=== PATIENT | female | born 1975 | race Caucasian/White ===

== ENCOUNTER 2022-03-17 02:40 | Emergency (ER) | payer OTHER, SELFPAY ==
--- NOTE | ~2022-03-17 | CT_ITS ---
EXAMINATION: CT ABDOMEN AND PELVIS WITHOUT CONTRAST CLINICAL INFORMATION: Left-sided abdominal pain COMPARISON: None TECHNIQUE: Multidetector volumetric imaging was performed from the superior aspect of the liver through the pubic symphysis. Sagittal and coronal reformatted images were obtained on the technologist's workstation. This CT examination was performed using dose optimization techniques as appropriate, variously including the following: *Automated exposure control *Adjustment of mA and/or kV according to patient size (this includes techniques or standardized protocols for targeted exams where dose is matched to indication/reason for exam; i.e. extremities or head) *Use of iterative reconstruction technique DLP: 548 mGy-cm FINDINGS: LUNG BASES: The visualized lung bases are unremarkable. LIVER, GALLBLADDER, AND BILIARY TREE: The liver is normal in size, shape, and attenuation. No focal hepatic lesion or biliary ductal dilatation is present. The gallbladder is unremarkable with no evidence of radiopaque gallstones, gallbladder wall thickening, or obvious pericholecystic inflammatory changes. PANCREAS: Unremarkable. SPLEEN: Unremarkable. ADRENAL GLANDS: Unremarkable. KIDNEYS AND URETERS: No hydronephrosis or obstructing calculus bilaterally. A 3 mm right lower pole renal calculus is noted. BLADDER: Mildly distended and grossly unremarkable. GASTROINTESTINAL TRACT: No evidence of bowel obstruction. There is a thick-walled segment of colon in the left abdomen which appears centered at the splenic flecture with surrounding stranding, suspicious for colitis. Appendix appears nondilated. No free fluid or free air is seen. ABDOMINAL WALL: No significant hernia is appreciated. LYMPH NODES: Normal. VASCULAR: Mild atherosclerotic calcifications are noted. PELVIC VISCERA: Patient appears status post hysterectomy. OSSEOUS STRUCTURES: There is degenerative disc disease with disc space narrowing at L5-S1. Mild degenerative change also noted in the lower thoracic spine. CT/CT abdomen pelvis wo con IMPRESSION: 1. Colonic wall thickening at the splenic flecture, suspicious for colitis. No evidence of bowel obstruction. 2. Right lower pole renal calculus without hydronephrosis.
[2022-03-17 02:53] VITALS: BP 128/72; PULSE 97; RESP 20; TEMP 37; O2SAT 98; BMI 27.4
--- NOTE | 2022-03-17 03:55 | ED.GENADULT ---
HPI - General Adult General Chief complaint: General Medical Stated complaint: blood in stool/urine, n/v Time Seen by Provider: 03/17/22 03:43 Source: patient and family (Patient's ) Mode of arrival: ambulatory Limitations: no limitations History of Present Illness HPI narrative: 46-year-old female who presents emergency department for evaluation of nausea, vomiting, diarrhea and abdominal pain. The patient states she got sick at around 17:00 hours. She states that she has vomited 30-40 times. She states that she has also had 6-7 diarrheal stools which did have blood in the stool. She states that she has had similar episodes nausea vomiting diarrhea and pain in the past has been diagnosed with diverticular and treated with antibiotics. She also states that she has the diagnosis of colitis in over the past 2 days she was having 1-2 bloody stools per day. She currently is complaining of intermittent abdominal pain. She points to her left upper quadrant when asked to localize the pain. She describes the pain as is if she is being stabbed by knives. The pain is 10/10. MD complaint: Abdominal pain, nausea, vomiting, diarrhea Onset (ago): hour(s) (Started at 1700 (7 hours)) Location: abdomen (Left upper quadrant) Radiation: non-radiation Severity: severe Severity scale (1-10): 10 Quality: stabbing Pain Consistency: intermittent (Comes in waves) Relieving factors: none Exacerbating factors: none Associated symptoms: nausea/vomiting and other (Diarrhea) Related Data Previous Rx's Medication Instructions Recorded amoxicillin 500 mg tablet 1,000 mg PO Q12H 10 Days #40 tab 03/17/22 metronidazole 500 mg tablet 500 mg PO TID 10 Days #30 tab 03/17/22 ondansetron 4 mg disintegrating 4 mg PO Q6-8H PRN #14 tab 03/17/22 tablet Allergies Allergy/AdvReac Type Severity Reaction Status Date / Time No Known Allergies Allergy Verified 03/17/22 03:27 Review of Systems Review of Systems: Yes all other systems are reviewed and are negative [facility] Past Medical History [facility] Narrative: Past medical history: Hypertension, diverticulitis, colitis (nonspecific), back pain, sciatica. Past surgical history: Hysterectomy 2010. Social history: She denies tobacco use. She occasionally drinks alcohol. She smokes marijuana daily. Social History Social History Alcohol intake: unknown Use of substances other than those prescribed or required for medical reasons: Unknown Advance Directives: No Advance Directives Information Provided: No Physical Exam ED Vital Signs: Vital Signs - 24 hr 03/17/22 02:53 03/17/22 04:00 Temperature 98.6 F 99.0 F Pulse Rate 97 82 Respiratory Rate 20 16 Blood Pressure 128/72 151/79 H Pulse Oximetry 98 99 BMI result Body Mass Index 27.4 Const Other: Awake, alert, female patient, she does appear to be in distress secondary to her abdominal pain, she is able to answer questions appropriately HENFL Head: Yes normal to inspection, Yes normocephalic and Yes atraumatic Ears: external ears normal General nose exam: Normal external nose present Face and sinus: Yes normal facial exam Mouth: Normal oral and palatal mucosa present Throat: Yes posterior oropharynx normal Eyes General: appearance normal, both eyes and all related structures Pupils: Equal, round and reactive pupils present Neck Neck: Yes normal visual inspection, Yes no lymphadenopathy, Yes trachea midline and Yes supple Chest Chest palpation & inspection: normal inspection of the chest and normal palpation of entire chest wall Resp Effort & Inspection: normal respiratory effort and able to speak in complete sentences Auscultation: clear to auscultation bilaterally Cardio Rate: regular rate Rhythm: regular rhythm Heart sounds: S1 normal heart sound present, S2 normal heart sound present and no murmurs GI Inspection: Yes normal to inspection Palpation (GI): Soft to palpation, Tenderness to palpation present (GI) in the LLQ (Moderate) and no guarding Auscultation: normal bowel sounds General: Yes no CVA tenderness Back/Spine/Pelvis Back: no CVA tenderness Skin General skin exam: no rashes or lesions noted Neuro Cranial nerves: Yes CN's II-XII intact bilaterally and Yes Equal, round and reactive pupils present Cognition (Neuro): normal cognition Motor exam (neuro): 5/5 motor strength present throughout Extrem General: Yes normal to inspection Psych Appearance: grossly normal Speech and movement: Normal speech and movement present Affect: normal affect Attitude: cooperative Thought process: Normal thought process present Thought content: Normal thought content present Course Course Course Narrative: 46-year-old female who presents emergency department for evaluation of abdominal pain, nausea, vomiting and diarrhea since 17 under hours. She states she has vomited 30-40 times, she has had 6-8 episodes of diarrhea, she has left upper quadrant pain which is greater than 10/10. She has had similar presentations in the past secondary to diverticulitis. Vital signs were normal physical examination did reveal left upper quadrant tenderness. I did order laboratory evaluation and CT of the abdomen pelvis without contrast. She patient will be treated with morphine 4 mg IV and Zofran 4 mg IV. I also ordered normal saline IV x2 L. 0538: Laboratory evaluation: WBC elevated 15,900. Bilirubin elevated 2.2. CO2 low 19. Urinalysis negative. Urine test negative Radiology evaluation: CT scan abdomen pelvis without IV contrast interpreted by radiologist as clonic wall thickening at the splenic flexure suspicious for colitis, no evidence of bowel obstruction. Right lower pole renal calculus without hydronephrosis. The patient is feeling significantly better after the above treatment. She states that her pain is now 5/10. She was given a 2nd dose of morphine 4 mg IV. The patient will be treated for colitis with amoxicillin 1000 mg twice a day for 10 days, she was given a dose orally here in the emergency department and metronidazole 500 mg 3 times a day for 10 days, she was given a dose in the emergency department. She was also prescribed Zofran ODT. was given printed and verbal instructions and discharged home Medical Decision Making Lab Data Result diagrams: 03/17/22 04:06 03/17/22 04:06 Labs: Lab Results 03/17/22 03/17/22 03/17/22 Range/Units 04:06 04:06 04:06 WBC 15.9 H (4.8-10.8) X10*3/uL RBC 4.55 (4.20-5.50) X10*6/uL Hgb 13.6 (12.0-16.0) g/dl Hct 39.6 (37.0-47.0) % MCV 87.0 (80.0-98.0) fL MCH 29.9 (27.0-33.0) pg MCHC 34.3 (31.0-35.0) g/dl RDW 12.1 (11.0-16.0) % Plt Count 291 (160-400) X10*3/uL MPV 9.6 (9.4-12.3) fL Immature Gran % (Auto) 0.3 (0.0-0.4) % Neut % (Auto) 90.3 H (45-73) % Lymph % (Auto) 5.5 L (20-40) % [place] % (Auto) 3.8 (2-11) % Eos % (Auto) 0.0 (0-4) % Baso % (Auto) 0.1 (0-2) % Lymph # (Auto) 0.9 L (1.2-4.9) X10*3/uL [place] # (Auto) 0.6 (0.1-1.2) X10*3/uL Eos # (Auto) 0.0 (0.0-0.4) X10*3/uL Baso # (Auto) 0.0 (0.0-0.2) X10*3/uL Abs Immat Gran (auto) 0.05 H (0.00-0.03) X10*3/uL Absolute Neuts (auto) 14.4 H (2.0-8.3) x10*3/uL Absolute Nucleated RBC 0.000 (0.0-0.012) X10*3/uL Nucleated RBC % (auto) 0.0 (0.0-0.2) /100WBC Smear Tech's Comments VERIFIED Sodium 134 L (135-145) mmol/L Potassium 3.5 (3.3-5.1) mmol/L Chloride 99 (96-108) mmol/L Carbon Dioxide 19 L (22-29) mmol/L Anion Gap 20 (12-20) BUN 13 (9-16) mg/dL Creatinine 0.78 (0.5-1.4) mg/dL Estim Creat Clear Calc 86.1 Estimated GFR > 60 Random Glucose 167 H (60-115) mg/dL Calcium 9.9 (8.4-10.2) mg/dL Total Bilirubin 2.2 H (0.0-1.0) mg/dL AST 21 (5-31) U/L ALT 44 H (0-31) U/L Alkaline Phosphatase 82 (39-117) U/L Total Protein 7.4 (6.5-8.0) g/dL Albumin 4.4 (3.5-5.0) g/dL Lipase 7 L (8-78) U/L Urine Color YELLOW Urine Appearance CLEAR Urine pH 7.5 (5.0-8.0) Ur Specific [place] 1.025 (1.005-1.025) Urine Protein 1+ H (NEG-TRACE) MG/DL Urine Glucose (UA) NEG (NEG) MG/DL Urine Ketones >=80 (NEG) MG/DL Urine Blood NEG (NEG) Urine Nitrite NEG (NEG) Ur Leukocyte Esterase NEG (NEG) Urine RBC 1-4 (0) /HPF Urine WBC 1-4 (0-4) /HPF Ur Squamous Epith Cells 1+ /LPF Urine Bacteria 1+ /LPF Urine Test (NEGATIVE) 03/17/22 Range/Units 04:06 WBC (4.8-10.8) X10*3/uL RBC (4.20-5.50) X10*6/uL Hgb (12.0-16.0) g/dl Hct (37.0-47.0) % MCV (80.0-98.0) fL MCH (27.0-33.0) pg MCHC (31.0-35.0) g/dl RDW (11.0-16.0) % Plt Count (160-400) X10*3/uL MPV (9.4-12.3) fL Immature Gran % (Auto) (0.0-0.4) % Neut % (Auto) (45-73) % Lymph % (Auto) (20-40) % [place] % (Auto) (2-11) % Eos % (Auto) (0-4) % Baso % (Auto) (0-2) % Lymph # (Auto) (1.2-4.9) X10*3/uL [place] # (Auto) (0.1-1.2) X10*3/uL Eos # (Auto) (0.0-0.4) X10*3/uL Baso # (Auto) (0.0-0.2) X10*3/uL Abs Immat Gran (auto) (0.00-0.03) X10*3/uL Absolute Neuts (auto) (2.0-8.3) x10*3/uL Absolute Nucleated RBC (0.0-0.012) X10*3/uL Nucleated RBC % (auto) (0.0-0.2) /100WBC Smear Tech's Comments Sodium (135-145) mmol/L Potassium (3.3-5.1) mmol/L Chloride (96-108) mmol/L Carbon Dioxide (22-29) mmol/L Anion Gap (12-20) BUN (9-16) mg/dL Creatinine (0.5-1.4) mg/dL Estim Creat Clear Calc Estimated GFR Random Glucose (60-115) mg/dL Calcium (8.4-10.2) mg/dL Total Bilirubin (0.0-1.0) mg/dL AST (5-31) U/L ALT (0-31) U/L Alkaline Phosphatase (39-117) U/L Total Protein (6.5-8.0) g/dL Albumin (3.5-5.0) g/dL Lipase (8-78) U/L Urine Color Urine Appearance Urine pH (5.0-8.0) Ur Specific [place] (1.005-1.025) Urine Protein (NEG-TRACE) MG/DL Urine Glucose (UA) (NEG) MG/DL Urine Ketones (NEG) MG/DL Urine Blood (NEG) Urine Nitrite (NEG) Ur Leukocyte Esterase (NEG) Urine RBC (0) /HPF Urine WBC (0-4) /HPF Ur Squamous Epith Cells /LPF Urine Bacteria /LPF Urine Test NEGATIVE (NEGATIVE) Discharge Plan Discharge Clinical Impression: Colitis Vomiting Qualifiers: Vomiting type: unspecified Nausea presence: with nausea Qualified Code(s): R11.2 - Nausea with vomiting, unspecified Diarrhea Qualifiers: Diarrhea type: unspecified type Qualified Code(s): R19.7 - Diarrhea, unspecified Patient Disposition: Home, Self-Care Instructions: Colitis (ED) Additional Instructions: Your laboratory evaluation did reveal an elevated white blood cell count otherwise was unremarkable. Your urinalysis was unremarkable. The CT scan of your abdomen did reveal colitis of the colon at the right splenic flexure (the right upper side of your belly). The CT scan also revealed a 3 mm kidney stone which is not the cause of your pain at this time. Take Zofran ODT 4 mg pills, 1 pill dissolved in your mouth every 8 hours as needed for nausea and vomiting. Take amoxicillin 1000 mg, 1 pill every 12 hours for 10 days. Take Flagyl (metronidazole) 500 mg, 1 pill every 6 hours (3 times a day) for 10 days. Follow-up with your doctor in 2 days. Please return to the emergency department if your symptoms get worse or if you develop any symptoms that are concerning to you. Prescriptions: New amoxicillin 500 mg tablet 1,000 mg PO Q12H 10 Days Qty: 40 0RF ondansetron 4 mg tablet,disintegrating 4 mg PO Q6-8H PRN (Reason: nausea and vomiting) Qty: 14 0RF metronidazole 500 mg tablet 500 mg PO TID 10 Days Qty: 30 0RF
[2022-03-17 04:00] VITALS: BP 151/79; PULSE 82; RESP 16; TEMP 37.2; O2SAT 99
[2022-03-17 04:11] LABS: Basophils Percent Auto 0.1 % (0-2); Hematocrit 39.6 % (37.0-47.0); Hemoglobin 13.6 g/dl (12.0-16.0); Imm Gran Abs Auto 0.05 X10*3/uL (0.00-0.03); Imm Gran Pct Auto 0.3 % (0.0-0.4); Lymphocytes Absolute Auto 0.9 X10*3/uL (1.2-4.9); Lymphocytes Percent Auto 5.5 % (20-40); Mean Corpuscular HGB Conc 34.3 g/dl (31.0-35.0); Mean Corpuscular Hemoglobin 29.9 pg (27.0-33.0); Mean Platelet Volume 9.6 fL (9.4-12.3); Monocytes Absolute Auto 0.6 X10*3/uL (0.1-1.2); Monocytes Percent Auto 3.8 % (2-11); Neutrophils Absolute Auto 14.4 x10*3/uL (2.0-8.3); Neutrophils Percent Auto 90.3 % (45-73); Platelet Count 291 X10*3/uL (160-400); Red Blood Count 4.55 X10*6/uL (4.20-5.50); Red Cell Distribution Width 12.1 % (11.0-16.0); SCAN SMEAR FLAG 1; White Blood Count 15.9 X10*3/uL (4.8-10.8)
[2022-03-17 04:12] LABS: MANUAL DIFF FLAG SCAN
[2022-03-17 04:13] LABS: SLIDE REVIEW VERIFIED
[2022-03-17] MEDS: Morphine Sulfate 4 MG/ML CARTRIDGE IVPUSH ×2 (04:13→06:00)
[2022-03-17] MEDS: ondansetron HCL 4 MG/2 ML VIAL IVPUSH (04:13)
[2022-03-17] MEDS: 0.9 % Sodium Chloride 1,000 ML 999 ML IV ×2 (04:15→04:17)
[2022-03-17 04:16] LABS: Appearance Urine CLEAR; Color Urine YELLOW; Glucose Urine UA NEG (NEG); Leukocyte Esterase Urine NEG (NEG); Nitrite Urine NEG (NEG); PH 7.5 (5.0-8.0); Specific Gravity - Urine 1.025 (1.005-1.025); UACC Culture Trigger NO; Urine Blood NEG (NEG); Urine Ketones >=80 MG/DL (NEG); Urine Protein 1+ MG/DL (NEG-TRACE)
[2022-03-17 04:17] LABS: UPreg QC Valid YES; Urine Pregnancy NEGATIVE (NEGATIVE)
[2022-03-17 04:21] LABS: Bacteria Urine 1+ /LPF; Squamous Epithelial Cell Urine 1+ /LPF
[2022-03-17 04:35] LABS: Alanine Aminotransferase 44 U/L (0-31); Albumin Level 4.4 g/dL (3.5-5.0); Alkaline Phosphatase 82 U/L (39-117); Anion Gap 20 (12-20); Aspartate Amino Transferase 21 U/L (5-31); Bilirubin Total 2.2 mg/dL (0.0-1.0); Blood Urea Nitrogen 13 mg/dL (9-16); Calcium 9.9 mg/dL (8.4-10.2); Carbon Dioxide 19 mmol/L (22-29); Chloride 99 mmol/L (96-108); Creatinine Clr Calc Pharmacy 86.1; Estimated Glomerular Filt Rate > 60; Glucose Random 167 mg/dL (60-115); Lipase 7 U/L (8-78); Potassium 3.5 mmol/L (3.3-5.1); Sodium 134 mmol/L (135-145); Total Protein 7.4 g/dL (6.5-8.0)
--- NOTE | 2022-03-17 04:40 | PC.NURSE ---
I assumed nursing care of Esha upon her arrival to be d7 from the waiting room. She presents for evaluation of severe abdominal pain, nausea, vomiting, diarrhea since approximately 1800 on 03/16. She is alert, oriented 3, calm and cooperative and makes eye contact with staff. Respirations are non-labored, RR WNL, room air sat's WNL. She is writhing in her stretcher due to the abdominal pain. =nausea here in the ED but no active vomiting (she vomited prior to arrival). Skin is pale/warm/dry. Family at the bedside. IV access/labs obtained. Ordered meds administered. We will continue to monitor Esha.
[2022-03-17 05:54] VITALS: BP 112/61; PULSE 74; RESP 16; TEMP 37.2; O2SAT 96
[2022-03-17] MEDS: Amoxicillin 500 MG CAPSULE 1000 MG PO (05:59)
[2022-03-17] MEDS: metroNIDAZOLE 500 MG TABLET PO (05:59)
== END 2022-03-17 06:18 | disposition home or self-care (01) ==
PROVIDERS: Emergency Provider Emergency Medicine Emergency Medical Services
DX: K52.9 Noninfective gastroenteritis and colitis, unspecified (principal); R11.2 Nausea with vomiting, unspecified; I10 Essential (primary) hypertension
CPT/HCPCS: 36415; 74176; 80053; 81001; 81025; 83690; 85025; 96361; 96374; 96375; 96376; 99284; J2270; J2405

== ENCOUNTER 2022-04-22 09:04 | Outpatient (REF) | payer OTHER, SELFPAY ==
[2022-04-22 12:16] LABS: C Reactive Protein 0.11 mg/dL (< or = 0.50)
[2022-04-22 12:29] LABS: Thyroid Stimulating Hormone 1.12 uIU/mL (0.32-4.0)
[2022-04-22 12:36] LABS: Erythrocyte Sedimentation Rate 6 MM/HR (0-20)
== END 2022-04-22 09:05 | disposition home or self-care (01) ==
LOC: HO.WFDLDS 09:04
PROVIDERS: Visit Provider Physician Assistant
DX: R10.9 Unspecified abdominal pain (principal); K59.09 Other constipation; R19.7 Diarrhea, unspecified
CPT/HCPCS: 36415; 84443; 85652; 86140

== ENCOUNTER 2023-01-31 12:10 | Inpatient (IN) | payer OTHER, SELFPAY ==
--- NOTE | ~2023-01-31 | CT_ITS ---
EXAMINATION: CT ABDOMEN AND PELVIS WITH AND WITHOUT CONTRAST: CT GI BLEEDING STUDY CLINICAL INFORMATION: Reason for Exam diffuse abd ttp. N/V, rectal bleeding. COMPARISON: CT abdomen pelvis 03/17/2022. TECHNIQUE: Multidetector volumetric imaging was performed from the lung bases to the pubic symphysis before and after the administration of: Intravenous contrast: 80 mL Omnipaque 350 In addition, an additional set of images were obtained 2 minutes after the infusion of IV contrast. No contrast reaction reported MIP coronal, sagittal and coronal reformatted images were obtained on the technologist workstation. This CT examination was performed using dose optimization techniques as appropriate, variously including the following: *Automated exposure control *Adjustment of mA and/or kV according to patient size (this includes techniques or standardized protocols for targeted exams where dose is matched to indication/reason for exam; i.e. extremities or head) *Use of iterative reconstruction technique Total exam dose-length product 1210 mGy-cm FINDINGS: STOMACH: No abnormal wall thickening or mass. No intraluminal contrast accumulation to suggest hemorrhage. SMALL BOWEL: No abnormal wall thickening or dilation. No intraluminal contrast accumulation to suggest hemorrhage. COLON: Edematous changes are seen in the distal transverse colon and descending colon with some hyperemia and minimal inflammatory changes suggesting colitis. Similar findings were present on the 03/17/2022 study. No intraluminal contrast accumulation to suggest hemorrhage. No diverticula are seen. Normal appendix. LUNG BASES: No nodules, mass, or focal consolidation. PLEURA: No pleural effusion. LIVER, GALLBLADDER, AND BILIARY TREE: The liver is normal in size, shape, and attenuation. No focal hepatic lesion or biliary ductal dilatation is present. The gallbladder is unremarkable with no evidence of radiopaque gallstones, gallbladder wall thickening, or obvious pericholecystic inflammatory changes. PANCREAS: Normal; no mass or surrounding fluid. SPLEEN: Normal size. No focal lesion. ADRENAL GLANDS: Normal; no mass. KIDNEYS AND URETERS: The kidneys are normal in size, shape, and attenuation. No hydronephrosis, hydroureter, or calculi. Previously seen right lower pole renal calculus may be obscured by the contrast in the collecting system. ABDOMINAL WALL: No hernia seen. LYMPHOVASCULAR STRUCTURES: No lymphadenopathy. The aorta is normal in caliber. BLADDER: No focal mass or wall thickening seen. No bladder calculi. PELVIC VISCERA: Unremarkable. OSSEOUS STRUCTURES: No acute or suspicious osseous abnormality. Degenerative changes are present most marked in the lower thoracic spine and at L5-S1. CT/CT gi bleed abd pel wo/w IVcon IMPRESSION: 1. No evidence of active GI bleeding. 2. Colitis involving the distal transverse colon and descending colon similar to the findings seen on the 03/17/2022 study. 3. Other incidental findings as described above.
--- NOTE | ~2023-01-31 | US_ITS ---
EXAMINATION: US ABDOMEN LIMITED CLINICAL INFORMATION: Abdominal pain, elevated bilirubin. COMPARISON: None available. TECHNIQUE: Real-time imaging of the right upper quadrant abdominal viscera. FINDINGS: PANCREAS: Normal. LIVER: Normal. The liver is normal in size. The liver contour is normal. Parenchymal echogenicity is normal. No focal hepatic lesion. There is no intrahepatic biliary duct dilatation seen. GALLBLADDER: Normal. The gallbladder is physiologically distended without evidence of stones, sludge, polyps, wall thickening or pericholecystic fluid. COMMON BILE DUCT: Normal in caliber measuring 0.3 cm in diameter. RIGHT KIDNEY: Normal. No hydronephrosis. There is a 5 mm nonobstructing calculus in the midpole. The kidney measures 11.1 cm in maximum dimension. FREE FLUID: None. US/US abdomen limited IMPRESSION: There is a 5 mm nonobstructing calculus in the midpole of the right kidney. Otherwise normal right upper quadrant ultrasound.
--- NOTE | 2023-01-31 12:25 | ED.NAVMDI ---
HPI - Nausea/Vomiting/Diarrhea General Chief complaint: Abdominal Pain <ALEK Monzon Last Filed: 01/31/23 12:32> Stated complaint: vomitting <ALEK Monzon Last Filed: 01/31/23 12:32> Time Seen by Provider: 01/31/23 17:08 <ALEK Monzon Last Filed: 01/31/23 12:32> Source: patient <ALEK Hsieh Last Filed: 01/31/23 19:19> Mode of arrival: ambulatory <ALEK Hsieh Last Filed: 01/31/23 19:19> Limitations: no limitations <ALEK Hsieh Last Filed: 01/31/23 19:19> History of Present Illness HPI Narrative: This is a 47-year-old female history of hypertension, GI bleeds presenting to the emergency department with lower abdominal pain, nausea, vomiting, mu red blood per rectum since 04:00 today. Patient tells me she took Zofran for nausea vomiting without any affect. She tells me she is vomiting everything she tries to eat or drink. She reports large amount of dark red blood per rectum, tells me she has had multiple GI bleeds in the past which have required hospitalization. She tells me that her abdominal pain is localized to the lower abdomen however worse to the left lower quadrant. Last colonoscopy in 2019 unremarkable. Has not seen a GI since then. Denies chest pain, shortness of breath, fevers, chills, headache, vision changes, dizziness weakness. <ALEK Hsieh Last Filed: 01/31/23 19:19> Related Data Home medications: Home Medications Medication Instructions Recorded Confirmed amlodipine 10 mg tablet 10 mg PO DAILY 04/22/22 01/31/23 atorvastatin 20 mg tablet 20 mg PO DAILY 04/22/22 01/31/23 hydrochlorothiazide 25 mg tablet 25 mg PO DAILY 04/22/22 01/31/23 oxycodone 15 mg tablet 15 mg PO Q6H PRN Pain 04/22/22 01/31/23 diazepam 10 mg tablet 10 mg PO Q12H PRN muscle spasm 01/31/23 01/31/23 polyethylene glycol 3350 17 gram 17 g PO DAILY PRN Constipation 01/31/23 01/31/23 oral powder packet (Miralax) <ALEK Monzon - Last Filed: 01/31/23 12:32> Allergies/Adverse reactions: Allergies Allergy/AdvReac Type Severity Reaction Status Date / Time NSAIDS (Non-Steroidal Allergy Severe Hives Verified 04/22/22 08:01 Anti-Inflamma atenolol Allergy Unknown Hives Verified 04/22/22 07:58 ciprofloxacin Allergy Unknown Hives Verified 04/22/22 07:58 ibuprofen Allergy Unknown Hives Verified 04/22/22 07:58 <ALEK Monzon - Last Filed: 01/31/23 12:32> Review of Systems Review of Systems: Constitutional : No Weight loss, No Fever, No Chills, No Fatigue, No Malaise ENT/Mouth : No sore throat, No Rhinorrhea Eyes: No Eye Pain, No Swelling, No Redness Cardiovascular : No Chest Pain, No SOB, No Dyspnea on Exertion, No Orthopnea, No Edema, No Palpitations Respiratory : No Cough, No Sputum, No Wheezing Gastrointestinal : + Nausea, + Vomiting, No Diarrhea, No Constipation, + abdominal Pain, + Hematochezia, No Melena Genitourinary : No Dysuria, No Urinary Frequency, No Hematuria, Musculoskeletal : No joint pain, No Myalgias, No Joint Swelling Skin : No Skin Lesions, No rash Neuro : No Weakness, No Numbness, No Dizziness, No Headache Psych : No Anxiety/Panic, No Depression All other systems reviewed and are negative <ALEK Hsieh - Last Filed: 01/31/23 19:19> Yes all other systems are reviewed and are negative <ALEK Hsieh - Last Filed: 01/31/23 19:19> [facility] Past Medical History Attestation statement: The following information was validated with the patient. <ALEK Hsieh - Last Filed: 01/31/23 19:19> Source: old records reviewed and nursing notes reviewed <ALEK Hsieh - Last Filed: 01/31/23 19:19> Surgical History: Surgical History Hx of hysterectomy Hx of spinal surgery <ALEK Monzon - Last Filed: 01/31/23 12:32> Family History Family History: Family History Mother Diabetes Father Heart disease <ALEK Monzon - Last Filed: 01/31/23 12:32> Social History Social History: Social History Household Members: Significant Other Household Members Other:: Alcohol intake: never Patient Tobacco Use Status: Never used Tobacco Smoked in Last 30 Days: No Use of substances other than those prescribed or required for medical reasons: Yes Substance Use Type: Marijuana Advance Directives: No Advance Directives Information Provided: No <ALEK Monzon - Last Filed: 01/31/23 12:32> Physical Exam Vital Signs: Vital Signs: Last Vital Signs Temp 97.7 F 01/31/23 17:05 Pulse 88 01/31/23 17:05 Resp 16 01/31/23 17:05 BP 136/86 01/31/23 17:05 Pulse Ox 99 01/31/23 17:05 O2 Del Method Room Air 01/31/23 17:05 BMI result Body Mass Index 28.1 <ALEK Monzon - Last Filed: 01/31/23 12:32> Vital Signs: Last Vital Signs Temp 97.7 F 01/31/23 17:05 Pulse 88 01/31/23 17:05 Resp 16 01/31/23 17:05 BP 136/86 01/31/23 17:05 Pulse Ox 99 01/31/23 17:05 O2 Del Method Room Air 01/31/23 17:05 BMI result Body Mass Index 28.1 Vital signs stable <ALEK Hsieh - Last Filed: 01/31/23 19:19> Appearance: Alert.? Oriented X3.? No acute distress.? Head: Normocephalic, atraumatic, no step-offs or deformities Eyes: Pupils equal, round and reactive to light.?? CVS: Normal heart rate and rhythm.? Pulses normal.? Respiratory: No respiratory distress.? Breath sounds normal.? Abdomen: Soft and diffusely tender to lower abdomen however worse on the left lower quadrant..? Skin: Skin warm and dry.? Normal skin color.? Normal skin turgor.? Extremities: No lower extremity edema.? No calf ttp. 5/5 strength to bilateral upper and lower extremities Rectal exam: Normal external exam, no internal or external hemorrhoids appreciated. There is mu red blood per rectum on my REYNA. Neuro: Oriented X 3.? No motor deficit.? No sensory deficit. CN 2-12 intact <ALEK Hsieh - Last Filed: 01/31/23 19:19> Course Course Course Narrative: RME--47 year old female with a past history colitis presented to the ED complaining is abdominal pain, nausea, vomiting, & rectal bleeding since 04:00 Abdomen soft diffusely tender, no rebound/guarding Labs, UA, occult stool, CT AP ordered <ALEK Monzon - Last Filed: 01/31/23 12:32> Reevaluation(s) Reevaluation #1: CBC with elevated white blood cell count likely reactive from nausea and vomiting, however will obtain blood cultures and a lactic at this time. Chemistry with no acute electrolyte abnormalities requiring intervention. Patient's total bilirubin is noted to be elevated at 2.7 however has been elevated in the past at 2.2. Direct bilirubin 0.6. Will obtain a dedicated study to the right upper quadrant. Normal lipase. OBS positive. Concerning for lower GI bleed. Will do serial CBCs while in the emergency department to ensure patient's H&H is not dropping. Patient will likely be admitted to the hospital. CT scan pending. <ALEK Hsieh - Last Filed: 01/31/23 19:19> Time: 18:00 <ALEK Hsieh - Last Filed: 01/31/23 19:19> Reevaluation #2: CT scan with no evidence of active GI bleed. Colitis involving the distal transverse colon and descending colon is noted, similar to findings from last year. Will give Flagyl & Zosyn, will admit to GI team <ALEK Hsieh - Last Filed: 01/31/23 19:19> Time: 18:43 <ALEK Hsieh Last Filed: 01/31/23 19:19> Reevaluation #3: Patient will be admitted to the hospital . US pending <ALEK Hsieh - Last Filed: 01/31/23 19:19> Time: 19:19 <ALEK Hsieh - Last Filed: 01/31/23 19:19> Medications Administered Discontinued Medications Generic Name Dose Route Start Last Admin Trade Name Freq PRN Reason Stop Dose Admin Diphenhydramine HCl 25 mg 01/31/23 18:36 01/31/23 18:49 Diphenhydramine Hcl 50 Mg/Ml Vial IVPUSH 01/31/23 18:37 25 mg ONCE ONE Administration Sodium Chloride 1,000 mls @ 999 mls/hr 01/31/23 18:00 01/31/23 18:31 Ns IV 01/31/23 19:00 999 mls/hr .Q1H1M LAURA Administration Piperacillin Sod/Tazobactam 50 mls @ 100 mls/hr 01/31/23 18:44 01/31/23 19:14 Sod 3.375 gm/ Sodium Chloride IV 01/31/23 19:13 100 mls/hr ONCE ONE Administration Iohexol 100 ml 01/31/23 17:50 01/31/23 17:51 Iohexol 350 Mg/Ml 100 Ml Infus..Btl IV 01/31/23 17:51 80 ml ONCE ONE Administration Metoclopramide HCl 10 mg 01/31/23 18:36 01/31/23 18:50 Metoclopramide Hcl 10 Mg/2 Ml Vial IVPUSH 01/31/23 18:37 10 mg ONCE ONE Administration Morphine Sulfate 4 mg 01/31/23 17:58 01/31/23 18:31 Morphine Sulfate 4 Mg/Ml Cartridge IVPUSH 01/31/23 17:59 4 mg ONCE ONE Administration Protocol Ondansetron HCl 4 mg 01/31/23 17:58 01/31/23 18:59 Ondansetron Hcl 4 Mg/2 Ml Vial IVPUSH 01/31/23 17:59 Not Given ONCE ONE <ALEK Monzon - Last Filed: 01/31/23 12:32> Medications Administered Discontinued Medications Generic Name Dose Route Start Last Admin Trade Name Freq PRN Reason Stop Dose Admin Diphenhydramine HCl 25 mg 01/31/23 18:36 01/31/23 18:49 Diphenhydramine Hcl 50 Mg/Ml Vial IVPUSH 01/31/23 18:37 25 mg ONCE ONE Administration Sodium Chloride 1,000 mls @ 999 mls/hr 01/31/23 18:00 01/31/23 18:31 Ns IV 01/31/23 19:00 999 mls/hr .Q1H1M LAURA Administration Piperacillin Sod/Tazobactam 50 mls @ 100 mls/hr 01/31/23 18:44 01/31/23 19:14 Sod 3.375 gm/ Sodium Chloride IV 01/31/23 19:13 100 mls/hr ONCE ONE Administration Iohexol 100 ml 01/31/23 17:50 01/31/23 17:51 Iohexol 350 Mg/Ml 100 Ml Infus..Btl IV 01/31/23 17:51 80 ml ONCE ONE Administration Metoclopramide HCl 10 mg 01/31/23 18:36 01/31/23 18:50 Metoclopramide Hcl 10 Mg/2 Ml Vial IVPUSH 01/31/23 18:37 10 mg ONCE ONE Administration Morphine Sulfate 4 mg 01/31/23 17:58 01/31/23 18:31 Morphine Sulfate 4 Mg/Ml Cartridge IVPUSH 01/31/23 17:59 4 mg ONCE ONE Administration Protocol Ondansetron HCl 4 mg 01/31/23 17:58 01/31/23 18:59 Ondansetron Hcl 4 Mg/2 Ml Vial IVPUSH 01/31/23 17:59 Not Given ONCE ONE <ALEK Hsieh - Last Filed: 01/31/23 19:19> Medical Decision Making Medical Decision Making [facility] Narrative: 171 47-year-old female presents for evaluation nausea, vomiting pain and rectal bleeding since 04:00 today. History of GI bleeds. Physical exam significant for lower abdominal tenderness to palpation worse on the left lower quadrant. Rectal exam with mu per rectum. Concerns for lower GI bleed, diverticulitis, colitis. No signs of acute abdomen. Other differentials include internal hemorrhoids. Patient is hemodynamically stable no signs of hemodynamic instability. Other differentials include viral illness Plan at this time OBS, basic labs, type and screen, CT of the abdomen and pelvis, Zofran for nausea vomiting. Will give morphine for pain. <ALEK Hsieh - Last Filed: 01/31/23 19:19> Differential Diagnosis Differential Diagnoses: The differential diagnosis associated with the presentation includes <ALEK Hsieh - Last Filed: 01/31/23 19:19> Concerns for lower GI bleed, diverticulitis, colitis. No signs of acute abdomen. Other differentials include internal hemorrhoids. Patient is hemodynamically stable no signs of hemodynamic instability. Other differentials include viral illness <ALEK Hsieh - Last Filed: 01/31/23 19:19> Admission/Observation Consideration of admission/observation: Escalation of care including admission/observation considered <ALEK Hsieh - Last Filed: 01/31/23 19:19> Will likely require hospital admission <ALEK Hsieh - Last Filed: 01/31/23 19:19> Lab Data MDM Lab Attestation statement: I reviewed the patient's lab results. <ALEK Hsieh - Last Filed: 01/31/23 19:19> Result Diagrams: 01/31/23 12:35 01/31/23 12:35 <ALEK Monzon - Last Filed: 01/31/23 12:32> Labs: Lab Results 01/31/23 01/31/23 01/31/23 Range/Units 12:35 12:35 12:35 WBC 16.3 H (4.8-10.8) X10*3/uL RBC 4.93 (4.20-5.50) X10*6/uL Hgb 14.9 (12.0-16.0) g/dl Hct 42.9 (37.0-47.0) % MCV 87.0 (80.0-98.0) fL MCH 30.2 (27.0-33.0) pg MCHC 34.7 (31.0-35.0) g/dl RDW 12.2 (11.0-16.0) % Plt Count 320 (160-400) X10*3/uL MPV 9.5 (9.4-12.3) fL Immature Gran % (Auto) 0.4 (0.0-0.4) % Neut % (Auto) 93.9 H (45-73) % Lymph % (Auto) 3.7 L (20-40) % [place] % (Auto) 1.8 L (2-11) % Eos % (Auto) 0.0 (0-4) % Baso % (Auto) 0.2 (0-2) % Lymph # (Auto) 0.6 L (1.2-4.9) X10*3/uL [place] # (Auto) 0.3 (0.1-1.2) X10*3/uL Eos # (Auto) 0.0 (0.0-0.4) X10*3/uL Baso # (Auto) 0.0 (0.0-0.2) X10*3/uL Abs Immat Gran (auto) 0.07 H (0.00-0.03) X10*3/uL Absolute Neuts (auto) 15.3 H (2.0-8.3) x10*3/uL Absolute Nucleated RBC 0.000 (0.0-0.012) X10*3/uL Nucleated RBC % (auto) 0.0 (0.0-0.2) /100WBC Smear Tech's Comments VERIFIED PT 10.3 (10.0-13.1) SEC INR 0.9 (0.9-1.1) Sodium 139 (135-145) mmol/L Potassium 4.6 D (3.3-5.1) mmol/L Chloride 105 (96-108) mmol/L Carbon Dioxide 22 (22-29) mmol/L Anion Gap 17 (12-20) BUN 12 (9-16) mg/dL Creatinine 0.70 (0.5-1.4) mg/dL Estim Creat Clear Calc 96.0 Estimated GFR > 60 Random Glucose 129 H (60-115) mg/dL Lactic Acid (0.5-2.0) mmol/L Calcium 9.7 (8.4-10.2) mg/dL Magnesium 2.2 (1.6-2.6) mg/dL Total Bilirubin 2.7 H (0.0-1.0) mg/dL Direct Bilirubin 0.6 H (0.0-0.5) mg/dL AST 26 (5-31) U/L ALT 34 H (0-31) U/L Alkaline Phosphatase 104 (39-117) U/L C-Reactive Protein 0.22 (< or = 0.50) mg/dL Total Protein 7.4 (6.5-8.0) g/dL Albumin 4.2 (3.5-5.0) g/dL Lipase 12 (8-78) U/L Urine Color Urine Appearance Urine pH (5.0-9.0) Ur Specific [place] (1.005-1.025) Urine Protein (Neg-Trace) mg/dL Urine Glucose (UA) (Negative) mg/dL Urine Ketones (Negative) mg/dL Urine Blood (Negative) Urine Nitrite (Negative) Ur Leukocyte Esterase (Negative) Stool Occult Blood (NEGATIVE) Blood Type Antibody Screen 01/31/23 01/31/23 01/31/23 Range/Units 17:33 17:33 18:28 WBC (4.8-10.8) X10*3/uL RBC (4.20-5.50) X10*6/uL Hgb (12.0-16.0) g/dl Hct (37.0-47.0) % MCV (80.0-98.0) fL MCH (27.0-33.0) pg MCHC (31.0-35.0) g/dl RDW (11.0-16.0) % Plt Count (160-400) X10*3/uL MPV (9.4-12.3) fL Immature Gran % (Auto) (0.0-0.4) % Neut % (Auto) (45-73) % Lymph % (Auto) (20-40) % [place] % (Auto) (2-11) % Eos % (Auto) (0-4) % Baso % (Auto) (0-2) % Lymph # (Auto) (1.2-4.9) X10*3/uL [place] # (Auto) (0.1-1.2) X10*3/uL Eos # (Auto) (0.0-0.4) X10*3/uL Baso # (Auto) (0.0-0.2) X10*3/uL Abs Immat Gran (auto) (0.00-0.03) X10*3/uL Absolute Neuts (auto) (2.0-8.3) x10*3/uL Absolute Nucleated RBC (0.0-0.012) X10*3/uL Nucleated RBC % (auto) (0.0-0.2) /100WBC Smear Tech's Comments PT (10.0-13.1) SEC INR (0.9-1.1) Sodium (135-145) mmol/L Potassium (3.3-5.1) mmol/L Chloride (96-108) mmol/L Carbon Dioxide (22-29) mmol/L Anion Gap (12-20) BUN (9-16) mg/dL Creatinine (0.5-1.4) mg/dL Estim Creat Clear Calc Estimated GFR Random Glucose (60-115) mg/dL Lactic Acid 1.0 (0.5-2.0) mmol/L Calcium (8.4-10.2) mg/dL Magnesium (1.6-2.6) mg/dL Total Bilirubin (0.0-1.0) mg/dL Direct Bilirubin (0.0-0.5) mg/dL AST (5-31) U/L ALT (0-31) U/L Alkaline Phosphatase (39-117) U/L C-Reactive Protein (< or = 0.50) mg/dL Total Protein (6.5-8.0) g/dL Albumin (3.5-5.0) g/dL Lipase (8-78) U/L Urine Color Urine Appearance Urine pH (5.0-9.0) Ur Specific [place] (1.005-1.025) Urine Protein (Neg-Trace) mg/dL Urine Glucose (UA) (Negative) mg/dL Urine Ketones (Negative) mg/dL Urine Blood (Negative) Urine Nitrite (Negative) Ur Leukocyte Esterase (Negative) Stool Occult Blood POSITIVE (NEGATIVE) Blood Type A Positive Antibody Screen NEGATIVE 01/31/23 01/31/23 Range/Units 18:29 18:42 WBC 13.3 H (4.8-10.8) X10*3/uL RBC 4.54 (4.20-5.50) X10*6/uL Hgb 13.6 (12.0-16.0) g/dl Hct 39.4 (37.0-47.0) % MCV 86.8 (80.0-98.0) fL MCH 30.0 (27.0-33.0) pg MCHC 34.5 (31.0-35.0) g/dl RDW 12.2 (11.0-16.0) % Plt Count 300 (160-400) X10*3/uL MPV 9.6 (9.4-12.3) fL Immature Gran % (Auto) 0.3 (0.0-0.4) % Neut % (Auto) 78.0 H (45-73) % Lymph % (Auto) 12.9 L (20-40) % [place] % (Auto) 8.3 (2-11) % Eos % (Auto) 0.3 (0-4) % Baso % (Auto) 0.2 (0-2) % Lymph # (Auto) 1.7 (1.2-4.9) X10*3/uL [place] # (Auto) 1.1 (0.1-1.2) X10*3/uL Eos # (Auto) 0.0 (0.0-0.4) X10*3/uL Baso # (Auto) 0.0 (0.0-0.2) X10*3/uL Abs Immat Gran (auto) 0.04 H (0.00-0.03) X10*3/uL Absolute Neuts (auto) 10.4 H (2.0-8.3) x10*3/uL Absolute Nucleated RBC 0.000 (0.0-0.012) X10*3/uL Nucleated RBC % (auto) 0.0 (0.0-0.2) /100WBC Smear Tech's Comments PT (10.0-13.1) SEC INR (0.9-1.1) Sodium (135-145) mmol/L Potassium (3.3-5.1) mmol/L Chloride (96-108) mmol/L Carbon Dioxide (22-29) mmol/L Anion Gap (12-20) BUN (9-16) mg/dL Creatinine (0.5-1.4) mg/dL Estim Creat Clear Calc Estimated GFR Random Glucose (60-115) mg/dL Lactic Acid (0.5-2.0) mmol/L Calcium (8.4-10.2) mg/dL Magnesium (1.6-2.6) mg/dL Total Bilirubin (0.0-1.0) mg/dL Direct Bilirubin (0.0-0.5) mg/dL AST (5-31) U/L ALT (0-31) U/L Alkaline Phosphatase (39-117) U/L C-Reactive Protein (< or = 0.50) mg/dL Total Protein (6.5-8.0) g/dL Albumin (3.5-5.0) g/dL Lipase (8-78) U/L Urine Color Yellow Urine Appearance Clear Urine pH 6.5 (5.0-9.0) Ur Specific [place] >= 1.030 H (1.005-1.025) Urine Protein Trace (Neg-Trace) mg/dL Urine Glucose (UA) Negative (Negative) mg/dL Urine Ketones 15 (Negative) mg/dL Urine Blood Negative (Negative) Urine Nitrite Negative (Negative) Ur Leukocyte Esterase Negative (Negative) Stool Occult Blood (NEGATIVE) Blood Type Antibody Screen <ALEK Monzon - Last Filed: 01/31/23 12:32> Lab Results 01/31/23 01/31/23 01/31/23 Range/Units 12:35 12:35 12:35 WBC 16.3 H (4.8-10.8) X10*3/uL RBC 4.93 (4.20-5.50) X10*6/uL Hgb 14.9 (12.0-16.0) g/dl Hct 42.9 (37.0-47.0) % MCV 87.0 (80.0-98.0) fL MCH 30.2 (27.0-33.0) pg MCHC 34.7 (31.0-35.0) g/dl RDW 12.2 (11.0-16.0) % Plt Count 320 (160-400) X10*3/uL MPV 9.5 (9.4-12.3) fL Immature Gran % (Auto) 0.4 (0.0-0.4) % Neut % (Auto) 93.9 H (45-73) % Lymph % (Auto) 3.7 L (20-40) % [place] % (Auto) 1.8 L (2-11) % Eos % (Auto) 0.0 (0-4) % Baso % (Auto) 0.2 (0-2) % Lymph # (Auto) 0.6 L (1.2-4.9) X10*3/uL [place] # (Auto) 0.3 (0.1-1.2) X10*3/uL Eos # (Auto) 0.0 (0.0-0.4) X10*3/uL Baso # (Auto) 0.0 (0.0-0.2) X10*3/uL Abs Immat Gran (auto) 0.07 H (0.00-0.03) X10*3/uL Absolute Neuts (auto) 15.3 H (2.0-8.3) x10*3/uL Absolute Nucleated RBC 0.000 (0.0-0.012) X10*3/uL Nucleated RBC % (auto) 0.0 (0.0-0.2) /100WBC Smear Tech's Comments VERIFIED PT 10.3 (10.0-13.1) SEC INR 0.9 (0.9-1.1) Sodium 139 (135-145) mmol/L Potassium 4.6 D (3.3-5.1) mmol/L Chloride 105 (96-108) mmol/L Carbon Dioxide 22 (22-29) mmol/L Anion Gap 17 (12-20) BUN 12 (9-16) mg/dL Creatinine 0.70 (0.5-1.4) mg/dL Estim Creat Clear Calc 96.0 Estimated GFR > 60 Random Glucose 129 H (60-115) mg/dL Lactic Acid (0.5-2.0) mmol/L Calcium 9.7 (8.4-10.2) mg/dL Magnesium 2.2 (1.6-2.6) mg/dL Total Bilirubin 2.7 H (0.0-1.0) mg/dL Direct Bilirubin 0.6 H (0.0-0.5) mg/dL AST 26 (5-31) U/L ALT 34 H (0-31) U/L Alkaline Phosphatase 104 (39-117) U/L C-Reactive Protein 0.22 (< or = 0.50) mg/dL Total Protein 7.4 (6.5-8.0) g/dL Albumin 4.2 (3.5-5.0) g/dL Lipase 12 (8-78) U/L Urine Color Urine Appearance Urine pH (5.0-9.0) Ur Specific [place] (1.005-1.025) Urine Protein (Neg-Trace) mg/dL Urine Glucose (UA) (Negative) mg/dL Urine Ketones (Negative) mg/dL Urine Blood (Negative) Urine Nitrite (Negative) Ur Leukocyte Esterase (Negative) Stool Occult Blood (NEGATIVE) Blood Type Antibody Screen 01/31/23 01/31/23 01/31/23 Range/Units 17:33 17:33 18:28 WBC (4.8-10.8) X10*3/uL RBC (4.20-5.50) X10*6/uL Hgb (12.0-16.0) g/dl Hct (37.0-47.0) % MCV (80.0-98.0) fL MCH (27.0-33.0) pg MCHC (31.0-35.0) g/dl RDW (11.0-16.0) % Plt Count (160-400) X10*3/uL MPV (9.4-12.3) fL Immature Gran % (Auto) (0.0-0.4) % Neut % (Auto) (45-73) % Lymph % (Auto) (20-40) % [place] % (Auto) (2-11) % Eos % (Auto) (0-4) % Baso % (Auto) (0-2) % Lymph # (Auto) (1.2-4.9) X10*3/uL [place] # (Auto) (0.1-1.2) X10*3/uL Eos # (Auto) (0.0-0.4) X10*3/uL Baso # (Auto) (0.0-0.2) X10*3/uL Abs Immat Gran (auto) (0.00-0.03) X10*3/uL Absolute Neuts (auto) (2.0-8.3) x10*3/uL Absolute Nucleated RBC (0.0-0.012) X10*3/uL Nucleated RBC % (auto) (0.0-0.2) /100WBC Smear Tech's Comments PT (10.0-13.1) SEC INR (0.9-1.1) Sodium (135-145) mmol/L Potassium (3.3-5.1) mmol/L Chloride (96-108) mmol/L Carbon Dioxide (22-29) mmol/L Anion Gap (12-20) BUN (9-16) mg/dL Creatinine (0.5-1.4) mg/dL Estim Creat Clear Calc Estimated GFR Random Glucose (60-115) mg/dL Lactic Acid 1.0 (0.5-2.0) mmol/L Calcium (8.4-10.2) mg/dL Magnesium (1.6-2.6) mg/dL Total Bilirubin (0.0-1.0) mg/dL Direct Bilirubin (0.0-0.5) mg/dL AST (5-31) U/L ALT (0-31) U/L Alkaline Phosphatase (39-117) U/L C-Reactive Protein (< or = 0.50) mg/dL Total Protein (6.5-8.0) g/dL Albumin (3.5-5.0) g/dL Lipase (8-78) U/L Urine Color Urine Appearance Urine pH (5.0-9.0) Ur Specific [place] (1.005-1.025) Urine Protein (Neg-Trace) mg/dL Urine Glucose (UA) (Negative) mg/dL Urine Ketones (Negative) mg/dL Urine Blood (Negative) Urine Nitrite (Negative) Ur Leukocyte Esterase (Negative) Stool Occult Blood POSITIVE (NEGATIVE) Blood Type A Positive Antibody Screen NEGATIVE 01/31/23 01/31/23 Range/Units 18:29 18:42 WBC 13.3 H (4.8-10.8) X10*3/uL RBC 4.54 (4.20-5.50) X10*6/uL Hgb 13.6 (12.0-16.0) g/dl Hct 39.4 (37.0-47.0) % MCV 86.8 (80.0-98.0) fL MCH 30.0 (27.0-33.0) pg MCHC 34.5 (31.0-35.0) g/dl RDW 12.2 (11.0-16.0) % Plt Count 300 (160-400) X10*3/uL MPV 9.6 (9.4-12.3) fL Immature Gran % (Auto) 0.3 (0.0-0.4) % Neut % (Auto) 78.0 H (45-73) % Lymph % (Auto) 12.9 L (20-40) % [place] % (Auto) 8.3 (2-11) % Eos % (Auto) 0.3 (0-4) % Baso % (Auto) 0.2 (0-2) % Lymph # (Auto) 1.7 (1.2-4.9) X10*3/uL [place] # (Auto) 1.1 (0.1-1.2) X10*3/uL Eos # (Auto) 0.0 (0.0-0.4) X10*3/uL Baso # (Auto) 0.0 (0.0-0.2) X10*3/uL Abs Immat Gran (auto) 0.04 H (0.00-0.03) X10*3/uL Absolute Neuts (auto) 10.4 H (2.0-8.3) x10*3/uL Absolute Nucleated RBC 0.000 (0.0-0.012) X10*3/uL Nucleated RBC % (auto) 0.0 (0.0-0.2) /100WBC Smear Tech's Comments PT (10.0-13.1) SEC INR (0.9-1.1) Sodium (135-145) mmol/L Potassium (3.3-5.1) mmol/L Chloride (96-108) mmol/L Carbon Dioxide (22-29) mmol/L Anion Gap (12-20) BUN (9-16) mg/dL Creatinine (0.5-1.4) mg/dL Estim Creat Clear Calc Estimated GFR Random Glucose (60-115) mg/dL Lactic Acid (0.5-2.0) mmol/L Calcium (8.4-10.2) mg/dL Magnesium (1.6-2.6) mg/dL Total Bilirubin (0.0-1.0) mg/dL Direct Bilirubin (0.0-0.5) mg/dL AST (5-31) U/L ALT (0-31) U/L Alkaline Phosphatase (39-117) U/L C-Reactive Protein (< or = 0.50) mg/dL Total Protein (6.5-8.0) g/dL Albumin (3.5-5.0) g/dL Lipase (8-78) U/L Urine Color Yellow Urine Appearance Clear Urine pH 6.5 (5.0-9.0) Ur Specific [place] >= 1.030 H (1.005-1.025) Urine Protein Trace (Neg-Trace) mg/dL Urine Glucose (UA) Negative (Negative) mg/dL Urine Ketones 15 (Negative) mg/dL Urine Blood Negative (Negative) Urine Nitrite Negative (Negative) Ur Leukocyte Esterase Negative (Negative) Stool Occult Blood (NEGATIVE) Blood Type Antibody Screen <ALEK Hsieh - Last Filed: 01/31/23 19:19> Independent Interpretation I performed an independent interpretation of an: CT Scan (CT/CT gi bleed abd pel wo/w IVcon IMPRESSION: 1. No evidence of active GI bleeding. 2. Colitis involving the distal transverse colon and descending colon similar to the findings seen on the 03/17/2022 study. 3. Other incidental findings as described above. ) <ALEK Hsieh - Last Filed: 01/31/23 19:19> Radiology Impression Discussion of test interpretation with radiology: I have reviewed the radiologist's reading. <ALEK Hsieh - Last Filed: 01/31/23 19:19> External Record Review External record reviewed: Inpatient record, Office record, Outpatient record, Prior outpatient labs, Prior outpatient radiology, Primary care record and Outside ED record <ALEK Hsieh - Last Filed: 01/31/23 19:19> Core Measures AMI core measures followed: Yes <ALEK Hsieh - Last Filed: 01/31/23 19:19> Measure exclusions: not indicated <ALEK Hsieh - Last Filed: 01/31/23 19:19> Critical Care Time Critical Care Time Critical Care Time: No <ALEK Hsieh Last Filed: 01/31/23 19:19> Discharge Plan Discharge Clinical Impression: Abdominal pain, Acute lower GI bleeding, Nausea & vomiting, Hyperbilirubinemia, Colitis <ALEK Monzon - Last Filed: 01/31/23 12:32> Patient Disposition: Admitted As Inpatient <ALEK Monzon - Last Filed: 01/31/23 12:32>
[2023-01-31 12:28] VITALS: BP 141/89; PULSE 98; RESP 18; TEMP 37.2; O2SAT 99; BMI 28.1
[2023-01-31 12:45] LABS: Basophils Percent Auto 0.2 % (0-2); Hematocrit 42.9 % (37.0-47.0); Hemoglobin 14.9 g/dl (12.0-16.0); Imm Gran Abs Auto 0.07 X10*3/uL (0.00-0.03); Imm Gran Pct Auto 0.4 % (0.0-0.4); Lymphocytes Absolute Auto 0.6 X10*3/uL (1.2-4.9); Lymphocytes Percent Auto 3.7 % (20-40); MANUAL DIFF FLAG SCAN; Mean Corpuscular HGB Conc 34.7 g/dl (31.0-35.0); Mean Corpuscular Hemoglobin 30.2 pg (27.0-33.0); Mean Platelet Volume 9.5 fL (9.4-12.3); Monocytes Absolute Auto 0.3 X10*3/uL (0.1-1.2); Monocytes Percent Auto 1.8 % (2-11); Neutrophils Absolute Auto 15.3 x10*3/uL (2.0-8.3); Neutrophils Percent Auto 93.9 % (45-73); Platelet Count 320 X10*3/uL (160-400); Red Blood Count 4.93 X10*6/uL (4.20-5.50); Red Cell Distribution Width 12.2 % (11.0-16.0); SCAN SMEAR FLAG 1; White Blood Count 16.3 X10*3/uL (4.8-10.8)
[2023-01-31 12:51] LABS: INTERNATIONAL NORM RATIO 0.9 (0.9-1.1); Prothrombin Time 10.3 SEC (10.0-13.1)
[2023-01-31 13:02] LABS: SLIDE REVIEW VERIFIED
[2023-01-31 13:57] LABS: Alanine Aminotransferase 34 U/L (0-31); Albumin Level 4.2 g/dL (3.5-5.0); Alkaline Phosphatase 104 U/L (39-117); Anion Gap 17 (12-20); Aspartate Amino Transferase 26 U/L (5-31); Bilirubin Direct 0.6 mg/dL (0.0-0.5); Bilirubin Total 2.7 mg/dL (0.0-1.0); Blood Urea Nitrogen 12 mg/dL (9-16); Calcium 9.7 mg/dL (8.4-10.2); Carbon Dioxide 22 mmol/L (22-29); Chloride 105 mmol/L (96-108); Estimated Glomerular Filt Rate > 60; Glucose Random 129 mg/dL (60-115); Lipase 12 U/L (8-78); Magnesium 2.2 mg/dL (1.6-2.6); Potassium 4.6 mmol/L (3.3-5.1); Sodium 139 mmol/L (135-145); Total Protein 7.4 g/dL (6.5-8.0)
[2023-01-31 17:05] VITALS: BP 136/86; PULSE 88; RESP 16; TEMP 36.5; O2SAT 99
[2023-01-31] MEDS: iohexoL 350 MG/ML 100 ML INFUS..BTL IV (17:51)
[2023-01-31 17:52] LABS: OBS Int Ctl Valid YES; OBS1 POSITIVE (NEGATIVE)
--- NOTE | 2023-01-31 18:11 | PHA.MEDREC ---
Pharmacy Consult ? Medication Reconciliation Pharmacy has completed the medication reconciliation. Spoke to patient to confirm meds.
[2023-01-31] MEDS: Morphine Sulfate 4 MG/ML CARTRIDGE IVPUSH ×2 (18:31→23:53)
[2023-01-31] MEDS: 0.9 % Sodium Chloride 1,000 ML 999 ML IV (18:31)
[2023-01-31 18:42] LABS: Appearance Urine Clear; Color Urine Yellow; Glucose Urine UA Negative (Negative); Leukocyte Esterase Urine Negative (Negative); Nitrite Urine Negative (Negative); PH 6.5 (5.0-9.0); Specific Gravity - Urine >= 1.030 (1.005-1.025); Urine Blood Negative (Negative); Urine Ketones 15 mg/dL (Negative); Urine Protein Trace mg/dL (Neg-Trace)
[2023-01-31] MEDS: diphenhydrAMINE HCL 50 MG/ML VIAL 25 MG IVPUSH (18:49)
[2023-01-31] MEDS: Metoclopramide HCl 10 MG/2 ML VIAL IVPUSH (18:50)
[2023-01-31 18:53] LABS: MANUAL DIFF FLAG NO
[2023-01-31 18:53] LABS: C Reactive Protein 0.22 mg/dL (< or = 0.50)
[2023-01-31 18:55] LABS: Basophils Percent Auto 0.2 % (0-2); Eosinophils Percent Auto 0.3 % (0-4); Hematocrit 39.4 % (37.0-47.0); Hemoglobin 13.6 g/dl (12.0-16.0); Imm Gran Abs Auto 0.04 X10*3/uL (0.00-0.03); Imm Gran Pct Auto 0.3 % (0.0-0.4); Lymphocytes Absolute Auto 1.7 X10*3/uL (1.2-4.9); Lymphocytes Percent Auto 12.9 % (20-40); Mean Corpuscular HGB Conc 34.5 g/dl (31.0-35.0); Mean Corpuscular Volume 86.8 fL (80.0-98.0); Mean Platelet Volume 9.6 fL (9.4-12.3); Monocytes Absolute Auto 1.1 X10*3/uL (0.1-1.2); Monocytes Percent Auto 8.3 % (2-11); Neutrophils Absolute Auto 10.4 x10*3/uL (2.0-8.3); Platelet Count 300 X10*3/uL (160-400); Red Blood Count 4.54 X10*6/uL (4.20-5.50); Red Cell Distribution Width 12.2 % (11.0-16.0); White Blood Count 13.3 X10*3/uL (4.8-10.8)
--- NOTE | 2023-01-31 19:03 | PC.NURSE ---
Patient got ultrasound at bedside. did not receive zofran as she took her home dose while in waiting room. Provider made aware and patient medicated with reglan and benadryl. Patient calm and cooperative.
[2023-01-31] MEDS: Piperacillin Sodium/Tazobactam 3.375 GM in 0.9 % Sodium Chloride 50 ML IV (19:14)
[2023-01-31 19:35] LABS: Erythrocyte Sedimentation Rate 7 MM/HR (0-20)
[2023-01-31 20:00] VITALS: BP 106/64; PULSE 73; RESP 16; TEMP 36.7; O2SAT 96
[2023-01-31] MEDS: metroNIDAZOLE/NS 500 MG/100 ML PIGGYBACK 100 MG IV (20:07)
--- NOTE | 2023-01-31 20:30 | PM.IMHP ---
History of Present Illness Date of Service: 01/31/23 Attending physician on admission: Mari Goyal Chief Complaint: Abdominal pain Pt is a 47-year-old female with a PMH significant for?HTN, HLD, prior GI bleeds, colitis, diverticulitis, sciatica on chronic opioids, and meningitis in 2007 who presents to the ED with?intractable nausea and vomiting and diarrhea with mu red blood per rectum. Pt states symptoms began last night when she was out to eat and suddenly began feeling nauseous and incapable of eating another bite. Went to bed and was awoken at 04:00 nausea, vomiting, and bloody diarrhea. Had diffuse abdominal pain that was particularly prominent in upper right quadrant. Pt also experienced chills, diaphoresis, lightheadedness, and dizziness. No chest pain/pressure, palpitations. No shortness of breath. Patient has long history of gastrointestinal issues and states she has been to various emergency rooms for similar symptoms at least 15 times since 2009 and been admitted at least 4 times. Has been diagnosed with both diverticulitis and colitis. States he has seen GI specialist in the past but has yet to be formally diagnosed with ulcerative colitis. In the ED patient was afebrile and satting at 99% on RA. Labs were significant for leukocytosis of 16.3 with repeat 13.3, H&H stable at 14 0.9/42.9 with repeat of 13.6/39.4, ESR WNL at 7, lactic acid WNL at 1.0, elevated total bilirubin of 2.7, lipase WNL. Stool positive for occult blood. CT?of abdomen and pelvis found no evidence of active GI bleeding but did note colitis involving the distal transverse colon and descending colon, similar to findings seen on previous study. Abdominal ultrasound from normal pancreas, liver, gallbladder, common bile duct, no hydronephrosis but a 5 mm nonobstructing calculus in the midpole of right kidney. Pt was treated with morphine, IVF, diphenhydramine, metoclopramide, ondansetron, Zosyn, and metronidazole. Pt will be admitted to the hospital for treatment and further evaluation of acute colitis with IVF and IV antibiotics. Review of Systems Review of Systems: Intractable nausea and vomiting Bloody diarrhea Abdominal pain Lightheadedness, dizziness Chills, diaphoresis Denies chest pain/pressure, palpitations No shortness of breath Yes all other systems are reviewed and are negative [facility] Family History Mother Diabetes Father Heart disease Surgical History Hx of hysterectomy Hx of spinal surgery Social History Household Members: Significant Other Household Members Other:: Alcohol intake: never Patient Tobacco Use Status: Never used Tobacco Substance Use Type: Marijuana Meds Allergies Allergy/AdvReac Type Severity Reaction Status Date / Time NSAIDS (Non-Steroidal Allergy Severe Hives Verified 04/22/22 08:01 Anti-Inflamma atenolol Allergy Unknown Hives Verified 04/22/22 07:58 ciprofloxacin Allergy Unknown Hives Verified 04/22/22 07:58 ibuprofen Allergy Unknown Hives Verified 04/22/22 07:58 Active Medications: Current Medications Pharmacy Consult (Consult Rx Perform Med Rec) 1 each MISCELLANE ONCE PRN PRN Reason: Consult order Home Medications Medication Instructions Recorded Confirmed Last Taken Type amlodipine 10 mg tablet 10 mg PO DAILY 04/22/22 01/31/23 01/30/23 History atorvastatin 20 mg tablet 20 mg PO DAILY 04/22/22 01/31/23 01/30/23 History hydrochlorothiazide 25 mg tablet 25 mg PO DAILY 04/22/22 01/31/23 01/30/23 History oxycodone 15 mg tablet 15 mg PO Q6H PRN Pain 04/22/22 01/31/23 01/30/23 History diazepam 10 mg tablet 10 mg PO Q12H PRN muscle spasm 01/31/23 01/31/23 01/30/23 History polyethylene glycol 3350 17 gram 17 g PO DAILY PRN Constipation 01/31/23 01/31/23 Unknown History oral powder packet (Miralax) Physical Exam Vital Signs and Narrative: Vital Signs: Last Vital Signs Temp 98.0 F 01/31/23 20:00 Pulse 73 01/31/23 20:00 Resp 16 01/31/23 20:00 BP 106/64 01/31/23 20:00 Pulse Ox 96 01/31/23 20:00 O2 Del Method Room Air 01/31/23 20:00 BMI result Body Mass Index 28.1 Constitutional: Alert, in no acute distress. Mental Status: Oriented to person, place and time. Eyes: Pupils are equal, round, and reactive to light. Ear, Nose, and Throat: Oropharynx clear, mucous membranes moist. Ears and nose without deformities. Trachea midline. Respiratory: Clear to auscultation bilaterally. No wheezing, rales, or rhonchi. Cardiovascular: S1, S2 regular. No murmurs, rubs, or gallops. Gastrointestinal: Abdomen soft, non-distended, with diffuse abdominal tenderness, particularly in the epigastric region and left side. Hyperactive bowel sounds. Neurologic: Cranial nerves II-XII are grossly intact bilaterally. No focal neurological deficits. Moves all extremities spontaneously. Skin: No rashes or lesions noted. Musculoskeletal: No cyanosis or clubbing. Extremities: No edema. Psychiatric: Normal mood and affect. Results Labs 01/31/23 18:42 01/31/23 12:35 Labs: Laboratory Results - last 24 hr 01/31/23 01/31/23 01/31/23 12:35 12:35 12:35 MCV 87.0 MCH 30.2 MCHC 34.7 RDW 12.2 Plt Count 320 MPV 9.5 Immature Gran % (Auto) 0.4 Neut % (Auto) 93.9 H Lymph % (Auto) 3.7 L [place] % (Auto) 1.8 L Eos % (Auto) 0.0 Baso % (Auto) 0.2 Lymph # (Auto) 0.6 L [place] # (Auto) 0.3 Eos # (Auto) 0.0 Baso # (Auto) 0.0 Abs Immat Gran (auto) 0.07 H Absolute Neuts (auto) 15.3 H Absolute Nucleated RBC 0.000 Nucleated RBC % (auto) 0.0 Smear Tech's Comments VERIFIED ESR PT 10.3 INR 0.9 Anion Gap 17 Estim Creat Clear Calc 96.0 Estimated GFR > 60 Random Glucose 129 H Lactic Acid Calcium 9.7 Magnesium 2.2 Total Bilirubin 2.7 H Direct Bilirubin 0.6 H AST 26 ALT 34 H Alkaline Phosphatase 104 C-Reactive Protein 0.22 Total Protein 7.4 Albumin 4.2 Lipase 12 Urine Color Urine Appearance Urine pH Ur Specific [place] Urine Protein Urine Glucose (UA) Urine Ketones Urine Blood Urine Nitrite Ur Leukocyte Esterase Stool Occult Blood Blood Type Antibody Screen 01/31/23 01/31/23 01/31/23 17:33 17:33 18:28 MCV MCH MCHC RDW Plt Count MPV Immature Gran % (Auto) Neut % (Auto) Lymph % (Auto) [place] % (Auto) Eos % (Auto) Baso % (Auto) Lymph # (Auto) [place] # (Auto) Eos # (Auto) Baso # (Auto) Abs Immat Gran (auto) Absolute Neuts (auto) Absolute Nucleated RBC Nucleated RBC % (auto) Smear Tech's Comments ESR PT INR Anion Gap Estim Creat Clear Calc Estimated GFR Random Glucose Lactic Acid 1.0 Calcium Magnesium Total Bilirubin Direct Bilirubin AST ALT Alkaline Phosphatase C-Reactive Protein Total Protein Albumin Lipase Urine Color Urine Appearance Urine pH Ur Specific [place] Urine Protein Urine Glucose (UA) Urine Ketones Urine Blood Urine Nitrite Ur Leukocyte Esterase Stool Occult Blood POSITIVE Blood Type A Positive Antibody Screen NEGATIVE 01/31/23 01/31/23 01/31/23 18:29 18:42 18:42 MCV 86.8 MCH 30.0 MCHC 34.5 RDW 12.2 Plt Count 300 MPV 9.6 Immature Gran % (Auto) 0.3 Neut % (Auto) 78.0 H Lymph % (Auto) 12.9 L [place] % (Auto) 8.3 Eos % (Auto) 0.3 Baso % (Auto) 0.2 Lymph # (Auto) 1.7 [place] # (Auto) 1.1 Eos # (Auto) 0.0 Baso # (Auto) 0.0 Abs Immat Gran (auto) 0.04 H Absolute Neuts (auto) 10.4 H Absolute Nucleated RBC 0.000 Nucleated RBC % (auto) 0.0 Smear Tech's Comments ESR 7 PT INR Anion Gap Estim Creat Clear Calc Estimated GFR Random Glucose Lactic Acid Calcium Magnesium Total Bilirubin Direct Bilirubin AST ALT Alkaline Phosphatase C-Reactive Protein Total Protein Albumin Lipase Urine Color Yellow Urine Appearance Clear Urine pH 6.5 Ur Specific [place] >= 1.030 H Urine Protein Trace Urine Glucose (UA) Negative Urine Ketones 15 Urine Blood Negative Urine Nitrite Negative Ur Leukocyte Esterase Negative Stool Occult Blood Blood Type Antibody Screen Imaging Radiologist's Impressions: Impressions Abdomen/Pelvis CT 01/31/23 18:03 IMPRESSION: 1. No evidence of active GI bleeding. 2. Colitis involving the distal transverse colon and descending colon similar to the findings seen on the 03/17/2022 study. 3. Other incidental findings as described above. Abdomen Ultrasound 01/31/23 18:51 IMPRESSION: There is a 5 mm nonobstructing calculus in the midpole of the right kidney. Otherwise normal right upper quadrant ultrasound. Assessment and Plan (1) Acute lower GI bleeding: Status: Acute (2) Colitis: Status: Acute Plan Pt is a 47-year-old female with a PMH significant for?HTN, HLD, prior GI bleeds, colitis, diverticulitis, sciatica on chronic opioids, and meningitis in 2007 who presents to the ED with?intractable nausea and vomiting and diarrhea with mu red blood per rectum. Pt will be admitted to the hospital for treatment and further evaluation of acute colitis with IVF and IV antibiotics. Acute colitis Infectious versus inflammatory Patient afebrile, leukocytosis of 13.3 Patient does not meet sepsis criteria Patient given Zosyn and metronidazole in the ED IV antibiotics: Ceftriaxone and metronidazole for empiric coverage Dexamethasone 10 mg now, then 6 mg q.8 IVF Metoclopramide for nausea Morphine for pain management NPO by mouth for now, consider advancing to clear liquid diet tomorrow a.m. GI consult Check GI panel, C diff Acute GI bleed Patient with multiple episodes of bloody diarrhea with last episode just prior to admission to the ED Patient's initial H&H 14.9/42.9 with repeat of 13.8/39.4 CT with no evidence of acute intra-abdominal GI bleeding Pneumatic boots for DVT prophylaxis Follow CBC HTN Stable Continue home meds HLD Continue home meds Full Code Attending:?Dr. Goyal DVT Prophylaxis: Pneumatic boots Pt will be admitted to the hospital for treatment and further evaluation of acute colitis with IVF and IV antibiotics. Time Spent With Patient Time: Total time managing care of this patient today ____ minutes. Quality Stroke Does the patient have a stroke diagnosis?: No VTE Prior VTE?: No VTE Risk Level:: Medical - moderate - high VTE Device Contraindication: N/A - Device Ordered VTE Drug Contraindication: Treatment Not Indicated
[2023-01-31] MEDS: Lactated Ringers 1,000 ML 100 ML IVCONT (21:52)
[2023-01-31] MEDS: dexAMETHasone sod phosphate 10 MG/ML VIAL IVPUSH (22:08)
--- NOTE | 2023-01-31 22:52 | PC.NURSE ---
Patient medicated per JAN. Patient reports abdominal pain is at tolerable level, 4/10 at present, nausea resolved. Patient is aware of NPO status, plan for GI consult, advance to clear liquids in am. Patient is able to make her needs known, she ambulates to the restroom independently with a steady gait. VSS. Patient is watching TV at present, call santos within patient's reach.
[2023-01-31] MEDS: cefTRIAXone sodium 1 GM in 0.9 % Sodium Chloride 50 ML IV (23:52)
[2023-01-31 23:53] VITALS: RESP 18
[2023-01-31 23:57] VITALS: BP 116/69; PULSE 75; RESP 14; TEMP 36.8; O2SAT 94
[2023-02-01] VITALS (10 sets, daily range): BP systolic 107–141; BP diastolic 62–82; PULSE 65–97; RESP 13–19; TEMP 36.4–37.4; O2SAT 95–98; BMI 31.0
[2023-02-01 00:17] LABS: COVID-19 Test Negative (Negative); IDNOW Serial# 6674DD1D
--- NOTE | 2023-02-01 01:14 | PC.NURSE ---
Nurse to nurse report called to med surg, spoke to Kathy GORE. Patient to be transported to S3 room 379 by certified cytotechnologist.
[2023-02-01] MEDS: metroNIDAZOLE/NS 500 MG/100 ML PIGGYBACK 100 MG IV ×3 (03:47→19:54)
[2023-02-01] MEDS: Morphine Sulfate 4 MG/ML CARTRIDGE IVPUSH (04:54)
[2023-02-01] MEDS: dexAMETHasone sod phosphate 4 MG/ML VIAL 6 MG IVPUSH ×2 (05:32→14:23)
[2023-02-01 05:53] LABS: Hemoglobin 12.8 g/dl (12.0-16.0); Mean Corpuscular HGB Conc 34.6 g/dl (31.0-35.0); Mean Corpuscular Volume 89.6 fL (80.0-98.0); Mean Platelet Volume 10.4 fL (9.4-12.3); Platelet Count 286 X10*3/uL (160-400); Red Blood Count 4.13 X10*6/uL (4.20-5.50); Red Cell Distribution Width 12.4 % (11.0-16.0); White Blood Count 10.1 X10*3/uL (4.8-10.8)
--- NOTE | 2023-02-01 06:14 | PC.NURSE ---
VSS. Pt c/o abdominal tenderness. Able to tolerate until 0450 when pain increased after pt ambulated to bathroom. Relieved with Morphine IV. Stool sample sent to lab as ordered. Pt resting in bed with eyes closed. Pt ambulates independently with a steady gait. Will continue to monitor. Note-Wallet, money, propagation worker and weed sent to security. Pt's home medications sent to pharmacy.
[2023-02-01 06:22] LABS: Anion Gap 14 (12-20); Blood Urea Nitrogen 9 mg/dL (9-16); Calcium 8.8 mg/dL (8.4-10.2); Carbon Dioxide 22 mmol/L (22-29); Chloride 105 mmol/L (96-108); Creatinine Clr Calc Pharmacy 103.6; Estimated Glomerular Filt Rate > 60; Glucose Random 137 mg/dL (60-115); Potassium 3.6 mmol/L (3.3-5.1); Sodium 137 mmol/L (135-145)
[2023-02-01] MEDS: hydroCHLOROthiazide 25 MG TABLET PO (07:52)
[2023-02-01] MEDS: amLODIPine Besylate 10 MG TABLET PO (07:52)
[2023-02-01] MEDS: Atorvastatin Calcium 20 MG TABLET PO (07:52)
[2023-02-01] MEDS: Lactated Ringers 1,000 ML 100 ML IVCONT ×2 (07:53→18:30)
[2023-02-01 09:13] LABS: Estimated Average Glucose 108 mg/dL; Hemoglobin A1c % 5.4 %
[2023-02-01] MEDS: HYDROmorphone HCl 1 MG/ML SYRINGE IVPUSH ×3 (10:36→21:34)
--- NOTE | 2023-02-01 10:52 | PM.GICN ---
History of Present Illness Data of Consult Service Date: 02/01/23 Requesting physician: Frank Jackson Primary Care Provider: None Physician HPI Reason for consult: Colitis with bloody diarrhea 47 YF with HTN, HLD, prior GI bleeds, colitis, diverticulitis, sciatica on chronic opioids, and meningitis in 2007 seen at [facility] on 01/31/23 with?nausea, vomiting and diarrhea with mu red blood per rectum. Pt takes oxycodone for back pain for the past several years. Pt stated her symptoms started on the evening of 01/30/23 when she went out to eat and had some clam chowder and an appetizer and noted nausea and was unable to eat another bite. She went home and went to bed and woke up at 3 - 4:00 am with nausea, vomiting, and bloody diarrhea. Pt describes the pain as diffuse and most marked in RUQ. Pt complained of associated chills, diaphoresis, lightheadedness, and dizziness.? She denied chest pain/pressure, palpitations or shortness of breath.? Patient has long history of gastrointestinal issues and states she has been to various emergency rooms for similar symptoms at least 15 times since 2009 and been admitted at least 4 times. She has excessive gas and chronic constipation and takes an enema called Enemeez (containing Benzoate and docusate 283 mg) every 2 weeks with good results. She also takes Miralax prn (stool softeners are not helpful) She feels she has a a narrowing in her colon. She is unable to eat foods with seeds and corn (ends up going to the hospital) Pt reports intermittent episodes of nausea, vomiting and diarrhea since she had a hysterectomy in 2010 for uterine bleeding (Her surgeon told her her uterus was extremely large in size and bowels and ovaries were tied togather ? due to adhesions). Episodes of nausea and vomiting have decreased in frequency since she modified her diet. Patient eats once a day in the evening 1-2 times a month, she has bloody stools which resolve spontaneously. In 2014 and in March of 2022, she was hospitalized for severe lower GI bleeding Pt stated she has been diagnosed with both diverticulitis and colitis and has seen GI specialist in the past but has yet to be formally diagnosed with ulcerative colitis. Patient denies smoking or EtOH abuse. She admits to smoking marijuana several times a day for abdominal pain, nausea and vomiting. Patient denies a personal or family history of migraine headaches. She denies major cardiac or pulmonary problems or history of sleep apnea. 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 Labs were significant for leukocytosis of 16.3 with repeat 13.3, H&H stable at 14 0.9/42.9 with repeat of 13.6/39.4, ESR WNL at 7, lactic acid WNL at 1.0, elevated total bilirubin of 2.7, lipase WNL.? Stool positive for occult blood. Pt was treated with morphine, IVF, diphenhydramine, metoclopramide, ondansetron, Zosyn, and metronidazole. She was admitted to the hospital for treatment and further evaluation of acute colitis with IVF and IV antibiotics. 01/31/[address] SCAN SHOWED: IMPRESSION: 1.? No evidence of active GI bleeding. 2.? Colitis involving the distal transverse colon and descending colon similar to the findings seen on the 03/17/2022 study. 3.? Other incidental findings as described above. ENDOSCOPIC STUDIES: Nov, 2019 patient had a colonoscopy at [facility] in [place] which showed: 1. 3 small polyps (< 10 mm were removed) - biopsy results not available in her scanned records. 2. Moderate 4 cms long stenosis noted in the sigmoid colon at 40 cm which was traversed by the colonoscope (no biopsies were obtained) 3. Moderate a grade 2 hemorrhoids noted on retroflexed exam. Repeat colonoscopy was advised in 3 years. Review of Systems Review of Systems: Intractable nausea and vomiting Bloody diarrhea Abdominal pain Lightheadedness, dizziness Chills, diaphoresis Denies chest pain/pressure, palpitations No shortness of breath Yes all other systems are reviewed and are negative [facility] Family History Family History Mother Diabetes Father Heart disease Surgical History Surgical History Hx of hysterectomy Hx of spinal surgery Social History Social History Household Members: Spouse Household Members Other:: Housing: House Do you presently have visiting nurse or other home services: No Alcohol intake: never Patient Tobacco Use Status: Never used Tobacco Substance Use Type: Marijuana service: No Current occupational status: unemployed Meds Allergies Allergy/AdvReac Type Severity Reaction Status Date / Time NSAIDS (Non-Steroidal Allergy Severe Hives Verified 02/02/23 11:37 Anti-Inflamma atenolol Allergy Unknown Hives Verified 04/22/22 07:58 ciprofloxacin Allergy Unknown Hives Verified 04/22/22 07:58 ibuprofen Allergy Unknown Hives Verified 04/22/22 07:58 apple Allergy Abdominal Verified 02/02/23 11:37 Pain corn Allergy Abdominal Verified 02/02/23 11:37 Pain cucumber Allergy Abdominal Verified 02/02/23 11:37 Pain nut - unspecified Allergy Abdominal Verified 02/02/23 11:37 Pain sesame seed Allergy Abdominal Verified 02/02/23 11:37 Pain strawberry Allergy Abdominal Verified 02/02/23 11:37 Pain sunflower seed Allergy Abdominal Verified 02/02/23 11:37 Pain Active Medications: Current Medications Acetaminophen (Acetaminophen 325 Mg Tablet) 650 mg PO Q6H PRN PRN Reason: Pain, Mild (Pain Scale 1-3) Amlodipine Besylate (Amlodipine Besylate 10 Mg Tablet) 10 mg PO DAILY [facility]; Protocol Last Admin: 02/01/23 07:52 Dose: 10 mg Atorvastatin Calcium (Atorvastatin Calcium 20 Mg Tablet) 20 mg PO DAILY [facility] Last Admin: 02/01/23 07:52 Dose: 20 mg Dexamethasone Sodium Phosphate (Dexamethasone Sod Phosphate 4 Mg/Ml Vial) 6 mg IVPUSH Q8H [facility] Last Admin: 02/01/23 05:32 Dose: 6 mg Diazepam (Diazepam 5 Mg Tablet) 10 mg PO Q12H PRN PRN Reason: muscle spasm Hydrochlorothiazide (Hydrochlorothiazide 25 Mg Tablet) 25 mg PO DAILY [facility]; Protocol Last Admin: 02/01/23 07:52 Dose: 25 mg Hydromorphone HCl (Hydromorphone Hcl 1 Mg/Ml Syringe) 1 mg IVPUSH Q4H PRN; Protocol PRN Reason: Pain, Mild (Pain Scale 1-3) Ceftriaxone Sodium 1 gm/ (Sodium Chloride) 50 mls @ 100 mls/hr IV Q24H [facility] Last Infusion: 02/01/23 00:30 Dose: Infused Metronidazole (Flagyl) 500 mg in 100 mls @ 100 mls/hr IV Q8H [facility] Last Infusion: 02/01/23 04:47 Dose: Infused Lactated Ringer's (Lr) 1,000 mls @ 100 mls/hr IVCONT .Q10H [facility] Last Admin: 02/01/23 07:53 Dose: 100 mls/hr Metoclopramide HCl (Metoclopramide Hcl 10 Mg/2 Ml Vial) 10 mg IVPUSH Q6H PRN PRN Reason: Nausea Pharmacy Consult (Consult Rx Perform Med Rec) 1 each MISCELLANE ONCE PRN PRN Reason: Consult order Sodium Chloride (0.9 % Sodium Chloride Flush 3 Ml Syringe) 3 ml IVFLUSH QSHIFT [facility] Last Admin: 02/01/23 07:09 Dose: Not Given Home Medications Medication Instructions Recorded Confirmed Last Taken Type amlodipine 10 mg tablet 10 mg PO DAILY 04/22/22 01/31/23 01/30/23 History atorvastatin 20 mg tablet 20 mg PO DAILY 04/22/22 01/31/23 01/30/23 History hydrochlorothiazide 25 mg tablet 25 mg PO DAILY 04/22/22 01/31/23 01/30/23 History oxycodone 15 mg tablet 15 mg PO Q6H PRN Pain 04/22/22 01/31/23 01/30/23 History diazepam 10 mg tablet 10 mg PO Q12H PRN muscle spasm 01/31/23 01/31/23 01/30/23 History polyethylene glycol 3350 17 gram 17 g PO DAILY PRN Constipation 01/31/23 01/31/23 Unknown History oral powder packet (Miralax) Physical Exam Vital Signs: Vital Signs: Last Vital Signs Temp 97.8 F 02/01/23 07:16 Pulse 74 02/01/23 07:16 Resp 18 02/01/23 10:36 BP 117/62 02/01/23 07:16 Pulse Ox 98 02/01/23 07:16 O2 Del Method Room Air 02/01/23 07:16 BMI result Body Mass Index 31.0 Const: General: no acute distress Nutritional Appearance: obese Orientation/consciousness: patient oriented x3 Limitations: no limitations HEENT: Head: Yes normal to inspection Ears: hearing grossly normal bilaterally Eyes: Sclerae: sclerae normal Pupils: Equal, round and reactive pupils present Neck: Neck: Yes normal visual inspection Chest: Chest palpation & inspection: normal inspection of the chest Resp: Effort & Inspection: normal respiratory effort Auscultation: clear to auscultation bilaterally Cardio: Palpation: normal PMI Rate: regular rate Rhythm: regular rhythm Heart sounds: S1 normal heart sound present, S2 normal heart sound present and no murmurs GI: Palpation (GI): Soft to palpation, Tenderness to palpation present (GI) (moderate left sided abdominal tenderness without rebound) and No hepatosplenomegaly present Auscultation: normal bowel sounds Rectal Exam - Female: deferred Skin: General skin exam: no rashes or lesions noted Neuro: General: patient oriented x3, gait normal and moves all extremities Cranial nerves: Yes Equal, round and reactive pupils present Psych: Appearance: grossly normal Mental Status: mental status grossly normal Results Labs 02/01/23 05:07 02/01/23 05:07 Labs: Short CBC 01/31/23 01/31/23 02/01/23 Range/Units 12:35 18:42 05:07 WBC 16.3 H 13.3 H 10.1 (4.8-10.8) X10*3/uL Hgb 14.9 13.6 12.8 (12.0-16.0) g/dl Hct 42.9 39.4 37.0 (37.0-47.0) % Plt Count 320 300 286 (160-400) X10*3/uL BMP 01/31/23 02/01/23 12:35 05:07 Sodium 139 137 Potassium 4.6 D 3.6 D Chloride 105 105 Carbon Dioxide 22 22 BUN 12 9 Creatinine 0.70 0.68 Calcium 9.7 8.8 D Liver Function 01/31/23 Range/Units 12:35 Total Bilirubin 2.7 H (0.0-1.0) mg/dL Direct Bilirubin 0.6 H (0.0-0.5) mg/dL AST 26 (5-31) U/L ALT 34 H (0-31) U/L Alkaline Phosphatase 104 (39-117) U/L Albumin 4.2 (3.5-5.0) g/dL Urine 01/31/23 Range/Units 18:29 Urine Color Yellow Urine Appearance Clear Urine pH 6.5 (5.0-9.0) Ur Specific [place] >= 1.030 H (1.005-1.025) Urine Protein Trace (Neg-Trace) mg/dL Urine Glucose (UA) Negative (Negative) mg/dL Assessment and Plan (1) Nausea & vomiting: Status: Acute (2) Colitis: Status: Acute (3) Acute lower GI bleeding: Status: Acute Plan 47 YF with HTN, HLD, prior GI bleeds, colitis, diverticulitis, sciatica on chronic opioids, and meningitis in 2007 admitted to [facility] on 01/31/23 with?nausea, vomiting and diarrhea with mu red blood per rectum. Abd CT scan showed left sided colitis - possibly ischemic colitis versus left sided UC. Pt reports intermittent episodes of nausea, vomiting and diarrhea since she had a hysterectomy in 2010 for uterine bleeding (Her surgeon told her her uterus was extremely large in size and bowels and ovaries were tied togather ? due to adhesions). Episodes of nausea and vomiting have decreased in frequency since she modified her diet. Episodes of nausea and vomiting can be due to gastritis, esophagitis, cyclical vomiting syndrome or cannabis hyperemesis syndrome. 1-2 times a month, she has bloody stools which resolve spontaneously. RECOMMENDATIONS: 1. Follow daily CBC 2. Agree with IV antibioics and pain medications 3. Proceed with left sided colonoscopy today. Procedure and potential complications were reviewed with the patient. Time Spent With Patient Time: Total time managing care of this patient today ____ minutes. Procedures Date of Service Date of Service: 02/01/23
--- NOTE | 2023-02-01 10:53 | MHC.CM.PN ---
Lives with ; no prior services or equipment, still drives and previously independent. PCP: Dr. Leland Romero [address] [place] [address]. [place] doctor seen in the past: Dr. Vail of [facility]. D/C plan is return home with via self transport set up.
--- NOTE | 2023-02-01 13:02 | P.PNIM_ITS ---
Subjective Subjective Date of Service: 02/02/23 Interval History: Abdominal pain Review of Systems abd pain slightly improving ,mostly right sided no nausea or cough or fevers she says last bm's -small /blood -last night Physical Exam Vital Signs: Vital Signs: Last Vital Signs Temp 97.8 F 02/01/23 07:16 Pulse 74 02/01/23 07:16 Resp 18 02/01/23 10:36 BP 117/62 02/01/23 07:16 Pulse Ox 98 02/01/23 07:16 O2 Del Method Room Air 02/01/23 07:16 BMI result Body Mass Index 31.0 Appearance: Alert.? Oriented X3.? not in distress.? cvs: rrr, [id number] , no murmur res: clear to auscultation ,no rhonchii or wheezing abd: no rebound or guarding ,Left sided abd pain, bs present. ext pulses present , no cyanosis. neuro: axo3 , nonfocal. Objective Data Active Medications Acetaminophen (Acetaminophen 325 Mg Tablet) 650 mg PO Q6H PRN PRN Reason: Pain, Mild (Pain Scale 1-3) Amlodipine Besylate (Amlodipine Besylate 10 Mg Tablet) 10 mg PO DAILY [facility]; Protocol Last Admin: 02/01/23 07:52 Dose: 10 mg Documented By: COTEMA Atorvastatin Calcium (Atorvastatin Calcium 20 Mg Tablet) 20 mg PO DAILY [facility] Last Admin: 02/01/23 07:52 Dose: 20 mg Documented By: COTEMA Dexamethasone Sodium Phosphate (Dexamethasone Sod Phosphate 4 Mg/Ml Vial) 6 mg IVPUSH Q8H [facility] Last Admin: 02/01/23 05:32 Dose: 6 mg Documented By: GAGANDEEP Diazepam (Diazepam 5 Mg Tablet) 10 mg PO Q12H PRN PRN Reason: muscle spasm Hydrochlorothiazide (Hydrochlorothiazide 25 Mg Tablet) 25 mg PO DAILY [facility]; Protocol Last Admin: 02/01/23 07:52 Dose: 25 mg Documented By: COTEMA Hydromorphone HCl (Hydromorphone Hcl 1 Mg/Ml Syringe) 1 mg IVPUSH Q4H PRN; Protocol PRN Reason: Pain, Mild (Pain Scale 1-3) Ceftriaxone Sodium 1 gm/ (Sodium Chloride) 50 mls @ 100 mls/hr IV Q24H [facility] Last Infusion: 02/01/23 00:30 Dose: 0 mls/hr Documented By: JELLY Metronidazole (Flagyl) 500 mg in 100 mls @ 100 mls/hr IV Q8H [facility] Last Infusion: 02/01/23 12:57 Dose: 0 mls/hr Documented By: ROSA MARIA Lactated Ringer's (Lr) 1,000 mls @ 100 mls/hr IVCONT .Q10H [facility] Last Admin: 02/01/23 07:53 Dose: 100 mls/hr Documented By: ROSA MARIA Metoclopramide HCl (Metoclopramide Hcl 10 Mg/2 Ml Vial) 10 mg IVPUSH Q6H PRN PRN Reason: Nausea Pharmacy Consult (Consult Rx Perform Med Rec) 1 each MISCELLANE ONCE PRN PRN Reason: Consult order Sodium Chloride (0.9 % Sodium Chloride Flush 3 Ml Syringe) 3 ml IVFLUSH QSHIFT [facility] Last Admin: 02/01/23 07:09 Dose: Not Given Documented By: ROSA MARIA Non-Admin Reason: IV Running Labs 02/01/23 05:07 02/01/23 05:07 Labs: Laboratory Results - last 24 hr 01/31/23 01/31/23 01/31/23 12:35 12:35 17:33 MCV MCH MCHC RDW Plt Count MPV Immature Gran % (Auto) 0.4 Neut % (Auto) 93.9 H Lymph % (Auto) 3.7 L [place] % (Auto) 1.8 L Eos % (Auto) 0.0 Baso % (Auto) 0.2 Lymph # (Auto) 0.6 L [place] # (Auto) 0.3 Eos # (Auto) 0.0 Baso # (Auto) 0.0 Abs Immat Gran (auto) 0.07 H Absolute Neuts (auto) 15.3 H Absolute Nucleated RBC 0.000 Nucleated RBC % (auto) 0.0 Smear Tech's Comments VERIFIED ESR Anion Gap 17 Estim Creat Clear Calc 96.0 Estimated GFR > 60 Random Glucose 129 H Estimat Average Glucose Hemoglobin A1c % Lactic Acid Calcium 9.7 Magnesium 2.2 Total Bilirubin 2.7 H Direct Bilirubin 0.6 H AST 26 ALT 34 H Alkaline Phosphatase 104 C-Reactive Protein 0.22 Total Protein 7.4 Albumin 4.2 Lipase 12 Urine Color Urine Appearance Urine pH Ur Specific [place] Urine Protein Urine Glucose (UA) Urine Ketones Urine Blood Urine Nitrite Ur Leukocyte Esterase Stool Occult Blood POSITIVE COVID-19 (BA) COVID-19 [facility] Com Blood Type Antibody Screen 01/31/23 01/31/23 01/31/23 17:33 18:28 18:29 MCV MCH MCHC RDW Plt Count MPV Immature Gran % (Auto) Neut % (Auto) Lymph % (Auto) [place] % (Auto) Eos % (Auto) Baso % (Auto) Lymph # (Auto) [place] # (Auto) Eos # (Auto) Baso # (Auto) Abs Immat Gran (auto) Absolute Neuts (auto) Absolute Nucleated RBC Nucleated RBC % (auto) Smear Tech's Comments ESR Anion Gap Estim Creat Clear Calc Estimated GFR Random Glucose Estimat Average Glucose Hemoglobin A1c % Lactic Acid 1.0 Calcium Magnesium Total Bilirubin Direct Bilirubin AST ALT Alkaline Phosphatase C-Reactive Protein Total Protein Albumin Lipase Urine Color Yellow Urine Appearance Clear Urine pH 6.5 Ur Specific [place] >= 1.030 H Urine Protein Trace Urine Glucose (UA) Negative Urine Ketones 15 Urine Blood Negative Urine Nitrite Negative Ur Leukocyte Esterase Negative Stool Occult Blood COVID-19 (BA) COVID-19 [facility] Com Blood Type A Positive Antibody Screen NEGATIVE 01/31/23 01/31/23 02/01/23 18:42 18:42 00:00 MCV 86.8 MCH 30.0 MCHC 34.5 RDW 12.2 Plt Count 300 MPV 9.6 Immature Gran % (Auto) 0.3 Neut % (Auto) 78.0 H Lymph % (Auto) 12.9 L [place] % (Auto) 8.3 Eos % (Auto) 0.3 Baso % (Auto) 0.2 Lymph # (Auto) 1.7 [place] # (Auto) 1.1 Eos # (Auto) 0.0 Baso # (Auto) 0.0 Abs Immat Gran (auto) 0.04 H Absolute Neuts (auto) 10.4 H Absolute Nucleated RBC 0.000 Nucleated RBC % (auto) 0.0 Smear Tech's Comments ESR 7 Anion Gap Estim Creat Clear Calc Estimated GFR Random Glucose Estimat Average Glucose Hemoglobin A1c % Lactic Acid Calcium Magnesium Total Bilirubin Direct Bilirubin AST ALT Alkaline Phosphatase C-Reactive Protein Total Protein Albumin Lipase Urine Color Urine Appearance Urine pH Ur Specific [place] Urine Protein Urine Glucose (UA) Urine Ketones Urine Blood Urine Nitrite Ur Leukocyte Esterase Stool Occult Blood COVID-19 (BA) Negative COVID-19 Clin Com See Note Blood Type Antibody Screen 02/01/23 02/01/23 02/01/23 05:07 05:07 05:07 MCV 89.6 MCH 31.0 MCHC 34.6 RDW 12.4 Plt Count 286 MPV 10.4 Immature Gran % (Auto) Neut % (Auto) Lymph % (Auto) [place] % (Auto) Eos % (Auto) Baso % (Auto) Lymph # (Auto) [place] # (Auto) Eos # (Auto) Baso # (Auto) Abs Immat Gran (auto) Absolute Neuts (auto) Absolute Nucleated RBC 0.000 Nucleated RBC % (auto) 0.0 Smear Tech's Comments ESR Anion Gap 14 Estim Creat Clear Calc 103.6 Estimated GFR > 60 Random Glucose 137 H Estimat Average Glucose 108 Hemoglobin A1c % 5.4 Lactic Acid Calcium 8.8 D Magnesium Total Bilirubin Direct Bilirubin AST ALT Alkaline Phosphatase C-Reactive Protein Total Protein Albumin Lipase Urine Color Urine Appearance Urine pH Ur Specific [place] Urine Protein Urine Glucose (UA) Urine Ketones Urine Blood Urine Nitrite Ur Leukocyte Esterase Stool Occult Blood COVID-19 (BA) COVID-19 Clin Com Blood Type Antibody Screen Assessment and Plan (1) Acute lower GI bleeding: Status: Acute (2) Nausea & vomiting: Status: Acute (3) Hyperbilirubinemia: Status: Acute (4) Colitis: Status: Acute Plan 47-year-old female with a PMH significant for?HTN, HLD, prior GI bleeds, colitis, diverticulitis, sciatica on chronic opioids, and meningitis in 2007 who presents to the ED with?intractable nausea and vomiting and diarrhea with mu red blood per rectum. Pt will be admitted to the hospital for treatment and fur ther evaluation of acute colitis with IVF and IV antibiotics. Acute colitis Infectious versus inflammatory Patient afebrile, leukocytosis of 13.3, does not meet sepsis criteria,given Zosy n and metronidazole in the ED. Check GI panel, C diff IV antibiotics:? Ceftriaxone and metronidazole for empiric coverage,Dexamethasone 10 mg now, then 6 mg q.8,IVF,Metoclopramide for nausea,Morphine for pain . NPO by mouth for now, consider advancing to clear liquid diet tomorrow a.m. GI consult Acute GI bleed Patient with multiple episodes of bloody diarrhea with last episode just prior to admission to the ED Patient's initial H&H 14.9/42.9 with repeat of 13.8/39.4 CT with no evidence of acute intra-abdominal GI bleeding Follow h/h. HTN-Stable:Continue home meds. HLD:Continue home meds. obesity : Encouraged lose weight. DVT Prophylaxis: Pneumatic boots inpatient need: hospital for treatment and further evaluation of acute colitis with IVF and IV antibiotics. Time Spent With Patient Time: Total time managing care of this patient today ____ minutes. Quality Stroke Does the patient have a stroke diagnosis?: No VTE Prior VTE?: No VTE Risk Level:: Medical - moderate - high VTE Device Contraindication: N/A - Device Ordered VTE Drug Contraindication: Treatment Not Indicated
[2023-02-01 13:52] LABS: Hematocrit 37.6 % (37.0-47.0); Hemoglobin 12.9 g/dl (12.0-16.0)
[2023-02-01 14:19] LABS: Alanine Aminotransferase 24 U/L (0-31); Albumin Level 3.6 g/dL (3.5-5.0); Alkaline Phosphatase 78 U/L (39-117); Aspartate Amino Transferase 15 U/L (5-31); Bilirubin Direct 0.6 mg/dL (0.0-0.5); Bilirubin Total 2.8 mg/dL (0.0-1.0); Total Protein 6.1 g/dL (6.5-8.0)
[2023-02-01] MEDS: 0.9 % Sodium Chloride Flush 3 ML SYRINGE IVFLUSH (14:24)
[2023-02-01] MEDS: Sodium Phosphate,Mono-Dibasic 133 ML ENEMA PR (14:54)
--- NOTE | 2023-02-01 15:15 | P.CONAN_ITS ---
[facility] Active Problems Active Problems: All Active Problems (Updated 01/31/23 @ 18:45 by ALEK Hsieh) Acute lower GI bleeding (Acute) Nausea & vomiting (Acute) Hyperbilirubinemia (Acute) Colitis (Acute) Nausea (Acute) Abdominal pain (Acute) Family History Family History Mother Diabetes Father Heart disease Family history of problems with anesthesia: No Surgical History Surgical History Hx of hysterectomy Hx of spinal surgery Social History Social History Household Members: Spouse Household Members Other:: Housing: House Do you presently have visiting nurse or other home services: No Alcohol intake: never Patient Tobacco Use Status: Never used Tobacco Substance Use Type: Marijuana service: No Current occupational status: unemployed Meds Allergies Allergy/AdvReac Type Severity Reaction Status Date / Time NSAIDS (Non-Steroidal Allergy Severe Hives Verified 04/22/22 08:01 Anti-Inflamma atenolol Allergy Unknown Hives Verified 04/22/22 07:58 ciprofloxacin Allergy Unknown Hives Verified 04/22/22 07:58 ibuprofen Allergy Unknown Hives Verified 04/22/22 07:58 Active Medications: Current Medications Acetaminophen (Acetaminophen 325 Mg Tablet) 650 mg PO Q6H PRN PRN Reason: Pain, Mild (Pain Scale 1-3) Amlodipine Besylate (Amlodipine Besylate 10 Mg Tablet) 10 mg PO DAILY [facility]UR[facility]; Protocol Last Admin: 02/01/23 07:52 Dose: 10 mg Atorvastatin Calcium (Atorvastatin Calcium 20 Mg Tablet) 20 mg PO DAILY [facility]URA Last Admin: 02/01/23 07:52 Dose: 20 mg Dexamethasone Sodium Phosphate (Dexamethasone Sod Phosphate 4 Mg/Ml Vial) 6 mg IVPUSH Q8H LAURA Last Admin: 02/01/23 14:23 Dose: 6 mg Diazepam (Diazepam 5 Mg Tablet) 10 mg PO Q12H PRN PRN Reason: muscle spasm Hydrochlorothiazide (Hydrochlorothiazide 25 Mg Tablet) 25 mg PO DAILY [facility]URA; Protocol Last Admin: 02/01/23 07:52 Dose: 25 mg Hydromorphone HCl (Hydromorphone Hcl 1 Mg/Ml Syringe) 1 mg IVPUSH Q4H PRN; Protocol PRN Reason: Pain, Mild (Pain Scale 1-3) Ceftriaxone Sodium 1 gm/ (Sodium Chloride) 50 mls @ 100 mls/hr IV Q24H [facility] Last Infusion: 02/01/23 00:30 Dose: Infused Metronidazole (Flagyl) 500 mg in 100 mls @ 100 mls/hr IV Q8H [facility] Last Infusion: 02/01/23 12:57 Dose: Infused Lactated Ringer's (Lr) 1,000 mls @ 100 mls/hr IVCONT .Q10H [facility] Last Admin: 02/01/23 07:53 Dose: 100 mls/hr Metoclopramide HCl (Metoclopramide Hcl 10 Mg/2 Ml Vial) 10 mg IVPUSH Q6H PRN PRN Reason: Nausea Pantoprazole Sodium (Pantoprazole Sodium 40 Mg/10 Ml Vial) 40 mg IVPUSH B [id number] [facility] Pharmacy Consult (Consult Rx Perform Med Rec) 1 each MISCELLANE ONCE PRN PRN Reason: Consult order Sodium Biphosphate/Sodium Phosphate (Sodium Phosphate,[place]-Dibasic 133 Ml Enema) 133 ml [place] ONCE PRN PRN Reason: Pre-Op Surgical Prep Last Admin: 02/01/23 14:54 Dose: 133 ml Sodium Chloride (0.9 % Sodium Chloride Flush 3 Ml Syringe) 3 ml IVFLUSH QSHIFT [facility] Last Admin: 02/01/23 14:24 Dose: 3 ml Home Medications Medication Instructions Recorded Confirmed Last Taken Type amlodipine 10 mg tablet 10 mg PO DAILY 04/22/22 01/31/23 01/30/23 History atorvastatin 20 mg tablet 20 mg PO DAILY 04/22/22 01/31/23 01/30/23 History hydrochlorothiazide 25 mg tablet 25 mg PO DAILY 04/22/22 01/31/23 01/30/23 History oxycodone 15 mg tablet 15 mg PO Q6H PRN Pain 04/22/22 01/31/23 01/30/23 History diazepam 10 mg tablet 10 mg PO Q12H PRN muscle spasm 01/31/23 01/31/23 01/30/23 History polyethylene glycol 3350 17 gram 17 g PO DAILY PRN Constipation 01/31/23 01/31/23 Unknown History oral powder packet (Miralax) Exam Exam Date and Time: February 01, 2023 1515 Height,Weight and Vital Signs: Height 5 ft 4 in Weight 82 kg Last Vital Signs Temp 97.8 F 02/01/23 07:16 Pulse 74 02/01/23 07:16 Resp 18 02/01/23 10:36 BP 117/62 02/01/23 07:16 Pulse Ox 98 02/01/23 07:16 O2 Del Method Room Air 02/01/23 07:16 Pertinent Lab Results Pertinent Lab Results: Laboratory Tests 01/31/23 01/31/23 01/31/23 12:35 12:35 12:35 WBC 16.3 H RBC 4.93 Hgb 14.9 Hct 42.9 MCV 87.0 MCH 30.2 MCHC 34.7 RDW 12.2 Plt Count 320 MPV 9.5 Immature Gran % (Auto) 0.4 Neut % (Auto) 93.9 H Lymph % (Auto) 3.7 L [place] % (Auto) 1.8 L Eos % (Auto) 0.0 Baso % (Auto) 0.2 Lymph # (Auto) 0.6 L [place] # (Auto) 0.3 Eos # (Auto) 0.0 Baso # (Auto) 0.0 Abs Immat Gran (auto) 0.07 H Absolute Neuts (auto) 15.3 H Absolute Nucleated RBC 0.000 Nucleated RBC % (auto) 0.0 Smear Tech's Comments VERIFIED ESR PT 10.3 INR 0.9 Sodium 139 Potassium 4.6 D Chloride 105 Carbon Dioxide 22 Anion Gap 17 BUN 12 Creatinine 0.70 Estim Creat Clear Calc 96.0 Estimated GFR > 60 Random Glucose 129 H Estimat Average Glucose Hemoglobin A1c % Lactic Acid Calcium 9.7 Magnesium 2.2 Total Bilirubin 2.7 H Direct Bilirubin 0.6 H AST 26 ALT 34 H Alkaline Phosphatase 104 C-Reactive Protein 0.22 Total Protein 7.4 Albumin 4.2 Lipase 12 Urine Color Urine Appearance Urine pH Ur Specific [place] Urine Protein Urine Glucose (UA) Urine Ketones Urine Blood Urine Nitrite Ur Leukocyte Esterase Stool Occult Blood COVID-19 (BA) COVID-19 Clin Com Blood Type Antibody Screen 01/31/23 01/31/23 01/31/23 17:33 17:33 18:28 WBC RBC Hgb Hct MCV MCH MCHC RDW Plt Count MPV Immature Gran % (Auto) Neut % (Auto) Lymph % (Auto) [place] % (Auto) Eos % (Auto) Baso % (Auto) Lymph # (Auto) [place] # (Auto) Eos # (Auto) Baso # (Auto) Abs Immat Gran (auto) Absolute Neuts (auto) Absolute Nucleated RBC Nucleated RBC % (auto) Smear Tech's Comments ESR PT INR Sodium Potassium Chloride Carbon Dioxide Anion Gap BUN Creatinine Estim Creat Clear Calc Estimated GFR Random Glucose Estimat Average Glucose Hemoglobin A1c % Lactic Acid 1.0 Calcium Magnesium Total Bilirubin Direct Bilirubin AST ALT Alkaline Phosphatase C-Reactive Protein Total Protein Albumin Lipase Urine Color Urine Appearance Urine pH Ur Specific [place] Urine Protein Urine Glucose (UA) Urine Ketones Urine Blood Urine Nitrite Ur Leukocyte Esterase Stool Occult Blood POSITIVE COVID-19 (BA) COVID-[address] Com Blood Type A Positive Antibody Screen NEGATIVE 01/31/23 01/31/23 01/31/23 18:29 18:42 18:42 WBC 13.3 H RBC 4.54 Hgb 13.6 Hct 39.4 MCV 86.8 MCH 30.0 MCHC 34.5 RDW 12.2 Plt Count 300 MPV 9.6 Immature Gran % (Auto) 0.3 Neut % (Auto) 78.0 H Lymph % (Auto) 12.9 L [place] % (Auto) 8.3 Eos % (Auto) 0.3 Baso % (Auto) 0.2 Lymph # (Auto) 1.7 [place] # (Auto) 1.1 Eos # (Auto) 0.0 Baso # (Auto) 0.0 Abs Immat Gran (auto) 0.04 H Absolute Neuts (auto) 10.4 H Absolute Nucleated RBC 0.000 Nucleated RBC % (auto) 0.0 Smear Tech's Comments ESR 7 PT INR Sodium Potassium Chloride Carbon Dioxide Anion Gap BUN Creatinine Estim Creat Clear Calc Estimated GFR Random Glucose Estimat Average Glucose Hemoglobin A1c % Lactic Acid Calcium Magnesium Total Bilirubin Direct Bilirubin AST ALT Alkaline Phosphatase C-Reactive Protein Total Protein Albumin Lipase Urine Color Yellow Urine Appearance Clear Urine pH 6.5 Ur Specific [place] >= 1.030 H Urine Protein Trace Urine Glucose (UA) Negative Urine Ketones 15 Urine Blood Negative Urine Nitrite Negative Ur Leukocyte Esterase Negative Stool Occult Blood COVID-19 (BA) COVID-[address] Com Blood Type Antibody Screen 02/01/23 02/01/23 02/01/23 00:00 05:07 05:07 WBC 10.1 RBC 4.13 L Hgb 12.8 Hct 37.0 MCV 89.6 MCH 31.0 MCHC 34.6 RDW 12.4 Plt Count 286 MPV 10.4 Immature Gran % (Auto) Neut % (Auto) Lymph % (Auto) [place] % (Auto) Eos % (Auto) Baso % (Auto) Lymph # (Auto) [place] # (Auto) Eos # (Auto) Baso # (Auto) Abs Immat Gran (auto) Absolute Neuts (auto) Absolute Nucleated RBC 0.000 Nucleated RBC % (auto) 0.0 Smear Tech's Comments ESR PT INR Sodium 137 Potassium 3.6 D Chloride 105 Carbon Dioxide 22 Anion Gap 14 BUN 9 Creatinine 0.68 Estim Creat Clear Calc 103.6 Estimated GFR > 60 Random Glucose 137 H Estimat Average Glucose Hemoglobin A1c % Lactic Acid Calcium 8.8 D Magnesium Total Bilirubin 2.8 H Direct Bilirubin 0.6 H AST 15 ALT 24 Alkaline Phosphatase 78 C-Reactive Protein Total Protein 6.1 L Albumin 3.6 Lipase Urine Color Urine Appearance Urine pH Ur Specific [place] Urine Protein Urine Glucose (UA) Urine Ketones Urine Blood Urine Nitrite Ur Leukocyte Esterase Stool Occult Blood COVID-19 (BA) Negative COVID-[employer] Com See Note Blood Type Antibody Screen 02/01/23 02/01/23 05:07 13:44 WBC RBC Hgb 12.9 Hct 37.6 MCV MCH MCHC RDW Plt Count MPV Immature Gran % (Auto) Neut % (Auto) Lymph % (Auto) [place] % (Auto) Eos % (Auto) Baso % (Auto) Lymph # (Auto) [place] # (Auto) Eos # (Auto) Baso # (Auto) Abs Immat Gran (auto) Absolute Neuts (auto) Absolute Nucleated RBC Nucleated RBC % (auto) Smear Tech's Comments ESR PT INR Sodium Potassium Chloride Carbon Dioxide Anion Gap BUN Creatinine Estim Creat Clear Calc Estimated GFR Random Glucose Estimat Average Glucose 108 Hemoglobin A1c % 5.4 Lactic Acid Calcium Magnesium Total Bilirubin Direct Bilirubin AST ALT Alkaline Phosphatase C-Reactive Protein Total Protein Albumin Lipase Urine Color Urine Appearance Urine pH Ur Specific [place] Urine Protein Urine Glucose (UA) Urine Ketones Urine Blood Urine Nitrite Ur Leukocyte Esterase Stool Occult Blood COVID-19 (BA) COVID-[address] Com Blood Type Antibody Screen Airway Mallampati Class: II Assessment and Plan Final Anesthetic Review Family History of Problems with Anesthesia: No
--- NOTE | 2023-02-01 15:47 | HO.ANESPROP2 ---
[facility] Active Problems Active Problems: All Active Problems (Updated 01/31/23 @ 18:45 by ALEK Hsieh) Acute lower GI bleeding (Acute) Nausea & vomiting (Acute) Hyperbilirubinemia (Acute) Colitis (Acute) Nausea (Acute) Abdominal pain (Acute) Family History Family History Mother Diabetes Father Heart disease Family history of problems with anesthesia: No Surgical History Surgical History Hx of hysterectomy Hx of spinal surgery Social History Social History Household Members: Spouse Household Members Other:: Housing: House Do you presently have visiting nurse or other home services: No Alcohol intake: never Patient Tobacco Use Status: Never used Tobacco Substance Use Type: Marijuana service: No Current occupational status: unemployed Meds Allergies Allergy/AdvReac Type Severity Reaction Status Date / Time NSAIDS (Non-Steroidal Allergy Severe Hives Verified 04/22/22 08:01 Anti-Inflamma atenolol Allergy Unknown Hives Verified 04/22/22 07:58 ciprofloxacin Allergy Unknown Hives Verified 04/22/22 07:58 ibuprofen Allergy Unknown Hives Verified 04/22/22 07:58 Active Medications: Current Medications Acetaminophen (Acetaminophen 325 Mg Tablet) 650 mg PO Q6H PRN PRN Reason: Pain, Mild (Pain Scale 1-3) Amlodipine Besylate (Amlodipine Besylate 10 Mg Tablet) 10 mg PO DAILY [facility]; Protocol Last Admin: 02/01/23 07:52 Dose: 10 mg Atorvastatin Calcium (Atorvastatin Calcium 20 Mg Tablet) 20 mg PO DAILY [facility]UR[facility] Last Admin: 02/01/23 07:52 Dose: 20 mg Diazepam (Diazepam 5 Mg Tablet) 10 mg PO Q12H PRN PRN Reason: muscle spasm Hydrochlorothiazide (Hydrochlorothiazide 25 Mg Tablet) 25 mg PO DAILY [facility]; Protocol Last Admin: 02/01/23 07:52 Dose: 25 mg Hydromorphone HCl (Hydromorphone Hcl 1 Mg/Ml Syringe) 1 mg IVPUSH Q4H PRN; Protocol PRN Reason: Pain, Mild (Pain Scale 1-3) Ceftriaxone Sodium 1 gm/ (Sodium Chloride) 50 mls @ 100 mls/hr IV Q24H [facility] Last Infusion: 02/01/23 00:30 Dose: Infused Metronidazole (Flagyl) 500 mg in 100 mls @ 100 mls/hr IV Q8H [facility] Last Infusion: 02/01/23 12:57 Dose: Infused Lactated Ringer's (Lr) 1,000 mls @ 100 mls/hr IVCONT .Q10H [facility] Last Admin: 02/01/23 07:53 Dose: 100 mls/hr Metoclopramide HCl (Metoclopramide Hcl 10 Mg/2 Ml Vial) 10 mg IVPUSH Q6H PRN PRN Reason: Nausea Pantoprazole Sodium (Pantoprazole Sodium 40 Mg/10 Ml Vial) 40 mg IVPUSH BID@[id number] [facility] Pharmacy Consult (Consult Rx Perform Med Rec) 1 each MISCELLANE ONCE PRN PRN Reason: Consult order Sodium Biphosphate/Sodium Phosphate (Sodium Phosphate,[place]-Dibasic 133 Ml Enema) 133 ml [place] ONCE PRN PRN Reason: Pre-Op Surgical Prep Last Admin: 02/01/23 14:54 Dose: 133 ml Sodium Chloride (0.9 % Sodium Chloride Flush 3 Ml Syringe) 3 ml IVFLUSH QSHIFT [facility] Last Admin: 02/01/23 14:24 Dose: 3 ml Home Medications Medication Instructions Recorded Confirmed Last Taken Type amlodipine 10 mg tablet 10 mg PO DAILY 04/22/22 01/31/23 01/30/23 History atorvastatin 20 mg tablet 20 mg PO DAILY 04/22/22 01/31/23 01/30/23 History hydrochlorothiazide 25 mg tablet 25 mg PO DAILY 04/22/22 01/31/23 01/30/23 History oxycodone 15 mg tablet 15 mg PO Q6H PRN Pain 04/22/22 01/31/23 01/30/23 History diazepam 10 mg tablet 10 mg PO Q12H PRN muscle spasm 01/31/23 01/31/23 01/30/23 History polyethylene glycol 3350 17 gram 17 g PO DAILY PRN Constipation 01/31/23 01/31/23 Unknown History oral powder packet (Miralax) Exam Exam Date and Time: February 01, 2023 1547 Height,Weight and Vital Signs: Height 5 ft 4 in Weight 82 kg Last Vital Signs Temp 97.8 F 02/01/23 07:16 Pulse 74 03/26/23 07:16 Resp 18 02/01/23 10:36 BP 117/62 02/01/23 07:16 Pulse Ox 98 02/01/23 07:16 O2 Del Method Room Air 02/01/23 07:16 Pertinent Lab Results Pertinent Lab Results: Laboratory Tests 01/31/23 01/31/23 01/31/23 12:35 12:35 12:35 WBC 16.3 H RBC 4.93 Hgb 14.9 Hct 42.9 MCV 87.0 MCH 30.2 MCHC 34.7 RDW 12.2 Plt Count 320 MPV 9.5 Immature Gran % (Auto) 0.4 Neut % (Auto) 93.9 H Lymph % (Auto) 3.7 L [place] % (Auto) 1.8 L Eos % (Auto) 0.0 Baso % (Auto) 0.2 Lymph # (Auto) 0.6 L [place] # (Auto) 0.3 Eos # (Auto) 0.0 Baso # (Auto) 0.0 Abs Immat Gran (auto) 0.07 H Absolute Neuts (auto) 15.3 H Absolute Nucleated RBC 0.000 Nucleated RBC % (auto) 0.0 Smear Tech's Comments VERIFIED ESR PT 10.3 INR 0.9 Sodium 139 Potassium 4.6 D Chloride 105 Carbon Dioxide 22 Anion Gap 17 BUN 12 Creatinine 0.70 Estim Creat Clear Calc 96.0 Estimated GFR > 60 Random Glucose 129 H Estimat Average Glucose Hemoglobin A1c % Lactic Acid Calcium 9.7 Magnesium 2.2 Total Bilirubin 2.7 H Direct Bilirubin 0.6 H AST 26 ALT 34 H Alkaline Phosphatase 104 C-Reactive Protein 0.22 Total Protein 7.4 Albumin 4.2 Lipase 12 Urine Color Urine Appearance Urine pH Ur Specific [place] Urine Protein Urine Glucose (UA) Urine Ketones Urine Blood Urine Nitrite Ur Leukocyte Esterase Stool Occult Blood COVID-19 (BA) COVID-19 Clin Com Blood Type Antibody Screen 01/31/23 01/31/23 01/31/23 17:33 17:33 18:28 WBC RBC Hgb Hct MCV MCH MCHC RDW Plt Count MPV Immature Gran % (Auto) Neut % (Auto) Lymph % (Auto) [place] % (Auto) Eos % (Auto) Baso % (Auto) Lymph # (Auto) [place] # (Auto) Eos # (Auto) Baso # (Auto) Abs Immat Gran (auto) Absolute Neuts (auto) Absolute Nucleated RBC Nucleated RBC % (auto) Smear Tech's Comments ESR PT INR Sodium Potassium Chloride Carbon Dioxide Anion Gap BUN Creatinine Estim Creat Clear Calc Estimated GFR Random Glucose Estimat Average Glucose Hemoglobin A1c % Lactic Acid 1.0 Calcium Magnesium Total Bilirubin Direct Bilirubin AST ALT Alkaline Phosphatase C-Reactive Protein Total Protein Albumin Lipase Urine Color Urine Appearance Urine pH Ur Specific [place] Urine Protein Urine Glucose (UA) Urine Ketones Urine Blood Urine Nitrite Ur Leukocyte Esterase Stool Occult Blood POSITIVE COVID-19 (BA) COVID-19 [facility] Com Blood Type A Positive Antibody Screen NEGATIVE 01/31/23 01/31/23 01/31/23 18:29 18:42 18:42 WBC 13.3 H RBC 4.54 Hgb 13.6 Hct 39.4 MCV 86.8 MCH 30.0 MCHC 34.5 RDW 12.2 Plt Count 300 MPV 9.6 Immature Gran % (Auto) 0.3 Neut % (Auto) 78.0 H Lymph % (Auto) 12.9 L [place] % (Auto) 8.3 Eos % (Auto) 0.3 Baso % (Auto) 0.2 Lymph # (Auto) 1.7 [place] # (Auto) 1.1 Eos # (Auto) 0.0 Baso # (Auto) 0.0 Abs Immat Gran (auto) 0.04 H Absolute Neuts (auto) 10.4 H Absolute Nucleated RBC 0.000 Nucleated RBC % (auto) 0.0 Smear Tech's Comments ESR 7 PT INR Sodium Potassium Chloride Carbon Dioxide Anion Gap BUN Creatinine Estim Creat Clear Calc Estimated GFR Random Glucose Estimat Average Glucose Hemoglobin A1c % Lactic Acid Calcium Magnesium Total Bilirubin Direct Bilirubin AST ALT Alkaline Phosphatase C-Reactive Protein Total Protein Albumin Lipase Urine Color Yellow Urine Appearance Clear Urine pH 6.5 Ur Specific [place] >= 1.030 H Urine Protein Trace Urine Glucose (UA) Negative Urine Ketones 15 Urine Blood Negative Urine Nitrite Negative Ur Leukocyte Esterase Negative Stool Occult Blood COVID-19 (BA) COVID-19 [facility] Com Blood Type Antibody Screen 02/01/23 02/01/23 02/01/23 00:00 05:07 05:07 WBC 10.1 RBC 4.13 L Hgb 12.8 Hct 37.0 MCV 89.6 MCH 31.0 MCHC 34.6 RDW 12.4 Plt Count 286 MPV 10.4 Immature Gran % (Auto) Neut % (Auto) Lymph % (Auto) [place] % (Auto) Eos % (Auto) Baso % (Auto) Lymph # (Auto) [place] # (Auto) Eos # (Auto) Baso # (Auto) Abs Immat Gran (auto) Absolute Neuts (auto) Absolute Nucleated RBC 0.000 Nucleated RBC % (auto) 0.0 Smear Tech's Comments ESR PT INR Sodium 137 Potassium 3.6 D Chloride 105 Carbon Dioxide 22 Anion Gap 14 BUN 9 Creatinine 0.68 Estim Creat Clear Calc 103.6 Estimated GFR > 60 Random Glucose 137 H Estimat Average Glucose Hemoglobin A1c % Lactic Acid Calcium 8.8 D Magnesium Total Bilirubin 2.8 H Direct Bilirubin 0.6 H AST 15 ALT 24 Alkaline Phosphatase 78 C-Reactive Protein Total Protein 6.1 L Albumin 3.6 Lipase Urine Color Urine Appearance Urine pH Ur Specific [place] Urine Protein Urine Glucose (UA) Urine Ketones Urine Blood Urine Nitrite Ur Leukocyte Esterase Stool Occult Blood COVID-19 (BA) Negative COVID-19 [employer] See Note Blood Type Antibody Screen 02/01/23 02/01/23 05:07 13:44 WBC RBC Hgb 12.9 Hct 37.6 MCV MCH MCHC RDW Plt Count MPV Immature Gran % (Auto) Neut % (Auto) Lymph % (Auto) [place] % (Auto) Eos % (Auto) Baso % (Auto) Lymph # (Auto) [place] # (Auto) Eos # (Auto) Baso # (Auto) Abs Immat Gran (auto) Absolute Neuts (auto) Absolute Nucleated RBC Nucleated RBC % (auto) Smear Tech's Comments ESR PT INR Sodium Potassium Chloride Carbon Dioxide Anion Gap BUN Creatinine Estim Creat Clear Calc Estimated GFR Random Glucose Estimat Average Glucose 108 Hemoglobin A1c % 5.4 Lactic Acid Calcium Magnesium Total Bilirubin Direct Bilirubin AST ALT Alkaline Phosphatase C-Reactive Protein Total Protein Albumin Lipase Urine Color Urine Appearance Urine pH Ur Specific [place] Urine Protein Urine Glucose (UA) Urine Ketones Urine Blood Urine Nitrite Ur Leukocyte Esterase Stool Occult Blood COVID-19 (BA) COVID-19 [employer] Com Blood Type Antibody Screen Airway Mallampati Class: II TM Dist: >3cm Neck ROM: Full Heart: RRR Lungs: CTA Assessment and Plan Final Anesthetic Review Family History of Problems with Anesthesia: No ASA Class: II Final Preanesthetic Review: Meds/Allgs Chart Reviewed and Consent Obtained/Reviewed Patient Risk: Low Procedure Risk: Low Anesthetic Plan Anesthetic Plan: MAC: Disposition: Standard PACU
--- NOTE | 2023-02-01 15:55 | P.BOP_ITS ---
Brief Operative Note Date of Service: 02/01/23 Pre-op diagnosis: Abdominal pain, rectal bleeding, abnormal CT scan of left colon Post-op diagnosis: other (Left sided colitis, diverticulosis, hemorrhoids) Procedure: LEFT SIDED COLONOSCOPY WITH BIOPSIES Surgeon: Vale Brunson MD Anesthesia: MAC Was an [employer] used for this Procedure?: Yes [employer]: Lu Cook Estimated blood loss (mL): 1 Pathology: other (A. Sigmoid colon at 45 cms, B. Sigmoid colon at 35 cms - rule out ischemic colitis/IBD) Condition: stable Disposition: PACU
--- NOTE | 2023-02-01 15:58 | W.PM.OPN ---
Operative Note Operative Note Date of Service: 02/01/23 Narrative: LEFT SIDED COLONOSCOPY TILL SIGMOID COLON WITH BIOPSIES Indication:? rectal bleeding, abnormal CT scan of the left colon Endoscopist:? Vale Brunson MD Anesthesia Provider:?Dr Madden Anesthesia type:?MAC Consent: Indications for the procedure and potential complications of bleeding, perforation, reaction to medications and missed diagnosis were discussed with the patient and informed consent was obtained. Instrument: Olympus PCF H 190 L variable stiffness pediatric colonoscope Monitoring: Vital signs and clinical assessment, intermittent blood pressure monitoring, continuous EKG monitoring, Pulse oximetry and Carbon Dioxide monitoring were done throughout the procedure. Please see anesthesia flowsheet. Procedure: The patient was placed in the left lateral decubitis position and pre-procedure medications were administered. After a digital rectal examination of the ano-rectum, the video colonoscope was inserted into the rectum and advanced through the colon to 45 cms into the sigmoid colon. The colonoscope was slowly withdrawn in a retrograde panoramic fashion and the colon mucosa was carefully examined including a retroflexed view of the rectum. Findings and interventions are described below. Procedure Difficulty: Without difficulty Findings: Terminal Ileum: Not evaluated Sigmoid Colon: A 15 cms segment of edema, erythema, submucosal hemorrhages and exudate from 25 to 40 cms. Normal mucosa proximal to 40 cms. Biopsies were obtained from the area of inflammtion and at 45 cms. Moderate diverticulosis Rectum: Normal Ano-rectum: Moderate internal hemorrhoids Colon preparation: Excellent Impression and Post Procedure Diagnosis: Colonoscopy Findings: A 15 cms segment of edema, erythema, submucosal hemorrhages and exudate from 25 to 40 cms - endoscopic appearance is suggestive of ischemic colitis. Normal mucosa proximal to 40 cms. Biopsies were obtained from the area of inflammtion and from normal appearing mucosa at 45 cms. No polyps were seen. Moderate diverticulosis seen in the sigmoid colon Moderate hemorrhoids on retroflexed exam. Some old blood and no active bleeding noted during the procedure. Plan: I will contact the patient with pathology results She will be scheduled for an EGD and a colonoscopy as an outpatient in 4 to 6 weeks and a follow up appointment in the GI Clinic with ALEK Lea after her procedures. Above findings were reviewed with the patient.
[2023-02-01] MEDS: Pantoprazole Sodium 40 MG/10 ML VIAL IVPUSH (16:39)
[2023-02-01] MEDS: diphenhydrAMINE HCL 25 MG CAPSULE PO (16:40)
[2023-02-01 19:40] LABS: Hematocrit 37.8 % (37.0-47.0); Hemoglobin 12.8 g/dl (12.0-16.0)
[2023-02-01] MEDS: cefTRIAXone sodium 1 GM in 0.9 % Sodium Chloride 50 ML IV (22:47)
[2023-02-02] MEDS: HYDROmorphone HCl 1 MG/ML SYRINGE IVPUSH ×2 (03:07→08:44)
[2023-02-02 04:00] VITALS: BP 127/71; PULSE 78; RESP 18; TEMP 36.3; O2SAT 96
[2023-02-02] MEDS: diphenhydrAMINE HCL 25 MG CAPSULE PO (04:04)
[2023-02-02] MEDS: metroNIDAZOLE/NS 500 MG/100 ML PIGGYBACK 100 MG IV ×2 (04:04→11:29)
[2023-02-02] MEDS: Pantoprazole Sodium 40 MG/10 ML VIAL IVPUSH (06:00)
[2023-02-02] MEDS: Lactated Ringers 1,000 ML 100 ML IVCONT (06:04)
[2023-02-02 06:43] LABS: Hematocrit 35.1 % (37.0-47.0); Hemoglobin 11.9 g/dl (12.0-16.0)
[2023-02-02 07:22] VITALS: BP 112/66; PULSE 65; RESP 18; TEMP 36.3; O2SAT 95
[2023-02-02] MEDS: amLODIPine Besylate 10 MG TABLET PO (08:44)
[2023-02-02] MEDS: Atorvastatin Calcium 20 MG TABLET PO (08:44)
[2023-02-02] MEDS: hydroCHLOROthiazide 25 MG TABLET PO (08:44)
--- NOTE | 2023-02-02 10:20 | HO.POSTANES ---
Post Anesthesia Evaluation Post Anesthesia Evaluation Vital Signs: Vital Signs Temp Pulse Resp BP Pulse Ox O2 Del Method 02/02/23 07:22 97.3 F 65 18 112/66 95 Room Air 02/02/23 04:00 97.3 F 78 18 127/71 96 Room Air Anesthesia: Monitored Mental Status: Awake Pain Control: Satisfactory Nausea/Vomiting: None Hydration: Adequate Anesthesia-Related Issues: No Anes. Related Issues
--- NOTE | 2023-02-02 12:45 | MHC.CM.PN ---
Addendum entered by Demi Alanis RN 02/02/23 13:50: HOME TODAY RN AWARE Original Note: PLAN IS TO ADVANCE DIET AND DC HOME WHEN TOLERATES
[2023-02-02] MEDS: Amoxicillin/Potassium Clav 875 MG TABLET PO (13:42)
[2023-02-02] MEDS: HYDROmorphone HCl 1 MG/ML SYRINGE 0.5 MG IVPUSH (13:56)
--- NOTE | 2023-02-02 14:03 | P.DS_ITS ---
DS: Providers Provider Date of Service: 02/02/23 Date of admission: 01/31/23 21:19 Date of discharge: 02/02/23 Primary care physician: None Physician Consults: 01/31/23 21:18 Consult to Gastroenterology Routine Consulting Provider: Vale Brunson Reason for consultation: Colitis with bloody diarrhea DS: Diagnosis Discharge Diagnosis (1) Acute lower GI bleeding: Status: Acute (2) Nausea & vomiting: Status: Acute (3) Hyperbilirubinemia: Status: Acute (4) Colitis: Status: Acute DS: Summary Hospital Course Hospital Course: 47-year-old female with a PMH significant for?HTN, HLD, prior GI bleeds, colitis, diverticulitis, sciatica on chronic opioids, and meningitis in 2007 who presents to the ED with?intractable nausea and vomiting and diarrhea with mu red blood per rectum. Pt states symptoms began last night when she was out to eat and suddenly began feeling nauseous and incapable of eating another bite. Went to bed and was awoken at 04:00 nausea, vomiting, and bloody diarrhea. Had diffuse abdominal pain that was particularly prominent in upper right quadrant. Pt also experienced chills, diaphoresis, lightheadedness, and dizziness.? No chest pain/pressure, palpitations.? No shortness of breath.? Patient has long history of gastrointestinal issues and states she has been to various emergency rooms for similar symptoms at least 15 times since 2009 and been admitted at least 4 times. Has been diagnosed with both diverticulitis and colitis.? States he has seen GI specialist in the past but has yet to be formally diagnosed with ulcerative colitis. In the ED patient was afebrile and satting at 99% on RA. Labs were significant for leukocytosis of 16.3 with repeat 13.3, H&H stable at 14 0.9/42.9 with repeat of 13.6/39.4, ESR WNL at 7, lactic acid WNL at 1.0, elevated total bilirubin of 2.7, lipase WNL.? Stool positive for occult blood. CT?of abdomen and pelvis found no evidence of active GI bleeding but did note colitis involving the distal transverse colon and descending colon, similar to findings seen on previous study.? Abdominal ultrasound from normal pancreas, liver, gallbladder, common bile duct, no hydronephrosis but a 5 mm nonobstructing calculus in the midpole of right kidney. Pt was treated with morphine, IVF, diphenhydramine, metoclopramide, ondansetron, Zosyn, and metronidazole. Pt will be admitted to the hospital for treatment and further evaluation of acute colitis with IVF and IV antibiotics. Hospital course: Patient was admitted for abdominal pain, possible rectal bleed: Abdominal imaging showed : : Inflammation on the Colitis involving the distal transverse colon and descending colon: Started on IV antibiotics, pain meds, blood cultures sent. Seen by GI: And sigmoidoscopy was done: Found to have finding possible of ischemic colitis. Patient abdominal pain seems to be improved significantly, also tolerating diet, no leukocytosis no fever. Rectal bleed: Patient did not had any other episode of bleeding so far, H&H is stable around 11.9 range. Discussed with the GI: Patient needs to follow-up with pathology results(done during sigmoidoscopy) with GI out patiently, monitor CBC outpatient. plan: Complete antibiotic course(Augmentin). Monitor CBC outpatient Follow-up with GI for pathology results,?EGD and a colonoscopy as an outpatient in 4 to 6 weeks and a follow up appointment in the GI Clinic with Raymond Lay.. Time Spent with Patient Time attestation: Total time managing care of this patient today ____ minutes. Discharge coordination time: Greater than 30 minutes Quality: Safe Use of Opioids Does Pt have an Active Cancer Diagnosis on the Problem List?: No Quality: Stroke Does the patient have a stroke diagnosis?: No Physical Exam Vital Signs: Vital Signs: Last Vital Signs Temp 97.3 F 02/02/23 07:22 Pulse 65 02/02/23 07:22 Resp 18 02/02/23 07:22 BP 112/66 02/02/23 07:22 Pulse Ox 95 02/02/23 07:22 O2 Del Method Room Air 02/02/23 07:22 BMI result Body Mass Index 31.0 Appearance: Alert.? Oriented X3.? not in distress.? cvs: rrr, [id number] , no murmur res: clear to auscultation ,no rhonchii or wheezing abd: no rebound or guarding ,Left sided abd pain improved significanlty , bs present. ext pulses present , no cyanosis. neuro: axo3 , nonfocal. DS: Data Data Completed and Pending Pending studies at discharge: Pending at discharge 02/01/23 15:46 Surgical [PTH] Routine Labs on day of discharge: Laboratory Results - last 24 hr 02/01/23 02/01/23 02/02/23 05:07 19:07 06:13 Hgb 12.8 11.9 L Hct 37.8 35.1 L Total Bilirubin 2.8 H Direct Bilirubin 0.6 H AST 15 ALT 24 Alkaline Phosphatase 78 Total Protein 6.1 L Albumin 3.6 Preliminary micro results at discharge 01/31/23 18:42 Blood Culture - Preliminary Blood - Venous No growth after 24 hours. 01/31/23 18:28 Blood Culture - Preliminary Blood - Venous No growth after 24 hours. Imaging Chest x-ray: Radiologist's impression: ITS Impressions Abdomen/Pelvis CT 01/31/23 18:03 IMPRESSION: 1. No evidence of active GI bleeding. 2. Colitis involving the distal transverse colon and descending colon similar to the findings seen on the 03/17/2022 study. 3. Other incidental findings as described above. Abdomen Ultrasound 01/31/23 18:51 IMPRESSION: There is a 5 mm nonobstructing calculus in the midpole of the right kidney. Otherwise normal right upper quadrant ultrasound. Discharge Plan Discharge Anticipated Discharge Date/Time: 02/02/23 13:20 Patient Disposition: Home, Self-Care Discharge Diagnosis: possible Ishchemic colitis Referrals: Vale Brunson MD [Physician] - 1 Week (Follow up outpatient) Physician,Alejandro [Physician] - 1 Week Discharge Medications: New amoxicillin-pot clavulanate 875-125 mg tablet 1 tab PO Q12H Qty: 14 0RF Continued polyethylene glycol 3350 [Miralax] 17 gram Powder In Packet 17 g PO DAILY PRN (Reason: Constipation) diazepam 10 mg tablet 10 mg PO Q12H PRN (Reason: muscle spasm) oxycodone 15 mg tablet 15 mg PO Q6H PRN (Reason: Pain) atorvastatin 20 mg tablet 20 mg PO DAILY hydrochlorothiazide 25 mg tablet 25 mg PO DAILY amlodipine 10 mg tablet 10 mg PO DAILY Discharge Orders: Discharge Order (Routine); Ordered 02/02/23 Ordered By: Lennie Reyes Diet: Advance to usual diet Activity on Discharge: As tolerated Stand Alone Forms: Patient Portal Discharge page Care Plan Goals: Patient was admitted for abdominal pain, possible rectal bleed: Abdominal imag ing showed : : Inflammation on the Colitis involving the distal transverse colon and descending colon: Started on IV antibiotics, pain meds, blood cultures sent. Seen by GI: And sigmoidoscopy was done: Found to have finding possible of ischemic colitis. Patient abdominal pain seems to be improved significantly, also tolerating diet, no leukocytosis no fever. Rectal bleed: Patient did not had any other episode of bleeding so far, H&H is stable around 11.9 range. Discussed with the GI: Patient needs to follow-up with pathology results(done during sigmoidoscopy) with GI out patiently, monitor CBC outpatient. Health Concerns: As above. Plan of Treatment: As above. Assessment: As above.
== END 2023-02-02 15:21 | disposition home or self-care (01) | DRG 246 ==
LOC: HO.ED 19:07 → HO.EDOVER 21:35 → HO.S3 02-01 00:35
PROVIDERS: Internal Medicine Gastroenterology; Physician Assistant; Admitting Provider Student in an Organized Health Care Education/Training Program; Emergency Provider Emergency Medicine; PCP Internal Medicine; Visit Provider Internal Medicine
PROC: 0DJD8ZZ Inspection of Lower Intestinal Tract, Via Natural or Artificial Opening Endoscopic (ICD-10-PCS; CPT 45330; principal; 2023-02-01 15:10)
DX: K55.9 Vascular disorder of intestine, unspecified (principal); K57.31 Diverticulosis of large intestine without perforation or abscess with bleeding; K64.8 Other hemorrhoids; E66.9 Obesity, unspecified; E78.5 Hyperlipidemia, unspecified; I10 Essential (primary) hypertension; Z68.31 Body mass index [BMI] 31.0-31.9, adult; Z20.822 Contact with and (suspected) exposure to COVID-19; Z88.1 Allergy status to other antibiotic agents; Z88.6 Allergy status to analgesic agent; Z88.8 Allergy status to other drugs, medicaments and biological substances; Z79.899 Other long term (current) drug therapy
CPT/HCPCS: 45380; 36415; 74178; 76705; 80048; 80076; 81003; 82272; 83036; 83605; 83690; 83735; 85014; 85018; 85025; 85027; 85610; 85652; 86140; 86850; 86900; 86901; 87040; 87635; 88305; 99221; 99285; J0696; J1100; J1170; J1200; J2270; J2405; J2543; J2765; Q9967

== ENCOUNTER 2023-03-23 09:02 | Day surgery (SDC) | payer OTHER, SELFPAY ==
[2023-03-19 10:23] VITALS: BMI 27.5
[2023-03-23 09:24] VITALS: BMI 27.5
--- NOTE | 2023-03-23 09:29 | MHC.SHP ---
Pre-Procedural Eval Section A Date of Service: 03/23/23 Section B Chief Complaint: intermittent nausea, v and diarrhea Details of Present Illness: nausea, vomiting and diarrhea with mu red blood per rectum. Abd CT scan showed left sided colitis - possibly ischemic colitis versus left sided UC. Relevant Family History (Specify if Yes): No Relevant Social History: None Present Medications: see Short Stay Collaborative assessment Medical History: Significant History (Hypertension, history of colitis) History of Previous Operations: Relevant previous surgery/procedure and date(s) (Hx of hysterectomy Hx of spinal surgery) Allergies: Allergies Allergy/AdvReac Type Severity Reaction Status Date / Time NSAIDS (Non-Steroidal Allergy Severe Hives Verified 02/02/23 11:37 Anti-Inflamma atenolol Allergy Unknown Hives Verified 04/22/22 07:58 ciprofloxacin Allergy Unknown Hives Verified 04/22/22 07:58 apple Allergy Abdominal Verified 02/02/23 11:37 Pain corn Allergy Abdominal Verified 02/02/23 11:37 Pain cucumber Allergy Abdominal Verified 02/02/23 11:37 Pain nut - unspecified Allergy Abdominal Verified 02/02/23 11:37 Pain sesame seed Allergy Abdominal Verified 02/02/23 11:37 Pain strawberry Allergy Abdominal Verified 02/02/23 11:37 Pain sunflower seed Allergy Abdominal Verified 02/02/23 11:37 Pain Review of Systems Sugical H&P ROS: Negative: Constitution, Cardiovascular and Respiratory and Yes, Specify: Gastrointestinal (n, v and d) Exam Surgical H&P Exam: Normal: Heart, Normal: Lungs, Normal: Extremities and Normal: Abdomen Plan Diagnosis/Plan: Unchanged I have reviewed the history and physical and performed a pertinent physical examination on my patient. No changes have occurred unless specified. Time Spent With Patient Time: Total time managing care of this patient today ____ minutes.
--- NOTE | 2023-03-23 09:30 | P.CONAN_ITS ---
[facility] Active Problems Active Problems: All Active Problems (Updated 03/19/23 @ 10:22 by Jovana Cardozo RN) Abdominal pain (Acute) Nausea (Acute) Acute lower GI bleeding (Acute) Nausea & vomiting (Acute) Hyperbilirubinemia (Acute) Colitis (Acute) Past Medical History Medical History (Updated 03/19/23 @ 10:22 by Jovana Cardozo RN) Colitis Diverticulitis Elevated cholesterol GI bleed HTN (hypertension) Meningitis Sciatica Family History Family History Mother Diabetes Father Heart disease Family history of problems with anesthesia: No Surgical History Surgical History (Updated 03/19/23 @ 10:23 by Jovana Cardozo RN) H/O colonoscopy Hx of hysterectomy Hx of spinal surgery History of Problems with Anesthesia: No Social History Social History Household Members: Spouse Household Members Other:: Housing: House Do you presently have visiting nurse or other home services: No Alcohol intake: never Patient Tobacco Use Status: Never used Tobacco Substance Use Type: Marijuana Advance Directives: No Advance Directives Information Provided: Yes service: No Current occupational status: unemployed Meds Allergies Allergy/AdvReac Type Severity Reaction Status Date / Time NSAIDS (Non-Steroidal Allergy Severe Hives Verified 02/02/23 11:37 Anti-Inflamma atenolol Allergy Unknown Hives Verified 04/22/22 07:58 ciprofloxacin Allergy Unknown Hives Verified 04/22/22 07:58 apple Allergy Abdominal Verified 02/02/23 11:37 Pain corn Allergy Abdominal Verified 02/02/23 11:37 Pain cucumber Allergy Abdominal Verified 02/02/23 11:37 Pain nut - unspecified Allergy Abdominal Verified 02/02/23 11:37 Pain sesame seed Allergy Abdominal Verified 02/02/23 11:37 Pain strawberry Allergy Abdominal Verified 02/02/23 11:37 Pain sunflower seed Allergy Abdominal Verified 02/02/23 11:37 Pain Active Medications: Current Medications Ondansetron HCl (Ondansetron Hcl 4 Mg/2 Ml Vial) 4 mg IVPUSH ONCE PRN PRN Reason: Nausea and Vomiting Home Medications Medication Instructions Recorded Confirmed Last Taken Type amlodipine 10 mg tablet 10 mg PO DAILY 0603/19/23 03/23/23 History atorvastatin 20 mg tablet 20 mg PO DAILY 04/22/22 03/19/23 03/23/23 History hydrochlorothiazide 25 mg tablet 25 mg PO DAILY 04/22/22 03/19/23 03/23/23 History oxycodone 15 mg tablet 15 mg PO Q6H PRN Pain 04/22/22 03/19/23 03/23/23 History diazepam 10 mg tablet 10 mg PO Q12H PRN muscle spasm 01/31/23 03/19/23 01/30/23 History polyethylene glycol 3350 17 gram 17 g PO DAILY PRN Constipation 01/31/23 03/19/23 Unknown History oral powder packet (Miralax) Exam Exam Date and Time: March 23, 2023 0930 Height,Weight and Vital Signs: Height 5 ft 4 in Weight 72.575 kg Airway Mallampati Class: II Neck ROM: Full Loose/Missing/Broken Teeth: No Heart: rr Lungs: cta Assessment and Plan Assessment Anesthesia Assessment: Anesthesia Plan Discussed and Chart Reviewed Final Anesthetic Review Family History of Problems with Anesthesia: No History of Problems with Anesthesia: No NPO: Yes ASA Class: II Final Preanesthetic Review: No Changes in Pt Med Stat, Meds/Allgs Chart Reviewed, Consent Obtained/Reviewed and Anes Risks/Benef Reviewed Patient Risk: Low Procedure Risk: Low Anesthetic Plan Anesthetic Plan: MAC: Disposition: Standard PACU
[2023-03-23 09:33] VITALS: BMI 27.5
[2023-03-23 09:34] VITALS: BP 141/79; PULSE 72; RESP 18; TEMP 36.6; O2SAT 97
--- NOTE | 2023-03-23 09:42 | P.CONAN_ITS ---
[facility] Active Problems Active Problems: All Active Problems (Updated 03/19/23 @ 10:22 by Jovana Cardozo RN) Abdominal pain (Acute) Nausea (Acute) Acute lower GI bleeding (Acute) Nausea & vomiting (Acute) Hyperbilirubinemia (Acute) Colitis (Acute) Past Medical History Medical History (Updated 03/19/23 @ 10:22 by Jovana Cardozo RN) Colitis Diverticulitis Elevated cholesterol GI bleed HTN (hypertension) Meningitis Sciatica Family History Family History Mother Diabetes Father Heart disease Family history of problems with anesthesia: No Surgical History Surgical History (Updated 03/19/23 @ 10:23 by Jovana Cardozo RN) H/O colonoscopy Hx of hysterectomy Hx of spinal surgery History of Problems with Anesthesia: No Social History Social History Household Members: Spouse Household Members Other:: Housing: House Do you presently have visiting nurse or other home services: No Alcohol intake: never Patient Tobacco Use Status: Never used Tobacco Use of substances other than those prescribed or required for medical reasons: Yes Substance Use Type: Marijuana Substance Use Type Other:: 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 current marijuana daily Advance Directives: No Advance Directives Information Provided: Yes service: No Current occupational status: unemployed Meds Allergies Allergy/AdvReac Type Severity Reaction Status Date / Time NSAIDS (Non-Steroidal Allergy Severe Hives Verified 02/02/23 11:37 Anti-Inflamma atenolol Allergy Unknown Hives Verified 04/22/22 07:58 ciprofloxacin Allergy Unknown Hives Verified 04/22/22 07:58 apple Allergy Abdominal Verified 02/02/23 11:37 Pain corn Allergy Abdominal Verified 02/02/23 11:37 Pain cucumber Allergy Abdominal Verified 02/02/23 11:37 Pain nut - unspecified Allergy Abdominal Verified 02/02/23 11:37 Pain sesame seed Allergy Abdominal Verified 02/02/23 11:37 Pain strawberry Allergy Abdominal Verified 02/02/23 11:37 Pain sunflower seed Allergy Abdominal Verified 02/02/23 11:37 Pain Active Medications: Current Medications Lactated Ringer's (Lr) 500 mls @ 20 mls/hr IVCONT .Q24H LAURA Ondansetron HCl (Ondansetron Hcl 4 Mg/2 Ml Vial) 4 mg IVPUSH ONCE PRN PRN Reason: Nausea and Vomiting Home Medications Medication Instructions Recorded Confirmed Last Taken Type amlodipine 10 mg tablet 10 mg PO DAILY 04/22/22 03/19/23 03/23/23 History atorvastatin 20 mg tablet 20 mg PO DAILY 04/22/22 03/19/23 03/23/23 History hydrochlorothiazide 25 mg tablet 25 mg PO DAILY 04/22/22 03/19/23 03/23/23 History oxycodone 15 mg tablet 15 mg PO Q6H PRN Pain 04/22/22 03/19/23 03/23/23 History diazepam 10 mg tablet 10 mg PO Q12H PRN muscle spasm 01/31/23 03/19/23 01/30/23 History polyethylene glycol 3350 17 gram 17 g PO DAILY PRN Constipation 01/31/23 03/19/23 Unknown History oral powder packet (Miralax) Exam Exam Date and Time: March 23, 2023 0942 Height,Weight and Vital Signs: Height 5 ft 4 in Weight 72.575 kg Last Vital Signs Temp 97.9 F 03/23/23 09:34 Pulse 72 03/23/23 09:34 Resp 18 03/23/23 09:34 BP 141/79 H 03/23/23 09:34 Pulse Ox 97 03/23/23 09:34 O2 Del Method Room Air 03/23/23 09:34 Airway Mallampati Class: II TM Dist: >3cm Neck ROM: Full Loose/Missing/Broken Teeth: No Heart: rrr Lungs: clear Assessment and Plan Final Anesthetic Review Family History of Problems with Anesthesia: No History of Problems with Anesthesia: No NPO: Yes Final Preanesthetic Review: No Changes in Pt Med Stat, Meds/Allgs Chart Reviewed, Consent Obtained/Reviewed and Anes Risks/Benef Reviewed Patient Risk: Intermediate Procedure Risk: Low Anesthetic Plan Anesthetic Plan: MAC: Disposition: Standard PACU
[2023-03-23] MEDS: Lactated Ringers 500 ML 20 ML IVCONT (09:58)
--- NOTE | 2023-03-23 10:20 | P.OP_ITS ---
Operative Note Operative Note Date of Service: 03/23/23 Narrative: FLEXIBLE TRANSORAL UPPER GASTROINTESTINAL ENDOSCOPY WITH BIOPSIES AND COLONOSCOPY TILL CECUM WITH BIOPSIES AND SNARE POLYPECTOMY Pre-op diagnosis: Colon cancer screening, history of colon polyps, intermittent episodes of nausea vomiting and diarrhea Post-op diagnosis: Gastritis, GERD, colon polyps, diverticulosis, hemorrhoids? Endoscopist:? Vale Brunson MD Anesthesia:?MAC UPPER ENDOSCOPY Consent: Indications for the procedure and potential complications of bleeding, perforation, reaction to medications and missed diagnosis were discussed with the patient and informed consent was obtained. Instrument: Olympus GIF H 190 mid size upper endoscope Monitoring: Vital signs and clinical assessment, continuous EKG monitoring, Pulse oximetry, Carbon Dioxide monitoring and blood pressure monitoring were done throughout the procedure. Procedure: The patient was placed in the left lateral decubitis position and pre-procedure medications were administered and a bite block was placed. The endoscope was inserted into the mouth and advanced under direct vision to the third part of duodenum. A careful inspection was made as the upper endoscope was withdrawn including a retroflexed examination of the proximal stomach; Findings and interventions are described below. Findings: Larynx: Normal Esophagus: GE junction at 34 cms, small hiatal hernia 34 to 36 cms. Minimal focal esophagitis at GE junction and no Winters's. Stomach: Moderate diffuse gastric erythema. Biopsies were obtained. Grade 2 flap valve on retroflexed examination of the cardia. Duodenum: Normal bulb and descending duodenum. Biopsies were obtained from 3rd part of the duodenum to check for celiac sprue Intervention: Biopsies as noted above COLONOSCOPY PROCEDURE NOTE Consent: Indications for the procedure and potential complications of bleeding, perforation, reaction to medications and missed diagnosis were discussed with the patient and informed consent was obtained. Instrument: Olympus PCF H 190 L variable stiffness pediatric colonoscope Monitoring: Vital signs and clinical assessment, intermittent blood pressure monitoring, continuous EKG monitoring, Pulse oximetry and Carbon Dioxide monitoring were done throughout the procedure. Colon withdrawl time was 22 minutes. Procedure: The patient was placed in the left lateral decubitis position and pre-procedure medications were administered. After a digital rectal examination of the ano-rectum, the video colonoscope was inserted into the rectum and advanced through the colon to the cecum. The colonoscope was slowly withdrawn in a retrograde panoramic fashion and the colon mucosa was carefully examined including a retroflexed view of the rectum. Findings and interventions are described below. Procedure Difficulty: : Without difficulty Findings: Terminal Ileum: Distal 5 cms was examined and appeared normal Cecum: Normal Ascending Colon: A 7 to 8 mm sessile polyp in the mid ascending colon - removed with a cold snare Transverse Colon: A 7-8 mm sessile polyp - removed with a cold snare Descending Colon: Moderate diverticulosis Sigmoid Colon: A narrowed segment of the colon from 20 to 30 cms with edematous folds and a focal area of eythema and one 2-3 mm aphthoid ulcer - biopsied. Moderate diverticulosis Rectum: Normal Ano-rectum: Moderate internal hemorrhoids Colon preparation: Good after copious irrigation. Impression and Post Procedure Diagnosis: Endoscopy Findings: ESOPHAGUS: Small hiatal hernia, minimal focal esophagitis STOMACH: Diffuse moderate gastritis DUODENUM: Normal - biopsied to check for celiac sprue Colonoscopy Findings: Two polyps removed A narrowed segment of the colon from 20 to 30 cms with edematous folds and a focal area of eythema and one 2-3 mm aphthoid ulcer - biopsied. Random biopsies were obtained from the right and left colon to check for microscopic colitis. Moderate diverticulosis seen in the left colon Moderate hemorrhoids on retroflexed exam. Intermittent episodes of nausea, vomiting and diarrhea possibly due to cyclic vo miting syndrome versus related to marijuana use Plan: Await pathology results Patient has an appointment on 04/13/23 in the GI Clinic with ALEK Lea. Consider further evaluation with a GES to complete GI workup. Repeat Colonoscopy interval based on path results - in 5 years if polyps are adenomatous and 10 years if polyps are hyperplastic. Above findings were reviewed with the patient and colon polyps and diverticulosis handouts were given in the discharge area
[2023-03-23 11:20] VITALS: BP 107/74; PULSE 95; RESP 18; TEMP 36.1; O2SAT 98
[2023-03-23 11:35] VITALS: BP 118/71; PULSE 65; RESP 16; TEMP 36.1; O2SAT 98
== END 2023-03-23 12:00 | disposition home or self-care (01) ==
PROVIDERS: PCP Internal Medicine; Visit Provider Internal Medicine Gastroenterology
PROC: (CPT 45385; principal; 2023-03-23 10:20)
DX: Z12.11 Encounter for screening for malignant neoplasm of colon (principal); Z86.010 Personal history of colon polyps; K52.9 Noninfective gastroenteritis and colitis, unspecified; D12.2 Benign neoplasm of ascending colon; D12.3 Benign neoplasm of transverse colon; K57.30 Diverticulosis of large intestine without perforation or abscess without bleeding; K64.8 Other hemorrhoids; R10.9 Unspecified abdominal pain; Z87.19 Personal history of other diseases of the digestive system; K29.50 Unspecified chronic gastritis without bleeding; K20.80 Other esophagitis without bleeding; K21.9 Gastro-esophageal reflux disease without esophagitis; K44.9 Diaphragmatic hernia without obstruction or gangrene; I10 Essential (primary) hypertension; E78.5 Hyperlipidemia, unspecified; Z79.899 Other long term (current) drug therapy; Z88.1 Allergy status to other antibiotic agents; Z88.8 Allergy status to other drugs, medicaments and biological substances; F12.90 Cannabis use, unspecified, uncomplicated; F14.11 Cocaine abuse, in remission
CPT/HCPCS: 45385; 45380; 43239; 88305; 88342

== ENCOUNTER 2023-04-04 08:27 | Inpatient (IN) | payer OTHER, SELFPAY ==
--- NOTE | ~2023-04-04 | CT_ITS ---
EXAMINATION: CT ABDOMEN AND PELVIS WITH CONTRAST CLINICAL INFORMATION: Diffuse abdominal pain, nausea and vomiting diarrhea, bright red blood per rectum COMPARISON: CT abdomen pelvis 01/31/2023 TECHNIQUE: Multidetector volumetric images were obtained from the superior aspect of the liver through the pubic symphysis following administration 85 mL of Omnipaque 350 intravenous contrast. Sagittal and coronal reformatted images were obtained on the technologist's workstation. Oral contrast: No This CT examination was performed using dose optimization techniques as appropriate, variously including the following: *Automated exposure control *Adjustment of mA and/or kV according to patient size (this includes techniques or standardized protocols for targeted exams where dose is matched to indication/reason for exam; i.e. extremities or head) *Use of iterative reconstruction technique DLP: 483 mGy-cm FINDINGS: LUNG BASES: Unremarkable. ABDOMINAL AND PELVIC WALL: Unremarkable. LIVER AND BILIARY TREE: Liver is enlarged measuring 20.4 cm in span. GALLBLADDER: Unremarkable. PANCREAS: Unremarkable. SPLEEN: Incidentally noted accessory splenule. ADRENAL GLANDS: Unremarkable. KIDNEYS AND URETERS: Right renal hypodensity too small to characterize. Left renal pelviectasis without mu hydronephrosis similar to prior. GASTROINTESTINAL TRACT: Small hiatal hernia. Rectum is fluid-filled compatible with a diarrheal state. Normal appendix. There is pancolonic and rectal wall thickening and edema with prominence of the perienteric vessels suggestive of proctocolitis. There is more focal masslike wall thickening involving the junction of the sigmoid and the descending colon measuring approximately 4.3 cm in span, for which superimposed underlying neoplasm cannot be excluded and recommend correlation with colonoscopy when clinically appropriate or correlation with any prior recent screening colonoscopy findings. No definite intraluminal contents suggest active bleeding appreciated on this limited single phase exam. VASCULAR: Unremarkable. LYMPH NODES/PERITONEUM: No lymphadenopathy. FREE FLUID: None. BLADDER: Unremarkable. PELVIC VISCERA: Status post hysterectomy. The left ovary appears somewhat asymmetric with respect to the contralateral side making an underlying ovarian lesion difficult to exclude and therefore recommend correlation with pelvic ultrasound. OSSEOUS STRUCTURES: L5-S1 degenerative disc disease. CT/CT abdomen pelvis w IV con IMPRESSION: 1. There is pancolonic and rectal wall thickening and edema suggestive of proctocolitis. There is more focal masslike wall thickening involving the junction of the sigmoid and the descending colon measuring approximately 4.3 cm in span, for which superimposed underlying neoplasm cannot be excluded and recommend correlation with colonoscopy when clinically appropriate or correlation with any prior recent screening colonoscopy findings. 2. The left ovary appears somewhat asymmetric with respect to the contralateral side making an underlying ovarian lesion difficult to exclude and therefore recommend correlation with pelvic ultrasound. 3. Hepatomegaly.
--- NOTE | ~2023-04-04 | CT_ITS ---
EXAMINATION: CT ANGIOGRAM ABDOMEN AND PELVIS CLINICAL INFORMATION: Ischemic colitis COMPARISON: CT abdomen pelvis on 04/04/2023 TECHNIQUE: Multiple axial images were obtained through the abdomen and pelvis following the administration of 80 mL of Omnipaque 350 intravenous contrast. Images were reviewed on a dedicated 3-D workstation. This CT examination was performed using dose optimization techniques as appropriate, variously including the following: *Automated exposure control *Adjustment of mA and/or kV according to patient size (this includes techniques or standardized protocols for targeted exams where dose is matched to indication/reason for exam; i.e. extremities or head) *Use of iterative reconstruction technique DLP: 387 mGy-cm FINDINGS: ABDOMINAL AORTA: Normal in caliber. Minimal atherosclerotic disease.. RIGHT ILIAC ARTERY: Patent. LEFT ILIAC ARTERY: Patent. CELIOMESENTERIC ARTERIES: Patent, no significant abnormality or atherosclerotic disease. RENAL ARTERIES: Single bilateral renal arteries are patent.. NONVASCULAR: Lung Bases: Minimal atelectasis. Liver, Gallbladder and Biliary Tree: The liver is normal in size, shape, and attenuation. No focal hepatic lesion or biliary ductal dilatation is present. The gallbladder is unremarkable with no evidence of radiopaque gallstones, gallbladder wall thickening, or obvious pericholecystic inflammatory changes. Pancreas: Unremarkable. Spleen: Unremarkable. Adrenal Glands: Unremarkable. Kidneys and Ureters: The kidneys are normal in size, shape, and attenuation. No hydronephrosis, hydroureter, or calculi seen. No perinephric stranding. Bladder: Unremarkable. Gastrointestinal Tract: Progression of the wall thickening involving the mid transverse colon. No significant change of the bowel wall thickening involving the descending and sigmoid colon. There are increased surrounding inflammatory changes surrounding the mid transverse colon. Abdominal Wall: No significant hernia is appreciated. No free air. Trace free fluid in the pelvis, new. Lymph Nodes: Normal. Pelvic Viscera: Prior hysterectomy. Osseous Structures: Unremarkable. CT/CT angio abdomen pelvis IMPRESSION: 1. Progression of the wall thickening involving the mid transverse colon with increased surrounding inflammatory changes. 2. No significant vascular abnormality. Minimal atherosclerotic disease.
--- NOTE | ~2023-04-04 | US_ITS ---
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 Transvaginal imaging is performed due to inadequate visualization transabdominally. Exam is limited due to patient body habitus. FINDINGS: The uterus has been removed. The right ovary is normal-appearing and measures 4.3 x 3 x 2 cm. Left ovary is normal-appearing and measures 3.3 x 1.9 x 2.6 cm. There are 2 simple appearing left ovarian cysts measuring 1.5 x 1.3 x 1.1 cm and 1.4 x 1.1 x 0.9 cm. There is a small amount of fluid in the right pelvis. This appears slightly complex with several septations. US/US pelvic and transvaginal IMPRESSION: Normal-appearing ovaries. 2 small left ovarian simple appearing cysts. Small amount of complex fluid in the right pelvis.
[2023-04-04 08:58] VITALS: BP 133/78; PULSE 76; RESP 16; TEMP 36.8; O2SAT 98; BMI 27.5
--- NOTE | 2023-04-04 09:05 | ED.ABDPAIN ---
HPI - Abdominal Pain General Chief Complaint: Abdominal Pain Stated Complaint: RECTAL BLEEDING Time Seen by Provider: 04/04/23 09:00 Source: patient, RN notes reviewed and old records reviewed Mode of arrival: ambulatory History of Present Illness HPI narrative: 47-year-old female with a past medical history of HTN, HLD, prior GI bleed, colitis, diverticulitis, sciatica, meningitis, presenting to ED complaining of diffuse abdominal pain, nausea, nonbloody emesis x30 episodes, and bright red bloody diarrhea since 06:00AM. Admits to drinking ETOH last night which she typically does not drink. Denies fever, chills, suspicious food intake, dysuria/hematuria MD elicited complaint: abdominal pain Related Data Home Medications Medication Instructions Recorded Confirmed amlodipine 10 mg tablet 10 mg PO DAILY 04/22/22 03/19/23 atorvastatin 20 mg tablet 20 mg PO DAILY 04/22/22 03/19/23 hydrochlorothiazide 25 mg tablet 25 mg PO DAILY 04/22/22 03/19/23 oxycodone 15 mg tablet 15 mg PO Q6H PRN Pain 04/22/22 03/19/23 diazepam 10 mg tablet 10 mg PO Q12H PRN muscle spasm 01/31/23 03/19/23 polyethylene glycol 3350 17 gram 17 g PO DAILY PRN Constipation 01/31/23 03/19/23 oral powder packet (Miralax) Allergies Allergy/AdvReac Type Severity Reaction Status Date / Time NSAIDS (Non-Steroidal Allergy Severe Hives Verified 02/02/23 11:37 Anti-Inflamma atenolol Allergy Unknown Hives Verified 04/22/22 07:58 ciprofloxacin Allergy Unknown Hives Verified 04/22/22 07:58 apple Allergy Abdominal Verified 02/02/23 11:37 Pain corn Allergy Abdominal Verified 02/02/23 11:37 Pain cucumber Allergy Abdominal Verified 02/02/23 11:37 Pain nut - unspecified Allergy Abdominal Verified 02/02/23 11:37 Pain sesame seed Allergy Abdominal Verified 02/02/23 11:37 Pain strawberry Allergy Abdominal Verified 02/02/23 11:37 Pain sunflower seed Allergy Abdominal Verified 02/02/23 11:37 Pain Review of Systems Review of Systems Constitutional: No Fever, No Chills, No Night Sweats, No Fatigue, No Malaise ENT/Mouth: No Ear Pain, No Nasal Congestion, No sore throat, No Rhinorrhea, No Swallowing Difficulty Eyes: No Eye Pain, No Swelling, No Redness, No Foreign Body, No Discharge, No Vision Changes Cardiovascular: No Chest Pain, No SOB, No Edema, No Palpitations Respiratory: No Cough, No Sputum, No Dyspnea Gastrointestinal: + Nausea, + Vomiting, + Diarrhea, No Constipation, + Abdominal pain, + Hematochezia, No Melena Genitourinary: No Dysuria, No Urinary Frequency, No Hematuria, No Flank Pain Musculoskeletal: No joint pain, No Myalgias, No Joint Swelling Skin: No Skin Lesions, No rash Neuro: No Weakness, No Loss of Consciousness, No Dizziness, No Headache Yes all other systems are reviewed and are negative Constitutional: Reports as per [facility] Past Medical History Attestation statement: The following information was validated with the patient. Source: old records reviewed Medical History Colitis Diverticulitis Elevated cholesterol GI bleed HTN (hypertension) Meningitis Sciatica Surgical History H/O colonoscopy Hx of hysterectomy Hx of spinal surgery Family History Family History Mother Diabetes Father Heart disease Social History Social History Household Members: Spouse Household Members Other:: Housing: House Do you presently have visiting nurse or other home services: No Alcohol intake: never Patient Tobacco Use Status: Never used Tobacco Substance Use Type: Marijuana Advance Directives: No Advance Directives Information Provided: No service: No Current occupational status: unemployed Physical Exam ED Vital Signs: Vital Signs - 24 hr 04/04/23 08:58 04/04/23 09:54 Temperature 98.3 F 97.8 F Pulse Rate 76 Respiratory Rate 16 Blood Pressure 133/78 Pulse Oximetry 98 Oxygen Delivery Method Room Air BMI result Body Mass Index 27.5 Const General: cooperative, healthy appearing and no acute distress Orientation/consciousness: patient oriented x3 Limitations: no limitations HENMT Head: Yes normal to inspection and Yes atraumatic Ears: hearing grossly normal bilaterally General nose exam: Normal external nose present Face and sinus: Yes normal facial exam Eyes General: appearance normal, both eyes and all related structures EOM: EOMs intact bilaterally Neck Neck: Yes normal visual inspection and Yes no meningeal signs Resp Effort & Inspection: normal respiratory effort and no respiratory distress Cardio Rate: regular rate Heart sounds: S1 normal heart sound present and S2 normal heart sound present GI Other: Brown stool noted Inspection: Yes normal to inspection Palpation (GI): Soft to palpation, Tenderness to palpation present (GI) in the LLQ, in the LUQ and suprapubicly; with no rebound tenderness, no guarding and not rigid General: Yes no CVA tenderness Back/Spine/Pelvis Back: no CVA tenderness Skin Rashes: no rashes Wounds: no wounds Neuro General: patient oriented x3, tone normal and no meningeal signs Gait exam (Neuro): Normal gait present Extrem General: Yes normal to inspection Course Course Course Narrative: -1018--noted leukocytosis of 19.7 > likely reactive nausea/vomiting and pain. Chronically elevated T bilirubin, labs otherwise reassuring -occult blood positive -1110-lactic acidosis of 2.9 likely reactive from nausea/vomiting/dehydration. Tox screen positive for opiates and THC -CT with diffuse mural thickening of entire colon suggestive of colitis no obstruction or free air >> plan to admit for further management Medical Decision Making Medical Decision Making [facility] Narrative: 47-year-old female with a past medical history of HTN, HLD, prior GI bleed, colitis, diverticulitis, sciatica, meningitis, presenting to ED complaining of diffuse abdominal pain, nausea, nonbloody emesis x30 episodes, and bright red bloody diarrhea since 06:00AM. On exam VSS, NAD, nontoxic, abdomen soft with diffuse tenderness, no rebound or guarding, brown stool noted on rectal. Concern for gastroenteritis vs diverticulitis vs colitis vs GI bleed vs appendicitis. Lower suspicion for pancreatitis/cholecystitis/lithiasis at this time. Low suspicion for severe sepsis Plan: Labs, UA, occult stool, IVF, CT AP, pain control per re-evaluate Please refer to course for remaining clinical decision making, interpretation of labs/imaging results, and discussions with consultants and/or family members. Differential Diagnosis Differential Diagnoses: The differential diagnosis associated with the presentation includes As above Admission/Observation Consideration of admission/observation: Escalation of care including admission/observation considered Lab Data [facility] Lab Attestation statement: I reviewed the patient's lab results. 05/27/23 09:22 04/04/23 09:22 Labs: Lab Results 04/04/23 04/04/23 04/04/23 Range/Units 09:22 09:22 09:40 WBC 19.7 H (4.8-10.8) X10*3/uL RBC 4.68 (4.20-5.50) X10*6/uL Hgb 14.1 (12.0-16.0) g/dl Hct 41.0 (37.0-47.0) % MCV 87.6 (80.0-98.0) fL MCH 30.1 (27.0-33.0) pg MCHC 34.4 (31.0-35.0) g/dl RDW 12.2 (11.0-16.0) % Plt Count 290 (160-400) X10*3/uL MPV 9.6 (9.4-12.3) fL Immature Gran % (Auto) 0.4 (0.0-0.4) % Neut % (Auto) 90.5 H (45-73) % Lymph % (Auto) 2.4 L (20-40) % [place] % (Auto) 6.5 (2-11) % Eos % (Auto) 0.0 (0-4) % Baso % (Auto) 0.2 (0-2) % Lymph # (Auto) 0.5 L (1.2-4.9) X10*3/uL [place] # (Auto) 1.3 H (0.1-1.2) X10*3/uL Eos # (Auto) 0.0 (0.0-0.4) X10*3/uL Baso # (Auto) 0.0 (0.0-0.2) X10*3/uL Abs Immat Gran (auto) 0.07 H (0.00-0.03) X10*3/uL Absolute Neuts (auto) 17.8 H (2.0-8.3) x10*3/uL Absolute Nucleated RBC 0.000 (0.0-0.012) X10*3/uL Nucleated RBC % (auto) 0.0 (0.0-0.2) /100WBC Smear Tech's Comments VERIFIED Sodium 140 (135-145) mmol/L Potassium 3.7 (3.3-5.1) mmol/L Chloride 103 (96-108) mmol/L Carbon Dioxide 28 (22-29) mmol/L Anion Gap 13 (12-20) BUN 15 (9-16) mg/dL Creatinine 0.82 (0.5-1.4) mg/dL Estim Creat Clear Calc 81.0 Estimated GFR > 60 Random Glucose 177 H (60-115) mg/dL Lactic Acid (0.5-2.0) mmol/L Calcium 9.9 D (8.4-10.2) mg/dL Magnesium 1.9 (1.6-2.6) mg/dL Total Bilirubin 2.0 H (0.0-1.0) mg/dL Direct Bilirubin 0.5 (0.0-0.5) mg/dL AST 18 (5-31) U/L ALT 33 H (0-31) U/L Alkaline Phosphatase 85 (39-117) U/L Total Protein 7.0 (6.5-8.0) g/dL Albumin 4.2 (3.5-5.0) g/dL Lipase 14 (8-78) U/L Urine Color Urine Appearance Urine pH (5.0-9.0) Ur Specific [place] (1.005-1.025) Urine Protein (Neg-Trace) mg/dL Urine Glucose (UA) (Negative) mg/dL Urine Ketones (Negative) mg/dL Urine Blood (Negative) Urine Nitrite (Negative) Ur Leukocyte Esterase (Negative) Stool Occult Blood POSITIVE (NEGATIVE) Urine Opiates Screen (Not Detect) Urine Fentanyl Screen (Not Detect) Ur Barbiturates Screen (Not Detect) Ur Phencyclidine Scrn (Not Detect) Ur Amphetamines Screen (Not Detect) U Benzodiazepines Scrn (Not Detect) Urine Cocaine Screen (Not Detect) U Marijuana (THC) Screen (Not Detect) 04/04/23 04/04/23 04/04/23 Range/Units 10:36 10:37 10:37 WBC (4.8-10.8) X10*3/uL RBC (4.20-5.50) X10*6/uL Hgb (12.0-16.0) g/dl Hct (37.0-47.0) % MCV (80.0-98.0) fL MCH (27.0-33.0) pg MCHC (31.0-35.0) g/dl RDW (11.0-16.0) % Plt Count (160-400) X10*3/uL MPV (9.4-12.3) fL Immature Gran % (Auto) (0.0-0.4) % Neut % (Auto) (45-73) % Lymph % (Auto) (20-40) % [place] % (Auto) (2-11) % Eos % (Auto) (0-4) % Baso % (Auto) (0-2) % Lymph # (Auto) (1.2-4.9) X10*3/uL [place] # (Auto) (0.1-1.2) X10*3/uL Eos # (Auto) (0.0-0.4) X10*3/uL Baso # (Auto) (0.0-0.2) X10*3/uL Abs Immat Gran (auto) (0.00-0.03) X10*3/uL Absolute Neuts (auto) (2.0-8.3) x10*3/uL Absolute Nucleated RBC (0.0-0.012) X10*3/uL Nucleated RBC % (auto) (0.0-0.2) /100WBC Smear Tech's Comments Sodium (135-145) mmol/L Potassium (3.3-5.1) mmol/L Chloride (96-108) mmol/L Carbon Dioxide (22-29) mmol/L Anion Gap (12-20) BUN (9-16) mg/dL Creatinine (0.5-1.4) mg/dL Estim Creat Clear Calc Estimated GFR Random Glucose (60-115) mg/dL Lactic Acid 2.9 H* (0.5-2.0) mmol/L Calcium (8.4-10.2) mg/dL Magnesium (1.6-2.6) mg/dL Total Bilirubin (0.0-1.0) mg/dL Direct Bilirubin (0.0-0.5) mg/dL AST (5-31) U/L ALT (0-31) U/L Alkaline Phosphatase (39-117) U/L Total Protein (6.5-8.0) g/dL Albumin (3.5-5.0) g/dL Lipase (8-78) U/L Urine Color Yellow Urine Appearance Clear Urine pH 8.5 (5.0-9.0) Ur Specific [place] >= 1.030 H (1.005-1.025) Urine Protein Negative (Neg-Trace) mg/dL Urine Glucose (UA) Negative (Negative) mg/dL Urine Ketones Negative (Negative) mg/dL Urine Blood Negative (Negative) Urine Nitrite Negative (Negative) Ur Leukocyte Esterase Negative (Negative) Stool Occult Blood (NEGATIVE) Urine Opiates Screen POSITIVE H (Not Detect) Urine Fentanyl Screen Not Detected (Not Detect) Ur Barbiturates Screen Not Detected (Not Detect) Ur Phencyclidine Scrn Not Detected (Not Detect) Ur Amphetamines Screen Not Detected (Not Detect) U Benzodiazepines Scrn Not Detected (Not Detect) Urine Cocaine Screen Not Detected (Not Detect) U Marijuana (THC) Screen POSITIVE H (Not Detect) Radiology Impression Discussion of test interpretation with radiology: I have reviewed the radiologist's reading. External Record Review External record reviewed: Inpatient record, Office record, Outpatient record, Prior outpatient labs, Prior outpatient radiology, Primary care record and Outside ED record Tests considered The following testing was considered but not selected: As above Medications Administered Generic Name Dose Route Start Last Admin Trade Name Freq PRN Reason Stop Dose Admin Sodium Chloride 1,000 mls @ 999 mls/hr 04/04/23 10:30 04/04/23 10:58 Ns IV 04/04/23 11:30 999 mls/hr .Q1H1M LAURA Administration Discontinued Medications Generic Name Dose Route Start Last Admin Trade Name Freq PRN Reason Stop Dose Admin Al Hydroxide/Mg Hydroxide 30 ml 04/04/23 09:12 04/04/23 10:05 Magnesium Hydrox/Alum Hydrox 30 Ml Oral.Susp PO 04/04/23 09:13 Not Given ONCE ONE Diphenhydramine HCl 50 mg 04/04/23 10:51 04/04/23 10:59 Diphenhydramine Hcl 50 Mg/Ml Vial IVPUSH 04/04/23 10:52 50 mg ONCE ONE Administration Famotidine 20 mg 04/04/23 09:12 04/04/23 09:38 Famotidine/Pf 20 Mg/2 Ml Vial IVPUSH 04/04/23 09:13 20 mg ONCE ONE Administration Sodium Chloride 1,000 mls @ 999 mls/hr 04/04/23 09:15 04/04/23 10:59 Ns IV 04/04/23 10:15 Infused .Q1H1M LAURA Infusion Piperacillin Sod/Tazobactam 50 mls @ 100 mls/hr 04/04/23 10:17 04/04/23 11:00 Sod 3.375 gm/ Sodium Chloride IV 04/04/23 10:46 100 mls/hr ONCE ONE Administration Iohexol 85 ml 04/04/23 10:31 04/04/23 10:34 Iohexol 350 Mg/Ml 100 Ml Infus..Btl IV 04/04/23 10:32 85 ml ONCE ONE Administration Metoclopramide HCl 10 mg 04/04/23 10:51 04/04/23 10:58 Metoclopramide Hcl 10 Mg/2 Ml Vial IVPUSH 04/04/23 10:52 10 mg ONCE ONE Administration Morphine Sulfate 2 mg 04/04/23 09:12 04/04/23 09:39 Morphine Sulfate 2 Mg/Ml Cartridge IVPUSH 04/04/23 09:13 2 mg ONCE ONE Administration Protocol Morphine Sulfate 2 mg 04/04/23 10:50 04/04/23 11:00 Morphine Sulfate 2 Mg/Ml Cartridge IVPUSH 04/04/23 10:51 2 mg ONCE ONE Administration Protocol Ondansetron HCl 4 mg 04/04/23 09:12 04/04/23 09:37 Ondansetron Hcl 4 Mg/2 Ml Vial IVPUSH 04/04/23 09:13 4 mg ONCE ONE Administration Critical Care Time Critical Care Time Critical Care Time: Yes Total Critical Care Time: 40 Attestation: I have personally provided critical care time exclusive of time spent on separately billable procedures. Time includes review of lab data, radiology results, discussion with consultants, and monitoring for potential decompensation. Intervention performed as documented. Discharge Plan Discharge Clinical Impression: Colitis, Occult blood positive stool Patient Disposition: Admitted As Inpatient
--- NOTE | 2023-04-04 09:06 | PC.NURSE ---
Also reporting blood in her stool which pt reports has been ongoing. Has had colonoscopy pt reports approx 2 weeks ago
[2023-04-04 09:27] LABS: Basophils Percent Auto 0.2 % (0-2); Hemoglobin 14.1 g/dl (12.0-16.0); Imm Gran Abs Auto 0.07 X10*3/uL (0.00-0.03); Imm Gran Pct Auto 0.4 % (0.0-0.4); Lymphocytes Absolute Auto 0.5 X10*3/uL (1.2-4.9); Lymphocytes Percent Auto 2.4 % (20-40); MANUAL DIFF FLAG SCAN; Mean Corpuscular HGB Conc 34.4 g/dl (31.0-35.0); Mean Corpuscular Hemoglobin 30.1 pg (27.0-33.0); Mean Corpuscular Volume 87.6 fL (80.0-98.0); Mean Platelet Volume 9.6 fL (9.4-12.3); Monocytes Absolute Auto 1.3 X10*3/uL (0.1-1.2); Monocytes Percent Auto 6.5 % (2-11); Neutrophils Absolute Auto 17.8 x10*3/uL (2.0-8.3); Neutrophils Percent Auto 90.5 % (45-73); Platelet Count 290 X10*3/uL (160-400); Red Blood Count 4.68 X10*6/uL (4.20-5.50); Red Cell Distribution Width 12.2 % (11.0-16.0); SCAN SMEAR FLAG 1; White Blood Count 19.7 X10*3/uL (4.8-10.8)
[2023-04-04] MEDS: 0.9 % Sodium Chloride 1,000 ML 999 ML IV ×2 (09:37→10:58)
[2023-04-04] MEDS: ondansetron HCL 4 MG/2 ML VIAL IVPUSH ×2 (09:37→13:49)
[2023-04-04] MEDS: Famotidine/PF 20 MG/2 ML VIAL IVPUSH (09:38)
[2023-04-04] MEDS: Morphine Sulfate 2 MG/ML CARTRIDGE IVPUSH ×4 (09:39→18:01)
[2023-04-04 09:44] LABS: Alanine Aminotransferase 33 U/L (0-31); Albumin Level 4.2 g/dL (3.5-5.0); Alkaline Phosphatase 85 U/L (39-117); Anion Gap 13 (12-20); Aspartate Amino Transferase 18 U/L (5-31); Bilirubin Direct 0.5 mg/dL (0.0-0.5); Blood Urea Nitrogen 15 mg/dL (9-16); Calcium 9.9 mg/dL (8.4-10.2); Carbon Dioxide 28 mmol/L (22-29); Chloride 103 mmol/L (96-108); Estimated Glomerular Filt Rate > 60; Glucose Random 177 mg/dL (60-115); Lipase 14 U/L (8-78); Magnesium 1.9 mg/dL (1.6-2.6); Potassium 3.7 mmol/L (3.3-5.1); Sodium 140 mmol/L (135-145)
[2023-04-04 09:48] LABS: OBS Int Ctl Valid YES; OBS1 POSITIVE (NEGATIVE)
--- NOTE | 2023-04-04 09:48 | PC.NURSE ---
IV etablished, fluids infusing medicated per the mar, call santos within reach
[2023-04-04 09:50] LABS: SLIDE REVIEW VERIFIED
[2023-04-04 09:54] VITALS: TEMP 36.6
[2023-04-04] MEDS: iohexoL 350 MG/ML 100 ML INFUS..BTL 85 ML IV (10:34)
[2023-04-04 10:55] LABS: Amphetamine Screen Urine Not Detected (Not Detect); Barbiturates, Urine Not Detected (Not Detect); Benzodiazepines Screen Urine Not Detected (Not Detect); Cannabinoid Screen Urine POSITIVE (Not Detect); Cocaine Screen Urine Not Detected (Not Detect); Fentanyl, urine Not Detected (Not Detect); Opiate Screen Urine POSITIVE (Not Detect); Phencyclidine Screen Urine Not Detected (Not Detect)
[2023-04-04] MEDS: Metoclopramide HCl 10 MG/2 ML VIAL IVPUSH ×2 (10:58→21:27)
[2023-04-04] MEDS: diphenhydrAMINE HCL 50 MG/ML VIAL IVPUSH (10:59)
[2023-04-04] MEDS: Piperacillin Sodium/Tazobactam 3.375 GM in 0.9 % Sodium Chloride 50 ML IV (11:00)
[2023-04-04 11:02] LABS: Lactic Acid 2.9 mmol/L (0.5-2.0)
--- NOTE | 2023-04-04 11:04 | PC.NURSE ---
Blood cultures and lactic acid obtained, 2nd liter and antibiotics infusing
[2023-04-04 11:05] LABS: Appearance Urine Clear; Color Urine Yellow; Glucose Urine UA Negative (Negative); Leukocyte Esterase Urine Negative (Negative); Nitrite Urine Negative (Negative); PH 8.5 (5.0-9.0); Specific Gravity - Urine >= 1.030 (1.005-1.025); Urine Blood Negative (Negative); Urine Ketones Negative (Negative); Urine Protein Negative (Neg-Trace)
--- NOTE | 2023-04-04 11:52 | P.HPHOSP_ITS ---
History of Present Illness Date of Service: 04/04/23 Chief Complaint: Abdominal pain 47-year-old female with a PMH significant for?HTN, HLD, prior GI bleeds, colitis, diverticulitis, sciatica on chronic opioids, and meningitis in 2007 who presents to the ED with?intractable nausea and vomiting and diarrhea and bloody stool similar to previous presentation. She was last admitted to the hospital in january of this year for similar presentation and most recently on 03/23 underwent EGD and colonoscopy by Dr. Brunson and noted to have Gastritis, GERD, colon polyps, diverticulosis and hemorrohoids Biopsy showed intestinal metaplasia and dysplasia. She has been having diarrhea since the colonoscopy but this morning woke up with abdominal pain, diarrhea and blood in stool. She describes the abdominal pain as severe and constatnt. Work in ED WBC = 19.7, lactic acid 2.9, +MJ, CT showing diffuse mural thickening of entire colon suggestive of colitis. She is afebrile. Started on Zosyn Review of Systems Review of Systems: abdomen pain pain, blood in stool. No fever Yes all other systems are reviewed and are negative [facility] Medical History Colitis Diverticulitis Elevated cholesterol GI bleed HTN (hypertension) Meningitis Sciatica Family History Mother Diabetes Father Heart disease Surgical History H/O colonoscopy Hx of hysterectomy Hx of spinal surgery Social History Household Members: Family Household Members Other:: Housing: House Do you presently have visiting nurse or other home services: No Alcohol intake: never Patient Tobacco Use Status: Never used Tobacco Use of substances other than those prescribed or required for medical reasons: Yes Substance Use Type: Marijuana Substance Use Frequency: Chronic Longstanding Currently Displaying Signs/Symptoms of Drug Intoxication Withdrawal: No Have you been hit, kicked, punched, or otherwise hurt by someone within the past year? If so, by whom?: No Do you feel safe in your current relationship?: No Is there a partner from a previous relationship who is making you feel unsafe now?: No Advance Directives: No Advance Directives Information Provided: No Do you have thoughts of harming others: None Do you have a plan to hurt others: No Plan Recently lost weight without trying: No Eating poorly because of decreased appetite: No Patient : No : No Poor oral hygiene: No service: No Current occupational status: unemployed Meds Allergies Allergy/AdvReac Type Severity Reaction Status Date / Time NSAIDS (Non-Steroidal Allergy Severe Hives Verified 02/02/23 11:37 Anti-Inflamma atenolol Allergy Unknown Hives Verified 04/22/22 07:58 ciprofloxacin Allergy Unknown Hives Verified 04/22/22 07:58 apple Allergy Abdominal Verified 02/02/23 11:37 Pain corn Allergy Abdominal Verified 02/02/23 11:37 Pain cucumber Allergy Abdominal Verified 02/02/23 11:37 Pain nut - unspecified Allergy Abdominal Verified 02/02/23 11:37 Pain sesame seed Allergy Abdominal Verified 02/02/23 11:37 Pain strawberry Allergy Abdominal Verified 02/02/23 11:37 Pain sunflower seed Allergy Abdominal Verified 02/02/23 11:37 Pain Active Medications: Current Medications Pharmacy Consult (Consult Rx Perform Med Rec) 1 each MISCELLANE ONCE PRN PRN Reason: Consult order Pharmacy Consult (Consult Rx Perform Med Rec) 1 each MISCELLANE ONCE STA Stop: 04/04/23 11:39 Home Medications Medication Instructions Recorded Confirmed Last Taken Type amlodipine 10 mg tablet 10 mg PO DAILY 04/22/22 04/04/23 03/23/23 History atorvastatin 20 mg tablet 20 mg PO DAILY 04/22/22 04/04/23 03/23/23 History hydrochlorothiazide 25 mg tablet 25 mg PO DAILY 04/22/22 04/04/23 03/23/23 History oxycodone 15 mg tablet 15 mg PO Q6H PRN Pain 04/22/22 04/04/23 03/23/23 History diazepam 10 mg tablet 10 mg PO Q12H PRN muscle spasm 01/31/23 04/04/23 01/30/23 History Physical Exam Vital Signs and Narrative: Vital Signs: Last Vital Signs Temp 97.8 F 04/04/23 09:54 Pulse 76 04/04/23 08:58 Resp 16 04/04/23 08:58 BP 133/78 04/04/23 08:58 Pulse Ox 98 04/04/23 08:58 O2 Del Method Room Air 04/04/23 08:58 BMI result Body Mass Index 27.5 Const: Other: Constitutional: Alert, in no distress Mental Status: Oriented to person, place and time. Eyes: Pupils are equal, round and reactive to light. Ear, Nose and Throat: Oropharynx clear, mucous membranes moist. Ears and nose without deformities. Trachea midline. Respiratory: Clear to auscultation. No wheezing, rales or rhonchi. Cardiovascular: S1 S2 regular. No murmurs, rubs or gallops. Gastrointestinal: Abdomen soft, non-tender, non-distended. Normal bowel sounds.? Neurologic: Cranial nerves II-XII grossly intact. No focal neurological deficits. Moves all extremities spontaneously.? Skin: No rashes or lesions.? Musculoskeletal: No cyanosis or clubbing. Psychiatric: Normal mood and affect? Results Labs 04/04/23 09:22 04/04/23 09:22 Labs: Laboratory Results - last 24 hr 04/04/23 04/04/23 04/04/23 09:22 09:22 09:40 MCV 87.6 MCH 30.1 MCHC 34.4 RDW 12.2 Plt Count 290 MPV 9.6 Immature Gran % (Auto) 0.4 Neut % (Auto) 90.5 H Lymph % (Auto) 2.4 L [place] % (Auto) 6.5 Eos % (Auto) 0.0 Baso % (Auto) 0.2 Lymph # (Auto) 0.5 L [place] # (Auto) 1.3 H Eos # (Auto) 0.0 Baso # (Auto) 0.0 Abs Immat Gran (auto) 0.07 H Absolute Neuts (auto) 17.8 H Absolute Nucleated RBC 0.000 Nucleated RBC % (auto) 0.0 Smear Tech's Comments VERIFIED Anion Gap 13 Estim Creat Clear Calc 81.0 Estimated GFR > 60 Random Glucose 177 H Lactic Acid Calcium 9.9 D Magnesium 1.9 Total Bilirubin 2.0 H Direct Bilirubin 0.5 AST 18 ALT 33 H Alkaline Phosphatase 85 Total Protein 7.0 Albumin 4.2 Lipase 14 Urine Color Urine Appearance Urine pH Ur Specific [place] Urine Protein Urine Glucose (UA) Urine Ketones Urine Blood Urine Nitrite Ur Leukocyte Esterase Stool Occult Blood POSITIVE Urine Opiates Screen Urine Fentanyl Screen Ur Barbiturates Screen Ur Phencyclidine Scrn Ur Amphetamines Screen U Benzodiazepines Scrn Urine Cocaine Screen U Marijuana (THC) Screen 04/04/23 04/04/23 04/04/23 10:36 10:37 10:37 MCV MCH MCHC RDW Plt Count MPV Immature Gran % (Auto) Neut % (Auto) Lymph % (Auto) [place] % (Auto) Eos % (Auto) Baso % (Auto) Lymph # (Auto) [place] # (Auto) Eos # (Auto) Baso # (Auto) Abs Immat Gran (auto) Absolute Neuts (auto) Absolute Nucleated RBC Nucleated RBC % (auto) Smear Tech's Comments Anion Gap Estim Creat Clear Calc Estimated GFR Random Glucose Lactic Acid 2.9 H* Calcium Magnesium Total Bilirubin Direct Bilirubin AST ALT Alkaline Phosphatase Total Protein Albumin Lipase Urine Color Yellow Urine Appearance Clear Urine pH 8.5 Ur Specific [place] >= 1.030 H Urine Protein Negative Urine Glucose (UA) Negative Urine Ketones Negative Urine Blood Negative Urine Nitrite Negative Ur Leukocyte Esterase Negative Stool Occult Blood Urine Opiates Screen POSITIVE H Urine Fentanyl Screen Not Detected Ur Barbiturates Screen Not Detected Ur Phencyclidine Scrn Not Detected Ur Amphetamines Screen Not Detected U Benzodiazepines Scrn Not Detected Urine Cocaine Screen Not Detected U Marijuana (THC) Screen POSITIVE H Assessment and Plan (1) Acute lower GI bleeding: Status: Acute (2) Colitis: Status: Acute Plan 47-year-old female with a PMH significant for?HTN, HLD, prior GI bleeds, colitis, diverticulitis, sciatica on chronic opioids, and meningitis in 2007 who presents to the ED with?intractable nausea and vomiting and diarrhea with mu red blood per rectum. Pt will be admitted to the hospital for treatment and f urther evaluation of acute colitis with IVF and IV antibiotics. Acute colitis, concern for Infectious or inflamatory -Kathleen 04/03 -IVF -GI consult -Morphine for pain -check cdif -Advance diet Acute GI bleed--related to above, monitor , no anemia, monitor h/h HTN Stable Continue home meds HLD Continue home meds Full Code DVT Prophylaxis: early ambulation 2 midgnits admission for colitis with IV Abx, IVF and IV pain meds Time Spent With Patient Time: Total time managing care of this patient today ____ minutes. Quality Stroke Does the patient have a stroke diagnosis?: No VTE Prior VTE?: No VTE Risk Level:: Medical - low VTE Device Contraindication: Treatment Not Indicated VTE Drug Contraindication: Treatment Not Indicated
--- NOTE | 2023-04-04 12:30 | PHA.MEDREC ---
Pharmacy Consult ? Medication Reconciliation Pharmacy has completed the medication reconciliation. spoke with patient. They had an updated list on their phone. Patient and significant other explained how she was unable to keep anything down so no medications were taken today.
[2023-04-04 12:31] VITALS: BP 116/66; PULSE 72; RESP 18; TEMP 36.6; O2SAT 96
[2023-04-04 12:40] LABS: Reflex Lactate? Lactic Acid Added
[2023-04-04] MEDS: Lactated Ringers 1,000 ML 125 ML IVCONT ×2 (13:43→22:12)
[2023-04-04 16:19] VITALS: BMI 27.4
--- NOTE | 2023-04-04 16:43 | PC.NURSE ---
Stool sample sent to lab, also noted BRBPR.
[2023-04-04 17:25] LABS: CDiff Gene PCR NEGATIVE (Negative)
--- NOTE | 2023-04-04 18:14 | PC.NURSE ---
Pt requesting Saurav may MD notified, awaiting order.
[2023-04-04 19:39] VITALS: BP 109/59; PULSE 72; RESP 18; TEMP 36.5; O2SAT 97
[2023-04-04 21:26] VITALS: RESP 18
[2023-04-04] MEDS: HYDROmorphone HCl 1 MG/ML SYRINGE IVPUSH (21:26)
--- NOTE | 2023-04-05 00:48 | PC.NURSE ---
[id number]; Patient reports intermittent nausea and vomiting throughout the day, prn zofran not due yet, patient asking for reglan for nausea, MD notified. Patient with abdominal pain, reports it comes in waves and reports current pain medication morphine is not relieving pain and is asking for dilaudid instead, reports on previous admission dilaudid was very helpful with abdominal pain. Patient also reports multiple episodes of BRBPR without any stool since day time. MD notified. Received orders for prn dilaudid and prn reglan. Next shift RN made aware.
[2023-04-05 00:50] VITALS: BP 107/55; PULSE 71
[2023-04-05] MEDS: HYDROmorphone HCl 1 MG/ML SYRINGE IVPUSH ×6 (00:52→22:46)
[2023-04-05 03:49] VITALS: BP 108/56; PULSE 63; RESP 18; TEMP 36.3; O2SAT 97
[2023-04-05 05:30] VITALS: BP 130/65; PULSE 71
--- NOTE | 2023-04-05 05:35 | PC.NURSE ---
patient had two episodes of bloody BM on 11pm to 7am shift one small, one moderate, bright red blood, no stool, associated with cramping.
[2023-04-05] MEDS: Lactated Ringers 1,000 ML 125 ML IVCONT ×3 (06:27→22:48)
--- NOTE | 2023-04-05 07:06 | PC.NURSE ---
No c/o pain at this time when asked. Stated It comes in waves. Starts upper ABD and goes down. Also no c/o n/v at this time.
--- NOTE | 2023-04-05 07:17 | P.PNIM_ITS ---
Subjective Subjective Date of Service: 04/05/23 Interval History: reports more bloody bowel movment, and peristent pain, no fever, WBC wnl Physical Exam Vital Signs: Vital Signs: Last Vital Signs Temp 97.4 F 04/05/23 03:49 Pulse 71 04/05/23 05:30 Resp 18 04/05/23 03:49 BP 130/65 04/05/23 05:30 Pulse Ox 97 04/05/23 03:49 O2 Del Method Room Air 04/05/23 03:49 BMI result Body Mass Index 27.4 Const: Other: General: AO X 3, no acute distress Resp: CTA bilateral CVS: S1,S2,RRR GI: +BS,non specific tenderness, no guarding, no distention Skin: No rash Neuro: motor grossly intact Psych: appropriate affect Objective Data Active Medications Acetaminophen (Acetaminophen 325 Mg Tablet) 650 mg PO Q6H PRN PRN Reason: Pain, Mild (Pain Scale 1-3) Hydromorphone HCl (Hydromorphone Hcl 1 Mg/Ml Syringe) 1 mg IVPUSH Q4H PRN; Protocol PRN Reason: Pain, Severe (Pain Scale 7-10) Last Admin: 04/05/23 05:27 Dose: 1 mg Documented By: KAMILA Lactated Ringer's (Lr) 1,000 mls @ 125 mls/hr IVCONT .Q8H [facility] Last Admin: 04/05/23 06:27 Dose: 125 mls/hr Documented By: KAMILA Piperacillin Sod/Tazobactam (Sod 3.375 gm/ Sodium Chloride) 50 mls @ 100 mls/hr IV Q6H [facility] Metoclopramide HCl (Metoclopramide Hcl 10 Mg/2 Ml Vial) 5 mg IVPUSH Q6H PRN PRN Reason: Nausea and Vomiting Pharmacy Consult (Consult Rx Perform Med Rec) 1 each MISCELLANE ONCE PRN PRN Reason: Consult order Sodium Chloride (0.9 % Sodium Chloride Flush 3 Ml Syringe) 3 ml IVFLUSH QSHIFT [facility] Last Admin: 04/05/23 07:14 Dose: Not Given Documented By: ELLIOT Non-Admin Reason: IV Running Labs 04/04/23 09:22 04/04/23 09:22 Labs: Laboratory Results - last 24 hr 04/04/23 04/04/23 04/04/23 09:22 09:22 09:40 MCV 87.6 MCH 30.1 MCHC 34.4 RDW 12.2 Plt Count 290 MPV 9.6 Immature Gran % (Auto) 0.4 Neut % (Auto) 90.5 H Lymph % (Auto) 2.4 L Grand % (Auto) 6.5 Eos % (Auto) 0.0 Baso % (Auto) 0.2 Lymph # (Auto) 0.5 L Grand # (Auto) 1.3 H Eos # (Auto) 0.0 Baso # (Auto) 0.0 Abs Immat Gran (auto) 0.07 H Absolute Neuts (auto) 17.8 H Absolute Nucleated RBC 0.000 Nucleated RBC % (auto) 0.0 Smear Tech's Comments VERIFIED Anion Gap 13 Estim Creat Clear Calc 81.0 Estimated GFR > 60 Random Glucose 177 H Lactic Acid Lactic Acid F/U @ 2Hr Calcium 9.9 D Magnesium 1.9 Total Bilirubin 2.0 H Direct Bilirubin 0.5 AST 18 ALT 33 H Alkaline Phosphatase 85 Total Protein 7.0 Albumin 4.2 Lipase 14 Urine Color Urine Appearance Urine pH Ur Specific [place] Urine Protein Urine Glucose (UA) Urine Ketones Urine Blood Urine Nitrite Ur Leukocyte Esterase Stool Occult Blood POSITIVE Urine Opiates Screen Urine Fentanyl Screen Ur Barbiturates Screen Ur Phencyclidine Scrn Ur Amphetamines Screen U Benzodiazepines Scrn Urine Cocaine Screen U Marijuana (THC) Screen C. difficile Tox B Gene 04/04/23 04/04/23 04/04/23 10:36 10:37 10:37 MCV MCH MCHC RDW Plt Count MPV Immature Gran % (Auto) Neut % (Auto) Lymph % (Auto) Grand % (Auto) Eos % (Auto) Baso % (Auto) Lymph # (Auto) Grand # (Auto) Eos # (Auto) Baso # (Auto) Abs Immat Gran (auto) Absolute Neuts (auto) Absolute Nucleated RBC Nucleated RBC % (auto) Smear Tech's Comments Anion Gap Estim Creat Clear Calc Estimated GFR Random Glucose Lactic Acid 2.9 H* Lactic Acid F/U @ 2Hr Calcium Magnesium Total Bilirubin Direct Bilirubin AST ALT Alkaline Phosphatase Total Protein Albumin Lipase Urine Color Yellow Urine Appearance Clear Urine pH 8.5 Ur Specific [place] >= 1.030 H Urine Protein Negative Urine Glucose (UA) Negative Urine Ketones Negative Urine Blood Negative Urine Nitrite Negative Ur Leukocyte Esterase Negative Stool Occult Blood Urine Opiates Screen POSITIVE H Urine Fentanyl Screen Not Detected Ur Barbiturates Screen Not Detected Ur Phencyclidine Scrn Not Detected Ur Amphetamines Screen Not Detected U Benzodiazepines Scrn Not Detected Urine Cocaine Screen Not Detected U Marijuana (THC) Screen POSITIVE H C. difficile Tox B Gene 04/04/23 04/04/23 13:52 16:23 MCV MCH MCHC RDW Plt Count MPV Immature Gran % (Auto) Neut % (Auto) Lymph % (Auto) Grand % (Auto) Eos % (Auto) Baso % (Auto) Lymph # (Auto) Grand # (Auto) Eos # (Auto) Baso # (Auto) Abs Immat Gran (auto) Absolute Neuts (auto) Absolute Nucleated RBC Nucleated RBC % (auto) Smear Tech's Comments Anion Gap Estim Creat Clear Calc Estimated GFR Random Glucose Lactic Acid Lactic Acid F/U @ 2Hr 2.0 Calcium Magnesium Total Bilirubin Direct Bilirubin AST ALT Alkaline Phosphatase Total Protein Albumin Lipase Urine Color Urine Appearance Urine pH Ur Specific [place] Urine Protein Urine Glucose (UA) Urine Ketones Urine Blood Urine Nitrite Ur Leukocyte Esterase Stool Occult Blood Urine Opiates Screen Urine Fentanyl Screen Ur Barbiturates Screen Ur Phencyclidine Scrn Ur Amphetamines Screen U Benzodiazepines Scrn Urine Cocaine Screen U Marijuana (THC) Screen C. difficile Tox B Gene NEGATIVE Assessment and Plan (1) Colitis: Status: Acute (2) Rectal bleed: Status: Acute Plan 47-year-old female with a PMH significant for?HTN, HLD, prior GI bleeds, col itis, diverticulitis, sciatica on chronic opioids, and meningitis in 2007 who presents to the ED with?intractable nausea and vomiting and diarrhea with mu red blood per rectum. Pt will be admitted to the hospital for treatment and further evaluation of acute colitis with IVF and IV antibiotics. Acute colitis, concern for Infectious or inflamatory -Zosyn 04/03 -IVF -GI consult -Change morpine to dilaudid for pain -check cdif -Advance diet Acute GI bleed--related to above, monitor , no anemia, monitor h/h HTN Stable Continue home meds HLD Continue home meds Full Code DVT Prophylaxis: early ambulation need for inpt:needs IV Abx, IVF and IV pain meds Time Spent With Patient Time: Total time managing care of this patient today ____ minutes. Quality Stroke Does the patient have a stroke diagnosis?: No VTE Prior VTE?: No VTE Risk Level:: Medical - low VTE Device Contraindication: Treatment Not Indicated VTE Drug Contraindication: Treatment Not Indicated
[2023-04-05] MEDS: Piperacillin Sodium/Tazobactam 3.375 GM in 0.9 % Sodium Chloride 50 ML IV ×3 (07:34→19:57)
[2023-04-05 07:36] VITALS: BP 136/76; PULSE 80; RESP 18; TEMP 37.1; O2SAT 98
[2023-04-05 07:51] LABS: Hematocrit 37.2 % (37.0-47.0); Hemoglobin 12.2 g/dl (12.0-16.0); Mean Corpuscular HGB Conc 32.8 g/dl (31.0-35.0); Mean Corpuscular Hemoglobin 30.4 pg (27.0-33.0); Mean Corpuscular Volume 92.8 fL (80.0-98.0); Mean Platelet Volume 10.1 fL (9.4-12.3); Platelet Count 245 X10*3/uL (160-400); Red Blood Count 4.01 X10*6/uL (4.20-5.50); Red Cell Distribution Width 12.5 % (11.0-16.0); White Blood Count 10.8 X10*3/uL (4.8-10.8)
[2023-04-05] MEDS: HYDROmorphone HCl 0.5 MG/0.5 ML SYRINGE IVPUSH ×4 (09:14→20:33)
[2023-04-05 11:57] LABS: Adenovirus F 40/41 Not Detected (Not Detect.); Astrovirus Not Detected (Not Detect.); Campylobacter Not Detected (Not Detect.); Cryptosporidium Not Detected (Not Detect.); Cyclospora cayetanensis Not Detected (Not Detect.); E. coli EAEC Not Detected (Not Detect.); E. coli EPEC Not Detected (Not Detect.); E. coli ETEC Not Detected (Not Detect.); E. coli STEC Not Detected (Not Detect.); Entamoeba histolytica Not Detected (Not Detect.); Giardia lamblia Not Detected (Not Detect.); Norovirus GI/GII Not Detected (Not Detect.); Plesiomonas shigelloides Not Detected (Not Detect.); Rotavirus A Not Detected (Not Detect.); Salmonella Not Detected (Not Detect.); Sapovirus Not Detected (Not Detect.); Shigella sp./EIEC Not Detected (Not Detect.); Vibrio Not Detected (Not Detect.); Vibrio Cholerae Not Detected (Not Detect.); Yersinia enterocolitica Not Detected (Not Detect.)
--- NOTE | 2023-04-05 12:28 | MHC.CM.PN ---
PT REPORTS SHE LIVES WITH HER AND IS INDEPENDENT WITH CARE SHE HAS NO DME AND NO HOME SERVICS COPY OF HER HCP REQUESTED, SHE REPORTS HER IS HER AGENT PCP: EVARISTO TALAMANTES DCP: HOME NO SERVICES VIA FAMILY TRANSPORT
--- NOTE | 2023-04-05 13:08 | PC.NURSE ---
Pt requesting Benadryl for itchiness. paged and made aware of pt request.
[2023-04-05] MEDS: diphenhydrAMINE HCL 50 MG/ML VIAL 25 MG IVPUSH ×2 (13:25→22:46)
[2023-04-05 15:05] VITALS: BP 130/70; PULSE 62; RESP 16; TEMP 36.2; O2SAT 93
--- NOTE | 2023-04-05 17:38 | P.EN_ITS ---
Event Note Date of Service: 04/05/23 Event Note: GI Consult-Full note dictated Imp: 47 yo female with what appears to be a chronic stricture in the region of the descending/sigmoid colon with intermittent exacerbations of abdominal pain, worsening diarrhea, and bleeding over at least the past several years. A co lonoscopy on 03/23/[address] Brunson was negative for any active colitis/IBD nor microscopic colits, although a limited colonoscopy in 01/2023 showed definitely more active inflammation in the area of the stricture with exudate, etc. Her CT scan on this admission describes a pancolitis and more pronounced changes in the region of the stricture.. She denies using NSAIDs nor aspirin, tobacco, nor EtOH. She does smoke marijuana daily. She has a history of hyperlipidemia and HTN. She denies DM. She denies any history of autoimmune disease, arrhythmias, rashes(except occasional hives), red/swollen joints. nor any eye problems. Diff dx: Atypical presentation and activity of Crohn's disease, episodes of ischemic colitis, infectious(doubt). Rec: CT angiogram of abdomen/pelvis and cardiac Echo to look for a possible source of ischemic colitis. F/U labs. Continue clear liquids and antibiotics for now. I talked to her about a repeat colonoscopy, despite her exam on 03/23, to try to catch any active Crohn's disease or other form of colitis given the CT report of a pancolitis now. She is agreeable to that and I will order a prep for 04/06 and schedule it for 04/[address] Brunson or one of her associates. D/W patient and her in detail. They are comfortable with this plan. Thanks Time Spent With Patient Time: Total time managing care of this patient today ____ minutes.
[2023-04-05 19:36] VITALS: BP 115/77; PULSE 63; RESP 18; TEMP 36.8; O2SAT 92
[2023-04-06] MEDS: HYDROmorphone HCl 0.5 MG/0.5 ML SYRINGE IVPUSH ×3 (00:56→07:32)
[2023-04-06] MEDS: Piperacillin Sodium/Tazobactam 3.375 GM in 0.9 % Sodium Chloride 50 ML IV ×4 (00:56→20:06)
[2023-04-06] MEDS: HYDROmorphone HCl 1 MG/ML SYRINGE IVPUSH ×5 (02:47→21:17)
--- NOTE | 2023-04-06 02:59 | CONS_ITS ---
DATE OF SERVICE: 04/05/2023 REASON FOR CONSULTATION: Abdominal pain, hematochezia, diarrhea, and abnormal CT scan of colon. HISTORY OF PRESENT ILLNESS: This has been obtained from the patient and her who was at the bedside, and from the medical record. The patient is a 47-year-old female with a history of what appears to be a relatively chronic stricture in the region of the sigmoid and descending colon. She apparently has had this dating back for at least 10 years by her history. She describes a colonoscopy in [place] in 2019 in which a stricture was found as well. This has been confirmed on colonoscopies here this year as well The patient describes intermittent episodes of left-sided abdominal pain, increasing diarrhea, and hematochezia. These episodes can come on suddenly and will then many times resolve on their own. However, she has required hospitalization here in January and again now for increasing pain and bleeding. During her hospitalization in January, she underwent a limited colonoscopy with Dr. Brunson with the finding of the sigmoid stricture with some overlying exudate and inflammation. There was no mass. Biopsies at that time revealed a mildly active colitis at 45 cm and colon mucosa with active erosive inflammation, ulceration, and degenerative changes at 30 cm. She underwent a complete colonoscopy and upper endoscopy just 2 weeks ago. The upper endoscopy was unremarkable. The colonoscopy revealed evidence of the stricture, but with much less inflammation than previously described back in January. Biopsies from the ascending colon were negative for any underlying microscopic colitis. Biopsies from the region of the sigmoid colon in the area of the stricture revealed just minimal changes of inflammation. After the colonoscopy 2 weeks ago, she describes that she did have some persistent bleeding, but this increased quite a bit over the last 24 to 48 hours, prompting her ER admission. The patient does not use any NSAIDs as she is allergic to them, nor any aspirin. She has not been on any antibiotics. She denies any ill contacts nor suspicious food intake. As things increased with her abdominal pain and bleeding, she did have some vomiting and upper abdominal discomfort. However, the majority of the discomfort is along the left side of the abdomen and left upper quadrant. She denies any known family history of inflammatory bowel disease nor colorectal cancer. She denies any rashes, other than occasional hives. She denies any red or swollen joints, nor any eye problems. She does not smoke cigarettes but does smoke marijuana daily. MEDICATIONS: At home included chronic oxycodone for back pain, amlodipine, atorvastatin, diazepam, and hydrochlorothiazide. Her medications here include acetaminophen, hydromorphone p.r.n., Reglan p.r.n. and IV Zosyn. PAST MEDICAL HISTORY: Hysterectomy. Chronic back pain. Hypertension. Hyperlipidemia. She denies a history of diabetes, heart disease, or stroke. She denies any lung disease or kidney disease. SOCIAL HISTORY: She is . As above. She does not use any significant amounts of alcohol. She works as a seller. Smokes marijuana daily. FAMILY HISTORY: Noncontributory. REVIEW OF SYSTEMS: CONSTITUTIONAL: She does have chronic back pain, but otherwise has been feeling fairly well up until this admission. Appetite has been good. SKIN: Without rash. No pruritus, other than occasional hives. CARDIAC: No chest pain. PULMONARY: No cough, hemoptysis, GI: As above. URINARY: No dysuria. No hematuria. NEUROLOGIC: No headache or seizures. PSYCHIATRIC: Negative. PHYSICAL EXAMINATION: GENERAL: The patient is a pleasant, alert, comfortable-appearing female. She has been afebrile. SKIN: Warm and dry. Anicteric sclerae. Moist mucous membranes. NECK: Supple. No lymphadenopathy. CHEST: Clear. CARDIAC: S1, S2. ABDOMEN: Soft, nondistended. Normal bowel sounds. She does have some tenderness in the epigastric, left upper quadrant, and left side of the abdomen. There is no palpable mass, rebound, or guarding. EXTREMITIES: Had edema. LABORATORIES: Initial white count 19.7 on admission with a repeat of 10.8 today. Hemoglobin 14.1 yesterday and 12.2 today. Hemoglobin was 11.9 back in January. MCV 93. Platelets 245,000. Normal electrolytes. BUN 15, creatinine 0.8. Initial lactic acid level 2.9 with repeat of 2.0. Total bilirubin 2.0, direct bilirubin 0.5, AST 18, ALT 33, alkaline phosphatase 85, albumin 4.2, lipase 14. CT scan with IV contrast described thickening of the entire colon and rectal wall with associated edema and prominence of the mesenteric vessels consistent with colitis. The area of her known stricture appeared to be more edematous. There is no bowel obstruction, free air, nor small bowel disease. The vasculature is described as unremarkable. IMPRESSION: Given the patient's long-standing history of intermittent GI symptoms with her known history of the persistent colonic stricture and intermittent exacerbations, this obviously does raise the possibility of some type of colitis. One possibility would be something such as Crohn's disease, although her presentation is somewhat atypical for that given the relatively frequent exacerbations and rapid improvements, at least by her history. Her normal colonoscopy just 2 weeks ago and then this exacerbation of symptoms and apparent inflammation on the CT scan would be unusual for Crohn's disease. Nonetheless, that is definitely a possibility. Another possibility would be that of ischemic colitis. Infectious colitis would be less likely, particularly in light of her negative stool specimens. At this point, she appears stable. I would recommend a CT angiogram of the abdomen and pelvis for complete inspection of her mesenteric vessels in regard to the possibility of ischemic colitis. I have also ordered a cardiac echo to rule out a cardiac source of emboli contributing to this. I did review with her that I think a repeat colonoscopy, although she just had one 1 to 2 weeks ago, could be helpful to try to see if there is now an active colitis such as Crohn's compared to just 2 weeks ago. She is agreeable to that and this will be arranged for her. In the meantime, I will continue clear liquids, her antibiotics, and follow up laboratories tomorrow including a sedimentation rate and C-reactive protein. This has all been discussed with the patient and her in detail. They are comfortable with the plan. Thank you for the consultation. MD JACOB Mcadams/NATHALIE / [id number] JANELLE
[2023-04-06 04:00] VITALS: BP 100/51; PULSE 69; RESP 15; TEMP 36.2
[2023-04-06] MEDS: diphenhydrAMINE HCL 50 MG/ML VIAL 25 MG IVPUSH ×2 (04:39→18:28)
[2023-04-06 07:11] VITALS: BP 101/55; PULSE 68; RESP 20; TEMP 36.7; O2SAT 92
[2023-04-06 07:16] LABS: MANUAL DIFF FLAG NO
[2023-04-06] MEDS: 0.9 % Sodium Chloride Flush 3 ML SYRINGE IVFLUSH ×2 (07:21→20:05)
[2023-04-06 07:24] LABS: Basophils Absolute Auto 0.1 X10*3/uL (0.0-0.2); Basophils Percent Auto 0.5 % (0-2); Eosinophils Absolute Auto 0.1 X10*3/uL (0.0-0.4); Eosinophils Percent Auto 0.9 % (0-4); Hematocrit 32.6 % (37.0-47.0); Hemoglobin 10.5 g/dl (12.0-16.0); Imm Gran Abs Auto 0.07 X10*3/uL (0.00-0.03); Imm Gran Pct Auto 0.6 % (0.0-0.4); Lymphocytes Absolute Auto 2.4 X10*3/uL (1.2-4.9); Lymphocytes Percent Auto 19.3 % (20-40); Mean Corpuscular HGB Conc 32.2 g/dl (31.0-35.0); Mean Corpuscular Volume 93.1 fL (80.0-98.0); Mean Platelet Volume 10.7 fL (9.4-12.3); Monocytes Absolute Auto 0.8 X10*3/uL (0.1-1.2); Monocytes Percent Auto 6.5 % (2-11); Neutrophils Absolute Auto 8.9 x10*3/uL (2.0-8.3); Neutrophils Percent Auto 72.2 % (45-73); Platelet Count 216 X10*3/uL (160-400); Red Cell Distribution Width 12.5 % (11.0-16.0); White Blood Count 12.4 X10*3/uL (4.8-10.8)
[2023-04-06] MEDS: Metoclopramide HCl 10 MG/2 ML VIAL 5 MG IVPUSH (07:31)
[2023-04-06 07:43] LABS: Anion Gap 10 (12-20); Blood Urea Nitrogen 4 mg/dL (9-16); C Reactive Protein 2.91 mg/dL (< or = 0.50); Calcium 8.3 mg/dL (8.4-10.2); Carbon Dioxide 28 mmol/L (22-29); Chloride 105 mmol/L (96-108); Creatinine Clr Calc Pharmacy 94.9; Estimated Glomerular Filt Rate > 60; Glucose Fasting 85 mg/dL (60-99); Potassium 3.4 mmol/L (3.3-5.1); Sodium 140 mmol/L (135-145)
--- NOTE | 2023-04-06 08:00 | CA_ITS ---
Transthoracic Echocardiogram Patient (Last, First, Middle): Esha Quintanilla M Gender: Female Date of : 1975 Age: 47 Procedure Date: 04/06/2023 Procedure Type: Transthoracic Echocardiogram Location: S3E Height: 162.56 cm Weight: 72.12 kg BSA: 1.77 m2 Heart Rate: bpm BP: 101 / 55 mmHg Induction Coordination Power Engineer: TO Referring MD: Chuck Falcon Boxing Instructor: Artemio Díaz MD Symptoms: Episodes of ischemic colitis, R/O cardiac source Study Quality: Fair ECG Rhythm: Sinus Conclusions: - Essentially normal study Findings Left Ventricle Normal left ventricular size, thickness, and systolic function. The visually estimated ejection fraction is between 60-65%. Spectral Doppler is indicative of a normal filling pattern. Peak GLS is -20.6%, which is normal. Right Ventricle Normal right ventricular cavity size and systolic function. Atria Both atria are normal in size. Interatrial shunt cannot be excluded. Aortic Valve Normal aortic valve structure and function. There is no aortic valve stenosis. There is no aortic valve regurgitation. Mitral Valve Normal mitral valve structure and function. There is trace mitral valve regurgitation. There is no mitral valve stenosis. Pulmonic Valve The pulmonic valve is likely normal. There is trace pulmonic valve regurgitation. Tricuspid Valve Normal tricuspid valve structure. There is trace tricuspid valve regurgitation. The right ventricular systolic pressure is normal. The right ventricular systolic pressure is 26 mmHg. Normal right atrial pressure. There is no evidence of pulmonary hypertension. Great Vessels All visible segments of the aorta are normal in size. The pulmonary artery was not well visualized. Venous The inferior vena cava is normal in size and collapses greater than 50% with inspiration. Pericardium/Pleural There is no evidence of pericardial effusion. Prior Study Comparison No prior study available for comparison. Recommendations, Care & Conclusions Consider a JOSSELINE if clinically appropriate. Recommend contrast study to evaluate intracardiac shunting. Measurements 2D Linear Measurements IVSd: 0.86 0.6-0.9/0.6-1.0 cm LVIDd: 4.49 3.9-5.3/4.2-5.9 cm LVIDd Index: 2.54 2.4-3.2/2.2-3.1 cm/m2 LVIDs: 2.83 2.0-3.6 cm LVPWd: 0.72 0.7-1.1 cm LA Diam: 3.20 2.7-3.8/3.0-4.0 cm LAIDs Index: 1.81 1.5-2.3 cm/m2 LV Mass: 138.57 67-162/88-224 g LV Mass Index: 78.29 43-95/49-115 g/m2 LVOT Diam: 1.90 3.0+(-)1.3 cm 2D Systolic Function EF 4C: 58.90 >55% EF 2C: 62.20 >55% EF BiP: 60.70 >55% Mitral Valve MV Pk E: 0.72 MV PK A: 0.43 MV Decel Time: 209.00 E/A: 1.70 E'Lateral: 14.10 E'Medial: 12.20 E/E' Med: 5.90 E/E' Lat: 5.10 PHT: 61.00 MVA PHT: 3.61 Decel Dooly: 3.46 Aortic Valve AoV Pk Will: 1.42 AoV Mn Will: 0.91 AoV VTI: 0.27 AoV Pk Grad: 8.00 Aov Mn Grad: 4.00 AZRA Cont.VTI: 2.34 LVOT LVOT Pk Will: 1.12 LVOT Mn Will: 0.73 LVOT VTI: 0.23 LVOT Pk Grad: 5.00 LVOT Mn Grad: 2.00 LVOT Diam: 1.90 LVOT Area: 2.84 Diastolic Function MV Pk E: 0.72 MV Pk A: 0.43 E/A: 1.70 E'Medial: 12.20 E/E' Med: 5.90 E' Laterial: 14.10 E/E' Lat: 5.10 Right Ventricle TAPSE (mm): 23.20 TVS' Will: 14.10 Tricuspid Valve TR Pk Will: 2.10 TR Pk Grad: 18.00 RA Press: 8.00 RVSP: 26.00 Great Vessels Aorta Sinus of Valsalva: 2.96 2.0-3.[address] [place]: 2.64 1.7-3.4 cm Ao Asc: 3.20 2.1-3.4 cm Updated in Other Vendor System with Status of Final Artemio Díaz MD electronically signed on 04/07/2023 9:10:04 AM with status of Final
[2023-04-06 08:34] LABS: Erythrocyte Sedimentation Rate 10 MM/HR (0-20)
--- NOTE | 2023-04-06 09:09 | P.PNIM_ITS ---
Subjective Subjective Date of Service: 04/06/23 Interval History: reports persistent abd pain with brief relief of pain meds H/H has trended down, no fever Physical Exam Vital Signs: Vital Signs: Last Vital Signs Temp 98.1 F 04/06/23 07:11 Pulse 68 04/06/23 07:11 Resp 20 04/06/23 07:11 BP 101/55 L 04/06/23 07:11 Pulse Ox 92 04/06/23 07:11 O2 Del Method Room Air 04/06/23 07:11 BMI result Body Mass Index 27.4 Const: Other: General: AO X 3, no acute distress Resp: CTA bilateral CVS: S1,S2,RRR GI: +BS, very soft, non specific tenderness, no guarding, no distention Skin: No rash Neuro: motor grossly intact Psych: appropriate affect Objective Data Active Medications Acetaminophen (Acetaminophen 325 Mg Tablet) 650 mg PO Q6H PRN PRN Reason: Pain, Mild (Pain Scale 1-3) Diphenhydramine HCl (Diphenhydramine Hcl 50 Mg/Ml Vial) 25 mg IVPUSH Q6H PRN PRN Reason: Itching Last Admin: 04/06/23 04:39 Dose: 25 mg Documented By: JOSIZEThee Hydromorphone HCl (Hydromorphone Hcl 1 Mg/Ml Syringe) 1 mg IVPUSH Q4H PRN; Protocol PRN Reason: Pain, Severe (Pain Scale 7-10) Last Admin: 04/06/23 06:30 Dose: 1 mg Documented By: DELBERT Lactated Ringer's (Lr) 1,000 mls @ 125 mls/hr IVCONT .Q8H [facility] Last Infusion: 04/06/23 07:38 Dose: 125 mls/hr Documented By: HANY Piperacillin Sod/Tazobactam (Sod 3.375 gm/ Sodium Chloride) 50 mls @ 100 mls/hr IV Q6H [facility] Last Infusion: 04/06/23 08:02 Dose: 0 mls/hr Documented By: HANY Metoclopramide HCl (Metoclopramide Hcl 10 Mg/2 Ml Vial) 5 mg IVPUSH Q6H PRN PRN Reason: Nausea and Vomiting Last Admin: 04/06/23 07:31 Dose: 5 mg Documented By: HANY Non-Formulary Medication (Diazepam) 10 mg PO Q12H PRN PRN Reason: muscle spasm Pharmacy Consult (Consult Rx Perform Med Rec) 1 each MISCELLANE ONCE PRN PRN Reason: Consult order Polyethylene Glycol/Electrolytes (Peg 3350/Na Sulf,Bicarb,Cl/Kcl 4,000 Ml Soln.Recon) 4,000 ml PO ONCE ONE Stop: 04/06/23 16:01 Sodium Chloride (0.9 % Sodium Chloride Flush 3 Ml Syringe) 3 ml IVFLUSH QSHIFT [facility] Last Admin: 04/06/23 07:21 Dose: 3 ml Documented By: HANY Labs 04/06/23 05:52 04/06/23 05:52 Labs: Laboratory Results - last 24 hr 04/04/23 04/06/23 04/06/23 16:23 05:52 05:52 MCV 93.1 MCH 30.0 MCHC 32.2 RDW 12.5 Plt Count 216 MPV 10.7 Immature Gran % (Auto) 0.6 H Neut % (Auto) 72.2 Lymph % (Auto) 19.3 L [place] % (Auto) 6.5 Eos % (Auto) 0.9 Baso % (Auto) 0.5 Lymph # (Auto) 2.4 [place] # (Auto) 0.8 Eos # (Auto) 0.1 Baso # (Auto) 0.1 Abs Immat Gran (auto) 0.07 H Absolute Neuts (auto) 8.9 H Absolute Nucleated RBC 0.000 Nucleated RBC % (auto) 0.0 ESR Anion Gap 10 L Estim Creat Clear Calc 94.9 Estimated GFR > 60 Fasting Glucose 85 Calcium 8.3 L D C-Reactive Protein 2.91 H Stl C. cayetanensis PCR Not Detected Stool Rotavirus A PCR Not Detected Stl Adenov F 40/41 PCR Not Detected Stool Astrovirus (PCR) Not Detected Stool Campylobacter PCR Not Detected Stool Cryptosporidium PCR Not Detected Stl Sh Tox Pr E STEC PCR Not Detected Stool E coli O157 PCR Not applicable Stl Enterotoxigenic E PCR Not Detected Stool EPEC (PCR) Not Detected Stool EAEC (PCR) Not Detected Stl E. histolytica PCR Not Detected Stool Giardia Lamblia PCR Not Detected Stl P. shigelloides PCR Not Detected Stool Salmonella PCR Not Detected Stool Sapovirus (PCR) Not Detected Stl Shigella/EIEC PCR Not Detected St Y.enterocolitica PCR Not Detected Stool Vibrio (PCR) Not Detected Stl Vibrio cholerae PCR Not Detected Stl Norovirus GI/GII PCR Not Detected 04/06/23 05:52 MCV MCH MCHC RDW Plt Count MPV Immature Gran % (Auto) Neut % (Auto) Lymph % (Auto) [place] % (Auto) Eos % (Auto) Baso % (Auto) Lymph # (Auto) [place] # (Auto) Eos # (Auto) Baso # (Auto) Abs Immat Gran (auto) Absolute Neuts (auto) Absolute Nucleated RBC Nucleated RBC % (auto) ESR 10 Anion Gap Estim Creat Clear Calc Estimated GFR Fasting Glucose Calcium C-Reactive Protein Stl C. cayetanensis PCR Stool Rotavirus A PCR Stl Adenov F 40 PCR Stool Astrovirus (PCR) Stool Campylobacter PCR Stool Cryptosporidium PCR Stl Sh Tox Pr E STEC PCR Stool E coli O157 PCR Stl Enterotoxigenic E PCR Stool EPEC (PCR) Stool EAEC (PCR) Stl E. histolytica PCR Stool Giardia Lamblia PCR Stl P. shigelloides PCR Stool Salmonella PCR Stool Sapovirus (PCR) Stl Shigella/EIEC PCR St Y.enterocolitica PCR Stool Vibrio (PCR) Stl Vibrio cholerae PCR Stl Norovirus GI/GII PCR Microbiology Microbiology Results: Microbiology 04/04/23 10:57 Blood Culture - Preliminary Blood - Venous No growth after 24 hours. 04/04/23 10:37 Blood Culture - Preliminary Blood - Venous No growth after 24 hours. Assessment and Plan (1) Rectal bleed: Status: Acute (2) Colitis: Status: Acute Plan 47-year-old female with a PMH significant for?HTN, HLD, prior GI bleeds, colitis, diverticulitis, sciatica on chronic opioids, and meningitis in 2007 who presents to the ED with?intractable nausea and vomiting and diarrhea with mu red blood per rectum. Pt will be admitted to the hospital for treatment and further evaluation of acute colitis with IVF and IV antibiotics. Acute colitis, concern for Infectious or inflamatory - continue Zosyn 04/03 -IVF -GI consult (Dr. Falcon)-- is recommending CTA of abdomen to rule ischemia, echo to rule out intracardiac clot as possible source of emboli. To have repeat colonocopy tomorrow for another biopsis to definately rule IBD -continue Dilaudid IV for pain, Oxycodone as well -c dif was negative. CRP high which can point to inflamatory in nature -Liquid diet for now Acute GI bleed with acute blood loss anemia, H/H has trended down, will continue to monitor, no indication for transfusion at this time. HTN--BP on lower side, holding home meds (Norvasc 10 and HCTZ 25) HLD--hold Lipitor for nows Full Code DVT Prophylaxis: early ambulation, compression device, no hep or lovenox d/t gi bleeding need for inpt:needs IV Abx, IVF and IV pain meds for acute colitis and needs further testing as stated above Time Spent With Patient Time: Total time managing care of this patient today ____ minutes. Quality Stroke Does the patient have a stroke diagnosis?: No VTE Prior VTE?: No VTE Risk Level:: Medical - low VTE Device Contraindication: Treatment Not Indicated VTE Drug Contraindication: Treatment Not Indicated
[2023-04-06] MEDS: iohexoL 350 MG/ML 100 ML INFUS..BTL IV (11:59)
[2023-04-06] MEDS: oxyCODONE HCl Immed Release 15 MG TABLET PO ×2 (12:27→18:23)
[2023-04-06 15:23] VITALS: BP 120/72; PULSE 81; RESP 18; TEMP 36; O2SAT 98
[2023-04-06] MEDS: PEG 3350/Na Sulf,Bicarb,Cl/KCL 4,000 ML SOLN.RECON 4000 ML PO (16:25)
[2023-04-06 19:20] VITALS: BP 131/66; PULSE 73; RESP 18; TEMP 36.7; O2SAT 95
[2023-04-07] VITALS (8 sets, daily range): BP systolic 110–145; BP diastolic 62–76; PULSE 60–77; RESP 16–18; TEMP 36.3–37.2; O2SAT 96–98; BMI 27.5
[2023-04-07] MEDS: oxyCODONE HCl Immed Release 15 MG TABLET PO ×4 (00:35→18:36)
[2023-04-07] MEDS: Piperacillin Sodium/Tazobactam 3.375 GM in 0.9 % Sodium Chloride 50 ML IV ×4 (02:30→20:06)
[2023-04-07] MEDS: HYDROmorphone HCl 1 MG/ML SYRINGE IVPUSH ×4 (03:01→21:20)
[2023-04-07 06:14] LABS: MANUAL DIFF FLAG NO
[2023-04-07 06:26] LABS: Basophils Percent Auto 0.3 % (0-2); Eosinophils Absolute Auto 0.2 X10*3/uL (0.0-0.4); Eosinophils Percent Auto 2.1 % (0-4); Hematocrit 34.6 % (37.0-47.0); Hemoglobin 11.6 g/dl (12.0-16.0); Imm Gran Abs Auto 0.02 X10*3/uL (0.00-0.03); Imm Gran Pct Auto 0.2 % (0.0-0.4); Lymphocytes Absolute Auto 2.7 X10*3/uL (1.2-4.9); Lymphocytes Percent Auto 30.3 % (20-40); Mean Corpuscular HGB Conc 33.5 g/dl (31.0-35.0); Mean Corpuscular Hemoglobin 30.2 pg (27.0-33.0); Mean Corpuscular Volume 90.1 fL (80.0-98.0); Mean Platelet Volume 9.9 fL (9.4-12.3); Monocytes Absolute Auto 0.6 X10*3/uL (0.1-1.2); Monocytes Percent Auto 7.1 % (2-11); Neutrophils Absolute Auto 5.3 x10*3/uL (2.0-8.3); Platelet Count 233 X10*3/uL (160-400); Red Blood Count 3.84 X10*6/uL (4.20-5.50); Red Cell Distribution Width 12.3 % (11.0-16.0); White Blood Count 8.9 X10*3/uL (4.8-10.8)
[2023-04-07 06:36] LABS: Anion Gap 12 (12-20); Blood Urea Nitrogen 4 mg/dL (9-16); Calcium 8.9 mg/dL (8.4-10.2); Carbon Dioxide 27 mmol/L (22-29); Chloride 105 mmol/L (96-108); Creatinine Clr Calc Pharmacy 92.2; Estimated Glomerular Filt Rate > 60; Glucose Fasting 81 mg/dL (60-99); Potassium 3.5 mmol/L (3.3-5.1); Sodium 140 mmol/L (135-145)
[2023-04-07] MEDS: 0.9 % Sodium Chloride Flush 3 ML SYRINGE IVFLUSH (07:58)
--- NOTE | 2023-04-07 08:08 | PC.NURSE ---
report called to Kamaljit Bourne in short stay pt preop for colonoscopy
--- NOTE | 2023-04-07 09:12 | MHC.SHP ---
Pre-Procedural Eval Section A Date of Service: 04/07/23 The patient is an INPATIENT: Yes The History & Physical has been completed within 30 days and I have reviewed it.: Yes Section B Chief Complaint: colitis, gib Allergies: Allergies Allergy/AdvReac Type Severity Reaction Status Date / Time NSAIDS (Non-Steroidal Allergy Severe Hives Verified 02/02/23 11:37 Anti-Inflamma atenolol Allergy Unknown Hives Verified 04/22/22 07:58 ciprofloxacin Allergy Unknown Hives Verified 04/22/22 07:58 apple Allergy Abdominal Verified 02/02/23 11:37 Pain Plan Diagnosis/Plan: Unchanged I have reviewed the history and physical and performed a pertinent physical examination on my patient. No changes have occurred unless specified. Time Spent With Patient Time: Total time managing care of this patient today ____ minutes.
--- NOTE | 2023-04-07 09:16 | P.CONAN_ITS ---
HPI - Anesthesia Eval Consult details Narrative: [facility] Active Problems Active Problems: All Active Problems (Updated 04/05/23 @ 07:17 by Luis Antonio Au MD) Rectal bleed (Acute) Colitis (Acute) Abdominal pain (Acute) Nausea (Acute) Acute lower GI bleeding (Acute) Nausea & vomiting (Acute) Hyperbilirubinemia (Acute) Colitis (Acute) Colitis (Acute) Occult blood positive stool (Acute) Past Medical History Medical History Colitis Diverticulitis Elevated cholesterol GI bleed HTN (hypertension) Meningitis Sciatica Family History Family History Mother Diabetes Father Heart disease Family history of problems with anesthesia: No Surgical History Surgical History H/O colonoscopy Hx of hysterectomy Hx of spinal surgery History of Problems with Anesthesia: No Social History Social History Household Members: Family Household Members Other:: Housing: House Do you presently have visiting nurse or other home services: No Alcohol intake: never Patient Tobacco Use Status: Never used Tobacco Use of substances other than those prescribed or required for medical reasons: Yes Substance Use Type: Marijuana Substance Use Type Other:: daily Substance Use Frequency: Chronic Longstanding Currently Displaying Signs/Symptoms of Drug Intoxication Withdrawal: No Have you been hit, kicked, punched, or otherwise hurt by someone within the past year? If so, by whom?: No Do you feel safe in your current relationship?: No Is there a partner from a previous relationship who is making you feel unsafe now?: No Advance Directives: No Advance Directives Information Provided: No Do you have thoughts of harming others: None Do you have a plan to hurt others: No Plan Recently lost weight without trying: No Eating poorly because of decreased appetite: No Patient : No : No Poor oral hygiene: No service: No Current occupational status: unemployed Meds Allergies Allergy/AdvReac Type Severity Reaction Status Date / Time NSAIDS (Non-Steroidal Allergy Severe Hives Verified 02/02/23 11:37 Anti-Inflamma atenolol Allergy Unknown Hives Verified 04/22/22 07:58 ciprofloxacin Allergy Unknown Hives Verified 04/22/22 07:58 apple Allergy Abdominal Verified 02/02/23 11:37 Pain Active Medications: Current Medications Acetaminophen (Acetaminophen 325 Mg Tablet) 650 mg PO Q6H PRN PRN Reason: Pain, Mild (Pain Scale 1-3) Diazepam (Diazepam 5 Mg Tablet) 10 mg PO Q12H PRN PRN Reason: muscle spasm Diphenhydramine HCl (Diphenhydramine Hcl 50 Mg/Ml Vial) 25 mg IVPUSH Q6H PRN PRN Reason: Itching Last Admin: 04/06/23 18:28 Dose: 25 mg Hydromorphone HCl (Hydromorphone Hcl 1 Mg/Ml Syringe) 1 mg IVPUSH Q4H PRN; Protocol PRN Reason: Pain, Severe (Pain Scale 7-10) Last Admin: 04/07/23 03:01 Dose: 1 mg Piperacillin Sod/Tazobactam (Sod 3.375 gm/ Sodium Chloride) 50 mls @ 100 mls/hr IV Q6H [facility] Last Infusion: 04/07/23 08:32 Dose: Infused Lactated Ringer's (Lr) 1,000 mls @ 100 mls/hr IVCONT .Q10H [facility] Metoclopramide HCl (Metoclopramide Hcl 10 Mg/2 Ml Vial) 5 mg IVPUSH Q6H PRN PRN Reason: Nausea and Vomiting Last Admin: 04/06/23 07:31 Dose: 5 mg Oxycodone HCl (Oxycodone Hcl Immed Release 15 Mg Tablet) 15 mg PO Q6H PRN PRN Reason: Pain, Severe (Pain Scale 7-10) Last Admin: 04/07/23 07:14 Dose: 15 mg Pharmacy Consult (Consult Rx Perform Med Rec) 1 each MISCELLANE ONCE PRN PRN Reason: Consult order Sodium Chloride (0.9 % Sodium Chloride Flush 3 Ml Syringe) [facility] Last Admin: 04/07/23 07:58 Dose: 3 ml Home Medications Medication Instructions Recorded Confirmed Last Taken Type amlodipine 10 mg tablet 10 mg PO DAILY 04/22/22 04/04/23 03/23/23 History atorvastatin 20 mg tablet 20 mg PO DAILY 04/22/22 04/04/23 03/23/23 History hydrochlorothiazide 25 mg tablet 25 mg PO DAILY 04/22/22 04/04/23 03/23/23 History oxycodone 15 mg tablet 15 mg PO Q6H PRN Pain 04/22/22 04/04/23 03/23/23 History diazepam 10 mg tablet 10 mg PO Q12H PRN muscle spasm 01/31/23 04/04/23 01/30/23 History Exam Exam Date and Time: April 07, 2023 0916 Height,Weight and Vital Signs: Height 5 ft 4 in Weight 72.575 kg Last Vital Signs Temp 99.0 F 04/07/23 08:53 Pulse 67 04/07/23 08:53 Resp 18 04/07/23 08:53 BP 139/76 04/07/23 08:53 Pulse Ox 97 04/07/23 08:53 O2 Del Method Room Air 04/07/23 08:53 Pertinent Lab Results Pertinent Lab Results: Laboratory Tests 04/04/23 04/04/23 04/04/23 09:22 09:22 09:40 WBC 19.7 H RBC 4.68 Hgb 14.1 Hct 41.0 MCV 87.6 MCH 30.1 MCHC 34.4 RDW 12.2 Plt Count 290 MPV 9.6 Immature Gran % (Auto) 0.4 Neut % (Auto) 90.5 H Lymph % (Auto) 2.4 L [place] % (Auto) 6.5 Eos % (Auto) 0.0 Baso % (Auto) 0.2 Lymph # (Auto) 0.5 L [place] # (Auto) 1.3 H Eos # (Auto) 0.0 Baso # (Auto) 0.0 Abs Immat Gran (auto) 0.07 H Absolute Neuts (auto) 17.8 H Absolute Nucleated RBC 0.000 Nucleated RBC % (auto) 0.0 Smear Tech's Comments VERIFIED ESR Sodium 140 Potassium 3.7 Chloride 103 Carbon Dioxide 28 Anion Gap 13 BUN 15 Creatinine 0.82 Estim Creat Clear Calc 81.0 Estimated GFR > 60 Random Glucose 177 H Fasting Glucose Lactic Acid Lactic Acid F/U @ 2Hr Calcium 9.9 D Magnesium 1.9 Total Bilirubin 2.0 H Direct Bilirubin 0.5 AST 18 ALT 33 H Alkaline Phosphatase 85 C-Reactive Protein Total Protein 7.0 Albumin 4.2 Lipase 14 Urine Color Urine Appearance Urine pH Ur Specific [place] Urine Protein Urine Glucose (UA) Urine Ketones Urine Blood Urine Nitrite Ur Leukocyte Esterase Stool Occult Blood POSITIVE Stl C. cayetanensis PCR Stool Rotavirus A PCR Stl Adenov PCR Stool Astrovirus (PCR) Stool Campylobacter PCR Stool Cryptosporidium PCR Stl Sh Tox Pr E STEC PCR Stool E coli O157 PCR Stl Enterotoxigenic E PCR Stool EPEC (PCR) Stool EAEC (PCR) Stl E. histolytica PCR Stool Giardia Lamblia PCR Stl P. shigelloides PCR Stool Salmonella PCR Stool Sapovirus (PCR) Stl Shigella/EIEC PCR St Y.enterocolitica PCR Stool Vibrio (PCR) Stl Vibrio cholerae PCR Stl Norovirus GI/GII PCR Urine Opiates Screen Urine Fentanyl Screen Ur Barbiturates Screen Ur Phencyclidine Scrn Ur Amphetamines Screen U Benzodiazepines Scrn Urine Cocaine Screen U Marijuana (THC) Screen C. difficile Tox B Gene 04/04/23 04/04/23 04/04/23 10:36 10:37 10:37 WBC RBC Hgb Hct MCV MCH MCHC RDW Plt Count MPV Immature Gran % (Auto) Neut % (Auto) Lymph % (Auto) [place] % (Auto) Eos % (Auto) Baso % (Auto) Lymph # (Auto) [place] # (Auto) Eos # (Auto) Baso # (Auto) Abs Immat Gran (auto) Absolute Neuts (auto) Absolute Nucleated RBC Nucleated RBC % (auto) Smear Tech's Comments ESR Sodium Potassium Chloride Carbon Dioxide Anion Gap BUN Creatinine Estim Creat Clear Calc Estimated GFR Random Glucose Fasting Glucose Lactic Acid 2.9 H* Lactic Acid F/U @ 2Hr Calcium Magnesium Total Bilirubin Direct Bilirubin AST ALT Alkaline Phosphatase C-Reactive Protein Total Protein Albumin Lipase Urine Color Yellow Urine Appearance Clear Urine pH 8.5 Ur Specific [place] >= 1.030 H Urine Protein Negative Urine Glucose (UA) Negative Urine Ketones Negative Urine Blood Negative Urine Nitrite Negative Ur Leukocyte Esterase Negative Stool Occult Blood Stl C. cayetanensis PCR Stool Rotavirus A PCR Stl Adenov F PCR Stool Astrovirus (PCR) Stool Campylobacter PCR Stool Cryptosporidium PCR Stl Sh Tox Pr E STEC PCR Stool E coli O157 PCR Stl Enterotoxigenic E PCR Stool EPEC (PCR) Stool EAEC (PCR) Stl E. histolytica PCR Stool Giardia Lamblia PCR Stl P. shigelloides PCR Stool Salmonella PCR Stool Sapovirus (PCR) Stl Shigella/EIEC PCR St Y.enterocolitica PCR Stool Vibrio (PCR) Stl Vibrio cholerae PCR Stl Norovirus GI/GII PCR Urine Opiates Screen POSITIVE H Urine Fentanyl Screen Not Detected Ur Barbiturates Screen Not Detected Ur Phencyclidine Scrn Not Detected Ur Amphetamines Screen Not Detected U Benzodiazepines Scrn Not Detected Urine Cocaine Screen Not Detected U Marijuana (THC) Screen POSITIVE H C. difficile Tox B Gene 04/04/23 04/04/23 04/04/23 13:52 16:23 16:23 WBC RBC Hgb Hct MCV MCH MCHC RDW Plt Count MPV Immature Gran % (Auto) Neut % (Auto) Lymph % (Auto) [place] % (Auto) Eos % (Auto) Baso % (Auto) Lymph # (Auto) [place] # (Auto) Eos # (Auto) Baso # (Auto) Abs Immat Gran (auto) Absolute Neuts (auto) Absolute Nucleated RBC Nucleated RBC % (auto) Smear Tech's Comments ESR Sodium Potassium Chloride Carbon Dioxide Anion Gap BUN Creatinine Estim Creat Clear Calc Estimated GFR Random Glucose Fasting Glucose Lactic Acid Lactic Acid F/U @ 2Hr 2.0 Calcium Magnesium Total Bilirubin Direct Bilirubin AST ALT Alkaline Phosphatase C-Reactive Protein Total Protein Albumin Lipase Urine Color Urine Appearance Urine pH Ur Specific [place] Urine Protein Urine Glucose (UA) Urine Ketones Urine Blood Urine Nitrite Ur Leukocyte Esterase Stool Occult Blood Stl C. cayetanensis PCR Not Detected Stool Rotavirus A PCR Not Detected Stl Adenov F 40/41 PCR Not Detected Stool Astrovirus (PCR) Not Detected Stool Campylobacter PCR Not Detected Stool Cryptosporidium PCR Not Detected Stl Sh Tox Pr E STEC PCR Not Detected Stool E coli O157 PCR Not applicable Stl Enterotoxigenic E PCR Not Detected Stool EPEC (PCR) Not Detected Stool EAEC (PCR) Not Detected Stl E. histolytica PCR Not Detected Stool Giardia Lamblia PCR Not Detected Stl P. shigelloides PCR Not Detected Stool Salmonella PCR Not Detected Stool Sapovirus (PCR) Not Detected Stl Shigella/EIEC PCR Not Detected St Y.enterocolitica PCR Not Detected Stool Vibrio (PCR) Not Detected Stl Vibrio cholerae PCR Not Detected Stl Norovirus GI/GII PCR Not Detected Urine Opiates Screen Urine Fentanyl Screen Ur Barbiturates Screen Ur Phencyclidine Scrn Ur Amphetamines Screen U Benzodiazepines Scrn Urine Cocaine Screen U Marijuana (THC) Screen C. difficile Tox B Gene NEGATIVE 04/05/23 04/06/23 04/06/23 07:36 05:52 05:52 WBC 10.8 12.4 H RBC 4.01 L 3.50 L Hgb 12.2 10.5 L Hct 37.2 32.6 L MCV 92.8 D 93.1 MCH 30.4 30.0 MCHC 32.8 32.2 RDW 12.5 12.5 Plt Count 245 216 MPV 10.1 10.7 Immature Gran % (Auto) 0.6 H Neut % (Auto) 72.2 Lymph % (Auto) 19.3 L [place] % (Auto) 6.5 Eos % (Auto) 0.9 Baso % (Auto) 0.5 Lymph # (Auto) 2.4 [place] # (Auto) 0.8 Eos # (Auto) 0.1 Baso # (Auto) 0.1 Abs Immat Gran (auto) 0.07 H Absolute Neuts (auto) 8.9 H Absolute Nucleated RBC 0.000 0.000 Nucleated RBC % (auto) 0.0 0.0 Smear Tech's Comments ESR Sodium 140 Potassium 3.4 Chloride 105 Carbon Dioxide 28 Anion Gap 10 L BUN 4 L Creatinine 0.70 Estim Creat Clear Calc 94.9 Estimated GFR > 60 Random Glucose Fasting Glucose 85 Lactic Acid Lactic Acid F/U @ 2Hr Calcium 8.3 L D Magnesium Total Bilirubin Direct Bilirubin AST ALT Alkaline Phosphatase C-Reactive Protein 2.91 H Total Protein Albumin Lipase Urine Color Urine Appearance Urine pH Ur Specific [place] Urine Protein Urine Glucose (UA) Urine Ketones Urine Blood Urine Nitrite Ur Leukocyte Esterase Stool Occult Blood Stl C. cayetanensis PCR Stool Rotavirus A PCR Stl Adenov F 40/41 PCR Stool Astrovirus (PCR) Stool Campylobacter PCR Stool Cryptosporidium PCR Stl Sh Tox Pr E STEC PCR Stool E coli O157 PCR Stl Enterotoxigenic E PCR Stool EPEC (PCR) Stool EAEC (PCR) Stl E. histolytica PCR Stool Giardia Lamblia PCR Stl P. shigelloides PCR Stool Salmonella PCR Stool Sapovirus (PCR) Stl Shigella/EIEC PCR St Y.enterocolitica PCR Stool Vibrio (PCR) Stl Vibrio cholerae PCR Stl Norovirus GI/GII PCR Urine Opiates Screen Urine Fentanyl Screen Ur Barbiturates Screen Ur Phencyclidine Scrn Ur Amphetamines Screen U Benzodiazepines Scrn Urine Cocaine Screen U Marijuana (THC) Screen C. difficile Tox B Gene 04/06/23 04/07/23 04/07/23 05:52 06:01 06:01 WBC 8.9 RBC 3.84 L Hgb 11.6 L Hct 34.6 L MCV 90.1 MCH 30.2 MCHC 33.5 RDW 12.3 Plt Count 233 MPV 9.9 Immature Gran % (Auto) 0.2 Neut % (Auto) 60.0 Lymph % (Auto) 30.3 [place] % (Auto) 7.1 Eos % (Auto) 2.1 Baso % (Auto) 0.3 Lymph # (Auto) 2.7 [place] # (Auto) 0.6 Eos # (Auto) 0.2 Baso # (Auto) 0.0 Abs Immat Gran (auto) 0.02 Absolute Neuts (auto) 5.3 Absolute Nucleated RBC 0.000 Nucleated RBC % (auto) 0.0 Smear Tech's Comments ESR 10 Sodium 140 Potassium 3.5 Chloride 105 Carbon Dioxide 27 Anion Gap 12 BUN 4 L Creatinine 0.72 Estim Creat Clear Calc 92.2 Estimated GFR > 60 Random Glucose Fasting Glucose 81 Lactic Acid Lactic Acid F/U @ 2Hr Calcium 8.9 D Magnesium Total Bilirubin Direct Bilirubin AST ALT Alkaline Phosphatase C-Reactive Protein Total Protein Albumin Lipase Urine Color Urine Appearance Urine pH Ur Specific [place] Urine Protein Urine Glucose (UA) Urine Ketones Urine Blood Urine Nitrite Ur Leukocyte Esterase Stool Occult Blood Stl C. cayetanensis PCR Stool Rotavirus A PCR Stl Adenov F 40/41 PCR Stool Astrovirus (PCR) Stool Campylobacter PCR Stool Cryptosporidium PCR Stl Sh Tox Pr E STEC PCR Stool E coli O157 PCR Stl Enterotoxigenic E PCR Stool EPEC (PCR) Stool EAEC (PCR) Stl E. histolytica PCR Stool Giardia Lamblia PCR Stl P. shigelloides PCR Stool Salmonella PCR Stool Sapovirus (PCR) Stl Shigella/EIEC PCR St Y.enterocolitica PCR Stool Vibrio (PCR) Stl Vibrio cholerae PCR Stl Norovirus GI/GII PCR Urine Opiates Screen Urine Fentanyl Screen Ur Barbiturates Screen Ur Phencyclidine Scrn Ur Amphetamines Screen U Benzodiazepines Scrn Urine Cocaine Screen U Marijuana (THC) Screen C. difficile Tox B Gene Airway Mallampati Class: II TM Dist: >3cm Neck ROM: Full Heart: rrr Lungs: cta Assessment and Plan Final Anesthetic Review Family History of Problems with Anesthesia: No History of Problems with Anesthesia: No ASA Class: III Final Preanesthetic Review: No Changes in Pt Med Stat, Meds/Allgs Chart Reviewed, Consent Obtained/Reviewed and Anes Risks/Benef Reviewed Patient Risk: Intermediate Procedure Risk: Low Anesthetic Plan Anesthetic Plan: MAC: and Agree w/ Assess. and Plan Disposition: Standard PACU
--- NOTE | 2023-04-07 09:53 | W.PM.OPN ---
Operative Note Operative Note Date of Service: 04/07/23 Narrative: Operative Information Procedure Description: Colonoscopy Indication: colitis Anesthesia: MAC COLONOSCOPY Instrument: Olympus variable stiffness pediatric scope 190L and upper scope Colonoscopy Monitoring: Vital signs and clinical assessment, continuous EKG monitoring, Pulse oximetry, Carbon Dioxide monitoring and blood pressure monitoring were done throughout the procedure. Colon withdrawal time was [] minutes. Procedure: The patient was placed in the left lateral decubitis position and pre-procedure medications were administered. After a digital rectal examination of the ano-rectum, the video colonoscope was inserted into the rectum and advanced through the colon to the sigmoid At 30 cm from anal verge there was significant swelling and narrowing of the lumen and both the upper scope and the pediatric scope could not be passed despite different maneuvers. The procedure was then aborted Impression and Post Procedure Diagnosis: swelling and edema at 30 cm from anal verge, ?inflammatory stricture or fibrotic stricture Plan: surgical consult in case needs partial colectomy trial of solumedrol 20 mg q8h for 48 hr then transition to a PO pred taper over 3-4 weeks cont with antibiotics for the meantime Above findings were reviewed with the patient and relevant handouts were provided if indicated.
--- NOTE | 2023-04-07 10:19 | P.CONGS_ITS ---
History of Present Illness Consult details Consult date: 04/07/23 Narrative: The patient is a 47-year-old woman who underwent colonoscopy on 03/23/2023 for GI bleeding and was noted to have a sigmoid aphthous ulcers at approximately 30 cm. Patient has had intermittent bleeding and today underwent a repeat colonoscopy by Dr. 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 A trial of Solu-Medrol is planned and surgical consultation was recommended in case partial colectomy was required. The patient reports that around 2009 to 2010, shortly after she had a robotic or laparoscopic hysterectomy, she started having bowel difficulties including diarrhea and pellet it stool. She notes that she has not followed up consistently with Gastroenterology regarding a definitive diagnosis and notes that she has been told that she has inflammatory bowel disease, irritable bowel syndrome, diverticulosis/diverticulitis and other issues, however she is not been treated with any medications or immunosuppressive then she denies being on a bowel regime. In reviewing the EMR, the patient has been in and out of emergency department so over the past 15 years for various GI complaints and had been on an enema regime to deal with oxycodone related constipation, but the patient did not recall this when I saw her immediately post-colonoscopy earlier today. Review of Systems Review of Systems: The patient reports years of pellet it stool and diarrhea along with changing bowel habits. Rectal bleeding has been a problem for years. She denies any weight loss. Yes all other systems are reviewed and are negative Constitutional: Constitutional: Reports as per [facility] Past Medical History Medical History Colitis Diverticulitis Elevated cholesterol GI bleed HTN (hypertension) Meningitis Sciatica Family History Family History Mother Diabetes Father Heart disease Surgical History Surgical History H/O colonoscopy Hx of hysterectomy Hx of spinal surgery Social History Social History Household Members: Family Household Members Other:: Housing: House Do you presently have visiting nurse or other home services: No Alcohol intake: never Patient Tobacco Use Status: Never used Tobacco Use of substances other than those prescribed or required for medical reasons: Yes Substance Use Type: Marijuana Substance Use Type Other:: daily Substance Use Frequency: Chronic Longstanding Currently Displaying Signs/Symptoms of Drug Intoxication Withdrawal: No Have you been hit, kicked, punched, or otherwise hurt by someone within the past year? If so, by whom?: No Do you feel safe in your current relationship?: No Is there a partner from a previous relationship who is making you feel unsafe now?: No Advance Directives: No Advance Directives Information Provided: No Do you have thoughts of harming others: None Do you have a plan to hurt others: No Plan Recently lost weight without trying: No Eating poorly because of decreased appetite: No Patient : No : No Poor oral hygiene: No service: No Current occupational status: unemployed Meds Allergies Allergy/AdvReac Type Severity Reaction Status Date / Time NSAIDS (Non-Steroidal Allergy Severe Hives Verified 02/02/23 11:37 Anti-Inflamma atenolol Allergy Unknown Hives Verified 04/22/22 07:58 ciprofloxacin Allergy Unknown Hives Verified 04/22/22 07:58 apple Allergy Abdominal Verified 02/02/23 11:37 Pain Active Medications: Current Medications Acetaminophen (Acetaminophen 325 Mg Tablet) 650 mg PO Q6H PRN PRN Reason: Pain, Mild (Pain Scale 1-3) Diazepam (Diazepam 5 Mg Tablet) 10 mg PO Q12H PRN PRN Reason: muscle spasm Diphenhydramine HCl (Diphenhydramine Hcl 50 Mg/Ml Vial) 25 mg IVPUSH Q6H PRN PRN Reason: Itching Last Admin: 04/06/23 18:28 Dose: 25 mg Hydromorphone HCl (Hydromorphone Hcl 1 Mg/Ml Syringe) 1 mg IVPUSH Q4H PRN; Protocol PRN Reason: Pain, Severe (Pain Scale 7-10) Last Admin: 04/07/23 03:01 Dose: 1 mg Piperacillin Sod/Tazobactam (Sod 3.375 gm/ Sodium Chloride) 50 mls @ 100 mls/hr IV Q6H [facility] Last Infusion: 04/07/23 08:32 Dose: Infused Lactated Ringer's (Lr) 1,000 mls @ 100 mls/hr IVCONT .Q10H [facility] Methylprednisolone Sodium Succinate (Methylprednisolone Sod Succ 40 Mg/Ml Vial) 20 mg IVPUSH Q8H [facility] Metoclopramide HCl (Metoclopramide Hcl 10 Mg/2 Ml Vial) 5 mg IVPUSH Q6H PRN PRN Reason: Nausea and Vomiting Last Admin: 04/06/23 07:31 Dose: 5 mg Oxycodone HCl (Oxycodone Hcl Immed Release 15 Mg Tablet) 15 mg PO Q6H PRN PRN Reason: Pain, Severe (Pain Scale 7-10) Last Admin: 04/07/23 07:14 Dose: 15 mg Pharmacy Consult (Consult Rx Perform Med Rec) 1 each MISCELLANE ONCE PRN PRN Reason: Consult order Sodium Chloride (0.9 % Sodium Chloride Flush 3 Ml Syringe) 3 ml [facility]USH [facility] Last Admin: 04/07/23 07:58 Dose: 3 ml Home Medications Medication Instructions Recorded Confirmed Last Taken Type amlodipine 10 mg tablet 10 mg PO DAILY 04/22/22 04/04/23 03/23/23 History atorvastatin 20 mg tablet 20 mg PO DAILY 04/22/22 04/04/23 03/23/23 History hydrochlorothiazide 25 mg tablet 25 mg PO DAILY 04/22/22 04/04/23 03/23/23 History oxycodone 15 mg tablet 15 mg PO Q6H PRN Pain 04/22/22 04/04/23 03/23/23 History diazepam 10 mg tablet 10 mg PO Q12H PRN muscle spasm 01/31/23 04/04/23 01/30/23 History Physical Exam Vital Signs: Vital Signs: Last Vital Signs Temp 98.3 F 04/07/23 10:15 Pulse 60 04/07/23 10:15 Resp 16 04/07/23 10:15 BP 119/72 04/07/23 10:15 Pulse Ox 97 04/07/23 10:15 O2 Del Method Room Air 04/07/23 10:15 BMI result Body Mass Index 27.5 The patient is non-toxic & in good spirits NC/AT, PERRLA, EOMI Mood, affect & judgment all appear appropriate Sclera anicteric conjunctiva pink and moist Oropharynx is clear with no aphthous ulcers, Mallampati class 3, mucous membranes moist Neck is supple with no masses, adenopathy or bruits Heart is regular, normal S1-S2 no rubs or murmurs Lungs are clear and equal anteriorly with no audible wheezing, rubs or dullness to percussion Abdomen is overweight with no demonstrable hernias. No HSM, rebound, rigidity, guarding, masses or bruits are present. Rectal exam is deferred Skin has good turgor and is free of rashes Extremities free of cyanosis clubbing edema Results Labs 04/07/23 06:01 04/07/23 06:01 Labs: Abnormal lab results 04/07/23 04/07/23 Range/Units 06:01 06:01 RBC 3.84 L (4.20-5.50) X10*6/uL Hgb 11.6 L (12.0-16.0) g/dl Hct 34.6 L (37.0-47.0) % BUN 4 L (9-16) mg/dL Short CBC 04/07/23 Range/Units 06:01 WBC 8.9 (4.8-10.8) X10*3/uL Hgb 11.6 L (12.0-16.0) g/dl Hct 34.6 L (37.0-47.0) % Plt Count 233 (160-400) X10*3/uL BMP 04/07/23 06:01 Sodium 140 Potassium 3.5 Chloride 105 Carbon Dioxide 27 BUN 4 L Creatinine 0.72 Calcium 8.9 D Urine 04/04/23 Range/Units 10:37 Urine Color Yellow Urine Appearance Clear Urine pH 8.5 (5.0-9.0) Ur Specific [place] >= 1.030 H (1.005-1.025) Urine Protein Negative (Neg-Trace) mg/dL Urine Glucose (UA) Negative (Negative) mg/dL All other labs normal. Imaging Additional studies: Colonoscopy biopsies and EGD biopsies from 02/02/2023 and 03/23/2023 are reviewed. Intra endoscopy findings including sigmoid edema and ulceration at 30 cm with a equivocal, possible inflammatory bowel disease (02/02/23) CT dated 01/31/2023 report and images are reviewed. Distal transverse and descending/sigmoid colonic edema similar to 07/31 was reported by the radiologist and I concur with this assessment. 04/04/2023 CT of the abdomen and pelvis shows ascencio colitis involving the rectum. 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 Labs 04/07/2023 Hemoglobin slightly low at 11.6; white blood cell count 8.9; platelet count 233 K Electrolytes within normal parameters; BUN 4/creatinine 0.7 to 04/06/2023 CRP is elevated at 2.91 GI notes from earlier this year reviewed and at that time, the patient advised that she is taking oxycodone for chronic sciatica issues and was having constipation and pellet stool requiring enemas Assessment and Plan (1) Rectal bleed: Status: Acute (2) Colitis: Status: Acute (3) Abdominal pain: Status: Acute (4) Nausea: Status: Acute Plan In reviewing the prior CTs, CRP, the patient has findings consistent with colitis, but the etiology is unclear. There is no evidence of acute pathology that mandates urgent/emergent exploration, and given the lack of clear etiology, I agree with a trial of steroids and bowel rest in the meantime. The patient does report a temporal relationship to her bowel complaints after a robotic or laparoscopic hysterectomy, which could explain a stricture, but would not explain the ascencio colitis demonstrated on CT. I have ordered a pelvic ultrasound to assess the left ovary concern raise by CT scan. Will follow. Please call me with any specific questions. Time Spent With Patient Time: Total time managing care of this patient today ____ minutes. Procedures Date of Service Date of Service: 04/07/23
[2023-04-07] MEDS: Lactated Ringers 1,000 ML 100 ML IVCONT ×2 (10:34→20:06)
[2023-04-07] MEDS: methylPREDNISolone Sod Succ 40 MG/ML VIAL 20 MG IVPUSH (10:34)
[2023-04-07 10:43] LABS: Erythrocyte Sedimentation Rate 18 MM/HR (0-20)
[2023-04-07] MEDS: diphenhydrAMINE HCL 50 MG/ML VIAL 25 MG IVPUSH ×2 (11:40→20:33)
--- NOTE | 2023-04-07 13:19 | P.CONGS_ITS ---
History of Present Illness Consult details Consult date: 04/07/23 Narrative: Patient presents with a longstanding history of constipation/progressively worsening decreasing caliber of her stool/difficulty and passing bowel movements. Patient has had extensive workup for this. Over the last several weeks, she is only able to pass liquid stool or stool of a pencil's caliber. Patient's only past surgical history is for a laparoscopic assisted hysterectomy. Colonoscopy from a few weeks ago a again demonstrated a stricture of the sigmoid colon, biopsies of which proved to be inflammatory/benign. The chart was reviewed and patient evaluated. [facility] Past Medical History Medical History Colitis Diverticulitis Elevated cholesterol GI bleed HTN (hypertension) Meningitis Sciatica Family History Family History Mother Diabetes Father Heart disease Surgical History Surgical History H/O colonoscopy Hx of hysterectomy Hx of spinal surgery Social History Social History Household Members: Family Household Members Other:: Housing: House Do you presently have visiting nurse or other home services: No Alcohol intake: never Patient Tobacco Use Status: Never used Tobacco Use of substances other than those prescribed or required for medical reasons: Yes Substance Use Type: Marijuana Substance Use Type Other:: daily Substance Use Frequency: Chronic Longstanding Currently Displaying Signs/Symptoms of Drug Intoxication Withdrawal: No Have you been hit, kicked, punched, or otherwise hurt by someone within the past year? If so, by whom?: No Do you feel safe in your current relationship?: No Is there a partner from a previous relationship who is making you feel unsafe now?: No Advance Directives: No Advance Directives Information Provided: No Do you have thoughts of harming others: None Do you have a plan to hurt others: No Plan Recently lost weight without trying: No Eating poorly because of decreased appetite: No Patient : No : No Poor oral hygiene: No service: No Current occupational status: unemployed Meds Allergies Allergy/AdvReac Type Severity Reaction Status Date / Time NSAIDS (Non-Steroidal Allergy Severe Hives Verified 02/02/23 11:37 Anti-Inflamma atenolol Allergy Unknown Hives Verified 04/22/22 07:58 ciprofloxacin Allergy Unknown Hives Verified 04/22/22 07:58 apple Allergy Abdominal Verified 02/02/23 11:37 Pain Active Medications: Current Medications Acetaminophen (Acetaminophen 325 Mg Tablet) 650 mg PO Q6H PRN PRN Reason: Pain, Mild (Pain Scale 1-3) Diazepam (Diazepam 5 Mg Tablet) 10 mg PO Q12H PRN PRN Reason: muscle spasm Diphenhydramine HCl (Diphenhydramine Hcl 50 Mg/Ml Vial) 25 mg IVPUSH Q6H PRN PRN Reason: Itching Last Admin: 04/07/23 11:40 Dose: 25 mg Hydromorphone HCl (Hydromorphone Hcl 1 Mg/Ml Syringe) 1 mg IVPUSH Q4H PRN; Protocol PRN Reason: Pain, Severe (Pain Scale 7-10) Last Admin: 04/07/23 10:33 Dose: 1 mg Piperacillin Sod/Tazobactam (Sod 3.375 gm/ Sodium Chloride) 50 mls @ 100 mls/hr IV Q6H [facility] Last Infusion: 04/07/23 08:32 Dose: Infused Lactated Ringer's (Lr) 1,000 mls @ 100 mls/hr IVCONT .Q10H [facility] Last Admin: 04/07/23 10:34 Dose: 100 mls/hr Methylprednisolone Sodium Succinate (Methylprednisolone Sod Succ 40 Mg/Ml Vial) 20 mg IVPUSH Q8H [facility] Last Admin: 04/07/23 10:34 Dose: 20 mg Metoclopramide HCl (Metoclopramide Hcl 10 Mg/2 Ml Vial) 5 mg IVPUSH Q6H PRN PRN Reason: Nausea and Vomiting Last Admin: 04/06/23 07:31 Dose: 5 mg Oxycodone HCl (Oxycodone Hcl Immed Release 15 Mg Tablet) 15 mg PO Q6H PRN PRN Reason: Pain, Severe (Pain Scale 7-10) Last Admin: 04/07/23 12:48 Dose: 15 mg Pharmacy Consult (Consult Rx Perform Med Rec) 1 each MISCELLANE ONCE PRN PRN Reason: Consult order Sodium Chloride (0.9 % Sodium Chloride Flush 3 Ml Syringe) [facility] Last Admin: 04/07/23 07:58 Dose: 3 ml Home Medications Medication Instructions Recorded Confirmed Last Taken Type amlodipine 10 mg tablet 10 mg PO DAILY 04/22/22 04/04/23 03/23/23 History atorvastatin 20 mg tablet 20 mg PO DAILY 04/22/22 04/04/23 03/23/23 History hydrochlorothiazide 25 mg tablet 25 mg PO DAILY 04/22/22 04/04/23 03/23/23 History oxycodone 15 mg tablet 15 mg PO Q6H PRN Pain 04/22/22 04/04/23 03/23/23 History diazepam 10 mg tablet 10 mg PO Q12H PRN muscle spasm 01/31/23 04/04/23 01/30/23 History Physical Exam Vital Signs: Vital Signs: Last Vital Signs Temp 98.3 F 04/07/23 10:15 Pulse 60 04/07/23 10:15 Resp 16 04/07/23 10:15 BP 119/72 04/07/23 10:15 Pulse Ox 97 04/07/23 10:15 O2 Del Method Room Air 04/07/23 10:15 BMI result Body Mass Index 27.5 Chest: Other: Chest breath sounds bilaterally, HS 1 and 2. GI: Other: Abdomen mildly corpulent , modest distention. No evidence of any guarding, rebound, or rigidity. Laparoscopy scars Results Labs 04/07/23 06:01 04/07/23 06:01 Labs: Abnormal lab results 04/07/23 04/07/23 04/07/23 Range/Units 06:01 06:01 12:51 RBC 3.84 L (4.20-5.50) X10*6/uL Hgb 11.6 L (12.0-16.0) g/dl Hct 34.6 L (37.0-47.0) % BUN 4 L (9-16) mg/dL Prealbumin 19.0 L (20-40) mg/dL Short CBC 04/07/23 Range/Units 06:01 WBC 8.9 (4.8-10.8) X10*3/uL Hgb 11.6 L (12.0-16.0) g/dl Hct 34.6 L (37.0-47.0) % Plt Count 233 (160-400) X10*3/uL BMP 04/07/23 06:01 Sodium 140 Potassium 3.5 Chloride 105 Carbon Dioxide 27 BUN 4 L Creatinine 0.72 Calcium 8.9 D Urine 04/04/23 Range/Units 10:37 Urine Color Yellow Urine Appearance Clear Urine pH 8.5 (5.0-9.0) Ur Specific [place] >= 1.030 H (1.005-1.025) Urine Protein Negative (Neg-Trace) mg/dL Urine Glucose (UA) Negative (Negative) mg/dL All other labs normal. Assessment and Plan (1) Stricture of colon determined by endoscopy: Status: Acute Plan Patient was given a bowel prep prior to her colonoscopy and is unclear the quality of the prep was because the colonoscope (including Pedi scope) could not be passed beyond the strictured point in the sigmoid colon. Patient has only been on clear liquids for the last 2-3 days. Patient states that she has been passing liquids for BMs. Because of the chronicity of this problem which has been going on for many years, and the most recent colonoscopic findings, there was concern that this process is highly unlikely to resolve with conservative therapy including steroids. This Patient , in my opinion, requires a definitive procedure. I discussed with the patient risks, benefits, alternatives of sigmoid resection with primary anastomosis or colostomy depending on intraoperative findings. These included bleeding, infection, recurrence of symptoms, numbness, pain, scarring, anastomosis breakdown, diverting loop ileostomy. All questions were answered. Patient wishes to proceed with a definitive procedure to relieve her symptoms which she states are incapacitating and does not want to continue to ?live like this ?. Arrangements were made for this as an add on for tomorrow. Limited bowel prep will be given. Time Spent With Patient Time: Total time managing care of this patient today ____ minutes. Procedures Date of Service Date of Service: 04/08/23
--- NOTE | 2023-04-07 15:05 | HO.PM.IMPN ---
Subjective Subjective Date of Service: 04/08/23 Interval History: Rectal bleed, possible sigmoid stricture,colitis? Review of Systems abd pain similar to yesterday had colonoscopy-stricture in sigmoidoscopy no fevers or chills Physical Exam Vital Signs: Vital Signs: Last Vital Signs Temp 98.3 F 04/07/23 10:15 Pulse 60 04/07/23 10:15 Resp 16 04/07/23 10:15 BP 119/72 04/07/23 10:15 Pulse Ox 97 04/07/23 10:15 O2 Del Method Room Air 04/07/23 10:15 BMI result Body Mass Index 27.5 General: AO X 3, no acute distress Resp:? CTA bilateral CVS: S1,S2,RRR GI: +BS, very soft, non specific tenderness, no guarding, no distention Skin: No rash Neuro:? motor grossly intact Psych: appropriate affect Objective Data Active Medications Acetaminophen (Acetaminophen 325 Mg Tablet) 650 mg PO Q6H PRN PRN Reason: Pain, Mild (Pain Scale 1-3) Diazepam (Diazepam 5 Mg Tablet) 10 mg PO Q12H PRN PRN Reason: muscle spasm Diphenhydramine HCl (Diphenhydramine Hcl 50 Mg/Ml Vial) 25 mg IVPUSH Q6H PRN PRN Reason: Itching Last Admin: 04/07/23 11:40 Dose: 25 mg Documented By: HANY Erythromycin (Erythromycin Base 250 Mg Tablet) 1,000 mg PO ONCE ONE Stop: 04/07/23 16:01 Erythromycin (Erythromycin Base 250 Mg Tablet) 1,000 mg PO ONCE ONE Stop: 04/07/23 21:01 Hydromorphone HCl (Hydromorphone Hcl 1 Mg/Ml Syringe) 1 mg IVPUSH Q4H PRN; Protocol PRN Reason: Pain, Severe (Pain Scale 7-10) Last Admin: 04/07/23 10:33 Dose: 1 mg Documented By: HANY Piperacillin Sod/Tazobactam (Sod 3.375 gm/ Sodium Chloride) 50 mls @ 100 mls/hr IV Q6H [facility] Last Infusion: 04/07/23 08:32 Dose: 0 mls/hr Documented By: HANY Lactated Ringer's (Lr) 1,000 mls @ 100 mls/hr IVCONT .Q10H [facility] Last Admin: 04/07/23 10:34 Dose: 100 mls/hr Documented By: HANY Metoclopramide HCl (Metoclopramide Hcl 10 Mg/2 Ml Vial) 5 mg IVPUSH Q6H PRN PRN Reason: Nausea and Vomiting Last Admin: 04/06/23 07:31 Dose: 5 mg Documented By: HANY Neomycin Sulfate (Neomycin Sulfate 500 Mg Tablet) 1,000 mg PO ONCE ONE Stop: 04/07/23 16:01 Neomycin Sulfate (Neomycin Sulfate 500 Mg Tablet) 1,000 mg PO ONCE ONE Stop: 04/07/23 21:01 Oxycodone HCl (Oxycodone Hcl Immed Release 15 Mg Tablet) 15 mg PO Q6H PRN PRN Reason: Pain, Severe (Pain Scale 7-10) Last Admin: 04/07/23 12:48 Dose: 15 mg Documented By: HANY Pharmacy Consult (Consult Rx Perform Med Rec) 1 each MISCELLANE ONCE PRN PRN Reason: Consult order Sodium Chloride (0.9 % Sodium Chloride Flush 3 Ml Syringe) [facility] Last Admin: 04/07/23 07:58 Dose: 3 ml Documented By: HANY Labs 04/07/23 06:01 04/07/23 06:01 Labs: Laboratory Results - last 24 hr 04/07/23 04/07/23 04/07/23 06:01 06:01 06:01 MCV 90.1 MCH 30.2 MCHC 33.5 RDW 12.3 Plt Count 233 MPV 9.9 Immature Gran % (Auto) 0.2 Neut % (Auto) 60.0 Lymph % (Auto) 30.3 [place] % (Auto) 7.1 Eos % (Auto) 2.1 Baso % (Auto) 0.3 Lymph # (Auto) 2.7 [place] # (Auto) 0.6 Eos # (Auto) 0.2 Baso # (Auto) 0.0 Abs Immat Gran (auto) 0.02 Absolute Neuts (auto) 5.3 Absolute Nucleated RBC 0.000 Nucleated RBC % (auto) 0.0 ESR 18 Anion Gap 12 Estim Creat Clear Calc 92.2 Estimated GFR > 60 Fasting Glucose 81 Calcium 8.9 D Prealbumin Blood Type Antibody Screen 04/07/23 04/07/23 12:51 12:51 MCV MCH MCHC RDW Plt Count MPV Immature Gran % (Auto) Neut % (Auto) Lymph % (Auto) [place] % (Auto) Eos % (Auto) Baso % (Auto) Lymph # (Auto) [place] # (Auto) Eos # (Auto) Baso # (Auto) Abs Immat Gran (auto) Absolute Neuts (auto) Absolute Nucleated RBC Nucleated RBC % (auto) ESR Anion Gap Estim Creat Clear Calc Estimated GFR Fasting Glucose Calcium Prealbumin 19.0 L Blood Type A Positive Antibody Screen NEGATIVE Microbiology Microbiology Results: Microbiology 04/04/23 10:57 Blood Culture - Preliminary Blood - Venous No growth after 48 hours. 04/04/23 10:37 Blood Culture - Preliminary Blood - Venous No growth after 48 hours. Assessment and Plan (1) Stricture of colon determined by endoscopy: Status: Acute (2) Rectal bleed: Status: Acute (3) Colitis: Status: Acute Plan 47-year-old female with a PMH significant for?HTN, HLD, prior GI bleeds, colitis, diverticulitis, sciatica on chronic opioids, and meningitis in 2007 who presents to the ED with?intractable nausea and vomiting and diarrhea with mu red blood per rectum. Pt will be admitted to the hospital for treatment and further evaluation of acute colitis with IVF and IV antibiotics. Acute colitis, concern for? Infectious or inflamatory cta: 1.? Progression of the wall thickening involving the mid transverse colon with increased surrounding inflammatory changes. 2.? No significant vascular abnormality. Minimal atherosclerotic disease. colonoscopy showed (preliminary):possible sigmoid area strictures esr 18,crp:2.91,c dif was negative. continue Dilaudid IV for pain, Oxycodone as well,Liquid diet for now,continue ivf, Zosyn 04/03,added iv steriods ?ibd d/w surgery-may possible need surgery for bowel stricture . Acute GI bleed with acute blood loss anemia, H/H has trended down, will continue to monitor, no indication for transfusion at this time. HTN--BP on lower side, holding home meds (Norvasc 10 and HCTZ 25) HLD--hold Lipitor for nows Full Code DVT Prophylaxis: early ambulation, compression device, no hep or lovenox d/t gi bleeding need for inpt:needs IV Abx, IVF and IV pain meds for acute colitis and possible need surgery for bowel stricture . Time Spent With Patient Time: Total time managing care of this patient today ____ minutes. Quality Stroke Does the patient have a stroke diagnosis?: No VTE Prior VTE?: No VTE Risk Level:: Medical - low VTE Device Contraindication: Treatment Not Indicated VTE Drug Contraindication: Treatment Not Indicated
[2023-04-07] MEDS: neoMYCIN Sulfate 500 MG TABLET 1000 MG PO ×3 (16:16→20:06)
[2023-04-07] MEDS: Erythromycin Base 250 MG TABLET 1000 MG PO ×3 (16:18→20:07)
[2023-04-07] MEDS: Metoclopramide HCl 10 MG/2 ML VIAL 5 MG IVPUSH (20:33)
[2023-04-08] VITALS (40 sets, daily range): BP systolic 98–147; BP diastolic 49–91; PULSE 56–90; RESP 12–25; TEMP 36.2–36.8; O2SAT 89–100
[2023-04-08] MEDS: oxyCODONE HCl Immed Release 15 MG TABLET PO ×2 (00:10→06:01)
[2023-04-08] MEDS: HYDROmorphone HCl 1 MG/ML SYRINGE IVPUSH ×6 (01:09→21:32)
[2023-04-08] MEDS: Piperacillin Sodium/Tazobactam 3.375 GM in 0.9 % Sodium Chloride 50 ML IV ×4 (01:11→21:39)
[2023-04-08] MEDS: diphenhydrAMINE HCL 50 MG/ML VIAL 25 MG IVPUSH ×2 (03:07→23:13)
[2023-04-08] MEDS: Lactated Ringers 1,000 ML 100 ML IVCONT ×3 (05:02→21:42)
[2023-04-08] MEDS: 0.9 % Sodium Chloride Flush 3 ML SYRINGE IVFLUSH ×2 (07:26→17:39)
--- NOTE | 2023-04-08 11:37 | P.CONAN_ITS ---
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 (Acute) Rectal bleed (Acute) Colitis (Acute) Abdominal pain (Acute) Nausea (Acute) Acute lower GI bleeding (Acute) Nausea & vomiting (Acute) Hyperbilirubinemia (Acute) Colitis (Acute) Colitis (Acute) Occult blood positive stool (Acute) Past Medical History Medical History (Updated 04/07/23 @ 13:36 by Joe Her MD) Colitis Diverticulitis Elevated cholesterol GI bleed HTN (hypertension) Meningitis Sciatica Family History Family History Mother Diabetes Father Heart disease Family history of problems with anesthesia: No Surgical History Surgical History (Updated 04/08/23 @ 07:32 by Adrianna Beavers) H/O colonoscopy Hx of hysterectomy Hx of spinal surgery History of Problems with Anesthesia: No Social History Social History Household Members: Family Household Members Other:: Housing: House Do you presently have visiting nurse or other home services: No Alcohol intake: never Patient Tobacco Use Status: Never used Tobacco Use of substances other than those prescribed or required for medical reasons: Yes Substance Use Type: Marijuana Substance Use Type Other:: daily Substance Use Frequency: Chronic Longstanding Currently Displaying Signs/Symptoms of Drug Intoxication Withdrawal: No Have you been hit, kicked, punched, or otherwise hurt by someone within the past year? If so, by whom?: No Do you feel safe in your current relationship?: No Is there a partner from a previous relationship who is making you feel unsafe now?: No Advance Directives: No Advance Directives Information Provided: No Do you have thoughts of harming others: None Do you have a plan to hurt others: No Plan Recently lost weight without trying: No Eating poorly because of decreased appetite: No Patient : No : No Poor oral hygiene: No service: No Current occupational status: unemployed Meds Allergies Allergy/AdvReac Type Severity Reaction Status Date / Time NSAIDS (Non-Steroidal Allergy Severe Hives Verified 02/02/23 11:37 Anti-Inflamma atenolol Allergy Unknown Hives Verified 04/22/22 07:58 ciprofloxacin Allergy Unknown Hives Verified 04/22/22 07:58 apple Allergy Abdominal Verified 02/02/23 11:37 Pain Active Medications: Current Medications Acetaminophen (Acetaminophen 325 Mg Tablet) 650 mg PO Q6H PRN PRN Reason: Pain, Mild (Pain Scale 1-3) Diazepam (Diazepam 5 Mg Tablet) 10 mg PO Q12H PRN PRN Reason: muscle spasm Diphenhydramine HCl (Diphenhydramine Hcl 50 Mg/Ml Vial) 25 mg IVPUSH Q6H PRN PRN Reason: Itching Last Admin: 04/08/23 03:07 Dose: 25 mg Hydromorphone HCl (Hydromorphone Hcl 1 Mg/Ml Syringe) 1 mg IVPUSH Q4H PRN; Protocol PRN Reason: Pain, Severe (Pain Scale 7-10) Last Admin: 04/08/23 09:00 Dose: 1 mg Piperacillin Sod/Tazobactam (Sod 3.375 gm/ Sodium Chloride) 50 mls @ 100 mls/hr IV Q6H [facility] Last Infusion: 04/08/23 08:01 Dose: Infused Lactated Ringer's (Lr) 1,000 mls @ 100 mls/hr IVCONT .Q10H [facility] Last Admin: 04/08/23 05:02 Dose: 100 mls/hr Metoclopramide HCl (Metoclopramide Hcl 10 Mg/2 Ml Vial) 5 mg IVPUSH Q6H PRN PRN Reason: Nausea and Vomiting Last Admin: 04/07/23 20:33 Dose: 5 mg Oxycodone HCl (Oxycodone Hcl Immed Release 15 Mg Tablet) 15 mg PO Q6H PRN PRN Reason: Pain, Severe (Pain Scale 7-10) Last Admin: 04/08/23 06:01 Dose: 15 mg Pharmacy Consult (Consult Rx Perform Med Rec) 1 each MISCELLANE ONCE PRN PRN Reason: Consult order Sodium Chloride (0.9 % Sodium Chloride Flush 3 Ml Syringe) [address] [facility] Last Admin: 04/08/23 07:26 Dose: 3 ml Home Medications Medication Instructions Recorded Confirmed Last Taken Type amlodipine 10 mg tablet 10 mg PO DAILY 04/22/22 04/04/23 03/23/23 History atorvastatin 20 mg tablet 20 mg PO DAILY 04/22/22 04/04/23 03/23/23 History hydrochlorothiazide 25 mg tablet 25 mg PO DAILY 04/22/22 04/04/23 03/23/23 History oxycodone 15 mg tablet 15 mg PO Q6H PRN Pain 04/22/22 04/04/23 03/23/23 History diazepam 10 mg tablet 10 mg PO Q12H PRN muscle spasm 01/31/23 04/04/23 01/30/23 History Exam Exam Date and Time: April 08, 2023 1137 Height,Weight and Vital Signs: Height 5 ft 4 in Weight 72.575 kg Last Vital Signs Temp 98.2 F 04/08/23 10:55 Pulse 68 04/08/23 10:55 Resp 16 04/08/23 10:55 BP 138/76 04/08/23 10:55 Pulse Ox 98 04/08/23 10:55 O2 Del Method Room Air 04/08/23 10:55 Pertinent Lab Results Pertinent Lab Results: Laboratory Tests 04/04/23 04/04/23 04/04/23 09:22 09:22 09:40 WBC 19.7 H RBC 4.68 Hgb 14.1 Hct 41.0 MCV 87.6 MCH 30.1 MCHC 34.4 RDW 12.2 Plt Count 290 MPV 9.6 Immature Gran % (Auto) 0.4 Neut % (Auto) 90.5 H Lymph % (Auto) 2.4 L [place] % (Auto) 6.5 Eos % (Auto) 0.0 Baso % (Auto) 0.2 Lymph # (Auto) 0.5 L [place] # (Auto) 1.3 H Eos # (Auto) 0.0 Baso # (Auto) 0.0 Abs Immat Gran (auto) 0.07 H Absolute Neuts (auto) 17.8 H Absolute Nucleated RBC 0.000 Nucleated RBC % (auto) 0.0 Smear Tech's Comments VERIFIED ESR Sodium 140 Potassium 3.7 Chloride 103 Carbon Dioxide 28 Anion Gap 13 BUN 15 Creatinine 0.82 Estim Creat Clear Calc 81.0 Estimated GFR > 60 Random Glucose 177 H Fasting Glucose Lactic Acid Lactic Acid F/U @ 2Hr Calcium 9.9 D Magnesium 1.9 Total Bilirubin 2.0 H Direct Bilirubin 0.5 AST 18 ALT 33 H Alkaline Phosphatase 85 C-Reactive Protein Total Protein 7.0 Albumin 4.2 Prealbumin Lipase 14 Urine Color Urine Appearance Urine pH Ur Specific [place] Urine Protein Urine Glucose (UA) Urine Ketones Urine Blood Urine Nitrite Ur Leukocyte Esterase Stool Occult Blood POSITIVE Stl C. cayetanensis PCR Stool Rotavirus A PCR Stl Adenov F PCR Stool Astrovirus (PCR) Stool Campylobacter PCR Stool Cryptosporidium PCR Stl Sh Tox Pr E STEC PCR Stool E coli O157 PCR Stl Enterotoxigenic E PCR Stool EPEC (PCR) Stool EAEC (PCR) Stl E. histolytica PCR Stool Giardia Lamblia PCR Stl P. shigelloides PCR Stool Salmonella PCR Stool Sapovirus (PCR) Stl Shigella/EIEC PCR St Y.enterocolitica PCR Stool Vibrio (PCR) Stl Vibrio cholerae PCR Stl Norovirus GI/GII PCR Urine Opiates Screen Urine Fentanyl Screen Ur Barbiturates Screen Ur Phencyclidine Scrn Ur Amphetamines Screen U Benzodiazepines Scrn Urine Cocaine Screen U Marijuana (THC) Screen C. difficile Tox B Gene Blood Type Antibody Screen 04/04/23 04/04/23 04/04/23 10:36 10:37 10:37 WBC RBC Hgb Hct MCV MCH MCHC RDW Plt Count MPV Immature Gran % (Auto) Neut % (Auto) Lymph % (Auto) [place] % (Auto) Eos % (Auto) Baso % (Auto) Lymph # (Auto) [place] # (Auto) Eos # (Auto) Baso # (Auto) Abs Immat Gran (auto) Absolute Neuts (auto) Absolute Nucleated RBC Nucleated RBC % (auto) Smear Tech's Comments ESR Sodium Potassium Chloride Carbon Dioxide Anion Gap BUN Creatinine Estim Creat Clear Calc Estimated GFR Random Glucose Fasting Glucose Lactic Acid 2.9 H* Lactic Acid F/U @ 2Hr Calcium Magnesium Total Bilirubin Direct Bilirubin AST ALT Alkaline Phosphatase C-Reactive Protein Total Protein Albumin Prealbumin Lipase Urine Color Yellow Urine Appearance Clear Urine pH 8.5 [address] Specific [place] >= 1.030 H Urine Protein Negative Urine Glucose (UA) Negative Urine Ketones Negative Urine Blood Negative Urine Nitrite Negative Ur Leukocyte Esterase Negative Stool Occult Blood Stl C. cayetanensis PCR Stool Rotavirus A PCR Stl Adenov F PCR Stool Astrovirus (PCR) Stool Campylobacter PCR Stool Cryptosporidium PCR Stl Sh Tox Pr E STEC PCR Stool E coli O157 PCR Stl Enterotoxigenic E PCR Stool EPEC (PCR) Stool EAEC (PCR) Stl E. histolytica PCR Stool Giardia Lamblia PCR Stl P. shigelloides PCR Stool Salmonella PCR Stool Sapovirus (PCR) Stl Shigella/EIEC PCR St Y.enterocolitica PCR Stool Vibrio (PCR) Stl Vibrio cholerae PCR Stl Norovirus GI/GII PCR Urine Opiates Screen POSITIVE H Urine Fentanyl Screen Not Detected Ur Barbiturates Screen Not Detected Ur Phencyclidine Scrn Not Detected Ur Amphetamines Screen Not Detected U Benzodiazepines Scrn Not Detected Urine Cocaine Screen Not Detected U Marijuana (THC) Screen POSITIVE H C. difficile Tox B Gene Blood Type Antibody Screen 04/04/23 04/04/23 04/04/23 13:52 16:23 16:23 WBC RBC Hgb Hct MCV MCH MCHC RDW Plt Count MPV Immature Gran % (Auto) Neut % (Auto) Lymph % (Auto) [place] % (Auto) Eos % (Auto) Baso % (Auto) Lymph # (Auto) [place] # (Auto) Eos # (Auto) Baso # (Auto) Abs Immat Gran (auto) Absolute Neuts (auto) Absolute Nucleated RBC Nucleated RBC % (auto) Smear Tech's Comments ESR Sodium Potassium Chloride Carbon Dioxide Anion Gap BUN Creatinine Estim Creat Clear Calc Estimated GFR Random Glucose Fasting Glucose Lactic Acid Lactic Acid F/U @ 2Hr 2.0 Calcium Magnesium Total Bilirubin Direct Bilirubin AST ALT Alkaline Phosphatase C-Reactive Protein Total Protein Albumin Prealbumin Lipase Urine Color Urine Appearance Urine pH Ur Specific [place] Urine Protein Urine Glucose (UA) Urine Ketones Urine Blood Urine Nitrite Ur Leukocyte Esterase Stool Occult Blood Stl C. cayetanensis PCR Not Detected Stool Rotavirus A PCR Not Detected Stl Adenov F 40/41 PCR Not Detected Stool Astrovirus (PCR) Not Detected Stool Campylobacter PCR Not Detected Stool Cryptosporidium PCR Not Detected Stl Sh Tox Pr E STEC PCR Not Detected Stool E coli O157 PCR Not applicable Stl Enterotoxigenic E PCR Not Detected Stool EPEC (PCR) Not Detected Stool EAEC (PCR) Not Detected Stl E. histolytica PCR Not Detected Stool Giardia Lamblia PCR Not Detected Stl P. shigelloides PCR Not Detected Stool Salmonella PCR Not Detected Stool Sapovirus (PCR) Not Detected Stl Shigella/EIEC PCR Not Detected St Y.enterocolitica PCR Not Detected Stool Vibrio (PCR) Not Detected Stl Vibrio cholerae PCR Not Detected Stl Norovirus GI/GII PCR Not Detected Urine Opiates Screen Urine Fentanyl Screen Ur Barbiturates Screen Ur Phencyclidine Scrn Ur Amphetamines Screen U Benzodiazepines Scrn Urine Cocaine Screen U Marijuana (THC) Screen C. difficile Tox B Gene NEGATIVE Blood Type Antibody Screen 04/05/23 04/06/23 04/06/23 07:36 05:52 05:52 WBC 10.8 12.4 H RBC 4.01 L 3.50 L Hgb 12.2 10.5 L Hct 37.2 32.6 L MCV 92.8 D 93.1 MCH 30.4 30.0 MCHC 32.8 32.2 RDW 12.5 12.5 Plt Count 245 216 MPV 10.1 10.7 Immature Gran % (Auto) 0.6 H Neut % (Auto) 72.2 Lymph % (Auto) 19.3 L [place] % (Auto) 6.5 Eos % (Auto) 0.9 Baso % (Auto) 0.5 Lymph # (Auto) 2.4 [place] # (Auto) 0.8 Eos # (Auto) 0.1 Baso # (Auto) 0.1 Abs Immat Gran (auto) 0.07 H Absolute Neuts (auto) 8.9 H Absolute Nucleated RBC 0.000 0.000 Nucleated RBC % (auto) 0.0 0.0 Smear Tech's Comments ESR Sodium 140 Potassium 3.4 Chloride 105 Carbon Dioxide 28 Anion Gap 10 L BUN 4 L Creatinine 0.70 Estim Creat Clear Calc 94.9 Estimated GFR > 60 Random Glucose Fasting Glucose 85 Lactic Acid Lactic Acid F/U @ 2Hr Calcium 8.3 L D Magnesium Total Bilirubin Direct Bilirubin AST ALT Alkaline Phosphatase C-Reactive Protein 2.91 H Total Protein Albumin Prealbumin Lipase Urine Color Urine Appearance Urine pH Ur Specific [place] Urine Protein Urine Glucose (UA) Urine Ketones Urine Blood Urine Nitrite Ur Leukocyte Esterase Stool Occult Blood Stl C. cayetanensis PCR Stool Rotavirus A PCR Stl Adenov F 40/41 PCR Stool Astrovirus (PCR) Stool Campylobacter PCR Stool Cryptosporidium PCR Stl Sh Tox Pr E STEC PCR Stool E coli O157 PCR Stl Enterotoxigenic E PCR Stool EPEC (PCR) Stool EAEC (PCR) Stl E. histolytica PCR Stool Giardia Lamblia PCR Stl P. shigelloides PCR Stool Salmonella PCR Stool Sapovirus (PCR) Stl Shigella/EIEC PCR St Y.enterocolitica PCR Stool Vibrio (PCR) Stl Vibrio cholerae PCR Stl Norovirus GI/GII PCR Urine Opiates Screen Urine Fentanyl Screen Ur Barbiturates Screen Ur Phencyclidine Scrn Ur Amphetamines Screen U Benzodiazepines Scrn Urine Cocaine Screen U Marijuana (THC) Screen C. difficile Tox B Gene Blood Type Antibody Screen 04/06/23 04/07/23 04/07/23 05:52 06:01 06:01 WBC 8.9 RBC 3.84 L Hgb 11.6 L Hct 34.6 L MCV 90.1 MCH 30.2 MCHC 33.5 RDW 12.3 Plt Count 233 MPV 9.9 Immature Gran % (Auto) 0.2 Neut % (Auto) 60.0 Lymph % (Auto) 30.3 [place] % (Auto) 7.1 Eos % (Auto) 2.1 Baso % (Auto) 0.3 Lymph # (Auto) 2.7 [place] # (Auto) 0.6 Eos # (Auto) 0.2 Baso # (Auto) 0.0 Abs Immat Gran (auto) 0.02 Absolute Neuts (auto) 5.3 Absolute Nucleated RBC 0.000 Nucleated RBC % (auto) 0.0 Smear Tech's Comments ESR 10 Sodium 140 Potassium 3.5 Chloride 105 Carbon Dioxide 27 Anion Gap 12 BUN 4 L Creatinine 0.72 Estim Creat Clear Calc 92.2 Estimated GFR > 60 Random Glucose Fasting Glucose 81 Lactic Acid Lactic Acid F/U @ 2Hr Calcium 8.9 D Magnesium Total Bilirubin Direct Bilirubin AST ALT Alkaline Phosphatase C-Reactive Protein Total Protein Albumin Prealbumin Lipase Urine Color Urine Appearance Urine pH Ur Specific [place] Urine Protein Urine Glucose (UA) Urine Ketones Urine Blood Urine Nitrite Ur Leukocyte Esterase Stool Occult Blood Stl C. cayetanensis PCR Stool Rotavirus A PCR Stl Adenov F 40 PCR Stool Astrovirus (PCR) Stool Campylobacter PCR Stool Cryptosporidium PCR Stl Sh Tox Pr E STEC PCR Stool E coli O157 PCR Stl Enterotoxigenic E PCR Stool EPEC (PCR) Stool EAEC (PCR) Stl E. histolytica PCR Stool Giardia Lamblia PCR Stl P. shigelloides PCR Stool Salmonella PCR Stool Sapovirus (PCR) Stl Shigella/EIEC PCR St Y.enterocolitica PCR Stool Vibrio (PCR) Stl Vibrio cholerae PCR Stl Norovirus GI/GII PCR Urine Opiates Screen Urine Fentanyl Screen Ur Barbiturates Screen Ur Phencyclidine Scrn Ur Amphetamines Screen U Benzodiazepines Scrn Urine Cocaine Screen U Marijuana (THC) Screen C. difficile Tox B Gene Blood Type Antibody Screen 04/07/23 04/07/23 04/07/23 06:01 12:51 12:51 WBC RBC Hgb Hct MCV MCH MCHC RDW Plt Count MPV Immature Gran % (Auto) Neut % (Auto) Lymph % (Auto) [place] % (Auto) Eos % (Auto) Baso % (Auto) Lymph # (Auto) [place] # (Auto) Eos # (Auto) Baso # (Auto) Abs Immat Gran (auto) Absolute Neuts (auto) Absolute Nucleated RBC Nucleated RBC % (auto) Smear Tech's Comments ESR 18 Sodium Potassium Chloride Carbon Dioxide Anion Gap BUN Creatinine Estim Creat Clear Calc Estimated GFR Random Glucose Fasting Glucose Lactic Acid Lactic Acid F/U @ 2Hr Calcium Magnesium Total Bilirubin Direct Bilirubin AST ALT Alkaline Phosphatase C-Reactive Protein Total Protein Albumin Prealbumin 19.0 L Lipase Urine Color Urine Appearance Urine pH Ur Specific [place] Urine Protein Urine Glucose (UA) Urine Ketones Urine Blood Urine Nitrite Ur Leukocyte Esterase Stool Occult Blood Stl C. cayetanensis PCR Stool Rotavirus A PCR Stl Adenov F 40/41 PCR Stool Astrovirus (PCR) Stool Campylobacter PCR Stool Cryptosporidium PCR Stl Sh Tox Pr E STEC PCR Stool E coli O157 PCR Stl Enterotoxigenic E PCR Stool EPEC (PCR) Stool EAEC (PCR) Stl E. histolytica PCR Stool Giardia Lamblia PCR Stl P. shigelloides PCR Stool Salmonella PCR Stool Sapovirus (PCR) Stl Shigella/EIEC PCR St Y.enterocolitica PCR Stool Vibrio (PCR) Stl Vibrio cholerae PCR Stl Norovirus GI/GII PCR Urine Opiates Screen Urine Fentanyl Screen Ur Barbiturates Screen Ur Phencyclidine Scrn Ur Amphetamines Screen U Benzodiazepines Scrn Urine Cocaine Screen U Marijuana (THC) Screen C. difficile Tox B Gene Blood Type A Positive Antibody Screen NEGATIVE Airway Mallampati Class: I TM Dist: >3cm Neck ROM: Full Heart: ok Lungs: ok Assessment and Plan Assessment Anesthesia Assessment: Anesthesia Plan Discussed and Chart Reviewed Final Anesthetic Review Family History of Problems with Anesthesia: No History of Problems with Anesthesia: No NPO: Yes ASA Class: II Final Preanesthetic Review: No Changes in Pt Med Stat, Meds/Allgs Chart Reviewed, Consent Obtained/Reviewed and Anes Risks/Benef Reviewed Patient Risk: Low Procedure Risk: Intermediate Anesthetic Plan Anesthetic Plan: GA and Agree w/ Assess. and Plan Disposition: Standard PACU
--- NOTE | 2023-04-08 14:26 | W.PM.OPN ---
Operative Note Operative Note Date of Service: 04/08/23 Narrative: Preoperative diagnosis: [] Sigmoid stricture Postop diagnosis: [] Same Procedure [] exploratory laparotomy, adhesionalolysis , sleeve resection of sigmoid, primary functional end to end [id number], rigid proctoscopy Surgeon: [] Arden White [employer] Syrup Operator: [] sachi Zafar Type of Anesthesia: [] General Indication for surgery: [] Patient had preoperative diagnosis of sigmoid stricture/stenosis of unknown etiology. Extensive preoperative workup including colonoscopy and CT scan, which do not show any evidence of obvious neoplasia or inflammatory bowel disease.. Intraoperative findings demonstrated marked cicatrization and scarring involving a mid segment of the sigmoid colon resulting in the stricture along with the left ovary and fallopian tube and pelvic sidewall, most likely related to patient's prior hysterectomy, causing the obstructive pathology... Findings: [] Patient brought to the operating room, placed on operative table in supine position, after adequate level of general anesthesia was induced, patient placed in lithotomy position, and under sterile technique, a Crooks catheter was placed, and the abdomen and perineum were prepped and draped in usual sterile fashion. Using a small lower midline incision, this carried down through skin, subcutaneous tissue, down to linea alba which was opened and extended along the length of the incision. Packs and retractors were placed to enhance exposure. Findings were as noted above. A mid segment of sigmoid colon knuckle was encased in cicatrization and scarring from prior customer program manager surgery with left ovary and tube and pelvic sidewall, intimately adhered to the affected colon causing the obstructive etiology. The sigmoid colon was mobilized from the pelvic sidewall and ovary and fallopian tube were from the sigmoid at the affected area.. Lateral peritoneal reflection was taken down to mobilize the colon Using Bovie and blunt dissection. At the desired locations, above and below the occluded scarred sigmoid colon, GI staplers were used to transect the bowel. Mesentery of the affected bowel was taken down using double firing of ligature device. Proximal and distal sigmoid colon were than mobilized to perform a functional end-to-end anastomosis with no tension. Bowel prep was adequate for primary anastomosis. Both ends of bowel were well perfused. This anastomosed was performed using MARCO ANTONIO 60 and TA 60 staplers. Mesentery defect was reapproximated using interrupted superficial 3-0 Vicryl sutures. Crotch of the anastomosis was buttressed using interrupted 2-0 silk sutures. Pelvic cavity was then filled with saline and the bowel proximal to the anastomosis was occluded digitally and using rigid proctoscopy, insufflation was performed with air traversing the anastomosis with no leak demonstrated. Abdominal cavity was again irrigated and secured for hemostasis. Wounds closed in the following manner; mass closed using number 0 looped PDS suture was used to reapproximate the fascia. Interrupted inverted subdermal 3-0 Vicryl sutures followed by running subcuticular 4-0 Vicryl sutures and placed Steri-Strips and sterile dressings were applied. Wound was infiltrated with 0.5% Marcaine a completion the procedure. Sponge, needle, and instrument counts reported to be correct. Patient tolerated the procedure well and emerged anesthesia stable condition. EBL minimal
[2023-04-08] MEDS: HYDROmorphone HCl 0.5 MG/0.5 ML SYRINGE 1 MG IVPUSH ×3 (14:40→15:12)
[2023-04-08] MEDS: ondansetron HCL 4 MG/2 ML VIAL IVPUSH (14:40)
[2023-04-08] MEDS: fentaNYL citrate/PF 100 MCG/2 ML VIAL IVPUSH ×4 (14:50→15:06)
--- NOTE | 2023-04-08 16:32 | MHC.CM.PN ---
Per MD rounds no dc today. Patient is scheduled for OR today. DP home no services private transport.
--- NOTE | 2023-04-08 17:11 | P.PNIM_ITS ---
Subjective Subjective Date of Service: 04/09/23 Interval History: Rectal bleed, possible sigmoid stricture,colitis? Review of Systems abd pain similar to yesterday had colonoscopy-stricture in sigmoidoscopy no fevers or chills Physical Exam Vital Signs: Vital Signs: Last Vital Signs Temp 98.1 F 04/08/23 17:01 Pulse 67 04/08/23 17:01 Resp 14 04/08/23 17:01 BP 115/52 L 04/08/23 17:01 Pulse Ox 100 04/08/23 17:01 O2 Del Method Nasal Cannula 04/08/23 17:01 O2 Flow Rate 2 04/08/23 17:01 BMI result Body Mass Index 27.5 General: AO X 3, no acute distress Resp:? CTA bilateral CVS: S1,S2,RRR GI: +BS, very soft, non specific tenderness, no guarding, no distention Skin: No rash Neuro:? motor grossly intact Psych: appropriate affect Objective Data Active Medications Diazepam (Diazepam 5 Mg Tablet) 10 mg PO Q12H PRN PRN Reason: muscle spasm Diphenhydramine HCl (Diphenhydramine Hcl 50 Mg/Ml Vial) 25 mg IVPUSH Q6H PRN PRN Reason: Itching Last Admin: 04/08/23 03:07 Dose: 25 mg Documented By: CLARITA Hydromorphone HCl (Hydromorphone Hcl 1 Mg/Ml Syringe) 1 mg IVPUSH Q4H PRN; Protocol PRN Reason: Pain, Severe (Pain Scale 7-10) Last Admin: 04/08/23 09:00 Dose: 1 mg Piperacillin Sod/Tazobactam (Sod 3.375 gm/ Sodium Chloride) 50 mls @ 100 mls/hr IV Q6H [facility] Last Admin: 04/08/23 16:56 Dose: 100 mls/hr Documented By: CARLOS Lactated Ringer's (Lr) 1,000 mls @ 100 mls/hr IVCONT .Q10H [facility] Last Admin: 04/08/23 05:02 Dose: 100 mls/hr Documented By: CLARITA Acetaminophen (Ofirmev) 1,000 mg in 100 mls @ 400 mls/hr IV Q6H [facility] Metoclopramide HCl (Metoclopramide Hcl 10 Mg/2 Ml Vial) 5 mg IVPUSH Q6H PRN PRN Reason: Nausea and Vomiting Last Admin: 04/07/23 20:33 Dose: 5 mg Documented By: CLARITA Oxycodone HCl (Oxycodone Hcl Immed Release 15 Mg Tablet) 15 mg PO Q6H PRN PRN Reason: Pain, Severe (Pain Scale 7-10) Last Admin: 04/08/23 06:01 Dose: 15 mg Documented By: CLARITA Pharmacy Consult (Consult Rx Perform Med Rec) 1 each MISCELLANE ONCE PRN PRN Reason: Consult order Sodium Chloride (0.9 % Sodium Chloride Flush 3 Ml Syringe) 3 ml IVFLUSH QSHIFT [facility] Last Admin: 04/08/23 07:26 Dose: 3 ml Documented By: BOYDHO Labs 04/07/23 06:01 04/07/23 06:01 Assessment and Plan (1) Stricture of colon determined by endoscopy: Status: Acute (2) Rectal bleed: Status: Acute Plan 47-year-old female with a PMH significant for?HTN, HLD, prior GI bleeds, colitis, diverticulitis, sciatica on chronic opioids, and meningitis in 2007 who presents to the ED with?intractable nausea and vomiting and diarrhea with mu red blood per rectum. Pt will be admitted to the hospital for treatment and further evaluation of acute colitis with IVF and IV antibiotics. Acute colitis, concern for? Infectious or inflamatory cta: 1.? Progression of the wall thickening involving the mid transverse colon with increased surrounding inflammatory changes. 2.? No significant vascular abnormality. Minimal atherosclerotic disease. colonoscopy showed (preliminary):possible sigmoid area strictures esr 18,crp:2.91,c dif was negative. continue Dilaudid IV for pain, Oxycodone as well,Liquid diet for now,continue ivf, Zosyn 04/03,added iv steriods ?ibd d/w surgery-may?possible need? surgery for bowel stricture . Acute GI bleed with acute blood loss anemia, H/H has trended down, will continue to monitor, no indication for transfusion at this time. HTN--BP on lower side, holding home meds (Norvasc 10 and HCTZ 25) HLD--hold Lipitor for nows Full Code DVT Prophylaxis: early ambulation, compression device, no hep or lovenox d/t gi bleeding need for inpt:needs IV Abx, IVF and IV pain meds for acute colitis and going for? surgery for bowel stricture . Time Spent With Patient Time: Total time managing care of this patient today ____ minutes. Quality Stroke Does the patient have a stroke diagnosis?: No VTE Prior VTE?: No VTE Risk Level:: Medical - low VTE Device Contraindication: Treatment Not Indicated VTE Drug Contraindication: Treatment Not Indicated
[2023-04-08] MEDS: HYDROmorphone HCl/NS 10 MG/50 ML PIGGYBACK IV (22:42)
[2023-04-08] MEDS: diazePAM 5 MG TABLET 10 MG PO (23:12)
[2023-04-08] MEDS: Acetaminophen 1,000 MG/100 ML PIGGYBACK 400 MG IV (23:16)
[2023-04-09] VITALS (15 sets, daily range): BP systolic 112–130; BP diastolic 61–73; PULSE 60–69; RESP 16–20; TEMP 36.1–36.8; O2SAT 93–96; BMI 27.5
[2023-04-09] MEDS: Piperacillin Sodium/Tazobactam 3.375 GM in 0.9 % Sodium Chloride 50 ML IV ×4 (02:40→19:52)
[2023-04-09] MEDS: Acetaminophen 1,000 MG/100 ML PIGGYBACK 400 MG IV ×4 (05:14→23:17)
[2023-04-09] MEDS: HYDROmorphone HCl/NS 10 MG/50 ML PIGGYBACK IV (05:36)
[2023-04-09] MEDS: diphenhydrAMINE HCL 50 MG/ML VIAL 25 MG IVPUSH ×2 (05:47→20:39)
--- NOTE | 2023-04-09 05:55 | PC.NURSE ---
at 8 pm pt is c/o of lots of pain she came from pacu 5 pm to floor she receved dilaudid at 1845. pt states she would like to see MD because medications shes getting its not taking care of her pain she needs dilaudid 2 mg every 2 hrs. md notified and decision was made pt would benefit from BATTERY CHECKER ORDERS OBTAINED AND SENT TO PHARMACY. equipment detailer started at 2241 . pain better controlled now per pt. will monitor.
--- NOTE | 2023-04-09 06:02 | PC.NURSE ---
stevedoring superintendent started at 2241 with lakeshia Corona
--- NOTE | 2023-04-09 06:03 | PC.NURSE ---
at 0555 dilaudid bag changed and medication wasted with Toyin Kingston RN ,
[2023-04-09 06:32] LABS: MANUAL DIFF FLAG NO
[2023-04-09 06:41] LABS: Basophils Percent Auto 0.2 % (0-2); Eosinophils Absolute Auto 0.1 X10*3/uL (0.0-0.4); Eosinophils Percent Auto 0.8 % (0-4); Hematocrit 32.9 % (37.0-47.0); Hemoglobin 10.9 g/dl (12.0-16.0); Imm Gran Abs Auto 0.03 X10*3/uL (0.00-0.03); Imm Gran Pct Auto 0.4 % (0.0-0.4); Lymphocytes Absolute Auto 1.8 X10*3/uL (1.2-4.9); Lymphocytes Percent Auto 21.3 % (20-40); Mean Corpuscular HGB Conc 33.1 g/dl (31.0-35.0); Mean Corpuscular Hemoglobin 30.3 pg (27.0-33.0); Mean Corpuscular Volume 91.4 fL (80.0-98.0); Mean Platelet Volume 10.2 fL (9.4-12.3); Monocytes Percent Auto 11.4 % (2-11); Neutrophils Absolute Auto 5.6 x10*3/uL (2.0-8.3); Neutrophils Percent Auto 65.9 % (45-73); Platelet Count 268 X10*3/uL (160-400); Red Cell Distribution Width 12.3 % (11.0-16.0); White Blood Count 8.4 X10*3/uL (4.8-10.8)
[2023-04-09 06:55] LABS: Anion Gap 14 (12-20); Blood Urea Nitrogen 6 mg/dL (9-16); Calcium 8.4 mg/dL (8.4-10.2); Carbon Dioxide 23 mmol/L (22-29); Chloride 103 mmol/L (96-108); Creatinine Clr Calc Pharmacy 105.4; Estimated Glomerular Filt Rate > 60; Glucose Fasting 80 mg/dL (60-99); Potassium 3.6 mmol/L (3.3-5.1); Sodium 136 mmol/L (135-145)
[2023-04-09] MEDS: Lactated Ringers 1,000 ML 100 ML IVCONT (08:01)
--- NOTE | 2023-04-09 08:03 | PM.PNGS ---
Subjective Subjective Date of Service: 04/09/23 <Agnes Zafar PA-C - Last Filed: 04/09/23 08:19> 04/09/23 <Joe Her MD - Last Filed: 04/09/23 12:41> Interval history: Had difficulty with pain after leaving PACU and overnight. Dilaudid METAL DRESSER relieves pain just enough to be comfortable without moving. Denies nausea, flatus. Has not been OOB. Does not even want to take sips of liquids because it worsens her pain. Took compression boots off as well as it was worsening abd pain. <Agnes Zafar PA-C - Last Filed: 04/09/23 08:19> Physical Exam Vital Signs: Vital Signs: Last Vital Signs Temp 97.7 F 04/09/23 03:46 Pulse 69 04/09/23 06:00 Resp 18 04/09/23 06:00 BP 130/65 04/09/23 06:00 Pulse Ox 94 04/09/23 06:00 O2 Del Method Room Air 04/09/23 03:46 O2 Flow Rate 96 04/08/23 19:41 BMI result Body Mass Index 27.5 <Agnes Zafar PA-C - Last Filed: 04/09/23 08:19> Const: General: comfortable, no acute distress and alert <CELINA Marie Last Filed: 04/09/23 08:19> Orientation/consciousness: patient oriented x3 <CELINA Marie Last Filed: 04/09/23 08:19> Resp: Effort & Inspection: normal respiratory effort <CELINA Marie Last Filed: 04/09/23 08:19> GI: Inspection: No distended and Yes incision (dressing c/d/i) <CELINA Marie Last Filed: 04/09/23 08:19> Palpation (GI): Soft to palpation, Tenderness to palpation present (GI) (incisional), no guarding and not rigid <CELINA Marie Last Filed: 04/09/23 08:19> Percussion: Yes normal to percussion <CELINA Marie Last Filed: 04/09/23 08:19> Skin: General skin exam: no rashes or lesions noted <Agnes Zafar PA-C - Last Filed: 04/09/23 08:19> Neuro: General: patient oriented x3 and moves all extremities <Agnes Zafar PA-C - Last Filed: 04/09/23 08:19> Objective Data Active Medications Diazepam (Diazepam 5 Mg Tablet) 10 mg PO Q12H PRN PRN Reason: muscle spasm Last Admin: 04/08/23 23:12 Dose: 10 mg Documented By: CELESTE Diphenhydramine HCl (Diphenhydramine Hcl 50 Mg/Ml Vial) 25 mg IVPUSH Q6H PRN PRN Reason: Itching Last Admin: 04/09/23 05:47 Dose: 25 mg Documented By: CELESTE Hydromorphone HCl (Hydromorphone Hcl 1 Mg/Ml Syringe) 1 mg IVPUSH Q4H PRN; Protocol PRN Reason: Pain, Severe (Pain Scale 7-10) Last Admin: 04/08/23 18:47 Dose: 1 mg Documented By: LAYLA Piperacillin Sod/Tazobactam (Sod 3.375 gm/ Sodium Chloride) 50 mls @ 100 mls/hr IV Q6H [facility] Last Infusion: 04/09/23 03:26 Dose: 0 mls/hr Documented By: CELESTE Lactated Ringer's (Lr) 1,000 mls @ 100 mls/hr IVCONT .Q10H [facility] Last Admin: 04/08/23 21:42 Dose: 100 mls/hr Documented By: CELESTE Acetaminophen (Ofirmev) 1,000 mg in 100 mls @ 400 mls/hr IV Q6H [facility] Last Infusion: 04/09/23 05:55 Dose: 0 mls/hr Documented By: CELESTE Hydromorphone HCl (Dilaudid) 10 mg in 50 mls @ 0 mls/hr IV .Q0M [facility]; Protocol Last Admin: 04/09/23 05:36 Dose: 0.001 mg/hr, 0.01 mls/hr Documented By: CELESTE Metoclopramide HCl (Metoclopramide Hcl 10 Mg/2 Ml Vial) 5 mg IVPUSH Q6H PRN PRN Reason: Nausea and Vomiting Last Admin: 04/07/23 20:33 Dose: 5 mg Documented By: CLARITA Naloxone HCl (Naloxone Hcl 0.4 Mg/Ml Vial) 0.2 mg IVPUSH Q2M PRN PRN Reason: Excessive sedation or RR < 8 Oxycodone HCl (Oxycodone Hcl Immed Release 15 Mg Tablet) 15 mg PO Q6H PRN PRN Reason: Pain, Severe (Pain Scale 7-10) Last Admin: 04/08/23 06:01 Dose: 15 mg Documented By: CLARITA Pharmacy Consult (Consult Rx Perform Med Rec) 1 each MISCELLANE ONCE PRN PRN Reason: Consult order Sodium Chloride (0.9 % Sodium Chloride Flush 3 Ml Syringe) 3 ml IVFLUSH QSHIFT [facility] Last Admin: 04/09/23 07:27 Dose: Not Given Documented By: DECLAN Non-Admin Reason: IV Running <Agnes Zafar PA-C - Last Filed: 04/09/23 08:19> Labs CBC & Chem 7: 04/09/23 05:48 04/09/23 05:48 <Agnes Zafar PA-C - Last Filed: 04/09/23 08:19> Labs: Laboratory Results - last 24 hr 04/09/23 04/09/23 05:48 05:48 MCV 91.4 MCH 30.3 MCHC 33.1 RDW 12.3 Plt Count 268 MPV 10.2 Immature Gran % (Auto) 0.4 Neut % (Auto) 65.9 Lymph % (Auto) 21.3 [place] % (Auto) 11.4 H Eos % (Auto) 0.8 Baso % (Auto) 0.2 Lymph # (Auto) 1.8 [place] # (Auto) 1.0 Eos # (Auto) 0.1 Baso # (Auto) 0.0 Abs Immat Gran (auto) 0.03 Absolute Neuts (auto) 5.6 Absolute Nucleated RBC 0.000 Nucleated RBC % (auto) 0.0 Anion Gap 14 Estim Creat Clear Calc 105.4 Estimated GFR > 60 Fasting Glucose 80 Calcium 8.4 <Agnes Zafar PA-C - Last Filed: 04/09/23 08:19> Procedures Date of Service Date of Service: 04/09/23 <Agnes Zafar PA-C - Last Filed: 04/09/23 08:19> 04/09/23 <Joe Her MD - Last Filed: 04/09/23 12:41> Progress Note: A&P Assessment and plan (1) Stricture of sigmoid colon: Status: Acute <Agnes Zafar PA-C - Last Filed: 04/09/23 08:19> (2) History of bowel resection: Status: Acute <Agnes Zafar PA-C - Last Filed: 04/09/23 08:19> Assessment and Plan: 47 year old female with longstanding history of constipation/progressively worsening decreasing caliber of her stool, found to have stricture of sigmoid on colonoscopy. She is now POD #1 s/p exploratory laparotomy, adhesionalolysis, sleeve resection of sigmoid, primary functional end to end reanastomosis, rigid proctoscopy. Doing fairly well post op but reports difficulty with pain control. VSS. Abd exam with appropriate post op tenderness, dressing c/d/i. AM labs reviewed. On dilaudid METAL DRESSER with boluses only, also on ofirmev. Hx of chronic narcotic use- pain management will be an issue. Will discuss with pain management regarding further recommendations, ?basal rate. Can dc IV zosyn as no evidence of active colitis. IVF until PO intake increases. Cont clear liquids for now. Await return of GI function. Dc alba today when pain better controlled. Strongly encouraged OOB/ambulation and IS use today. Patient and partner understand and are comfortable with plan. <Agnes Zafar PA-C - Last Filed: 04/09/23 08:19> 47 year old female with longstanding history of constipation/progressively worsening decreasing caliber of her stool, found to have stricture of sigmoid on colonoscopy. She is now POD #1 s/p exploratory laparotomy, adhesionalolysis, sleeve resection of sigmoid, primary functional end to end reanastomosis, rigid proctoscopy. Doing fairly well post op but reports difficulty with pain control. VSS. Abd exam with appropriate post op tenderness, dressing c/d/i. AM labs reviewed. On dilaudid METAL DRESSER with boluses only, also on ofirmev. Hx of chronic narcotic use- pain management will be an issue. Will discuss with pain management regarding further recommendations, ?basal rate. Can dc IV zosyn as no evidence of active colitis. IVF until PO intake increases. Cont clear liquids for now. Await return of GI function. Dc alba today when pain better controlled. Strongly encouraged OOB/ambulation and IS use today. Patient and partner understand and are comfortable with plan. Adequate pain control, incentive spirometry, out of bed, ice pack to wound. <Joe Her MD - Last Filed: 04/09/23 12:41> Time Spent With Patient Time: Total time managing care of this patient today ____ minutes. <Agnes Zafar PA-C - Last Filed: 04/09/23 08:19> Quality Stroke Does the patient have a stroke diagnosis?: No <Agnes Zafar PA-C - Last Filed: 04/09/23 08:19> VTE Prior VTE?: No <Agnes Zafar PA-C - Last Filed: 04/09/23 08:19> VTE Risk Level:: Medical - low <Agnes Zafar PA-C - Last Filed: 04/09/23 08:19> VTE Device Contraindication: Treatment Not Indicated <Agnes Zafar PA-C - Last Filed: 04/09/23 08:19> VTE Drug Contraindication: Treatment Not Indicated <Agnes Zafar PA-C - Last Filed: 04/09/23 08:19>
--- NOTE | 2023-04-09 10:03 | MHC.CLN ---
RE: CONSULT PT WITH STRICTURE OF SIGMOID COLON S/P SX AND REQUIRES PPN FOR NUTRITION SUPPORT REVIEWED LABS DISCUSSED WITH PHARMACY RECOMMEND D10AA4.25 AT 30ML /HR TO PROVIDE 367KCALS, 31G PROTEIN REPLETE LYTES NEEDED CHECK TRIGS / SEE ALSO FULL CLINICAL NUTRITION ASSESSMENT
[2023-04-09] MEDS: Cyclobenzaprine HCl 10 MG TABLET PO ×3 (10:36→20:53)
[2023-04-09] MEDS: Gabapentin 100 MG CAPSULE 200 MG PO ×3 (10:37→20:54)
--- NOTE | 2023-04-09 10:42 | PC.NURSE ---
basal rate added by ALEK Zafar 0.6mg/hr. Rate updated in [employer] pump with BAO Phelps.
--- NOTE | 2023-04-09 10:47 | HO.POSTANES ---
Post Anesthesia Evaluation Post Anesthesia Evaluation Date of Service: 04/09/23 Vital Signs: Vital Signs Temp Pulse Resp BP Pulse Ox O2 Del Method O2 Flow Rate 04/09/23 08:00 67 20 112/62 96 04/09/23 08:00 97.9 F 67 20 96 Nasal Cannula 2 04/09/23 06:00 69 18 130/65 94 04/09/23 03:46 97.7 F 66 17 114/67 94 Room Air 04/09/23 04:00 66 18 114/67 94 04/09/23 02:46 67 16 121/73 95 04/09/23 00:00 63 16 116/69 95 04/09/23 00:00 97.7 F 63 17 116/69 95 Room Air Anesthesia: General Endotracheal-GETA Mental Status: Awake Pain Control: Satisfactory (pain at incision site) Nausea/Vomiting: Mild Hydration: Adequate Anesthesia-Related Issues: No Anes. Related Issues Comments: Patient post-op note for Colonoscopy under MAC on 04/07/23 and sigmoid colectomy under general anesthesia on 04/08/23.
[2023-04-09 11:32] LABS: Albumin Level 3.1 g/dL (3.5-5.0); Magnesium 1.7 mg/dL (1.6-2.6); Phosphorus 3.6 mg/dL (2.7-4.5)
[2023-04-09] MEDS: HYDROmorphone HCl/NS 10 MG/50 ML PIGGYBACK 3 MG IV ×2 (14:27→20:26)
[2023-04-09] MEDS: oxyCODONE HCl Immed Release 15 MG TABLET PO (14:43)
--- NOTE | 2023-04-09 14:48 | PC.NURSE ---
[employer]LECT[employer]ICAL [employer] bag change. Witnessed by Rosina Ontiveros RN. 4ml dilaudid wasted.
[2023-04-09] MEDS: 0.9 % Sodium Chloride Flush 3 ML SYRINGE IVFLUSH (15:37)
--- NOTE | 2023-04-09 16:48 | HO.PM.IMPN ---
Subjective Subjective Date of Service: 04/09/23 Interval History: Rectal bleed, possible sigmoid stricture,c Review of Systems Patient status post surgery yesterday. Still says lot of soreness in the abdominal area, does not want to eat Denies any chest pain or shortness of breath. Physical Exam Vital Signs: Vital Signs: Last Vital Signs Temp 97.3 F 04/09/23 16:00 Pulse 62 04/09/23 16:00 Resp 20 04/09/23 16:00 BP 121/64 04/09/23 16:00 Pulse Ox 94 04/09/23 16:00 O2 Del Method Room Air 04/09/23 16:00 O2 Flow Rate 4 04/09/23 10:00 BMI result Body Mass Index 27.5 Appearance: Alert.? Oriented X3.? not in distress.? cvs: rrr, [id number] , no murmur res: clear to auscultation ,no rhonchii or wheezing abd: no rebound or guarding, bs present,Soft to palpation, Tenderness to palpation present (GI) (incisional), no guarding and not rigid?. ext pulses present , no cyanosis . neuro: axo3 , nonfocal. Objective Data Active Medications Cyclobenzaprine HCl (Cyclobenzaprine Hcl 10 Mg Tablet) 10 mg PO TID [facility] Last Admin: 04/09/23 14:43 Dose: 10 mg Documented By: DECLAN Diazepam (Diazepam 5 Mg Tablet) 10 mg PO Q12H PRN PRN Reason: muscle spasm Last Admin: 04/08/23 23:12 Dose: 10 mg Documented By: CELESTE Diphenhydramine HCl (Diphenhydramine Hcl 50 Mg/Ml Vial) 25 mg IVPUSH Q6H PRN PRN Reason: Itching Last Admin: 04/09/23 05:47 Dose: 25 mg Documented By: CELESTE Gabapentin (Gabapentin 100 Mg Capsule) 200 mg PO TID [facility] Last Admin: 04/09/23 14:43 Dose: 200 mg Documented By: DECLAN Piperacillin Sod/Tazobactam (Sod 3.375 gm/ Sodium Chloride) 50 mls @ 100 mls/hr IV Q6H [facility] Last Infusion: 04/09/23 16:24 Dose: 0 mls/hr Documented By: VERNON Acetaminophen (Ofirmev) 1,000 mg in 100 mls @ 400 mls/hr IV Q6H [facility] Last Infusion: 04/09/23 16:44 Dose: 0 mls/hr Documented By: VERNON Hydromorphone HCl (Dilaudid) 10 mg in 50 mls @ 0 mls/hr IV .Q0M [facility]; Protocol Last Admin: 04/09/23 14:27 Dose: 0.6 mg/hr, 3 mls/hr Documented By: DECLAN Amino Acids/Electrolytes/Dextrose (Clinimix E 4.25%-10%) 720 mls @ 30 mls/hr IV DAILY@1800 [facility] Stop: 04/10/23 17:59 Metoclopramide HCl (Metoclopramide Hcl 10 Mg/2 Ml Vial) 5 mg IVPUSH Q6H PRN PRN Reason: Nausea and Vomiting Last Admin: 04/07/23 20:33 Dose: 5 mg Documented By: CLARITA Naloxone HCl (Naloxone Hcl 0.4 Mg/Ml Vial) 0.2 mg IVPUSH Q2M PRN PRN Reason: Excessive sedation or RR < 8 Pharmacy Consult (Consult Rx Perform Med Rec) 1 each MISCELLANE ONCE PRN PRN Reason: Consult order Simethicone (Simethicone 80 Mg Tab.Chew) 80 mg PO QIDWMHS PRN PRN Reason: Gas Sodium Chloride (0.9 % Sodium Chloride Flush 3 Ml Syringe) 3 ml IVFLUSH QSHIFT [facility] Last Admin: 04/09/23 15:37 Dose: 3 ml Documented By: VERNON Labs 04/09/23 05:48 04/09/23 05:48 Labs: Laboratory Results - last 24 hr 04/09/23 04/09/23 04/09/23 05:48 05:48 05:48 MCV 91.4 MCH 30.3 MCHC 33.1 RDW 12.3 Plt Count 268 MPV 10.2 Immature Gran % (Auto) 0.4 Neut % (Auto) 65.9 Lymph % (Auto) 21.3 [place] % (Auto) 11.4 H Eos % (Auto) 0.8 Baso % (Auto) 0.2 Lymph # (Auto) 1.8 [place] # (Auto) 1.0 Eos # (Auto) 0.1 Baso # (Auto) 0.0 Abs Immat Gran (auto) 0.03 Absolute Neuts (auto) 5.6 Absolute Nucleated RBC 0.000 Nucleated RBC % (auto) 0.0 Anion Gap 14 Estim Creat Clear Calc 105.4 Estimated GFR > 60 Fasting Glucose 80 Calcium 8.4 Phosphorus 3.6 Magnesium 1.7 Albumin 3.1 L Microbiology Microbiology Results: Microbiology 04/04/23 10:57 Blood Culture - Final Blood - Venous No growth after 5 days. 04/04/23 10:37 Blood Culture - Final Blood - Venous No growth after 5 days. Assessment and Plan (1) Stricture of colon determined by endoscopy: Status: Acute (2) Rectal bleed: Status: Acute Plan 47-year-old female with a PMH significant for?HTN, HLD, prior GI bleeds, colitis, diverticulitis, sciatica on chronic opioids, and meningitis in 2007 who presents to the ED with?intractable nausea and vomiting and diarrhea with mu red blood per rectum. Pt will be admitted to the hospital for treatment and further evaluation of acute colitis with IVF and IV antibiotics. sigmoid stricture: cta: 1.? Progression of the wall thickening involving the mid transverse colon with increased surrounding inflammatory changes. 2.? No significant vascular abnormality. Minimal atherosclerotic disease. colonoscopy showed (preliminary):possible sigmoid area strictures esr 18,crp:2.91,c dif was negative. patient is POD #1 s/p exploratory laparotomy, adhesionalolysis, sleeve resection of sigmoid, primary functional end to end reanastomosis, rigid proctoscopy. pain regimen ,unable to eat,continue ivf, Zosyn 04/03,ambulate Acute GI bleed with acute blood loss anemia, H/H has trended down, will continue to monitor, no indication for transfusion at this time. HTN--BP on lower side, holding home meds (Norvasc 10 and HCTZ 25) HLD--hold Lipitor for nows Full Code DVT Prophylaxis: early ambulation, compression device, no hep or lovenox d/t gi bleeding need for inpt:needs IV Abx, IVF and IV pain meds ,s/p sigmoid stricture surgery-awaiting bowel function return. Time Spent With Patient Time: Total time managing care of this patient today ____ minutes. Quality Stroke Does the patient have a stroke diagnosis?: No VTE Prior VTE?: No VTE Risk Level:: Medical - low VTE Device Contraindication: Treatment Not Indicated VTE Drug Contraindication: Treatment Not Indicated
[2023-04-09] MEDS: Metoclopramide HCl 10 MG/2 ML VIAL 5 MG IVPUSH (19:29)
[2023-04-10] VITALS (12 sets, daily range): BP systolic 118–139; BP diastolic 61–100; PULSE 62–77; RESP 16–18; TEMP 36.3–37; O2SAT 95–98
[2023-04-10] MEDS: Piperacillin Sodium/Tazobactam 3.375 GM in 0.9 % Sodium Chloride 50 ML IV ×2 (01:56→08:49)
[2023-04-10] MEDS: diphenhydrAMINE HCL 50 MG/ML VIAL 25 MG IVPUSH ×2 (02:44→21:04)
[2023-04-10] MEDS: HYDROmorphone HCl/NS 10 MG/50 ML PIGGYBACK 3 MG IV ×2 (03:45→09:45)
[2023-04-10] MEDS: Acetaminophen 1,000 MG/100 ML PIGGYBACK 400 MG IV ×4 (04:59→22:55)
--- NOTE | 2023-04-10 08:24 | PM.PNGS ---
Subjective Subjective Date of Service: 04/10/23 <Agnes Zafar PA-C - Last Filed: 04/10/23 11:09> 04/10/23 <José Miguel Perez MD - Last Filed: 04/10/23 11:34> Interval history: Feels much better last night and this morning. Was able to get OOB twice last night. Has passed some flatus but does still have some crampy gas pains. Tolerating liquids. <Agnes Zafar PA-C - Last Filed: 04/10/23 11:09> Physical Exam Vital Signs: Vital Signs: Last Vital Signs Temp 97.4 F 04/10/23 07:19 Pulse 72 04/10/23 07:19 Resp 18 04/10/23 07:19 BP 118/100 H 04/10/23 07:19 Pulse Ox 97 04/10/23 07:19 O2 Del Method Room Air 04/10/23 07:19 O2 Flow Rate 1 04/10/23 05:36 BMI result Body Mass Index 27.5 <Agnes Zafar PA-C - Last Filed: 04/10/23 11:09> Const: General: comfortable, no acute distress and alert <Agnes Zafar PA-C - Last Filed: 04/10/23 11:09> Orientation/consciousness: patient oriented x3 <Agnes Zafar PA-C - Last Filed: 04/10/23 11:09> Resp: Effort & Inspection: normal respiratory effort <Agnes Zafar PA-C - Last Filed: 04/10/23 11:09> GI: Inspection: No distended and Yes incision (clean, jose intact) <Agnes Zafar PA-C - Last Filed: 04/10/23 11:09> Palpation (GI): Soft to palpation, Tenderness to palpation present (GI) (incisional), no guarding and not rigid <CELINA Marie Last Filed: 04/10/23 11:09> Percussion: Yes normal to percussion <CELINA Marie Last Filed: 04/10/23 11:09> Skin: General skin exam: no rashes or lesions noted <Agnes Zafar PA-C - Last Filed: 04/10/23 11:09> Neuro: General: patient oriented x3 and moves all extremities <Agnes Zafar PA-C - Last Filed: 04/10/23 11:09> Objective Data Active Medications Cyclobenzaprine HCl (Cyclobenzaprine Hcl 10 Mg Tablet) 10 mg PO TID [facility] Last Admin: 04/09/23 20:53 Dose: 10 mg Documented By: JEF Diazepam (Diazepam 5 Mg Tablet) 10 mg PO Q12H PRN PRN Reason: muscle spasm Last Admin: 04/08/23 23:12 Dose: 10 mg Documented By: CELESTE Diphenhydramine HCl (Diphenhydramine Hcl 50 Mg/Ml Vial) 25 mg IVPUSH Q6H PRN PRN Reason: Itching Last Admin: 04/10/23 02:44 Dose: 25 mg Documented By: JEF Piperacillin Sod/Tazobactam (Sod 3.375 gm/ Sodium Chloride) 50 mls @ 100 mls/hr IV Q6H [facility] Last Infusion: 04/10/23 02:40 Dose: 0 mls/hr Documented By: JEF Acetaminophen (Ofirmev) 1,000 mg in 100 mls @ 400 mls/hr IV Q6H [facility] Last Infusion: 04/10/23 05:18 Dose: 0 mls/hr Documented By: JEF Hydromorphone HCl (Dilaudid) 10 mg in 50 mls @ 0 mls/hr IV .Q0M [facility]; Protocol Last Admin: 04/10/23 03:45 Dose: 0.6 mg/hr, 3 mls/hr Documented By: JEF Amino Acids/Electrolytes/Dextrose (Clinimix E 4.25%-10%) 720 mls @ 30 mls/hr IV DAILY@1800 [facility] Stop: 04/10/23 17:59 Last Admin: 04/09/23 18:24 Dose: 30 mls/hr Documented By: VERNON Metoclopramide HCl (Metoclopramide Hcl 10 Mg/2 Ml Vial) 5 mg IVPUSH Q6H PRN PRN Reason: Nausea and Vomiting Last Admin: 04/09/23 19:29 Dose: 5 mg Documented By: JEF Naloxone HCl (Naloxone Hcl 0.4 Mg/Ml Vial) 0.2 mg IVPUSH Q2M PRN PRN Reason: Excessive sedation or RR < 8 Pharmacy Consult (Consult Rx Perform Med Rec) 1 each MISCELLANE ONCE PRN PRN Reason: Consult order Simethicone (Simethicone 80 Mg Tab.Chew) 80 mg PO QIDWMHS PRN PRN Reason: Gas Sodium Chloride (0.9 % Sodium Chloride Flush 3 Ml Syringe) 3 ml IVFLUSH QSHIFT [facility] Last Admin: 04/09/23 23:56 Dose: Not Given Documented By: JEF Non-Admin Reason: IV Running <Agnes Zafar PA-C - Last Filed: 04/10/23 11:09> Labs CBC & Chem 7: 04/09/23 05:48 04/09/23 05:48 <Agnes Zafar PA-C - Last Filed: 04/10/23 11:09> Labs: Laboratory Results - last 24 hr 04/09/23 05:48 Phosphorus 3.6 Magnesium 1.7 Albumin 3.1 L <Agnes Zafar PA-C - Last Filed: 04/10/23 11:09> Microbiology Microbiology Results: Microbiology 04/04/23 10:57 Blood Culture - Final Blood - Venous No growth after 5 days. 04/04/23 10:37 Blood Culture - Final Blood - Venous No growth after 5 days. <Agnes Zafar PA-C - Last Filed: 04/10/23 11:09> Procedures Date of Service Date of Service: 04/10/23 <Agnes Zafar PA-C - Last Filed: 04/10/23 11:09> 04/10/23 <José Miguel Perez MD - Last Filed: 04/10/23 11:34> Progress Note: A&P Assessment and plan (1) History of bowel resection: Status: Acute <Agnes Zafar PA-C - Last Filed: 04/10/23 11:09> (2) Stricture of sigmoid colon: Status: Acute <Agnes Zafar PA-C - Last Filed: 04/10/23 11:09> Assessment and Plan: S/P sigmoid resection says she is passing flatus has incisional pain looks comfortable abd soft on PROSTHETIC AIDE, now off basal pain mgt - she has a hx of hx of chronic opioid use OOB doing well so far seen and examined independently - agree wit ALEK Zafar <José Miguel Perez MD - Last Filed: 04/10/23 11:34> Assessment and Plan: 47 year old female with longstanding history of constipation/progressively worsening decreasing caliber of her stool, found to have stricture of sigmoid on colonoscopy. She is now POD #2 s/p exploratory laparotomy, adhesionalolysis, sleeve resection of sigmoid, primary functional end to end reanastomosis, rigid proctoscopy. Doing well today, pain much improved. Passing some flatus yesterday. VSS. Abd exam benign soft/nondistended with appropriate post op tenderness, incision clean. Will dc basal rate on PROSTHETIC AIDE, discussed possibly discontinuing PROSTHETIC AIDE later today. Cont clear liquids for now until flatus increases. Dc alba. Strongly encouraged OOB/ambulation of halls at least 4x today and IS use. Had lengthy discussion with patient about reducing narcotics and ambulating to promote GI function. Pathology pending. Patient understands and is comfortable with plan. <Agnes Zafar PA-C - Last Filed: 04/10/23 11:09> Time Spent With Patient Time: Total time managing care of this patient today ____ minutes. <Agnes Zafar PA-C - Last Filed: 04/10/23 11:09> Quality Stroke Does the patient have a stroke diagnosis?: No <Agnes Zafar PA-C - Last Filed: 04/10/23 11:09> VTE Prior VTE?: No <Agnes Zafar PA-C - Last Filed: 04/10/23 11:09> VTE Risk Level:: Medical - low <Agnes Zafar PA-C - Last Filed: 04/10/23 11:09> VTE Device Contraindication: Treatment Not Indicated <Agnes Zafar PA-C - Last Filed: 04/10/23 11:09> VTE Drug Contraindication: Treatment Not Indicated <Agnes Zafar PA-C - Last Filed: 04/10/23 11:09>
[2023-04-10 08:27] LABS: Albumin Level 2.9 g/dL (3.5-5.0); Phosphorus 3.7 mg/dL (2.7-4.5)
[2023-04-10 08:42] LABS: Anion Gap 11 (12-20); Blood Urea Nitrogen 4 mg/dL (9-16); Calcium 8.4 mg/dL (8.4-10.2); Carbon Dioxide 27 mmol/L (22-29); Chloride 103 mmol/L (96-108); Creatinine Clr Calc Pharmacy 102.2; Estimated Glomerular Filt Rate > 60; Glucose Random 165 mg/dL (60-115); Magnesium 1.9 mg/dL (1.6-2.6); Potassium 3.9 mmol/L (3.3-5.1); Sodium 137 mmol/L (135-145); Triglycerides 94 mg/dL
[2023-04-10] MEDS: Cyclobenzaprine HCl 10 MG TABLET PO (09:00)
[2023-04-10] MEDS: 0.9 % Sodium Chloride Flush 3 ML SYRINGE IVFLUSH ×3 (09:01→22:57)
[2023-04-10] MEDS: Metoclopramide HCl 10 MG/2 ML VIAL 5 MG IVPUSH (09:01)
--- NOTE | 2023-04-10 09:47 | PC.NURSE ---
new bag of Dilaudid hung at 0945 for [employer]CH[employer] pump, 15ml of dilaudid wasted from previous bag with Jo Tolbert RN
--- NOTE | 2023-04-10 10:09 | MHC.CLN ---
F/U TOLERATING CLEAR LIQUIDS. REVIEWED LABS. COMMUNICATED WITH PHARMACY. RECEIVING PPN FOR NUTRITION SUPPORT. CURRENTLY D10AA4.25 AT 30ML /HR TO PROVIDE 367KCALS, 31G PROTEIN RECOMMEND INCREASE TODAY, DAY 2, TO D10AA4.25 AT 50 ML PER HOUR. PROVIDES 612 KCALS, 51 G PROTEIN. REPLETE LYTES NEEDED. TRIGS=94. DAY 3: RECOMMEND MAX GOAL RATE D10AA4.25 AT 70 ML PER HOUR; ADD 11 ML PER HOUR OF 20% LIPIDS. PROVIDES 1388 KCALS (23.1 KCALS /KG CMW), 71 G PROTEIN (1.18 G/KG CMW). REPLETE LYTES NEEDED. FOLLOW FOR TOLERANCE OF DIET AND PPN, LYTES.
[2023-04-10 11:21] LABS: Phosphorus 3.8 mg/dL (2.7-4.5)
--- NOTE | 2023-04-10 13:03 | MHC.CM.PN ---
EMR REVIEWED. PT HAS NOT BEEN MEDICALLY CLEARED FOR DC ([employer] PRODUCT TESTER PUMP FOR PAIN, STILL ON LIQUID DIET) CM WILL CONTINUE TO FOLLOW FOR DC PLAN/NEEDS
[2023-04-10] MEDS: oxyCODONE HCl Immed Release 15 MG TABLET PO ×2 (15:35→19:41)
--- NOTE | 2023-04-10 17:19 | P.PNIM_ITS ---
Subjective Subjective Date of Service: 04/11/23 Interval History: ?sigmoid strictur Review of Systems Still has abdominal soreness in the incision area. Otherwise denies any nausea vomiting, tolerating liquid diet, no BM yet. Physical Exam Vital Signs: Vital Signs: Last Vital Signs Temp 98.5 F 04/10/23 12:00 Pulse 76 04/10/23 14:00 Resp 16 04/10/23 14:00 BP 129/76 04/10/23 14:00 Pulse Ox 96 04/10/23 14:00 O2 Del Method Room Air 04/10/23 12:00 O2 Flow Rate 1 04/10/23 05:36 BMI result Body Mass Index 27.5 Appearance: Alert.? Oriented X3.? not in distress.? cvs: [id number], [id number] . res: clear to auscultation ,no rhonchii or wheezing abd: no rebound or guarding, bs present,Soft to palpation, Tenderness to palpation present (GI) (incisional), no guarding and not rigid?. ext pulses present , no cyanosis . neuro: axo3 , nonfocal.? Objective Data Active Medications Diazepam (Diazepam 5 Mg Tablet) 10 mg PO Q12H PRN PRN Reason: muscle spasm Last Admin: 04/08/23 23:12 Dose: 10 mg Documented By: CELESTE Diphenhydramine HCl (Diphenhydramine Hcl 50 Mg/Ml Vial) 25 mg IVPUSH Q6H PRN PRN Reason: Itching Last Admin: 04/10/23 02:44 Dose: 25 mg Documented By: JEF Hydromorphone HCl (Hydromorphone Hcl 1 Mg/Ml Syringe) 1 mg IVPUSH Q3H PRN; Protocol PRN Reason: Pain, Severe (Pain Scale 7-10) Acetaminophen (Ofirmev) 1,000 mg in 100 mls @ 400 mls/hr IV Q6H [facility] Last Infusion: 04/10/23 11:39 Dose: 0 mls/hr Documented By: VERNON Metoclopramide HCl (Metoclopramide Hcl 10 Mg/2 Ml Vial) 5 mg IVPUSH Q6H PRN PRN Reason: Nausea and Vomiting Last Admin: 04/10/23 09:01 Dose: 5 mg Documented By: RUTH Naloxone HCl (Naloxone Hcl 0.4 Mg/Ml Vial) 0.2 mg IVPUSH Q2M PRN PRN Reason: Excessive sedation or RR < 8 Oxycodone HCl (Oxycodone Hcl Immed Release 15 Mg Tablet) 15 mg PO Q6H [facility] Last Admin: 04/10/23 15:35 Dose: 15 mg Documented By: VERNON Pharmacy Consult (Consult Rx Perform Med Rec) 1 each MISCELLANE ONCE PRN PRN Reason: Consult order Simethicone (Simethicone 80 Mg Tab.Chew) 80 mg PO QIDWMHS PRN PRN Reason: Gas Sodium Chloride (0.9 % Sodium Chloride Flush 3 Ml Syringe) 3 ml IVFLUSH QSHIFT [facility] Last Admin: 04/10/23 15:36 Dose: 3 ml Documented By: VERNON Labs 04/09/23 05:48 04/10/23 06:14 Labs: Laboratory Results - last 24 hr 04/10/23 04/10/23 06:14 06:14 Anion Gap 11 L Estim Creat Clear Calc 102.2 Estimated GFR > 60 Random Glucose 165 H Calcium 8.4 Phosphorus 3.7 3.8 Magnesium 1.9 Albumin 2.9 L Triglycerides 94 Assessment and Plan (1) Stricture of colon determined by endoscopy: Status: Acute (2) Rectal bleed: Status: Acute Plan 47-year-old female with a PMH significant for?HTN, HLD, prior GI bleeds, col itis, diverticulitis, sciatica on chronic opioids, and meningitis in 2007 who presents to the ED with?intractable nausea and vomiting and diarrhea with mu red blood per rectum. Pt will be admitted to the hospital for treatment and further evaluation of acute colitis with IVF and IV antibiotics. sigmoid stricture: cta: 1.? Progression of the wall thickening involving the mid transverse colon with increased surrounding inflammatory changes. 2.? No significant vascular abnormality. Minimal atherosclerotic disease. colonoscopy showed (preliminary):possible sigmoid area strictures esr 18,crp:2.91,c dif was negative. patient is POD #1 s/p exploratory laparotomy, adhesionalolysis, sleeve resection of sigmoid, primary functional end to end reanastomosis, rigid proctoscopy. pain regimen ,stop ivf ,antibiotics,ambulate ,eating clears,wait for return of bowel function Acute GI bleed with acute blood loss anemia, H/H has trended down, will continue to monitor, no indication for transfusion at this time. HTN--BP on lower side, holding home meds (Norvasc 10 and HCTZ 25) HLD--hold Lipitor for nows Full Code DVT Prophylaxis: early ambulation, compression device, no hep or lovenox d/t gi bleeding need for inpt:s/p IV pain meds ,s/p sigmoid stricture surgery-awaiting bowel function return. Time Spent With Patient Time: Total time managing care of this patient today ____ minutes. Quality Stroke Does the patient have a stroke diagnosis?: No VTE Prior VTE?: No VTE Risk Level:: Medical - low VTE Device Contraindication: Treatment Not Indicated VTE Drug Contraindication: Treatment Not Indicated
[2023-04-10] MEDS: HYDROmorphone HCl 1 MG/ML SYRINGE IVPUSH ×2 (18:01→21:04)
--- NOTE | 2023-04-10 18:16 | PC.NURSE ---
late entry: alba cath removed at 1015, patient due to void by 1615. Patient voided mult. times before due time with no issues
[2023-04-11] MEDS: HYDROmorphone HCl 1 MG/ML SYRINGE IVPUSH ×5 (00:48→19:40)
[2023-04-11] MEDS: oxyCODONE HCl Immed Release 15 MG TABLET PO ×4 (01:56→19:39)
[2023-04-11 04:22] VITALS: BP 145/78; PULSE 69; RESP 18; TEMP 36.6; O2SAT 96
[2023-04-11] MEDS: Acetaminophen 1,000 MG/100 ML PIGGYBACK 400 MG IV ×3 (05:15→17:01)
[2023-04-11 07:06] VITALS: BP 140/68; PULSE 83; RESP 16; TEMP 36.9; O2SAT 97
[2023-04-11 07:08] LABS: Anion Gap 12 (12-20); Blood Urea Nitrogen 3 mg/dL (9-16); Calcium 8.4 mg/dL (8.4-10.2); Carbon Dioxide 26 mmol/L (22-29); Chloride 105 mmol/L (96-108); Creatinine Clr Calc Pharmacy 112.5; Estimated Glomerular Filt Rate > 60; Glucose Random 78 mg/dL (60-115); Magnesium 1.8 mg/dL (1.6-2.6); Phosphorus 3.1 mg/dL (2.7-4.5); Potassium 3.4 mmol/L (3.3-5.1); Sodium 140 mmol/L (135-145)
[2023-04-11] MEDS: 0.9 % Sodium Chloride Flush 3 ML SYRINGE IVFLUSH ×3 (07:36→19:50)
[2023-04-11] MEDS: Simethicone 80 MG TAB.CHEW PO ×2 (07:42→14:58)
--- NOTE | 2023-04-11 09:23 | PM.PNGS ---
Subjective Subjective Date of Service: 04/11/23 Physical Exam Vital Signs: Vital Signs: Last Vital Signs Temp 98.5 F 04/11/23 07:06 Pulse 83 04/11/23 07:06 Resp 16 04/11/23 07:06 BP 140/68 H 04/11/23 07:06 Pulse Ox 97 04/11/23 07:06 O2 Del Method Room Air 04/11/23 07:06 O2 Flow Rate 1 04/10/23 05:36 BMI result Body Mass Index 27.5 Objective Data Active Medications Diazepam (Diazepam 5 Mg Tablet) 10 mg PO Q12H PRN PRN Reason: muscle spasm Last Admin: 04/08/23 23:12 Dose: 10 mg Documented By: CELESTE Diphenhydramine HCl (Diphenhydramine Hcl 50 Mg/Ml Vial) 25 mg IVPUSH Q6H PRN PRN Reason: Itching Last Admin: 04/10/23 21:04 Dose: 25 mg Documented By: ANASTASIA Docusate Sodium (Docusate Sodium 100 Mg Capsule) 100 mg PO BID [facility] Hydromorphone HCl (Hydromorphone Hcl 1 Mg/Ml Syringe) 1 mg IVPUSH Q3H PRN; Protocol PRN Reason: Pain, Severe (Pain Scale 7-10) Last Admin: 04/11/23 07:34 Dose: 1 mg Documented By: GOSIA Acetaminophen (Ofirmev) 1,000 mg in 100 mls @ 400 mls/hr IV Q6H [facility] Last Infusion: 04/11/23 05:35 Dose: 0 mls/hr Documented By: ISAI Metoclopramide HCl (Metoclopramide Hcl 10 Mg/2 Ml Vial) 5 mg IVPUSH Q6H PRN PRN Reason: Nausea and Vomiting Last Admin: 04/10/23 09:01 Dose: 5 mg Documented By: LAUREN-NED Naloxone HCl (Naloxone Hcl 0.4 Mg/Ml Vial) 0.2 mg IVPUSH Q2M PRN PRN Reason: Excessive sedation or RR < 8 Oxycodone HCl (Oxycodone Hcl Immed Release 15 Mg Tablet) 15 mg PO Q6H [facility] Last Admin: 04/11/23 07:42 Dose: 15 mg Documented By: GOSIA Pharmacy Consult (Consult Rx Perform Med Rec) 1 each MISCELLANE ONCE PRN PRN Reason: Consult order Polyethylene Glycol (Polyethylene Glycol 3350 17 Gm Powd.Pack) 17 gm PO DAILY PRN PRN Reason: Constipation Simethicone (Simethicone 80 Mg Tab.Chew) 80 mg PO QIDWMHS PRN PRN Reason: Gas Last Admin: 04/11/23 07:42 Dose: 80 mg Documented By: GOSIA Sodium Chloride (0.9 % Sodium Chloride Flush 3 Ml Syringe) 3 ml IVFLUSH QSHIFT [facility] Last Admin: 04/11/23 07:36 Dose: 3 ml Documented By: GOSIA Labs 04/09/23 05:48 04/11/23 05:43 Labs: Laboratory Results - last 24 hr 04/10/23 04/11/23 06:14 05:43 Anion Gap 12 Estim Creat Clear Calc 112.5 Estimated GFR > 60 Random Glucose 78 Calcium 8.4 Phosphorus 3.8 3.1 Magnesium 1.8 Procedures Date of Service Date of Service: 04/11/23 Progress Note: A&P Assessment and plan (1) History of bowel resection: Status: Acute (2) Stricture of sigmoid colon: Status: Acute Plan Case discussed with Dr. Reyes; patient not seen. Patient is okay to receive docusate or MiraLax given her longstanding narcotic use and pain management issues. Simethicone and other intraluminal bowel agents are perfectly fine. Await bowel function prior to advancing diet and discharge. Please call me with questions; I am available to see the patient if needed. Time Spent With Patient Time: Total time managing care of this patient today ____ minutes. Quality Stroke Does the patient have a stroke diagnosis?: No VTE Prior VTE?: No VTE Risk Level:: Medical - low VTE Device Contraindication: Treatment Not Indicated VTE Drug Contraindication: Treatment Not Indicated
--- NOTE | 2023-04-11 11:11 | P.PNIM_ITS ---
Subjective Subjective Date of Service: 04/11/23 Interval History: ?sigmoid stricture Review of Systems has abdominal soreness in the incision area. Otherwise denies any nausea vomiting, tolerating regular diet, no BM yet.feels blaoted ,passing gases. Physical Exam Vital Signs: Vital Signs: Last Vital Signs Temp 98.5 F 04/11/23 07:06 Pulse 83 04/11/23 07:06 Resp 16 04/11/23 07:06 BP 140/68 H 04/11/23 07:06 Pulse Ox 97 04/11/23 07:06 O2 Del Method Room Air 04/11/23 07:06 O2 Flow Rate 1 04/10/23 05:36 BMI result Body Mass Index 27.5 Appearance: Alert.? Oriented X3.? not in distress.? cvs: [id number], [id number] . res: clear to auscultation ,no rhonchii or wheezing abd: no rebound or guarding, bs present,Soft to palpation, Tenderness to palpation present (GI) (incisional), no guarding and not rigid?. ext pulses present , no cyanosis . neuro: axo3 , nonfocal.? Objective Data Active Medications Diazepam (Diazepam 5 Mg Tablet) 10 mg PO Q12H PRN PRN Reason: muscle spasm Last Admin: 04/08/23 23:12 Dose: 10 mg Documented By: CELESTE Diphenhydramine HCl (Diphenhydramine Hcl 50 Mg/Ml Vial) 25 mg IVPUSH Q6H PRN PRN Reason: Itching Last Admin: 04/10/23 21:04 Dose: 25 mg Documented By: ANASTASIA Docusate Sodium (Docusate Sodium 100 Mg Capsule) 100 mg PO BID [facility] Hydromorphone HCl (Hydromorphone Hcl 1 Mg/Ml Syringe) 1 mg IVPUSH Q3H PRN; Protocol PRN Reason: Pain, Severe (Pain Scale 7-10) Last Admin: 04/11/23 07:34 Dose: 1 mg Documented By: GOSIA Acetaminophen (Ofirmev) 1,000 mg in 100 mls @ 400 mls/hr IV Q6H [facility] Last Admin: 04/11/23 11:00 Dose: 400 mls/hr Documented By: GOSIA Metoclopramide HCl (Metoclopramide Hcl 10 Mg/2 Ml Vial) 5 mg IVPUSH Q6H PRN PRN Reason: Nausea and Vomiting Last Admin: 04/10/23 09:01 Dose: 5 mg Documented By: RUTH Naloxone HCl (Naloxone Hcl 0.4 Mg/Ml Vial) 0.2 mg IVPUSH Q2M PRN PRN Reason: Excessive sedation or RR < 8 Oxycodone HCl (Oxycodone Hcl Immed Release 15 Mg Tablet) 15 mg PO Q6H [facility] Last Admin: 04/11/23 07:42 Dose: 15 mg Documented By: GOSIA Pharmacy Consult (Consult Rx Perform Med Rec) 1 each MISCELLANE ONCE PRN PRN Reason: Consult order Polyethylene Glycol (Polyethylene Glycol 3350 17 Gm Powd.Pack) 17 gm PO DAILY PRN PRN Reason: Constipation Simethicone (Simethicone 80 Mg Tab.Chew) 80 mg PO QIDWMHS PRN PRN Reason: Gas Last Admin: 04/11/23 07:42 Dose: 80 mg Documented By: GOSIA Sodium Chloride (0.9 % Sodium Chloride Flush 3 Ml Syringe) 3 ml IVFLUSH QSHIFT [facility] Last Admin: 04/11/23 07:36 Dose: 3 ml Documented By: GOSIA Labs 04/09/23 05:48 04/11/23 05:43 Labs: Laboratory Results - last 24 hr 04/10/23 04/11/23 06:14 05:43 Anion Gap 12 Estim Creat Clear Calc 112.5 Estimated GFR > 60 Random Glucose 78 Calcium 8.4 Phosphorus 3.8 3.1 Magnesium 1.8 Assessment and Plan (1) Stricture of sigmoid colon: Status: Acute Plan Hospital day:8 47-year-old female with a PMH significant for?HTN, HLD, prior GI bleeds, colitis, diverticulitis, sciatica on chronic opioids, and meningitis in 2007 who presents to the ED with?intractable nausea and vomiting and diarrhea with mu red blood per rectum. Pt will be admitted to the hospital for treatment and further evaluation of acute colitis with IVF and IV antibiotics. sigmoid stricture: colonoscopy showed (preliminary):possible sigmoid area strictures patient is POD #3 s/p exploratory laparotomy, adhesionalolysis, sleeve resection of sigmoid, primary functional end to end reanastomosis, rigid proctoscopy. esr 18,crp:2.91,c dif was negative. still feels bloating ,abd pain , passing gases ,no bm yet need iv pain meds , wait for return of bowel function Acute GI bleed with acute blood loss anemia, H/H has trended down, will continue to monitor, no indication for transfusion at this time. HTN--BP on lower side, holding home meds (Norvasc 10 and HCTZ 25) HLD--hold Lipitor for nows Full Code DVT Prophylaxis: early ambulation, compression device, no hep or lovenox d/t gi bleeding need for inpt:s/p IV pain meds ,s/p sigmoid stricture surgery-awaiting bowel function return. Time Spent With Patient Time: Total time managing care of this patient today ____ minutes. Quality Stroke Does the patient have a stroke diagnosis?: No VTE Prior VTE?: No VTE Risk Level:: Medical - low VTE Device Contraindication: Treatment Not Indicated VTE Drug Contraindication: Treatment Not Indicated
[2023-04-11 15:26] VITALS: BP 127/69; PULSE 70; RESP 18; TEMP 37.2; O2SAT 97
[2023-04-11 19:29] VITALS: BP 143/78; PULSE 69; RESP 16; TEMP 36.6; O2SAT 97
[2023-04-11] MEDS: Docusate Sodium 100 MG CAPSULE PO (19:40)
[2023-04-11] MEDS: diphenhydrAMINE HCL 50 MG/ML VIAL 25 MG IVPUSH (19:47)
[2023-04-12] MEDS: HYDROmorphone HCl 1 MG/ML SYRINGE IVPUSH ×5 (00:50→19:25)
[2023-04-12] MEDS: oxyCODONE HCl Immed Release 15 MG TABLET PO ×4 (00:52→19:23)
[2023-04-12 03:07] VITALS: BP 150/75; PULSE 60; RESP 16; TEMP 36.6; O2SAT 97
[2023-04-12] MEDS: diphenhydrAMINE HCL 50 MG/ML VIAL 25 MG IVPUSH ×2 (06:49→19:24)
[2023-04-12 06:52] LABS: Anion Gap 12 (12-20); Blood Urea Nitrogen 7 mg/dL (9-16); Calcium 8.7 mg/dL (8.4-10.2); Carbon Dioxide 28 mmol/L (22-29); Chloride 104 mmol/L (96-108); Creatinine Clr Calc Pharmacy 107.1; Estimated Glomerular Filt Rate > 60; Glucose Random 88 mg/dL (60-115); Magnesium 1.9 mg/dL (1.6-2.6); Phosphorus 3.7 mg/dL (2.7-4.5); Potassium 3.5 mmol/L (3.3-5.1); Sodium 140 mmol/L (135-145)
[2023-04-12 07:18] VITALS: BP 155/78; PULSE 66; RESP 18; TEMP 36.5; O2SAT 94
[2023-04-12] MEDS: polyethylene glycoL 3350 17 GM POWD.PACK PO ×2 (08:47→15:47)
[2023-04-12] MEDS: Docusate Sodium 100 MG CAPSULE PO ×2 (08:47→19:24)
[2023-04-12] MEDS: 0.9 % Sodium Chloride Flush 3 ML SYRINGE IVFLUSH ×3 (08:48→19:24)
[2023-04-12] MEDS: Simethicone 80 MG TAB.CHEW PO ×2 (08:48→15:52)
--- NOTE | 2023-04-12 09:33 | PM.EVENT ---
Event Note Date of Service: 04/12/23 Event Note: The patient's lack of bowel function was discussed with Dr. Reyes, the hospitalist. Bowel regime including docusate and MiraLax is been started. Await return of bowel function. I offered to see the patient but there are no acute surgical issues per Dr. Reyes and he will call me if something changes. Time Spent With Patient Time: Total time managing care of this patient today ____ minutes.
--- NOTE | 2023-04-12 12:23 | HO.PM.IMPN ---
Subjective Subjective Date of Service: 04/13/23 Interval History: sigmoid stricture Review of Systems still has abdominal soreness? No nausea vomiting Passing gases but no BMs yet No fever or chills. Physical Exam Vital Signs: Vital Signs: Last Vital Signs Temp 97.7 F 04/12/23 07:18 Pulse 66 04/12/23 07:18 Resp 18 04/12/23 07:18 BP 155/78 H 04/12/23 07:18 Pulse Ox 94 04/12/23 07:18 O2 Del Method Room Air 04/12/23 07:18 O2 Flow Rate 1 04/10/23 05:36 BMI result Body Mass Index 27.5 Appearance: Alert.? Oriented X3.? not in distress.? cvs: rrr, [id number] . res: clear to auscultation ,no rhonchii or wheezing abd: no rebound or guarding, bs present,Soft to palpation, Tenderness to palpation present (GI) (incisional), no guarding and not rigid?. ext pulses present , no cyanosis . neuro: axo3 , nonfocal.? Objective Data Active Medications Diazepam (Diazepam 5 Mg Tablet) 10 mg PO Q12H PRN PRN Reason: muscle spasm Last Admin: 04/08/23 23:12 Dose: 10 mg Documented By: CELESTE Diphenhydramine HCl (Diphenhydramine Hcl 50 Mg/Ml Vial) 25 mg IVPUSH Q6H PRN PRN Reason: Itching Last Admin: 04/12/23 06:49 Dose: 25 mg Documented By: CLARITA Docusate Sodium (Docusate Sodium 100 Mg Capsule) 100 mg PO BID [facility] Last Admin: 04/12/23 08:47 Dose: 100 mg Documented By: KAREEM Hydromorphone HCl (Hydromorphone Hcl 1 Mg/Ml Syringe) 1 mg IVPUSH Q3H PRN; Protocol PRN Reason: Pain, Severe (Pain Scale 7-10) Last Admin: 04/12/23 06:48 Dose: 1 mg Documented By: CLARITA Metoclopramide HCl (Metoclopramide Hcl 10 Mg/2 Ml Vial) 5 mg IVPUSH Q6H PRN PRN Reason: Nausea and Vomiting Last Admin: 04/10/23 09:01 Dose: 5 mg Documented By: RUTH Naloxone HCl (Naloxone Hcl 0.4 Mg/Ml Vial) 0.2 mg IVPUSH Q2M PRN PRN Reason: Excessive sedation or RR < 8 Oxycodone HCl (Oxycodone Hcl Immed Release 15 Mg Tablet) 15 mg PO Q6H [facility] Last Admin: 04/12/23 06:48 Dose: 15 mg Documented By: CLARITA Pharmacy Consult (Consult Rx Perform Med Rec) 1 each MISCELLANE ONCE PRN PRN Reason: Consult order Polyethylene Glycol (Polyethylene Glycol 3350 17 Gm Powd.Pack) 17 gm PO DAILY PRN PRN Reason: Constipation Last Admin: 04/12/23 08:47 Dose: 17 gm Documented By: KAREEM Simethicone (Simethicone 80 Mg Tab.Chew) 80 mg PO QIDWMHS PRN PRN Reason: Gas Last Admin: 04/12/23 08:48 Dose: 80 mg Documented By: KAREEM Sodium Chloride (0.9 % Sodium Chloride Flush 3 Ml Syringe) 3 ml IVFLUSH QSHIFT [facility] Last Admin: 04/12/23 08:48 Dose: 3 ml Documented By: KAREEM Labs 04/09/23 05:48 04/12/23 05:53 Labs: Laboratory Results - last 24 hr 04/12/23 05:53 Anion Gap 12 Estim Creat Clear Calc 107.1 Estimated GFR > 60 Random Glucose 88 Calcium 8.7 Phosphorus 3.7 Magnesium 1.9 Assessment and Plan (1) Stricture of sigmoid colon: Status: Acute Plan Hospital day:9 47-year-old female with a PMH significant for?HTN, HLD, prior GI bleeds, colitis, diverticulitis, sciatica on chronic opioids, and meningitis in 2007 who presents to the ED with?intractable nausea and vomiting and diarrhea with mu red blood per rectum. Pt will be admitted to the hospital for treatment and further evaluation of acute colitis with IVF and IV antibiotics. sigmoid stricture: colonoscopy showed (preliminary):possible sigmoid area strictures patient is POD #3 s/p exploratory laparotomy, adhesionalolysis, sleeve resection of sigmoid, primary functional end to end reanastomosis, rigid proctoscopy. esr 18,crp:2.91,c dif was negative. still feels bloating ,abd pain , passing gases ,no bm yet need iv pain meds , wait for return of bowel function Acute GI bleed with acute blood loss anemia, H/H has trended down, will continue to monitor, no indication for transfusion at this time. HTN--BP on lower side, holding home meds (Norvasc 10 and HCTZ 25) HLD--hold Lipitor for nows Full Code DVT Prophylaxis: early ambulation, compression device, no hep or lovenox d/t gi bleeding need for inpt:s/p IV pain meds ,s/p sigmoid stricture surgery-awaiting bowel function return. Time Spent With Patient Time: Total time managing care of this patient today ____ minutes. Quality Stroke Does the patient have a stroke diagnosis?: No VTE Prior VTE?: No VTE Risk Level:: Medical - low VTE Device Contraindication: Treatment Not Indicated VTE Drug Contraindication: Treatment Not Indicated
[2023-04-12 15:24] VITALS: BP 113/62; PULSE 76; RESP 18; TEMP 36.6; O2SAT 97
--- NOTE | 2023-04-12 18:32 | PC.NURSE ---
Pt had scant amount of soft brown BM at 1830.
[2023-04-12 19:30] VITALS: BP 141/78; PULSE 70; RESP 18; TEMP 36.6; O2SAT 96
[2023-04-13] MEDS: diphenhydrAMINE HCL 50 MG/ML VIAL 25 MG IVPUSH ×2 (00:58→06:38)
[2023-04-13] MEDS: HYDROmorphone HCl 1 MG/ML SYRINGE IVPUSH ×5 (00:59→15:56)
[2023-04-13] MEDS: oxyCODONE HCl Immed Release 15 MG TABLET PO ×2 (00:59→06:36)
[2023-04-13 04:00] VITALS: BP 137/77; PULSE 64; RESP 15; TEMP 36.6
[2023-04-13 06:29] LABS: Anion Gap 9 (12-20); Blood Urea Nitrogen 7 mg/dL (9-16); Calcium 8.7 mg/dL (8.4-10.2); Carbon Dioxide 27 mmol/L (22-29); Chloride 105 mmol/L (96-108); Creatinine Clr Calc Pharmacy 103.8; Estimated Glomerular Filt Rate > 60; Glucose Random 94 mg/dL (60-115); Magnesium 1.9 mg/dL (1.6-2.6); Phosphorus 3.7 mg/dL (2.7-4.5); Potassium 3.4 mmol/L (3.3-5.1); Sodium 138 mmol/L (135-145)
[2023-04-13] MEDS: 0.9 % Sodium Chloride Flush 3 ML SYRINGE IVFLUSH ×2 (07:53→15:57)
[2023-04-13] MEDS: Docusate Sodium 100 MG CAPSULE PO (07:53)
[2023-04-13 07:54] VITALS: BP 132/75; PULSE 72; RESP 18; TEMP 37.1; O2SAT 98
[2023-04-13] MEDS: polyethylene glycoL 3350 17 GM POWD.PACK PO (08:01)
--- NOTE | 2023-04-13 10:04 | PM.PNGS ---
Subjective Subjective Date of Service: 04/13/23 <Agnes Zafar PA-C - Last Filed: 04/13/23 10:08> 04/13/23 <Joe Her MD - Last Filed: 04/13/23 10:09> Interval history: Feels overall much better. Still having some gas pains. Did have a soft BM this morning, continues to pass flatus. OOB and ambulating without difficulty. <Agnes Zafar PA-C - Last Filed: 04/13/23 10:08> Physical Exam Vital Signs: Vital Signs: Last Vital Signs Temp 98.7 F 04/13/23 07:54 Pulse 72 04/13/23 07:54 Resp 18 04/13/23 07:54 BP 132/75 04/13/23 07:54 Pulse Ox 98 04/13/23 07:54 O2 Del Method Room Air 04/13/23 07:54 O2 Flow Rate 1 04/10/23 05:36 BMI result Body Mass Index 27.5 <CELINA Marie Last Filed: 04/13/23 10:08> Const: General: comfortable, no acute distress and alert <CELINA Marie Last Filed: 04/13/23 10:08> Orientation/consciousness: patient oriented x3 <CELINA Marie Last Filed: 04/13/23 10:08> Resp: Effort & Inspection: normal respiratory effort <CELINA Marie Last Filed: 04/13/23 10:08> GI: Inspection: Yes distended (mildly) and Yes incision (clean, steris intact, mild surrounding ecchymosis) <CELINA Marie Last Filed: 04/13/23 10:08> Palpation (GI): Soft to palpation, Tenderness to palpation present (GI) (incisional, upper abd), no guarding and not rigid <CELINA Marie Last Filed: 04/13/23 10:08> Percussion: Yes normal to percussion <CELINA Marie Last Filed: 04/13/23 10:08> Skin: General skin exam: no rashes or lesions noted <Agnes Zafar PA-C - Last Filed: 04/13/23 10:08> Neuro: General: patient oriented x3 and moves all extremities <Agnes Zafar PA-C - Last Filed: 04/13/23 10:08> Objective Data Active Medications Diazepam (Diazepam 5 Mg Tablet) 10 mg PO Q12H PRN PRN Reason: muscle spasm Last Admin: 04/08/23 23:12 Dose: 10 mg Documented By: CELESTE Diphenhydramine HCl (Diphenhydramine Hcl 50 Mg/Ml Vial) 25 mg IVPUSH Q6H PRN PRN Reason: Itching Last Admin: 04/13/23 06:38 Dose: 25 mg Documented By: CLARITA Docusate Sodium (Docusate Sodium 100 Mg Capsule) 100 mg PO BID [facility] Last Admin: 04/13/23 07:53 Dose: 100 mg Documented By: CHANDA Hydromorphone HCl (Hydromorphone Hcl 1 Mg/Ml Syringe) 1 mg IVPUSH Q3H PRN; Protocol PRN Reason: Pain, Severe (Pain Scale 7-10) Last Admin: 04/13/23 09:52 Dose: 1 mg Documented By: CHANDA Metoclopramide HCl (Metoclopramide Hcl 10 Mg/2 Ml Vial) 5 mg IVPUSH Q6H PRN PRN Reason: Nausea and Vomiting Last Admin: 04/10/23 09:01 Dose: 5 mg Documented By: RUTH Naloxone HCl (Naloxone Hcl 0.4 Mg/Ml Vial) 0.2 mg IVPUSH Q2M PRN PRN Reason: Excessive sedation or RR < 8 Oxycodone HCl (Oxycodone Hcl Immed Release 15 Mg Tablet) 15 mg PO Q6H [facility] Last Admin: 04/13/23 06:36 Dose: 15 mg Documented By: CLARITA Pharmacy Consult (Consult Rx Perform Med Rec) 1 each MISCELLANE ONCE PRN PRN Reason: Consult order Polyethylene Glycol (Polyethylene Glycol 3350 17 Gm Powd.Pack) 17 gm PO DAILY PRN PRN Reason: Constipation Last Admin: 04/13/23 08:01 Dose: 17 gm Documented By: CHANDA Simethicone (Simethicone 80 Mg Tab.Chew) 80 mg PO QIDWMHS PRN PRN Reason: Gas Last Admin: 04/12/23 15:52 Dose: 80 mg Documented By: KAREEM Sodium Chloride (0.9 % Sodium Chloride Flush 3 Ml Syringe) 3 ml IVFLUSH QSHIFT [facility] Last Admin: 04/13/23 07:53 Dose: 3 ml Documented By: CHANDA <Agnes Zafar PA-C - Last Filed: 04/13/23 10:08> Labs CBC & Chem 7: 04/09/23 05:48 04/13/23 05:51 <Agnes Zafar PA-C - Last Filed: 04/13/23 10:08> Labs: Laboratory Results - last 24 hr 04/13/23 05:51 Anion Gap 9 L Estim Creat Clear Calc 103.8 Estimated GFR > 60 Random Glucose 94 Calcium 8.7 Phosphorus 3.7 Magnesium 1.9 <Agnes Zafar PA-C - Last Filed: 04/13/23 10:08> Procedures Date of Service Date of Service: 04/13/23 <Agnes Zafar PA-C - Last Filed: 04/13/23 10:08> 04/13/23 <Joe Her MD - Last Filed: 04/13/23 10:09> Progress Note: A&P Assessment and plan (1) History of bowel resection: Status: Acute <Agnes Zafar PA-C - Last Filed: 04/13/23 10:08> (2) Stricture of sigmoid colon: Status: Acute <Agnes Zafar PA-C - Last Filed: 04/13/23 10:08> Assessment and Plan: 47 year old female with longstanding history of constipation/progressively worsening decreasing caliber of her stool, found to have stricture of sigmoid on colonoscopy. She is now POD #5 s/p exploratory laparotomy, adhesionalolysis, sleeve resection of sigmoid, primary functional end to end reanastomosis, rigid proctoscopy. She is doing well post operatively with good pain control and good GI function. Pathology pending. She is surgically stable for dc to home. Can f/u in office in [address] Her. Would benefit from bowel regimen at home with chronic narcotics. <Agnes Zafar PA-C - Last Filed: 04/13/23 10:08> Time Spent With Patient Time: Total time managing care of this patient today ____ minutes. <Agnes Zafar PA-C - Last Filed: 04/13/23 10:08> Quality Stroke Does the patient have a stroke diagnosis?: No <Agnes Zafar PA-C - Last Filed: 04/13/23 10:08> VTE Prior VTE?: No <Agnes Zafar PA-C - Last Filed: 04/13/23 10:08> VTE Risk Level:: Medical - low <Agnes Zafar PA-C - Last Filed: 04/13/23 10:08> VTE Device Contraindication: Treatment Not Indicated <Agnes Zafar PA-C - Last Filed: 04/13/23 10:08> VTE Drug Contraindication: Treatment Not Indicated <CELINA Marie Last Filed: 04/13/23 10:08>
--- NOTE | 2023-04-13 11:06 | MHC.CM.PN ---
HOME - SELF CARE RN AWARE OF PLAN
[2023-04-13 15:04] VITALS: BP 134/84; PULSE 73; RESP 16; TEMP 36.5; O2SAT 97
--- NOTE | 2023-04-13 15:07 | P.DS_ITS ---
DS: Providers Provider Date of Service: 04/13/23 Date of admission: 04/04/23 13:06 Date of discharge: 04/13/23 Primary care physician: Leland Romero MD Consults: 04/05/23 07:52 Consult to Gastroenterology Routine Consulting Provider: Chuck Falcon Reason for consultation: pancolitis, rectal bleed Has provider been notified: No 04/07/23 10:05 Consult to General Surgery Routine Consulting Provider: [facility] General Surgeons Reason for consultation: Sigmoid colon stricture Has provider been notified: No Attending physician on discharge: Lennie Reyes Discharging clinician: Lennie Reyes DS: Diagnosis Discharge Diagnosis (1) Stricture of sigmoid colon: Status: Acute DS: Summary Hospital Course Hospital Course: 47-year-old female with a PMH significant for?HTN, HLD, prior GI bleeds, colitis, diverticulitis, sciatica on chronic opioids, and meningitis in 2007 who presents to the ED with?intractable nausea and vomiting and diarrhea and bloody stool similar to previous presentation. She was last admitted to the hospital in january of this year for similar presentation and most recently on 03/23 underwent EGD and colonoscopy by Dr. Brunson and noted to have Gastritis, GERD, colon polyps, diverticulosis and hemorrohoids Biopsy showed intestinal metaplasia and dysplasia.? She has been having diarrhea since the colonoscopy but this morning? woke up with abdominal pain, diarrhea and blood in stool. She describes the abdominal pain as severe? and constatnt.? Work in ED WBC = 19.7, lactic acid 2.9, +MJ,?CT showing diffuse mural thickening of entire colon suggestive of colitis. She is afebrile. Started on Zosyn. Hospital course: Patient was admitted for nausea vomiting andrank red blood per rectum-initially was thought to have colitis-started on IV antibiotics and subsequently seen by GI CTA abdomen was done- ?No significant vascular abnormality. Minimal atherosclerotic disease., mild inflamtion chnages -add iv steriods ,esr normal, crp minimum levated-seeb by Gi-subsequently went for colonoscopy: Found to have sigmoid stricture, then seen by surgery-s/p exploratory laparotomy, adhesionalolysis, sleeve resection of sigmoid, primary functional end to end reanastomosis, rigid proctoscopy: biopsy sent and pending. Afterward patient seems to be improving -eating fine abdominal pain seems to be improving, passing bowels. d/w GI and surgery -patient seems better after surgery , no new symptoms,currently no need for further antibiotics and steroids. Going home with bowel regimen, needs to follow-up out patiently surgery and GI. Plan: Follow-up with surgery and GI out patiently. Given bowel regimen since she is on chronic opioids, consider tapering down to stop opioids outpatient . Above management discussed with the patient in detail length and she understand in agreement with the above plan, time spent 50 minute. Time Spent with Patient Time attestation: Total time managing care of this patient today ____ minutes. Discharge coordination time: Greater than 30 minutes Quality: Safe Use of Opioids Does Pt have an Active Cancer Diagnosis on the Problem List?: No Quality: Stroke Does the patient have a stroke diagnosis?: No Physical Exam Vital Signs: Vital Signs: Last Vital Signs Temp 97.7 F 04/13/23 15:04 Pulse 73 04/13/23 15:04 Resp 16 04/13/23 15:04 BP 134/84 04/13/23 15:04 Pulse Ox 97 04/13/23 15:04 O2 Del Method Nasal Cannula 04/13/23 15:04 O2 Flow Rate 1 04/10/23 05:36 BMI result Body Mass Index 27.5 Appearance: Alert.? Oriented X3.? not in distress.? cvs: rrr, [id number] . res: clear to auscultation ,no rhonchii or wheezing abd: no rebound or guarding, bs present,Soft to palpation, (incisional)- intact,no erythema or discharge, no guarding and not rigid?. ext pulses present , no cyanosis . neuro: axo3 , nonfocal.? DS: Data Data Completed and Pending Completed studies during hospitalization [Text1]: Procedures Excision of Sigmoid Colon, Via Natural or Artificial Opening Endoscopic, Diagnostic (01/31/23) Pending studies at discharge: Pending at discharge 04/08/23 13:45 Surgical [PTH] Routine Labs on day of discharge: Laboratory Results - last 24 hr 04/13/23 05:51 Sodium 138 Potassium 3.4 Chloride 105 Carbon Dioxide 27 Anion Gap 9 L BUN 7 L Creatinine 0.64 Estim Creat Clear Calc 103.8 Estimated GFR > 60 Random Glucose 94 Calcium 8.7 Phosphorus 3.7 Magnesium 1.9 Imaging Chest x-ray: Radiologist's impression: ITS Impressions Abdomen/Pelvis CT 04/04/23 10:35 IMPRESSION: 1. There is pancolonic and rectal wall thickening and edema suggestive of proctocolitis. There is more focal masslike wall thickening involving the junction of the sigmoid and the descending colon measuring approximately 4.3 cm in span, for which superimposed underlying neoplasm cannot be excluded and recommend correlation with colonoscopy when clinically appropriate or correlation with any prior recent screening colonoscopy findings. 2. The left ovary appears somewhat asymmetric with respect to the contralateral side making an underlying ovarian lesion difficult to exclude and therefore recommend correlation with pelvic ultrasound. 3. Hepatomegaly. Abdomen/Pelvis CTA 04/06/23 12:00 IMPRESSION: 1. Progression of the wall thickening involving the mid transverse colon with increased surrounding inflammatory changes. 2. No significant vascular abnormality. Minimal atherosclerotic disease. Pelvic/Transvag US 04/07/23 14:35 IMPRESSION: Normal-appearing ovaries. 2 small left ovarian simple appearing cysts. Small amount of complex fluid in the right pelvis. Discharge Plan Discharge Anticipated Discharge Date/Time: 04/13/23 10:56 Patient Disposition: Home, Self-Care Discharge Diagnosis: Sigmoid colon stricture. Referrals: Leland Romero MD [Primary Care Provider] - 1 Week Joe Her MD [Physician] - 1 Week Chuck Falcon [Physician] - 1 Week (follow up outpatient ) Discharge Medications: New docusate sodium 100 mg Capsule 100 mg PO BID PRN (Reason: constipation) Qty: 60 0RF polyethylene glycol 3350 17 gram Powder In Packet 17 g PO DAILY PRN (Reason: Constipation) Qty: 30 0RF Continued diazepam 10 mg tablet 10 mg PO Q12H PRN (Reason: muscle spasm) oxycodone 15 mg tablet 15 mg PO Q6H PRN (Reason: Pain) atorvastatin 20 mg tablet 20 mg PO DAILY hydrochlorothiazide 25 mg tablet 25 mg PO DAILY amlodipine 10 mg tablet 10 mg PO DAILY Discharge Orders: Discharge Order (Routine); Ordered 04/13/23 Ordered By: Lennie Reyes Diet: Advance to usual diet Activity on Discharge: No heavy lifting Stand Alone Forms: Patient Portal Discharge page Activity Restrictions/Additional Instructions: Apply an ice pack for short intervals (20 minutes on, followed by at least 20 minutes off) as needed. Do not apply heat. Do not use creams, lotions, or topical antibiotics. These can cause infection or allergic reaction. Ok to shower. You have steri strips (small white cloth strips) covering your incision- these will fall off ~1 week. Follow up in office with Dr. Her in 1 week. ([phone]) No heavy lifting (>10lbs) or strenuous activity! Call Your Doctor If: -Your temperature exceeds 101.5? F -You experience excessive pain or swelling -You have an unexpected reaction to medication -You have excessive bleeding -You experience continued vomiting/nausea -Your incision begins to separate -Your incision shows signs of infection such as increased redness, swelling, excessive pain, drainage (light blood or clear fluid is normal) or heat Care Plan Goals: Patient was admitted for nausea vomiting andrank red blood per rectum-initially was thought to have colitis-started on IV antibiotics and subsequently seen by GI CTA abdomen was done- ?No significant vascular abnormality. Minimal atherosclerotic disease., mild inflamtion chnages -GI subsequently did colonoscopy: Found to have sigmoid stricture, then seen by surgery-s/p exploratory laparotomy, adhesionalolysis, sleeve resection of sigmoid, primary functional end to end reanastomosis, rigid proctoscopy: biopsy sent and pending. Afterward patient seems to be improving -eating fine abdominal pain seems to be improving, passing bowels. Going home with bowel regimen, needs to follow-up out patiently surgery and GI. Health Concerns: As above. Plan of Treatment: As above. Assessment: As above.
== END 2023-04-13 16:24 | disposition home or self-care (01) | DRG 231 ==
LOC: HO.ED 12:21 → HO.EDOVER 13:21 → HO.S3 15:45
PROVIDERS: Internal Medicine; Internal Medicine Gastroenterology; Physician Assistant; Physician Assistant Surgical; Surgery; Admitting Provider Internal Medicine; Emergency Provider Internal Medicine; PCP Internal Medicine; Visit Provider Internal Medicine
PROC: 0DJD8ZZ Inspection of Lower Intestinal Tract, Via Natural or Artificial Opening Endoscopic (ICD-10-PCS; CPT 45378; principal; 2023-04-07 14:50)
PROC: 0DBN0ZZ Excision of Sigmoid Colon, Open Approach (ICD-10-PCS; principal; 2023-04-08 11:30)
DX: K56.50 Intestinal adhesions [bands], unspecified as to partial versus complete obstruction (principal); D62 Acute posthemorrhagic anemia; E78.5 Hyperlipidemia, unspecified; I10 Essential (primary) hypertension; K52.9 Noninfective gastroenteritis and colitis, unspecified; K92.2 Gastrointestinal hemorrhage, unspecified; Z79.899 Other long term (current) drug therapy
CPT/HCPCS: 36415; 74174; 74177; 76830; 76856; 80048; 80076; 80307; 81003; 82040; 82272; 83605; 83690; 83735; 84100; 84134; 84478; 85025; 85027; 85652; 86140; 86850; 86900; 86901; 87040; 87493; 87507; 88307; 93306; 93356; 99285; J0131; J1170; J1200; J1885; J2250; J2270; J2405; J2543; J2765; J2920; J3010; Q9957; Q9967

== ENCOUNTER → 2023-04-20 08:19 | Outpatient (BNVA) | payer OTHER, SELFPAY | PROVIDERS: PCP Internal Medicine; Visit Provider Surgery ==

== ENCOUNTER → 2023-05-14 08:18 | Outpatient (BNVA) | payer OTHER, SELFPAY | PROVIDERS: PCP Internal Medicine; Visit Provider Physician Assistant ==

== ENCOUNTER 2023-08-18 09:25 | Outpatient (REF) | payer OTHER, SELFPAY ==
--- NOTE | ~2023-08-18 | XR_ITS ---
EXAMINATION: XR CERVICAL SPINE CLINICAL INFORMATION: Hand numbness, right worse than left. COMPARISON: None available. TECHNIQUE: 4 views of the cervical spine were obtained. No oblique views are submitted. FINDINGS: Examination demonstrates moderate disc space narrowing at C5-C6. No prevertebral soft tissue or bony abnormality is appreciated. No compression fractures or subluxations are identified. Alignment is maintained at the atlanto-axial articulation. The disc spaces otherwise appear preserved. The prevertebral soft tissues appear unremarkable. Evaluation of neural foramina is limited without the benefit of oblique views. XR/XR cervical spine 3V IMPRESSION: Moderate disc space narrowing at C5-C6.
== END 2023-08-18 09:26 | disposition home or self-care (01) ==
LOC: HO.XRAY 09:25
PROVIDERS: Visit Provider Internal Medicine
DX: R20.0 Anesthesia of skin (principal)
CPT/HCPCS: 72040

== ENCOUNTER 2023-09-03 14:50 | Outpatient (REF) | payer OTHER, SELFPAY ==
--- NOTE | 2023-09-03 14:54 | EMG_ITS ---
Chief complaint: Was waking up with right hand numbness, thought associated with amlodipine because symptoms improved with discontinuation, trigger finger right middle Reason for referral: Evaluate for Carpal Tunnel Syndrome Referred by: Leland Romero MD Procedure done: Bilateral upper extremities NCS, right upper extremity EMG Precautions and/or limitations: None The limb temperature was monitored continuously and remained between 32-36 degrees C during the performance of the NCS. Nerve Conduction Studies Anti Sensory Summary Table ?Stim Site NR Onset (ms) Norm Onset (ms) Peak (ms) Norm Peak (ms) O-P Amp (?V) Norm O-P Amp Site1 Site2 Delta-0 (ms) Dist (cm) Will (m/s) Norm Will (m/s) Left Median Anti Sensory (2nd Digit) Wrist ? 2.7 3.3 <3.6 24.3 >10 Wrist 2nd Digit 2.7 14.0 52 Right Median Anti Sensory (2nd Digit) Wrist ? 3.3 3.7 <3.6 8.8 >10 Wrist 2nd Digit 3.3 14.0 42 Right Radial Anti Sensory (Thumb) Forearm ? 2.1 2.3 <3.1 21.4 Forearm Thumb 2.1 0.0 Left Ulnar Anti Sensory (5th Digit) Wrist ? 2.3 3.2 <3.7 26.5 >15.0 Wrist 5th Digit 2.3 14.0 61 Right Ulnar Anti Sensory (5th Digit) Wrist ? 2.6 3.2 <3.7 35.6 >15.0 Wrist 5th Digit 2.6 14.0 54 Motor Summary Table ?Stim Site NR Onset (ms) Norm Onset (ms) O-P Amp (mV) Norm O-P Amp iAmp (mV) Amp (1st) (%) Site1 Site2 Delta-0 (ms) Dist (cm) Will (m/s) Norm Will (m/s) Left Median Motor (Abd Poll Brev) Wrist ? 3.4 <3.9 11.3 >4.5 13.3 100.0 Elbow Wrist 3.4 17.0 50 >45 Elbow ? 6.8 11.0 13.1 97.3 Right Median Motor (Abd Poll Brev) Wrist ? 4.1 <3.9 9.3 >4.5 11.1 100.0 Elbow Wrist 2.9 16.5 57 >45 Elbow ? 7.0 10.7 12.9 115.1 Left Ulnar Motor (Abd Dig Minimi) Wrist ? 2.5 <3.0 6.1 >5 7.4 100.0 B Elbow Wrist 2.7 14.5 54 >45 B Elbow ? 5.2 6.3 7.7 103.3 A Elbow B Elbow 1.5 10.0 67 >45 A Elbow ? 6.7 6.5 8.4 106.6 Right Ulnar Motor (Abd Dig Minimi) Wrist ? 2.7 <3.0 8.7 >5 10.2 100.0 B Elbow Wrist 2.7 16.0 59 >45 B Elbow ? 5.4 7.2 8.6 82.8 A Elbow B Elbow 1.0 10.0 100 >45 A Elbow ? 6.4 8.5 10.0 97.7 EMG ?Side Muscle Nerve Root Ins Act Fibs Psw Amp Dur Poly Recrt Int Pat Comment Right 1stDorInt Ulnar C8-T1 Nml Nml Nml Nml Nml 0 Nml Complete Right FlexCarRad Median C6-7 Nml Nml Nml Nml Nml 0 Nml Complete Right Biceps Musculocut C5-6 Nml Nml Nml Nml Nml 0 Nml Complete Right Triceps Radial C6-7-8 Nml Nml Nml Nml Nml 0 Nml Complete Right Deltoid Axillary C5-6 Nml Nml Nml Nml Nml 0 Nml Complete FINDINGS: Right median motor nerve showed prolonged distal latency, normal amplitude and normal conduction velocity. Right median sensory nerve showed prolonged peak latency, small amplitude. All other nerves tested were within normal. Concentric needle EMG was performed in selected muscles of the right upper extremity. Study did not reveal signs of electric abnormalities as shown in the table below. IMPRESSION: 1. This is an abnormal study. 2. There is electrodiagnostic evidence for right moderate-severe median neuropathy at the wrist, consistent with carpal tunnel syndrome. 3. There is NO electrodiagnostic evidence for median neuropathy on left; ulnar neuropathy on both sides; brachial plexopathy or cervical radiculopathy on right. Thank you for your kind referral. Jo Zambrano MD, LEIGH Board Certified, [place] [employer] and [employer] (ABPMR) Board Certified, [place] [employer] Electro[employer] (ABEM) [place] [id number] [facility]
== END 2023-09-03 14:51 | disposition home or self-care (01) ==
LOC: HO.NEURO 14:50
PROVIDERS: PCP Internal Medicine; Visit Provider Internal Medicine
DX: R20.0 Anesthesia of skin (principal)
CPT/HCPCS: 95886; 95911

== ENCOUNTER → 2023-09-03 14:54 | Outpatient (BNV) | payer OTHER, SELFPAY | PROVIDERS: PCP Internal Medicine; Visit Provider Physical Medicine & Rehabilitation | DX: G56.11 Other lesions of median nerve, right upper limb (principal); G56.01 Carpal tunnel syndrome, right upper limb | CPT/HCPCS: 95886; 95911 ==

== ENCOUNTER 2023-11-24 09:20 | Outpatient (AMB) | payer OTHER, SELFPAY ==
--- NOTE | 2023-11-24 09:24 | A.OFFVIS_ITS ---
Intake Vital Signs 11/24/23 09:30 Height 5 ft 4 in Weight 153 lb BMI 26.3 Handedness Right Intake Visit Reasons: [employer] Rt CTS discuss surgery Intake Note: Esha is a 48 year old right hand dominant female who presents today as a new patient for a right CTS. EMG done on 09/03/23. Patient reports he would like to discuss surgery. Patient states that its both of her hands however the right hand is worse than the left hand. Having off and on numbness on the middle finger, its worse in the morning per patient. Allergies NSAIDS (Non-Steroidal Anti-Inflamma Allergy (Severe, Verified 11/24/23 09:25) Hives atenolol Allergy (Unknown, Verified 11/24/23 09:25) Hives ciprofloxacin Allergy (Unknown, Verified 11/24/23 09:25) Hives apple Allergy (Verified 11/24/23 09:25) Abdominal Pain HPI [employer] Rt CTS discuss surgery 2 HPI Details 48-year-old right hand dominant female alvin barnes presents in the office today, as a new patient, for an evaluation of right hand/wrist pain. She confirms having pain in the bilateral hands but states the right is worse then the left. She confirms intermittent numbness on the middle finger and states it is mainly in the morning and weans though out the day. However, she states the pain persist thought out the day.. She states she states she has triggering in bilateral middle digits. She states the bilateral middle digits get sticks. She state she has numbness and tingling in all digits. She states this makes it hard to put socks on or to pull up her pants. Patient has an allergy history, as follows: -NSAIDs; Hives -Atenolol; Hives -Ciprofloxacin; Hives -Apple; Abdominal pain Patient is currently taking, as follows: -Amlodipine 10 mg PO daily -Atorvastatin 20 mg PO daily -Diazepam 10 mg Q12H PRN -Docusate Sodium 100 mg PO BID PRN -Hydrochlorothiazide 25 mg PO Daily -Methylcellulose 500 mg PO TID -Oxycodone 15 mg PO Q6H PRN -Polyethylene Glycol 3350 17 grams PO Da hortencia PRN -Simethicone 125 mg PO TID-QID PRN Patient has a medical history, as follows: -Meningitis; 2007 -Sciatica -Diverticulitis -Elevated cholesterol -HTN (hypertension) -Colitis; 01/2023 -Endometriosis -Hyperbilirubinemia -History of bowel resection; 04/08/2023 -Stricture of sigmoid colon Patient has a surgical history, as follows: -History of colonoscopy; 02/01/2023 left sided, 04/07/2023 [facility] -History of hysterectomy; 2010 -History of spinal surgery; 2006 Patient has a social history, as follows: -Substance use--Marijuana [facility] Medical History Colitis Diverticulitis Elevated cholesterol GI bleed HTN (hypertension) Meningitis Sciatica Surgical History H/O colonoscopy Hx of hysterectomy Hx of spinal surgery Family History Mother Diabetes Father Heart disease Social History Household Members: Family Household Members Other:: Housing: House Do you presently have visiting nurse or other home services: No Alcohol intake: never Patient Tobacco Use Status: Never used Tobacco Substance Use Type: Marijuana service: No Current occupational status: unemployed Review of Systems Const All systems reviewed & are unremarkable except as noted in HPI and below Physical Exam Vital Signs: BMI result Body Mass Index 26.3 Const General: cooperative and no acute distress Orientation/consciousness: patient oriented x3 Resp Effort & Inspection: normal respiratory effort and able to speak in complete sentences Cardio Peripheral pulses: Peripheral pulses 2+ throughout Skin General skin exam: no rashes or lesions noted Neuro General: patient oriented x3 Extrem Other: Bilateral hands: Normal to inspection. No ecchymosis, erythema, or edema. Able to perform full finger flexion, extension, abduction, adduction, finger cross, okay sign, and thumbs up without deficit. Able to make a closed fist. Positive Tinel?s. Active triggering of the middle fingers. Intermittent numbness and tingling in all digits. Capillary refill is brisk. Radial pulse intact. Assessment & Plan Assessment & Plan (1) Right carpal tunnel syndrome: Code(s): G56.01 - Carpal tunnel syndrome, right upper limb (2) Trigger finger, right middle finger: Code(s): M65.331 - Trigger finger, right middle finger (3) Left carpal tunnel syndrome: Code(s): G56.02 - Carpal tunnel syndrome, left upper limb Plan Ms. Balbuena is a 48-year-old right hand dominant female who presents in the office today, as a new patient, for an evaluation of right hand/wrist pain. She confirms having pain in the bilateral hands but states the right is worse then the left. She confirms intermittent numbness on the middle finger and states it is mainly in the morning and weans though out the day. However, she states the pain persist thought out the day.. She states she states she has triggering in bilateral middle digits. She states the bilateral middle digits get sticks. She state she has numbness and tingling in all digits. She states this makes it hard to put socks on or to pull up her pants. Patient has an allergy history, as follows: -NSAIDs; Hives -Atenolol; Hives -Ciprofloxacin; Hives -Apple; Abdominal pain Patient is currently taking, as follows: -Amlodipine 10 mg PO daily -Atorvastatin 20 mg PO daily -Diazepam 10 mg Q12H PRN -Docusate Sodium 100 mg PO BID PRN -Hydrochlorothiazide 25 mg PO Daily -Methylcellulose 500 mg PO TID -Oxycodone 15 mg PO Q6H PRN -Polyethylene Glycol 3350 17 grams PO Daily PRN -Simethicone 125 mg PO TID-QID PRN Patient has a medical history, as follows: -Meningitis; 2007 -Sciatica -Diverticulitis -Elevated cholesterol -HTN (hypertension) -Colitis; 01/2023 -Endometriosis -Hyperbilirubinemia -History of bowel resection; 04/08/2023 -Stricture of sigmoid colon Patient has a surgical history, as follows: -History of colonoscopy; 02/01/2023 left sided, 04/07/2023 [facility] -History of hysterectomy; 2010 -History of spinal surgery; 2006 Patient has a social history, as follows: -Substance use--Marijuana I discussed in detail the procedure and what to expect pre and post operatively. We discussed the risks, benefits and alternatives to the surgery as well as the rehabilitation course. The risks; which include, but are not limited to infection, bleeding, nerve injury, ongoing pain, swelling, and stiffness, perioperative risk of injury to bones and soft tissues, and blood clots. I have answered all questions and with their understanding they have consented to move forward with a right carpal tunnel release and right middle finger, trigger finger release to be performed by Dr. Destiny Ray. Follow up will be at the post operative appointment, or sooner if needed. EMG of the right upper extremity, obtained on 09/03/2023, revealed: 1. This is an abnormal study. 2. There is electrodiagnostic evidence for right moderate-severe median neuropathy at the wrist, consistent with carpal tunnel syndrome. 3. There is NO electrodiagnostic evidence for median neuropathy on left; ulnar neuropathy on both sides; brachial plexopathy or cervical radiculopathy on right. Patient Instructions: Scribed for Yelena Camejo PA-C by Earnestine Bonilla medical lead, on 11/24/2023 at 9:30 am, EST. Coding Level of Care Code New Pt Level 4 (68512) Diagnoses Right carpal tunnel syndrome G56.01 Trigger finger, right middle finger M65.331 Left carpal tunnel syndrome G56.02
[2023-11-24 09:30] VITALS: BMI 26.3
== END 2023-11-24 09:53 | disposition home or self-care (01) ==
PROVIDERS: PCP Internal Medicine; Visit Provider Physician Assistant
DX: G56.03 Carpal tunnel syndrome, bilateral upper limbs (principal); M65.331 Trigger finger, right middle finger
CPT/HCPCS: 99204

== ENCOUNTER → 2023-11-24 09:20 | Outpatient (BNVA) | payer OTHER, SELFPAY | PROVIDERS: PCP Internal Medicine; Visit Provider Physician Assistant ==

== ENCOUNTER 2024-01-28 09:21 | Day surgery (SDC) | payer OTHER, SELFPAY ==
--- NOTE | 2024-01-28 09:41 | W.PM.OPN ---
Operative Note Operative Note Date of Service: 01/28/24 Narrative: Preop diagnosis: 1. Right Carpal tunnel syndrome 2. Right middle finger trigger finger Postop diagnosis: same Procedure: 1. Right Carpal tunnel release 2. Right middle finger trigger release Surgeon: Destiny Ray MD Anesthesia: local block using 1% lidocaine with epinephrine Findings: Thickened transverse carpal ligament. EBL: Less than 5 mL Specimens: None Complications: None Disposition: Brought to recovery room in stable condition Plan: Follow-up for 10-14 days for wound check and suture removal Indications: The patient is 48 years old, with right carpal tunnel syndrome and a right middle finger trigger finger that have been unresponsive to nonoperative management. The risks and benefits of operative treatment including but not limited to risk of damage to blood vessels, nerves, tendons, infection, persistent pain, persistent symptoms, or possible need for additional surgery were discussed with the patient and the patient wishes to proceed with surgery. Procedure: Once consent was obtained a local block was performed using a combination of 1% lidocaine with epinephrine. The patient was then brought back to the operating suite and placed on the operative table in supine position. The right upper extremity was prepped and draped in a standard surgical fashion. Once assured that we had a good block, a 1.5 cm oblique incision was made centered over the A1 susan of the right middle finger . The incision was made through the skin to the subcutaneous tissues using a #15 blade. Careful dissection was made down to the level of the A1 susan using tenotomy scissors, with care being taken to protect the nearby neurovascular structures. A longitudinal incision was made in the A1 susan 1st using a #15 blade, then using tenotomy scissors under direct visualization. The A1 susan was noted to be thickened. Following our A1 susan release, it was able to actively bring all of her fingers including the middle finger closed to a tight fist and back into full extension. We no longer saw any locking or catching of the digit with flexion and extension. Once assured that we had a good block, a 2.0 cm longitudinal incision was made centered over the carpal tunnel. The incision was made through the skin to the subcutaneous tissues using a #15 blade. Dissection was made down to the level of the transverse carpal ligament with care being taken to protect the palmar cutaneous nerve. Once the transverse carpal ligament was clearly visualized, a longitudinal incision was made in the transverse carpal ligament 1st using a #15 blade, then using tenotomy scissors under direct visualization. Care was taken to look for and protect the motor branch of the median nerve when seen in this area. Once satisfied with our carpal tunnel release the wound was copiously irrigated with normal saline and hemostasis was obtained with a brief period of local pressure. The skin edges were reapproximated with some 5.0 nylon suture material and a sterile dressing was applied. The patient appears to have tolerated the procedure well and with no complications. All digits were well vascularized at the conclusion of the case.
--- NOTE | 2024-01-28 10:42 | MHC.SHP ---
Pre-Procedural Eval Section A - 24 Hr Update-Section A only Date of Service: 01/28/24 The patient is an INPATIENT: No Changes since office visit: No Cold of Flu in the past 2 weeks, No New Medical Problems, No Changes in Medication and No Patient answered all questions The patient has been examined within 24 hours of the surgical procedure. The History & Physical has been completed within 30 days and I have reviewed it.: Yes Section B - Complete if H&P > 30 days Chief Complaint: carpal tunnel and trigger release Allergies: Allergies Allergy/AdvReac Type Severity Reaction Status Date / Time NSAIDS (Non-Steroidal Allergy Severe Hives Verified 01/28/24 09:55 Anti-Inflamma atenolol Allergy Unknown Hives Verified 01/28/24 09:55 ciprofloxacin Allergy Unknown Hives Verified 01/28/24 09:55 apple Allergy Abdominal Verified 01/28/24 09:55 Pain Exam Exam Comment: Right carpal tunnel syndrome and right middle finger trigger finger Plan Diagnosis/Plan: Unchanged I have reviewed the history and physical and performed a pertinent physical examination on my patient. No changes have occurred unless specified. Time Spent With Patient Time: Total time managing care of this patient today ____ minutes.
[2024-01-28 10:57] VITALS: BP 121/70; PULSE 76; RESP 18; TEMP 36.6; O2SAT 97; BMI 29.9
[2024-01-28 13:00] VITALS: BP 126/74; PULSE 65; RESP 18; O2SAT 99
== END 2024-01-28 13:02 | disposition home or self-care (01) ==
PROVIDERS: PCP Internal Medicine; Visit Provider Orthopaedic Surgery
PROC: (CPT 64721; principal; 2024-01-28 11:10)
PROC: (CPT 26055; 2024-01-28 11:10)
DX: G56.01 Carpal tunnel syndrome, right upper limb (principal); M65.331 Trigger finger, right middle finger; R20.0 Anesthesia of skin; R20.2 Paresthesia of skin; I10 Essential (primary) hypertension; E78.00 Pure hypercholesterolemia, unspecified; Z88.1 Allergy status to other antibiotic agents; Z88.8 Allergy status to other drugs, medicaments and biological substances; Z79.899 Other long term (current) drug therapy; Z98.890 Other specified postprocedural states
CPT/HCPCS: 64721; 26055; J0171

== ENCOUNTER → 2024-01-28 09:21 | Outpatient (BNV) | payer OTHER, SELFPAY | PROVIDERS: PCP Internal Medicine; Visit Provider Orthopaedic Surgery | DX: M65.341 Trigger finger, right ring finger (principal); G56.01 Carpal tunnel syndrome, right upper limb | CPT/HCPCS: 26055; 64721 ==

== ENCOUNTER 2024-02-10 08:30 | Outpatient (AMB) | payer OTHER, SELFPAY ==
--- NOTE | 2024-02-10 08:33 | MHC.OFFVIS ---
Intake Intake Visit Reasons: PO-t CTS, Rt MF Trigger 01/28/24 Intake Note: Esha 48 yr old female presents today for her P/O visit for her right CTS & Rt MF Trigger release from 01/28/24. States pain is minimal and is doing well over all. Sutures removed in office and steri strips applied. Allergies NSAIDS (Non-Steroidal Anti-Inflamma Allergy (Severe, Verified 02/10/24 08:33) Hives atenolol Allergy (Unknown, Verified 02/10/24 08:33) Hives ciprofloxacin Allergy (Unknown, Verified 02/10/24 08:33) Hives apple Allergy (Verified 02/10/24 08:33) Abdominal Pain HPI PO-t CTS, Rt MF Trigger 01/28/24 HPI Details Esha is a 48 year old right hand dominant woman who returns S/P right carpal tunnel release & right middle finger trigger release, DOS: 01/28/24. She says she is doing well, and no longer has any locking of her right middle finger. She says her sensation is normal, though she says she did not have much numbness prior to surgery. She is happy with the results of her surgery, especially the trigger release. She says she is struggling to fully extend her middle finger however, she says she feels tightness in her knuckle. She says she has some locking of her left middle finger, which is not as severe or bothersome for her, but she says this does occur almost daily. [facility] Medical History Meningitis Sciatica GI bleed Diverticulitis Elevated cholesterol HTN (hypertension) Colitis Surgical History H/O colonoscopy Hx of hysterectomy Hx of spinal surgery Family History Mother Diabetes Father Heart disease Social History Household Members: Family Household Members Other:: Housing: House Do you presently have visiting nurse or other home services: No Alcohol intake: never Patient Tobacco Use Status: Never used Tobacco Substance Use Type: Marijuana service: No Current occupational status: unemployed Review of Systems Const All systems reviewed & are unremarkable except as noted in HPI and below Physical Exam Const General: no acute distress and alert Orientation/consciousness: patient oriented x3 Neuro General: patient oriented x3 Extrem Other: The patient was alert oriented and in no acute distress The incision is healing well with no erythema drainage or evidence of infection. Sutures removed and Steri-Strips applied She can make a fist and extend all her digits, with a ~10 flexion contracture of the middle finger. No locking or catching We worked on some stretching exercises today. Visible and palpable locking and catching of the left middle finger Tender over the a1 susan of the left middle finger Sensation is intact and normal to the tips of all digits Cap refill is brisk Nerve Conduction Study: IMPRESSION: 1. This is an abnormal study. 2. There is electrodiagnostic evidence for right moderate-severe median neuropathy at the wrist, consistent with carpal tunnel syndrome. 3. There is NO electrodiagnostic evidence for median neuropathy on left; ulnar neuropathy on both sides; brachial plexopathy or cervical radiculopathy on right. Jo Zambrano MD, LEIGH 09/03/23 Psych Appearance: grossly normal Affect: normal affect Attitude: cooperative Assessment & Plan Assessment & Plan (1) Trigger finger, right middle finger: Code(s): M65.331 - Trigger finger, right middle finger (2) Right carpal tunnel syndrome: Code(s): G56.01 - Carpal tunnel syndrome, right upper limb (3) Trigger finger, left middle finger: Code(s): M65.332 - Trigger finger, left middle finger Plan Assessment & Plan: 1. Right carpal tunnel syndrome, S/P release DOS: Pre-operative symptoms intermittent, but daily. Now with normal sensation 2. Right middle finger trigger finger, S/P release DOS: 01/28/24 With an ~10 degree flexion contracture The patient appears to be doing well post-operatively I educated her about the post-operative course I discussed activity modifications, she is to lift nothing heavier than a cellphone for the next two weeks She will perform gentle ROM exercises at home, I encouraged her to work on finger extension exercises and placing her hand flat on a table. She should avoid any underwater activities for the next 5 days She should gently massage about the incision site to reduce the risk of hypersensitivity 3. Left middle finger trigger finger I educated her about this condition Not particularly bothersome for her today I discussed operative and non-operative treatment options The patient would like to proceed with surgery The risks and benefits of operative treatment were discussed with the patient and the patient wishes to proceed with surgery. These risks include, but are not limited to risk of damage to blood vessels, nerves, tendons, infection, recurrence, incomplete relief of preoperative symptoms, persistent pain, possible need for further surgery and the risks associated with regional blocks and anesthesia. The plan is to take the patient to the operating room sometime in the next few weeks for the following procedures: 1. Left middle finger trigger release, under local All of the preoperative paperwork including the consent was reviewed today. All the patient's questions were answered. The patient understands that they will be contacted by our patient scheduler soon to schedule this procedure. She would like to have surgery sometime in the summer when her is out of school, no sooner than mid-April She denies Diabetes, blood thinners, asthma, heart, lung, kidney issues Scribed for Destiny Ray MD by Maurice Day, medical social worker, on 02/10/24 at 8:45 AM, EST. Coding Level of Care Code Est Pt Level 3 (41590) Diagnoses Trigger finger, right middle finger M65.331 Right carpal tunnel syndrome G56.01 Trigger finger, left middle finger M65.332
== END 2024-02-10 09:22 | disposition home or self-care (01) ==
PROVIDERS: PCP Internal Medicine; Visit Provider Orthopaedic Surgery
DX: M65.331 Trigger finger, right middle finger (principal); G56.01 Carpal tunnel syndrome, right upper limb; M65.332 Trigger finger, left middle finger
CPT/HCPCS: 99214

== ENCOUNTER → 2024-02-10 08:30 | Outpatient (BNVA) | payer OTHER, SELFPAY | PROVIDERS: PCP Internal Medicine; Visit Provider Orthopaedic Surgery ==

== ENCOUNTER 2024-05-02 09:44 | Day surgery (SDC) | payer OTHER, SELFPAY ==
[2024-05-02 10:11] VITALS: BMI 28.0
--- NOTE | 2024-05-02 12:01 | MHC.SHP ---
Pre-Procedural Eval Section A - 24 Hr Update-Section A only Date of Service: 05/02/24 The patient is an INPATIENT: No Changes since office visit: No Cold of Flu in the past 2 weeks, No New Medical Problems, No Changes in Medication and No Patient answered all questions The patient has been examined within 24 hours of the surgical procedure. The History & Physical has been completed within 30 days and I have reviewed it.: Yes Section B - Complete if H&P > 30 days Chief Complaint: Trigger finger, left middle finger Allergies: Allergies Allergy/AdvReac Type Severity Reaction Status Date / Time NSAIDS (Non-Steroidal Allergy Severe Hives Verified 02/10/24 08:33 Anti-Inflamma atenolol Allergy Unknown Hives Verified 02/10/24 08:33 ciprofloxacin Allergy Unknown Hives Verified 02/10/24 08:33 apple Allergy Abdominal Verified 02/10/24 08:33 Pain Exam Exam Comment: Middle finger trigger finger Plan Diagnosis/Plan: Unchanged I have reviewed the history and physical and performed a pertinent physical examination on my patient. No changes have occurred unless specified. Time Spent With Patient Time: Total time managing care of this patient today ____ minutes.
--- NOTE | 2024-05-02 12:04 | P.OP_ITS ---
Operative Note Operative Note Date of Service: 05/02/24 Narrative: Operative Note Preop diagnosis: 1. Left middle finger Trigger finger Postop diagnosis: 1. Left middle finger Trigger finger Procedure: 1. Left middle finger A1 susan release Surgeon: Destiny Ray MD Anesthesia: local block using 1% lidocaine with epinephrine Findings: No locking or catching after A1 susan release EBL: Less than 5 mL Tourniquet time: None Specimens: None Complications: None Disposition: Brought to recovery room in stable condition Plan: Follow-up for 10-14 days for wound check and suture removal Indications: The patient is 48 years old, with a left middle finger trigger finger that has been unresponsive to nonoperative management. The risks and benefits of operative treatment including but not limited to risk of damage to blood vessels, nerves, tendons, infection, persistent pain, persistent symptoms, recurrence or possible need for additional surgery were discussed with the patient and the patient wishes to proceed with surgery. Procedure: Once consent was obtained a local block was performed in the preop area using a combination of 1% lidocaine with epinephrine. The patient was then brought back to the operating suite and placed on the operative table in supine position. The left upper extremity was prepped and draped in a standard surgical fashion. Once assured that we had a good block, a 1.5 cm oblique incision was made cente red over the A1 susan of the left middle finger . The incision was made through the skin to the subcutaneous tissues using a #15 blade. Careful dissection was made down to the level of the A1 susan using tenotomy scissors, with care being taken to protect the nearby neurovascular structures. A longitudinal incision was made in the A1 susan 1st using a #15 blade, then using tenotomy scissors under direct visualization. The A1 susan was noted to be thickened. Following our A1 susan release, we no longer saw any locking or catching of the digit with flexion and extension. Once satisfied with our A1 susan release the wound was copiously irrigated with normal saline and hemostasis was obtained with a brief period of local pressure. The skin edges were reapproximated with some 5.0 nylon suture material and a sterile dressing was applied. The patient appears to have tolerated the procedure well and with no complications. All digits were well vascularized at the conclusion of the case.
[2024-05-02 12:27] VITALS: BP 112/70; PULSE 59; RESP 16; O2SAT 95
== END 2024-05-02 12:46 | disposition home or self-care (01) ==
PROVIDERS: PCP Internal Medicine; Visit Provider Orthopaedic Surgery
PROC: (CPT 26055; principal; 2024-05-02 11:30)
DX: M65.332 Trigger finger, left middle finger (principal); Z88.6 Allergy status to analgesic agent; Z88.8 Allergy status to other drugs, medicaments and biological substances; Z88.1 Allergy status to other antibiotic agents
CPT/HCPCS: 26055; J0171

== ENCOUNTER → 2024-05-02 09:44 | Outpatient (BNV) | payer OTHER, SELFPAY | PROVIDERS: PCP Internal Medicine; Visit Provider Orthopaedic Surgery | DX: M65.332 Trigger finger, left middle finger (principal) | CPT/HCPCS: 26055 ==

== ENCOUNTER 2024-05-17 12:02 | Outpatient (AMB) | payer OTHER, SELFPAY ==
--- NOTE | 2024-05-17 12:19 | A.OFFVIS_ITS ---
Vital Signs 05/17/24 12:21 Height 5 ft 4 in Weight 165 lb BMI 28.3 Handedness Right Intake Visit Reasons: PO LT MF trigger release 05/02/24 AR Intake Note: Esha is a 48 year old right hand dominant male who presents today post operatively s/p Left middle finger trigger release 05/02/24. Patient expresses she is doing well, is no longer having locking of the middle finger. She says she has mild pain at the DIP of her left middle finger but no other concerns. Dressings removed 3 days ago and she has been leaving incision uncovered due to itchiness. NO drainage at incision just scabbing. Sutures removed and steri- strips applied. Allergies NSAIDS (Non-Steroidal Anti-Inflamma Allergy (Severe, Verified 05/17/24 12:23) Hives atenolol Allergy (Unknown, Verified 05/17/24 12:23) Hives ciprofloxacin Allergy (Unknown, Verified 05/17/24 12:23) Hives apple Allergy (Verified 05/17/24 12:23) Abdominal Pain HPI HPI PO LT MF trigger release 05/02/24 AR: Details: Esha is a 48 year old right hand dominant woman who returns S/P left middle finger trigger release, DOS: 05/02/24. She says she is doing well, and no longer has any locking of her finger. She says her sutures have been feeling itchy while in her dressing, she she removed this at home ~3 days ago. She is happy with the results of her surgery. In regards to her right carpal tunnel & trigger finger release, she is doing well and is happy with the results of her surgery. [facility], [facility] Medical History Meningitis Sciatica GI bleed Diverticulitis Elevated cholesterol HTN (hypertension) Colitis Surgical History H/O colonoscopy Hx of hysterectomy Hx of spinal surgery Family History Mother Diabetes Father Heart disease Social History (Updated 05/17/24 @ 12:25 by FITO Hill) Household Members: Family Household Members Other:: Housing: House Do you presently have visiting nurse or other home services: No Alcohol intake: never Patient Tobacco Use Status: Never used Tobacco Substance Use Type: Marijuana service: No Current occupational status: employed Current occupation: self employed Review of Systems Const All systems reviewed & are unremarkable except as noted in HPI and below Physical Exam Vital Signs: BMI result Body Mass Index 28.3 Const General: no acute distress and alert Orientation/consciousness: patient oriented x3 Neuro General: patient oriented x3 Extrem Other: The patient was alert oriented and in no acute distress The incision is healing well with no erythema drainage or evidence of infection. Sutures removed and Steri-Strips applied She can make a fist and extend all her digits No locking or catching Sensation is intact Cap refill is brisk Psych Appearance: grossly normal Affect: normal affect Attitude: cooperative Assessment & Plan Assessment & Plan (1) Trigger finger, left middle finger: Code(s): M65.332 - Trigger finger, left middle finger Category: Medical (2) Trigger finger, right middle finger: Code(s): M65.331 - Trigger finger, right middle finger Category: Medical (3) Right carpal tunnel syndrome: Code(s): G56.01 - Carpal tunnel syndrome, right upper limb Category: Medical Plan Assessment & Plan: 1. Left middle finger trigger finger, S/P release The patient appears to be doing well post-operatively I educated her about the post-operative course I discussed activity modifications, she is to lift nothing heavier than a cellphone for the next two weeks She will perform gentle ROM exercises at home She should avoid any underwater activities for the next 5 days She should gently massage about the incision site to reduce the risk of hypersensitivity She can follow up prn 2. Right carpal tunnel syndrome, S/P release DOS: 01/28/24 Pre-operative symptoms intermittent, but daily. Now with normal sensation 3. Right middle finger trigger finger, S/P release DOS: 01/28/24 With an ~10 degree flexion contracture Doing well Scribed for Destiny Ray MD by Maurice Day medical review coordinator, on 05/17/24 at 12:45 PM, EST. Scribe Plan - Not visible on output: Scribed for Destiny Ray MD by Maurice Day medical review coordinator, on [ ] at [ ], EST. Coding Level of Care Code Global (53677) Diagnoses Trigger finger, left middle finger M65.332 Trigger finger, right middle finger M65.331 Right carpal tunnel syndrome G56.01
[2024-05-17 12:21] VITALS: BMI 28.3
== END 2024-05-17 12:37 | disposition home or self-care (01) ==
PROVIDERS: PCP Internal Medicine; Visit Provider Orthopaedic Surgery
DX: M65.332 Trigger finger, left middle finger (principal); M65.331 Trigger finger, right middle finger; G56.01 Carpal tunnel syndrome, right upper limb
CPT/HCPCS: 99024

== ENCOUNTER → 2024-05-17 12:02 | Outpatient (BNVA) | payer OTHER, SELFPAY | PROVIDERS: PCP Internal Medicine; Visit Provider Orthopaedic Surgery ==

== ENCOUNTER 2024-09-27 10:14 | Outpatient (AMB) | payer OTHER, SELFPAY ==
[2024-09-27 10:18] VITALS: BMI 28.3
--- NOTE | 2024-09-27 10:18 | MHC.OFFVIS ---
Vital Signs 09/27/24 10:18 Height 5 ft 4 in Weight 165 lb BMI 28.3 Intake Visit Reasons: NewProb-Right index finger and ring finger trigger Intake Note: Esha is a 49 yo right hand dominant male who presents today with a new problem of multiple trigger fingers. Patient reports she would like to be scheduled for right index and right ring trigger finger release. Denies trying OT or previous steroid injections for these two fingers. S/P Left middle finger trigger release 05/02/24 S/P Right middle finger trigger release 01/28/24 S/P RIght Carpal tunnel release 01/28/24 Allergies NSAIDS (Non-Steroidal Anti-Inflamma Allergy (Severe, Verified 09/27/24 10:25) Hives atenolol Allergy (Unknown, Verified 09/27/24 10:25) Hives ciprofloxacin Allergy (Unknown, Verified 09/27/24 10:25) Hives apple Allergy (Verified 09/27/24 10:25) Abdominal Pain HPI HPI NewProb-Right index finger and ring finger trigger: Details: Esha is a 49 year old right hand dominant woman who returns with new complaints of a right index & ring trigger fingers. She complains of painful locking & catching of the index & ring fingers, which has been present for the last few weeks. She says her ring finger is her primary complaint today. She says this is similar to her other trigger fingers prior to surgery. She says she is concerned she can feel the triggering ready to start in her small fingers, but denies any locking or catching in them yet. She denies any locking or pain in her thumbs. She would like to discuss surgery today. [facility] Medical History Meningitis Sciatica GI bleed Diverticulitis Elevated cholesterol HTN (hypertension) Colitis Surgical History H/O colonoscopy Hx of hysterectomy Hx of spinal surgery Family History Mother Diabetes Father Heart disease Social History (Updated 09/23/24 @ 14:43 by CHRISTOPHER Schmid) Household Members: Family Household Members Other:: Housing: House Do you presently have visiting nurse or other home services: No Alcohol intake: never Patient Tobacco Use Status: Never used Tobacco Substance Use Type: Marijuana service: No Current occupational status: employed Current occupation: self employed, rt handed Review of Systems Const All systems reviewed & are unremarkable except as noted in HPI and below Physical Exam Vital Signs: BMI result Body Mass Index 28.3 Const General: no acute distress and alert Orientation/consciousness: patient oriented x3 Neuro General: patient oriented x3 Extrem Other: Evaluation of Right Upper Extremity: The patient is alert, oriented, and in no acute distress Neuro: Median, Ulnar, Radial nerves motor and sensory intact and sensation is normal to the tips of all digits Vascular: Cap refill brisk ROM: She can make a fist and extend all her digits Visible and palpable locking and catching of the index & ring fingers Tender over the a1 susan of the index & ring fingers Psych Appearance: grossly normal Affect: normal affect Attitude: cooperative Assessment & Plan Assessment & Plan (1) Trigger finger, right index finger: Code(s): M65.321 - Trigger finger, right index finger Category: Medical (2) Trigger finger, right ring finger: Code(s): M65.341 - Trigger finger, right ring finger Category: Medical Plan Assessment & Plan: 1. Right ring finger trigger finger This is her primary complaint today 2. Right index finger trigger finger I educated her about this condition I discussed operative and non-operative treatment options The patient would like to proceed with surgery. The risks and benefits of operative treatment were discussed with the patient and the patient wishes to proceed with surgery. These risks include, but are not limited to risk of damage to blood vessels, nerves, tendons, infection, recurrence, incomplete relief of preoperative symptoms, persistent pain, possible need for further surgery and the risks associated with regional blocks and anesthesia. We may cancel her index finger release on the DOS if her symptoms improve The plan is to take the patient to the operating room sometime in the next few weeks for the following procedures: 1. Right ring finger trigger release, under local 2. Right index finger trigger release, under local All of the preoperative paperwork including the consent was reviewed today. All the patient's questions were answered. The patient understands that they will be contacted by our production planner scheduler soon to schedule this procedure She denies Diabetes, blood thinners, asthma, heart, lung, kidney issues 3. Left middle finger trigger finger, S/P release Resolved 4. Right carpal tunnel syndrome, S/P release DOS: 3/21/24 Pre-operative symptoms intermittent, but daily. Now with normal sensation 5. Right middle finger trigger finger, S/P release DOS: 01/28/24 With an ~10 degree flexion contracture Doing well Scribed for Destiny Ray MD by Maurice Day, director of graduate medical education, on 09/27/24 at 10:30 AM, EST. Coding Level of Care Code Est Pt Level 4 (95271) Diagnoses Trigger finger, right index finger M65.321 Trigger finger, right ring finger M65.341
== END 2024-09-27 10:38 | disposition home or self-care (01) ==
PROVIDERS: PCP Internal Medicine; Visit Provider Orthopaedic Surgery
DX: M65.321 Trigger finger, right index finger (principal); M65.341 Trigger finger, right ring finger
CPT/HCPCS: 99214

== ENCOUNTER 2024-11-14 10:44 | Day surgery (SDC) | payer OTHER, SELFPAY ==
[2024-11-14 11:55] VITALS: BP 153/78; PULSE 79; RESP 14; TEMP 36.8; O2SAT 97; BMI 29.0
--- NOTE | 2024-11-14 12:07 | MHC.SHP ---
Pre-Procedural Eval Section A - 24 Hr Update-Section A only Date of Service: 11/14/24 The patient is an INPATIENT: No Changes since office visit: No Cold of Flu in the past 2 weeks, No New Medical Problems, No Changes in Medication and No Patient answered all questions The patient has been examined within 24 hours of the surgical procedure. The History & Physical has been completed within 30 days and I have reviewed it.: Yes Section B - Complete if H&P > 30 days Chief Complaint: index and ring finger trigger release Allergies: Allergies Allergy/AdvReac Type Severity Reaction Status Date / Time NSAIDS (Non-Steroidal Allergy Severe Hives Verified 11/14/24 11:53 Anti-Inflamma atenolol Allergy Unknown Hives Verified 11/14/24 11:53 ciprofloxacin Allergy Unknown Hives Verified 11/14/24 11:53 apple Allergy Abdominal Verified 11/14/24 11:53 Pain Plan Diagnosis/Plan: Unchanged I have reviewed the history and physical and performed a pertinent physical examination on my patient. No changes have occurred unless specified. Time Spent With Patient Time: Total time managing care of this patient today ____ minutes.
--- NOTE | 2024-11-14 12:08 | P.OP_ITS ---
Operative Note Operative Note Date of Service: 11/14/24 Narrative: Operative Note Preop diagnosis: 1. Right index finger Trigger finger 2. Right ring finger trigger finger Postop diagnosis: Same Procedure: 1. Right index finger A1 susan release 2. Right ring finger A1 susan release Surgeon: Destniy Ray MD Cnc Laser Operator: None Anesthesia: local block using 1% lidocaine with epinephrine Findings: No locking or catching after A1 susan release EBL: Less than 5 mL Tourniquet time: None Specimens: None Complications: None Disposition: Brought to recovery room in stable condition Plan: Follow-up for 10-14 days for wound check and suture removal Indications: The patient is 49 years old, with right index finger and right ring finger trigger fingers that have been unresponsive to nonoperative management. The risks and benefits of operative treatment including but not limited to risk of damage to blood vessels, nerves, tendons, infection, persistent pain, persistent symptoms, recurrence or possible need for additional surgery were discussed with the patient and the patient wishes to proceed with surgery. Procedure: Once consent was obtained a local block was performed in the preop area using a combination of 1% lidocaine with epinephrine. The patient was then brought back to the operating suite and placed on the operative table in supine position. The right upper extremity was prepped and draped in a standard surgical fashion. Once assured that we had a good block, a 1.5 cm oblique incision was made centered over the A1 susan of the right index finger . The incision was made through the skin to the subcutaneous tissues using a #15 blade. Careful dissection was made down to the level of the A1 susan using tenotomy scissors, with care being taken to protect the nearby neurovascular structures. A longitudinal incision was made in the A1 susan 1st using a #15 blade, then using tenotomy scissors under direct visualization. The A1 susan was noted to be thickened. Following our A1 susan release, we no longer saw any locking or catching of the digit with flexion and extension. Once assured that we had a good block, a 1.5 cm oblique incision was made centered over the A1 susan of the right ring finger . The incision was made through the skin to the subcutaneous tissues using a #15 blade. Careful dissection was made down to the level of the A1 susan using tenotomy scissors, with care being taken to protect the nearby neurovascular structures. A longitudinal incision was made in the A1 susan 1st using a #15 blade, then using tenotomy scissors under direct visualization. The A1 susan was noted to be thickened. Following our A1 susan release, we no longer saw any locking or catching of the digit with flexion and extension. Once satisfied with our A1 susan release the wound was copiously irrigated with normal saline and hemostasis was obtained with a brief period of local pressure. The skin edges were reapproximated with some 5.0 nylon suture material and a sterile dressing was applied. The patient appears to have tolerated the procedure well and with no complications. All digits were well vascularized at the conclusion of the case.
== END 2024-11-14 13:36 | disposition home or self-care (01) ==
PROVIDERS: PCP Internal Medicine; Visit Provider Orthopaedic Surgery
PROC: (CPT 26055; principal; 2024-11-14 12:10)
DX: M65.321 Trigger finger, right index finger (principal); M65.341 Trigger finger, right ring finger; Z88.1 Allergy status to other antibiotic agents; Z88.6 Allergy status to analgesic agent; Z88.8 Allergy status to other drugs, medicaments and biological substances; I10 Essential (primary) hypertension; E78.00 Pure hypercholesterolemia, unspecified
CPT/HCPCS: 26055 ×2; J0171; J2003

== ENCOUNTER → 2024-11-14 10:44 | Outpatient (BNV) | payer OTHER, SELFPAY | PROVIDERS: PCP Internal Medicine; Visit Provider Orthopaedic Surgery | DX: M65.321 Trigger finger, right index finger (principal); M65.341 Trigger finger, right ring finger | CPT/HCPCS: 26055 ==

== ENCOUNTER 2024-11-29 11:16 | Outpatient (AMB) | payer OTHER, SELFPAY ==
--- NOTE | 2024-11-29 11:23 | MHC.OFFVIS ---
Intake Visit Reasons: PO RT RF/IF trigger 11/14/24 AR Intake Note: Esha is a 49 year old female who presents today for a post operative RT RF & IF trigger release, DOS 11/14/24 AR. Patient reports she is doing well, she has no concerns today. Allergies NSAIDS (Non-Steroidal Anti-Inflamma Allergy (Severe, Verified 11/29/24 11:44) Hives atenolol Allergy (Unknown, Verified 11/29/24 11:44) Hives ciprofloxacin Allergy (Unknown, Verified 11/29/24 11:44) Hives apple Allergy (Verified 11/29/24 11:44) Abdominal Pain HPI HPI PO RT RF/IF trigger 11/14/24 AR: Details: Patient is a 49-year-old female who presents for postoperative evaluation status post right ring finger and index finger trigger releases, DOS 11/14/2024. Patient reports she is feeling postoperatively, has no further locking and catching of the fingers. Denies any numbness or tingling in the right hand. No other acute complaints or concerns at this time. [facility] Medical History Meningitis Sciatica GI bleed Diverticulitis Elevated cholesterol HTN (hypertension) Colitis Surgical History H/O colonoscopy Hx of hysterectomy Hx of spinal surgery Family History Mother Diabetes Father Heart disease Social History (Updated 09/23/24 @ 14:43 by CHRISTOPHER Schmid) Household Members: Family Household Members Other:: Housing: House Do you presently have visiting nurse or other home services: No Alcohol intake: never Patient Tobacco Use Status: Never used Tobacco Substance Use Type: Marijuana service: No Current occupational status: employed Current occupation: self employed, rt handed Review of Systems Const All systems reviewed & are unremarkable except as noted in HPI and below Physical Exam Extrem Other: Patient is alert, oriented, and in no acute distress. Neuro: Normal sensation of the tips of all digits of the right hand at this time Vascular: Cap refill brisk Pain: No tenderness to palpation about the incision sites right hand No pain with range of motion ROM: Patient is able to flex and extend all digits of the right hand fully and without difficulty Skin: Well-approximated well-healing incision sites noted in the volar aspect of the patient's right hand at the level of the susan of the right index and right ring fingers General: No ecchymosis, erythema, or evidence of infection. Psych: Appears grossly normal Affect normal Attitude cooperative Assessment & Plan Assessment & Plan (1) Trigger finger, right ring finger: Code(s): M65.341 - Trigger finger, right ring finger Category: Medical (2) Trigger finger, right index finger: Code(s): M65.321 - Trigger finger, right index finger Category: Medical Plan 1. Trigger finger, right ring finger 2. Trigger finger, right index finger Status post trigger release, DOS 11/17/2024 Patient appears to be recovering well postoperatively Patient is educated about the typical recovery course At this time, patient is 1 she appears to be recovering very well, other acute Patient was advised she should continue to avoid submerging the hand for another week and avoid lifting anything heavier than a cell phone for a further 2 weeks Patient expresses understanding of Patient follow-up as needed with any acute concerns Coding Level of Care Code Global (74153) Diagnoses Trigger finger, right ring finger M65.341 Trigger finger, right index finger M65.321
== END 2024-11-29 11:44 | disposition home or self-care (01) ==
PROVIDERS: PCP Internal Medicine
DX: M65.341 Trigger finger, right ring finger (principal); M65.321 Trigger finger, right index finger
CPT/HCPCS: 99024